=== PATIENT | male | born 1980 | race African-American/Black ===

== ENCOUNTER 2017-12-17 17:58 | Observation (INO) | payer OTHER ==
[~2017-12-17] VITALS: Ht 185.4 cm; Wt 136.5 kg
[~2017-12-17 17:58] MED LIST: AMIT25TA19 PO; ASPI81TA28 PO; CLC100X PO; CPR500 PO; EMOL1CRE TOP; GABA-1218 PO; GABA600T PO; HYDR50CA2 PO; HYG25 PO; INSDGI SQ; INSHI7030 SC; INSHRI SQ; LCTX PO; LOSA1TAB38 PO; LPR50 PO; MGNO400 PO; MRLP17 PO; MTR500 PO; NUTR-298 PO; OXYC-57 PO; POLY335040 PO; PRAV40TA PO; RISP1TAB3 PO; ZNTT/150 PO; [UNRECOGNIZED DRUG - CODE] PO
[2017-12-17] MEDS ORDERED: ASPIRIN 324 MG CHEW PO STA (18:31)
[2017-12-17] MEDS ORDERED: LABETALOL HCL IV 5 MG/ML 20ML IV STA ×2 (18:31→19:42)
[2017-12-17] MEDS ORDERED: LABE1TAB28 PO (18:34)
[2017-12-17] MEDS ORDERED: AMLO-110 PO (18:34)
[2017-12-17] MEDS ORDERED: GABA-113 PO (18:34)
[2017-12-17] MEDS ORDERED: INSU1INJ SC (18:34)
[2017-12-17] MEDS ORDERED: INSDGIPEN SC (18:34)
[2017-12-17] MEDS ORDERED: INSHRIE SQ (18:34)
[2017-12-17] MEDS ORDERED: GLUC-338 PO (18:34)
[2017-12-17] MEDS ORDERED: LTHSR/300 PO (18:34)
[2017-12-17] MEDS ORDERED: PRAV20TA PO (18:34)
[2017-12-17] MEDS ORDERED: DIPH50TA10 PO (18:34)
--- NOTE | 2017-12-17 18:55 | DIAGNOSTIC IMAGING REPORT ---
CHEST ONE VIEW PORTABLE CLINICAL HISTORY: Chest pain. Hypertension. COMPARISON STUDY: Chest radiograph December 10, 2013. FINDINGS: Patient is mildly rotated. Lung volumes are normal. There is no pneumothorax or pleural effusion. There is no evidence for pulmonary edema. There is borderline cardiomegaly. No consolidation is identified to suggest pneumonia. IMPRESSION: 1. No acute cardiopulmonary findings. 2. Borderline cardiomegaly. Electronically signed by: Dillan Christian M.D. 12/17/2017 6:54 PM Dictated Date/Time: 12/17/2017 6:53 PM
[2017-12-17 19:26] LABS: BASO % 0.2 %; BASO ABS # 0.02 K/uL (0-0.2); EOS % 3.1 %; EOS ABS # 0.29 K/uL (0-0.5); HEMATOCRIT 41.7 % (42-52); IG# 0.02 K/uL (0.00-0.02); LYMPH % 23.4 %; LYMPH ABS # 2.22 K/uL (1.2-3.4); MEAN CELL VOLUME 80.2 fL (80-100); MEAN CORPUSCULAR HEMOGLOBIN 26.9 pg (25-34); MEAN CORPUSCULAR HGB CONC 33.6 g/dl (32-36); MEAN PLATELET VOLUME 11.3 fL (7.4-10.4); MONO % 7.8 %; MONO ABS # 0.74 K/uL (0.11-0.59); NEUT % 65.3 %; NEUT ABS # 6.21 K/uL (1.4-6.5); PLATELET COUNT 164 K/uL (130-400); RED CELL DISTRIBUTION WIDTH CV 15.8 % (11.5-14.5); RED CELL DISTRIBUTION WIDTH SD 46.7 fL (36.4-46.3)
[2017-12-17 19:36] LABS: PTT PATIENT 28.9 SECONDS (21.0-31.0)
[2017-12-17 19:47] LABS: CALCIUM 8.4 mg/dl (8.5-10.1); CREATININE 0.82 mg/dl (0.60-1.40); POTASSIUM 3.4 mmol/L (3.5-5.1)
[2017-12-17] MEDS ORDERED: HydrALAZINE HCL 20 MG/ML VIAL ONE (20:05)
[2017-12-17] MEDS ORDERED: HydrALAZINE HCL 20 MG/ML VIAL IV. STA (20:06)
[2017-12-17] MEDS ORDERED: ALUMINUM/MAGNESIUM/SIMETH (MAALOX MAX) 30 ML UDC PO PRN (21:00)
[2017-12-17] MEDS ORDERED: MAGNESIUM HYDROXIDE SUSP 30 ML UDC PO PRN (21:00)
[2017-12-17] MEDS: INSULIN ASPART 100 UNITS/ML 3 ML PEN SC SCH (21:00)
[2017-12-17] MEDS ORDERED: ONDANSETRON INJ 2 MG/ML 2 ML VIAL IV PRN (21:00)
[2017-12-17] MEDS ORDERED: POLYETHYLENE (MIRALAX) 17 GM PACK PO PRN (21:00)
[2017-12-17] MEDS ORDERED: HydrALAZINE HCL 20 MG/ML VIAL IV. PRN (21:15)
--- NOTE | 2017-12-17 21:28 | History and Physical ---
History & Physical Date & Time of Service: Dec 17, 2017 at 21:14 Chief Complaint: Hypertension/ Sci [place] Primary Care Physician: Katja FLEMING History of Present Illness Source: patient 37 y/o M Hx HTN, IDDM, bipolar disease, tobacco use. Presents from a local correctional facility with a chief complaint of CP. The pain is described as sharp, intermittent. L central, nonradiating. He denies SOB, N/V or diaphoresis. On arrival to the ER, his SBP was noted to be over 210 and has been slow to respond to several IV lowering agents. The pt admits that over the past few days he has neglected to take his prescribed antihypertensives. He is CP-free at the time of admission. Initial EKG and trop do not support acute ischemia. Past Medical/Surgical History 1) HTN 2) DM II 3) Obese 4) Bipolar disease 5) Smoker Family History Heart disease Father due to [place] Mother alive - DM Social History Smokes 2 packs daily, distant history of heroin use, does not drink as he is currently incarcerated Smoking Status: Current Every Day Smoker Drug Use: none, other Marital Status: single Immunizations History of Influenza Vaccine: Unknown History of Tetanus Vaccine?: No History of Pneumococcal: No History of Hepatitis B Vaccine: Yes Allergies Coded Allergies: No Known Allergies (Unverified , 12/17/17) Home Medications Scheduled Amlodipine (Norvasc), 5 MG PO DAILY Diphenhydramine Hcl (Sleep) (Diphenhydramine Hcl), 100 MG PO HS Gabapentin (Neurontin), 600 MG PO BID Insulin Glargine (Lantus Solostar), 5 UNITS SC QPM Insulin Human Regular (Humulin R), 1 DOSE SQ SLIDING SCALE Insulin Isophan/Regular (Humulin 70/30), 5 UNIT SC QAM Labetalol (Normodyne), 200 MG PO BID [place] Carbonate ([place] Carbonate), 900 MG PO HS Pravastatin (Pravachol ), 40 MG PO HS Scheduled PRN Glucose-Vitamin C (Glucose), 1 TAB PO TID PRN for PRN Review of Systems Constitutional: No fever, No chills, No sweats Eyes: No worsening of vision ENT: No hearing loss, No nasal symptoms Respiratory: No cough, No sputum, No wheezing Cardiovascular: + chest pain Abdomen: No pain, No nausea, No vomiting Musculoskeletal: No joint pain Genitourinary - Male: No hematuria, No dysuria Neurologic: No memory loss, No paralysis, No weakness Psychiatric: No depression symptoms Endocrine: No fatigue Hematologic / Lymphatic: No abnormal bleeding/bruising Integumentary: No rash Allergic / Immunologic: No environmental allergies Physical Exam Vital Signs Date Time Temp Pulse Resp B/P (MAP) Pulse Ox O2 Delivery O2 Flow Rate FiO2 12/17/17 20:54 68 20 187/101 99 Room Air 12/17/17 20:20 71 20 212/117 99 Room Air 12/17/17 19:57 61 20 215/120 99 Room Air 12/17/17 19:06 62 20 198/118 99 Room Air 12/17/17 18:56 99 Room Air 12/17/17 18:13 99 Room Air 12/17/17 18:09 66 12/17/17 18:02 37.0 65 20 206/115 99 Room Air General Appearance: WD/WN, no apparent distress, + obese Head: normocephalic ENT: normal ENT inspection, pharynx normal Neck: supple, no JVD Respiratory/Chest: chest non-tender, lungs clear, normal breath sounds Cardiovascular: regular rate, rhythm, no edema Abdomen/GI: normal bowel sounds, non tender, soft Back: normal inspection, no CVA tenderness 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, no motor/sensory deficits, alert, oriented x 3 Skin: normal color, warm/dry, no rash Diagnostics Laboratory Results Results Past 24 Hours Test 12/17/17 19:00 12/17/17 19:19 Range/Units White Blood Count 9.50 4.8-10.8 K/uL Red Blood Count 5.20 4.7-6.1 M/uL Hemoglobin 14.0 14.0-18.0 g/dL Hematocrit 41.7 42-52 % Mean Corpuscular Volume 80.2 80-100 fL Mean Corpuscular Hemoglobin 26.9 25-34 pg Mean Corpuscular Hemoglobin Concent 33.6 32-36 g/dl Platelet Count 164 130-400 K/uL Mean Platelet Volume 11.3 7.4-10.4 fL Neutrophils (%) (Auto) 65.3 % Lymphocytes (%) (Auto) 23.4 % Monocytes (%) (Auto) 7.8 % Eosinophils (%) (Auto) 3.1 % Basophils (%) (Auto) 0.2 % Neutrophils # (Auto) 6.21 1.4-6.5 K/uL Lymphocytes # (Auto) 2.22 1.2-3.4 K/uL Monocytes # (Auto) 0.74 0.11-0.59 K/uL Eosinophils # (Auto) 0.29 0-0.5 K/uL Basophils # (Auto) 0.02 0-0.2 K/uL RDW Standard Deviation 46.7 36.4-46.3 fL RDW Coefficient of Variation 15.8 11.5-14.5 % Immature Granulocyte % (Auto) 0.2 % Immature Granulocyte # (Auto) 0.02 0.00-0.02 K/uL Prothrombin Time 10.8 9.0-12.0 SECONDS Prothromb Time International Ratio 1.0 0.9-1.1 Activated Partial Thromboplast Time 28.9 21.0-31.0 SECONDS Partial Thromboplastin Ratio 1.1 Sodium Level 138 136-145 mmol/L Potassium Level 3.4 3.5-5.1 mmol/L Chloride Level 105 98-107 mmol/L Carbon Dioxide Level 29 21-32 mmol/L Anion Gap 4.0 3-11 mmol/L Blood Urea Nitrogen 8 7-18 mg/dl Creatinine 0.82 0.60-1.40 mg/dl Est Creatinine Clear Calc Drug Dose 178.9 ml/min Estimated GFR () 130.0 Estimated GFR (Non- 112.2 BUN/Creatinine Ratio 9.4 10-20 Random Glucose 122 70-99 mg/dl Calcium Level 8.4 8.5-10.1 mg/dl Normal EKG Impression Assessment and Plan 37 y/o M Hx HTN, IDDM, bipolar disease, tobacco use. Presents from a local correctional facility with a chief complaint of CP. The pain is described as sharp, intermittent. L central, nonradiating. He denies SOB, N/V or diaphoresis. On arrival to the ER, his SBP was noted to be over 210 and has been slow to respond to several IV lowering agents. The pt admits that over the past few days he has neglected to take his prescribed antihypertensives. He is CP-free at the time of admission. Initial EKG and trop do not support acute ischemia. 1) HTN urgency - he has been provided with IV Labetalol, IV Hydralazine, NTG ointment and 10mg IV Lasix. We will monitor his progress on telemetry. He may need a low-dose diuretic added to his daily Norvasc and Labetalol upon DC although caution should be used as he does take Bagnell as well. 2) CP - serial enzymes requested - placed on ASA and remains on a Bblocker - we will check an AM lipid profile and place him on a Statin. Despite his age, he has several risk factors including DM, HTN, obesity, heavy smoking and a family history. 3) IDDM - placed on SS + Lantus 4) Bipolar - cont Bagnell Full code - Heparin prophylaxis Total time for this admit including review of labs, meds, imaging - discussion with pt and ER attending - 35 min Level of Care Telemetry Resuscitation Status FULL RESUSCITATION VTE Prophylaxis VTE Risk Assessment Done? Y/N: Yes Risk Level: Low Given or contraindicated: Unfractionated heparin SQ
[2017-12-17] MEDS ORDERED: GLUCOSE 10 TABS/TUBE PO PRN (21:30)
[2017-12-17] MEDS ORDERED: GLUCOSE 40% GEL 15 GM TUBE PO PRN (21:30)
[2017-12-17] MEDS ORDERED: GLUCAGON FOR INJ 1 MG VIAL SQ PRN (21:30)
[2017-12-17] MEDS ORDERED: DEXTROSE 50% 50 ML SYR IV PRN (21:30)
[2017-12-17 22:41] VITALS: BP 178/105; PULSE 64; TEMP 36.8; O2SAT 97; Ht 185.4 cm; Wt 136.5 kg
[2017-12-17] MEDS ORDERED: FUROSEMIDE INJ 10 MG in SYRINGE 0 ML IV ONE (23:00)
[2017-12-17] MEDS ORDERED: NITROGLYCERIN 0.4 MG/HR PATCH TD ONE (23:00)
[2017-12-17] MEDS ORDERED: POTASSIUM CHLORIDE PWD 20 MEQ PACK PO ONE (23:00)
[2017-12-17] MEDS ORDERED: MAGNESIUM OXIDE 400 MG TAB PO ONE (23:00)
[2017-12-17] MEDS: LABETALOL HCL 200 MG TAB PO SCH (23:12)
[2017-12-17] MEDS: PRAVASTATIN SOD 40 MG TAB PO SCH (23:12)
[2017-12-17] MEDS: LITHIUM CARBONATE SR 300 MG TAB (LITHOBID) PO SCH (23:12)
[2017-12-17] MEDS: GABAPENTIN 600 MG TAB PO SCH (23:13)
[2017-12-17] MEDS: INSULIN GLARGINE SOLOSTAR 100 UNITS/ML 3 ML PEN SC SCH (23:15)
[2017-12-17] MEDS: HEPARIN SOD 5000 UNIT/0.5 ML CARP SQ SCH (23:18)
--- NOTE | 2017-12-17 23:34 | EMERGENCY ROOM VISIT NOTE ---
History Report prepared by Elyssa: Renetta Moeller Under the Supervision of: Dr. Tito Henry M.D. First contact with patient: 18:19 Chief Complaint: HYPERTENSION Stated Complaint: HYPERTENSION/ SCI [place] History of Present Illness The patient is a 37 year old male who presents to the Emergency Room with complaints of Hypertension beginning last week. He went to get his blood pressure checked at the [facility] because he had "chest discomfort" described as tightness on his left side beginning at 1115 today and his blood pressure was extremely high. He states the discomfort felt "a little funny" and lasted for an hour and was alleviated by labetalol. He had no associated shortness of breath, nausea or lightheadedness. He had no diaphoresis. The patient reports that he also had a "slight" headache which is now gone. He also notes he has never had a heart attack. The patient reports he has a history of high blood pressure and is on medications, but has been taking them intermittently for the past week. He notes he drinks 7 cups of coffee daily and smokes about 2 packs a day. Source of History: patient Onset: last week Position: chest (left) Symptom Intensity: mild Quality: other (tightness) Timing: resolved Associated Symptoms: + headache, No diaphoresis, No SOB, No nausea Review of Systems See HPI for pertinent positives & negatives. A total of 10 systems reviewed and were otherwise negative. Past Medical & Surgical Medical Problems: (1) Chest pain (2) Foot ulcer (3) Hepatitis (4) Hyperlipidemia (5) Hypertensive urgency Surgical Problems: (1) H/O hernia repair Family History Heart disease Social History Smoking Status: Current Every Day Smoker Drug Use: none, other Marital Status: single Housing Status: other Current/Historical Medications Scheduled Amlodipine (Norvasc), 5 MG PO DAILY Diphenhydramine Hcl (Sleep) (Diphenhydramine Hcl), 100 MG PO HS Gabapentin (Neurontin), 600 MG PO BID Insulin Glargine (Lantus Solostar), 5 UNITS SC QPM Insulin Human Regular (Humulin R), 1 DOSE SQ SLIDING SCALE Insulin Isophan/Regular (Humulin 70/30), 5 UNIT SC QAM Labetalol (Normodyne), 200 MG PO BID [place] Carbonate ([place] Carbonate), 900 MG PO HS Pravastatin (Pravachol ), 40 MG PO HS Scheduled PRN Glucose-Vitamin C (Glucose), 1 TAB PO TID PRN for PRN Allergies Coded Allergies: No Known Allergies (Unverified , 12/17/17) Physical Exam Vital Signs Date Time Temp Pulse Resp B/P (MAP) Pulse Ox O2 Delivery O2 Flow Rate FiO2 12/17/17 20:54 68 20 187/101 99 Room Air 12/17/17 20:20 71 20 212/117 99 Room Air 12/17/17 19:57 61 20 215/120 99 Room Air 12/17/17 19:06 62 20 198/118 99 Room Air 12/17/17 18:56 99 Room Air 12/17/17 18:13 99 Room Air 12/17/17 18:09 66 12/17/17 18:02 37.0 65 20 206/115 99 Room Air Physical Exam Constitutional: Vital signs reviewed. Eyes: Pupils are equal round reactive to light. Conjunctiva are noninjected. ENT: Pharynx is clear without erythema or exudate. Mucous membranes are moist. Neck supple without meningeal signs. Respiratory: Clear to auscultation bilaterally. Breath sounds are equal bilaterally. Cardiovascular: Regular rate and rhythm. No rubs or gallops. GI: Soft, nondistended and nontender. Bowel sounds are present. Musculoskeletal: No peripheral edema. No lower extremity tenderness. Integumentary: No cyanosis. Neurological: The patient is awake and alert. No focal deficits. Psychiatric: Normal affect. Medical Decision & Procedures ER Provider Diagnostic Interpretation: Radiology results as stated below per my review and the radiologist's interpretation: CHEST ONE VIEW PORTABLE CLINICAL HISTORY: Chest pain. Hypertension. COMPARISON STUDY: Chest radiograph December 10, 2013. FINDINGS: Patient is mildly rotated. Lung volumes are normal. There is no pneumothorax or pleural effusion. There is no evidence for pulmonary edema. There is borderline cardiomegaly. No consolidation is identified to suggest pneumonia. IMPRESSION: 1. No acute cardiopulmonary findings. 2. Borderline cardiomegaly. Electronically signed by: Dillan Christian M.D. 12/17/2017 6:54 PM Dictated Date/Time: 12/17/2017 6:53 PM Laboratory Results 12/17/17 19:19 Red Blood Count 5.20, Mean Corpuscular Volume 80.2, Mean Corpuscular Hemoglobin 26.9, Mean Corpuscular Hemoglobin Concent 33.6, Mean Platelet Volume 11.3, Neutrophils (%) (Auto) 65.3, Lymphocytes (%) (Auto) 23.4, Monocytes (%) (Auto) 7.8, Eosinophils (%) (Auto) 3.1, Basophils (%) (Auto) 0.2, Neutrophils # (Auto) 6.21, Lymphocytes # (Auto) 2.22, Monocytes # (Auto) 0.74, Eosinophils # (Auto) 0.29, Basophils # (Auto) 0.02 12/17/17 19:19 Test 12/17/17 19:00 12/17/17 19:19 Urine Opiates Screen NEG (NEG) Urine Methadone, Qualitative NEG (NEG) Urine Barbiturates NEG (NEG) Urine Phencyclidine (PCP) Level NEG (NEG) Ur Amphetamine/Methamphetamine NEG (NEG) MDMA (Ecstasy) Screen NEG (NEG) Urine Benzodiazepines Screen NEG (NEG) Urine Cocaine Metabolite NEG (NEG) Urine Marijuana (THC) NEG (NEG) White Blood Count 9.50 K/uL (4.8-10.8) Red Blood Count 5.20 M/uL (4.7-6.1) Hemoglobin 14.0 g/dL (14.0-18.0) Hematocrit 41.7 % (42-52) Mean Corpuscular Volume 80.2 fL (80-100) Mean Corpuscular Hemoglobin 26.9 pg (25-34) Mean Corpuscular Hemoglobin Concent 33.6 g/dl (32-36) Platelet Count 164 K/uL (130-400) Mean Platelet Volume 11.3 fL (7.4-10.4) Neutrophils (%) (Auto) 65.3 % Lymphocytes (%) (Auto) 23.4 % Monocytes (%) (Auto) 7.8 % Eosinophils (%) (Auto) 3.1 % Basophils (%) (Auto) 0.2 % Neutrophils # (Auto) 6.21 K/uL (1.4-6.5) Lymphocytes # (Auto) 2.22 K/uL (1.2-3.4) Monocytes # (Auto) 0.74 K/uL (0.11-0.59) Eosinophils # (Auto) 0.29 K/uL (0-0.5) Basophils # (Auto) 0.02 K/uL (0-0.2) RDW Standard Deviation 46.7 fL (36.4-46.3) RDW Coefficient of Variation 15.8 % (11.5-14.5) Immature Granulocyte % (Auto) 0.2 % Immature Granulocyte # (Auto) 0.02 K/uL (0.00-0.02) Prothrombin Time 10.8 SECONDS (9.0-12.0) Prothromb Time International Ratio 1.0 (0.9-1.1) Activated Partial Thromboplast Time 28.9 SECONDS (21.0-31.0) Partial Thromboplastin Ratio 1.1 Anion Gap 4.0 mmol/L (3-11) Est Creatinine Clear Calc Drug Dose 178.9 ml/min Estimated GFR () 130.0 Estimated GFR (Non- 112.2 BUN/Creatinine Ratio 9.4 (10-20) Calcium Level 8.4 mg/dl (8.5-10.1) Laboratory results as reviewed by me. Medications Administered Medications (Trade) Dose Ordered Sig/Travis Route Start Time Stop Time Status Last Admin Dose Admin Aspirin (Aspirin Chew) 324 mg NOW STAT PO 12/17/17 18:31 12/17/17 18:32 DC 12/17/17 19:05 324 MG Labetalol HCl (Normodyne IV) 10 mg NOW STAT IV 12/17/17 18:31 12/17/17 18:32 DC 12/17/17 19:03 10 MG Labetalol HCl (Normodyne IV) 10 mg NOW STAT IV 12/17/17 19:42 12/17/17 19:44 DC 12/17/17 19:55 10 MG Hydralazine HCl (HydrALAZINE INJ) 10 mg NOW STAT IV. 12/17/17 20:06 12/17/17 20:07 DC 12/17/17 20:12 10 MG ECG Indication: chest pain Rate (beats per minute): 60 Rhythm: normal sinus Findings: T-wave inversion (Lateral), ST elevation, no ectopy Comparison ECG Date: no prior available Change: Patient's electrocardiogram per my interpretation. ED Course 1824: The patient was evaluated in room B10. A complete history and physical exam was performed. 1830: Ordered Labetalol HCl 10 mg IV Aspirin 324 mg PO 1939: Repeat EKG was performed. The patient's ECG is as follows. Sinus bradycardia, rate is 59, less motion artifact. No acute ischemic changes, no ectopy. No change from prior ECG. Patient's electrocardiogram was interpreted by me. 1939: I checked on the patient at this time. His blood pressure is 207 systolic and he is not complaining of any chest pain. His Troponin is .1941: Ordered Labetalol 10 mg IV 2003: I checked on the patient and his blood pressure is still high. 2005: Hydralazine HCl 10 mg IV 2042: I checked the patient at this time. He has no symptoms but is still severely hypertensive. The patient will be further evaluated. Medical Decision This is a 37-year-old male presents with high blood pressure and chest discomfort. Differential diagnosis includes medication noncompliance, hypertensive urgency, unstable angina, CA, pleurisy, anxiety. I did perform a limited focused review of portions of the patient's old chart on the electronic medical record. The patient has had no recent pertinent visits to this hospital. I did evaluate the patient as noted above. The patient is presenting with poorly controlled high blood pressure. He states he takes his medications intermittently. He was given labetalol and Norvasc today and had no improvement of his significantly elevated blood pressure. He also developed chest discomfort which she described as a tightness to the left side of his chest. He is a heavy smoker and states that his father of a heart attack at age 55. His chest pain is currently resolved. IV access was established. The patient was placed on a continuous monitoring specialist. I did order and personally review the patient's 12-lead EKG and chest x-ray as described above. His initial EKG showed questionable T-wave inversions laterally. There was significant motion artifact and so I did repeat this and no T-wave inversions are noted on the second EKG. I did order and review the patient's blood work as noted in the electronic medical record. Troponin is negative. I did treat patient with IV labetalol 2. He was also given hydralazine 10 mg IV. He had minimal improvement of his blood pressure. Given his symptoms and poorly controlled blood pressure I did recommend hospitalization for further care. I did discuss the case with the case work aide. The hospitalist will see the patient. Medication Reconcilliation Current Medication List: was personally reviewed by me Blood Pressure Screening Patient's blood pressure: Elevated blood pressure Blood pressure disposition: Elevated BP felt to be situational Impression Primary Impression: Left sided chest pain Additional Impression: Hypertensive emergency Scribe Attestation The scribe's documentation has been prepared under my direct and personally reviewed by me in its entirety. I confirm that the note above accurately reflects all work, treatment, procedures, and medical decision making performed by me. Departure Information Dispostion Being Evaluated By Hospitalist Referrals Katja FLEMING (PCP) Forms HOME CARE DOCUMENTATION FORM, IMPORTANT VISIT INFORMATION, WORK / SCHOOL INSTRUCTIONS Patient Instructions My [facility] Health Problem Qualifiers
[2017-12-17 23:51] VITALS: BP 181/108; PULSE 73; TEMP 36.5; O2SAT 99
[2017-12-18] MEDS ORDERED: IV FLUIDS COMPLETED PRN (00:30)
[2017-12-18 03:39] VITALS: BP 136/78; PULSE 65; TEMP 36.6; O2SAT 99
[2017-12-18 07:29] LABS: BLOOD UREA NITROGEN 10 mg/dl (7-18); CALCIUM 8.4 mg/dl (8.5-10.1); CARBON DIOXIDE 28 mmol/L (21-32); CREATININE 0.84 mg/dl (0.60-1.40); GLUCOSE 172 mg/dl (70-99); POTASSIUM 3.4 mmol/L (3.5-5.1); SODIUM 143 mmol/L (136-145)
[2017-12-18] MEDS ORDERED: PNEUMOCOCCAL ADMINISTRATION CHARGE ONE (08:00)
[2017-12-18] MEDS ORDERED: PNEUMOCOCCAL POLYSACCHARIDES 25 MCG/0.5 ML VIAL/SYR IM. ONE (08:00)
[2017-12-18 08:07] VITALS: BP 158/82; PULSE 70; TEMP 36.6; O2SAT 99
[2017-12-18] MEDS: GABAPENTIN 600 MG TAB PO SCH ×2 (08:49→21:29)
[2017-12-18] MEDS: LABETALOL HCL 200 MG TAB PO SCH ×2 (08:49→21:29)
[2017-12-18] MEDS: ASPIRIN 81 MG ECTAB PO SCH (08:49)
[2017-12-18] MEDS: HEPARIN SOD 5000 UNIT/0.5 ML CARP SQ SCH ×3 (08:56→21:37)
[2017-12-18] MEDS: INSULIN ASPART 100 UNITS/ML 3 ML PEN SC SCH ×4 (08:56→21:00)
[2017-12-18] MEDS ORDERED: AMLODIPINE BESYLATE 5 MG TAB PO SCH (09:00)
[2017-12-18 11:50] VITALS: BP 157/89; PULSE 68; TEMP 36.6; O2SAT 99
[2017-12-18 15:43] VITALS: BP 150/73; PULSE 66; TEMP 36.8; O2SAT 98
--- NOTE | 2017-12-18 17:58 | Family Medicine Progress Note ---
Progress Note Date of Service Dec 18, 2017. Subjective Pt evaluation today including: conversation w/ patient, physical exam, chart review, lab review, review of inpatient medication list Pain: Patient reports minimal chest discomfort/tightness PO Intake: Tolerating well, requests regular diet for more food Voiding: no voiding problems Patient reports he is feeling better than he was last evening. He is anxious to leave the hospital. He reports minimal chest discomfort/pain Constitutional: No fever, No chills, No sweats, No weight loss, No weakness , No fatigue, No problem reported Respiratory: No cough, No sputum, No wheezing, No shortness of breath, No dyspnea on exertion, No dyspnea at rest, No hemoptysis, No problem reported Cardiovascular: + chest pain, No orthopnea, No PND, No edema, No claudication, No palpitations, No problem reported Abdomen: No pain, No nausea, No vomiting, No diarrhea, No constipation, No GI bleeding, No problem reported Medications Current Inpatient Medications Medications (Trade) Dose Ordered Sig/Travis Route Start Time Stop Time Status Last Admin Dose Admin Amlodipine Besylate (Norvasc Tab) 5 mg DAILY PO 12/18/17 09:00 01/17/18 08:59 12/18/17 08:48 5 MG Gabapentin (Neurontin Tab) 600 mg BID PO 12/17/17 21:00 01/16/18 20:59 12/18/17 08:49 600 MG Insulin Glargine (Lantus Solostar Pen) 5 units QPM SC 12/17/17 21:00 01/16/18 20:59 12/17/17 23:15 5 UNITS Labetalol HCl (Normodyne Tab) 200 mg BID PO 12/17/17 21:00 01/16/18 20:59 12/18/17 08:49 200 MG Pravastatin Sodium (Pravachol Tab) 40 mg HS PO 12/17/17 21:00 01/16/18 20:59 12/17/17 23:12 40 MG Diphenhydramine HCl (Benadryl Cap) 100 mg HS PO 12/17/17 21:00 01/16/18 20:59 12/17/17 23:13 100 MG Miner Carbonate (Lithobid Tab) 900 mg HS PO 12/17/17 21:00 01/16/18 20:59 12/17/17 23:12 900 MG Insulin Aspart (novoLOG ASPART) SLIDING SCALE G... ACHS SC 12/17/17 21:00 01/16/18 20:59 12/18/17 08:56 1 UNITS Heparin Sodium (Porcine) (Heparin Sq 5000 Unit/0.5ml) 5,000 unit Q8H SQ 12/17/17 23:00 01/16/18 22:59 12/18/17 08:56 5,000 UNIT Acetaminophen (Tylenol Tab) 650 mg Q4H PRN PO 12/17/17 21:00 01/16/18 20:59 Al Hydrox/Mg Hydrox/Simethicone (Maalox Max Susp) 15 ml Q4H PRN PO 12/17/17 21:00 01/16/18 20:59 Magnesium Hydroxide (Milk Of Magnesia Susp) 30 ml Q12H PRN PO 12/17/17 21:00 01/16/18 20:59 Ondansetron HCl (Zofran Inj) 4 mg Q6H PRN IV 12/17/17 21:00 01/16/18 20:59 Aspirin (Ecotrin Tab) 81 mg QAM PO 12/18/17 09:00 01/17/18 08:59 12/18/17 08:49 81 MG Polyethylene (Miralax Powder Packet) 17 gm DAILY PRN PO 12/17/17 21:00 01/16/18 20:59 Hydralazine HCl (HydrALAZINE INJ) 5 mg Q6H PRN IV. 12/17/17 21:15 01/16/18 21:14 Glucose (Glucose 40% Gel) 15-30 GRAMS 15 GRAMS... UD PRN PO 12/17/17 21:30 01/16/18 21:29 Glucose (Glucose Chew Tab) 4-8 Tablets 4 Tabl... UD PRN PO 12/17/17 21:30 01/16/18 21:29 Dextrose (Dextrose 50% 50ML Syringe) 25-50ML OF 50% DW IV FOR... UD PRN IV 12/17/17 21:30 01/16/18 21:29 Glucagon (Glucagon Inj) 1 mg UD PRN SQ 12/17/17 21:30 01/16/18 21:29 Miscellaneous (Iv Fluids Completed) 1 ea PRN PRN N/A 12/18/17 00:30 12/18/18 00:29 Objective Vital Signs Date Time Temp Pulse Resp B/P (MAP) Pulse Ox O2 Delivery O2 Flow Rate FiO2 12/18/17 08:07 36.6 70 16 158/82 (107) 99 12/18/17 08:00 Room Air 12/18/17 04:09 Room Air 12/18/17 03:39 36.6 65 18 136/78 (97) 99 Room Air 12/18/17 00:23 Room Air 12/17/17 23:51 36.5 73 20 181/108 (132) 99 Room Air 12/17/17 22:41 36.8 64 20 178/105 97 Room Air 12/17/17 22:11 178/95 12/17/17 21:43 195/98 12/17/17 21:30 68 18 191/108 98 Room Air 12/17/17 20:54 68 20 187/101 99 Room Air 12/17/17 20:20 71 20 212/117 99 Room Air 12/17/17 19:57 61 20 215/120 99 Room Air 12/17/17 19:06 62 20 198/118 99 Room Air 12/17/17 18:56 99 Room Air 12/17/17 18:13 99 Room Air 12/17/17 18:09 66 12/17/17 18:02 37.0 65 20 206/115 99 Room Air Physical Exam General Appearance: WD/WN, no apparent distress Eyes: normal inspection, PERRL, EOMI, sclerae normal ENT: hearing grossly normal, pharynx normal Neck: supple, no adenopathy, no JVD, no carotid bruits, trachea midline Respiratory/Chest: chest non-tender, lungs clear, normal breath sounds, no respiratory distress, no accessory muscle use Cardiovascular: regular rate, rhythm, no edema, no gallop, no JVD, no murmur Abdomen: normal bowel sounds, non tender, soft, no organomegaly, no pulsatile mass Extremities: normal range of motion, non-tender, normal inspection, no pedal edema Neurologic/Psychiatric: cash specialist II-XII nml as tested, no motor/sensory deficits, alert, normal mood/affect, oriented x 3 Skin: normal color, warm/dry, no rash Laboratory Results Last Resulted 12/17/17 19:19 Red Blood Count 5.20, Mean Corpuscular Volume 80.2, Mean Corpuscular Hemoglobin 26.9, Mean Corpuscular Hemoglobin Concent 33.6, Mean Platelet Volume 11.3, Neutrophils (%) (Auto) 65.3, Lymphocytes (%) (Auto) 23.4, Monocytes (%) (Auto) 7.8, Eosinophils (%) (Auto) 3.1, Basophils (%) (Auto) 0.2, Neutrophils # (Auto) 6.21, Lymphocytes # (Auto) 2.22, Monocytes # (Auto) 0.74, Eosinophils # (Auto) 0.29, Basophils # (Auto) 0.02 Last Resulted 12/18/17 06:13 Past 24 Hours Test 12/17/17 19:19 12/17/17 22:52 12/18/17 06:13 Range/Units Prothromb Time International Ratio 1.0 0.9-1.1 Prothrombin Time 10.8 9.0-12.0 SECONDS Troponin I < 0.015 < 0.015 0-0.045 ng/ml Assessment and Plan 37 y/o M PMH HTN, IDDM, bipolar disease, tobacco use (2ppd). Presents from a [facility] facility with a chief complaint of CP and hypertension. The pain is described as sharp, intermittent, located L central chest, nonradiating. He denies SOB, N/V or diaphoresis. On arrival to the ER, his SBP was noted to be over 210 and had been slow to respond to several IV lowering agents. The pt admits that over the past few days he has neglected to take his prescribed antihypertensives. He is currently c/o minimal chest discomfort. Initial EKG and serial trops do not support acute ischemia. HTN urgency Taking norvasc 5 and labetolol 200 BID as outpatient Unsure why with Hx of DM he is not on WESLEY-i. Consider adding. BPs have been running 150-160 after initial response overnight. Increased norvasc to 10 daily IV Labetalol, IV Hydralazine, NTG ointment and 10mg IV Lasix given last sweatband flanger his progress on telemetry. He may need a low-dose diuretic added to his daily Norvasc and Labetalol upon DC although caution should be used as he does take Miner as well. Consider WESLEY -i as above Consider cardio consult prn Chest pain Serial enzymes negative Placed on ASA and remains on a Bblocker AM lipid profile 40 mg pravastatin Despite his age, he has several risk factors including race, DM, HTN, obesity, heavy smoking and a family history. Stress echo to be performed tomorrow Consider cardio consult prn IDDM placed on SS + Lantus A1C check Patient refuses AHA and Diabetic diet; considering regular diet at snf, and reported good control of DM, regular diet ordered Patient has reportedly done well with diabetes in the last years due to being in snf; has lost 100 pounds, cut A1C from 15 to 6 (per pt) Bipolar cont Miner 900 Code: Full code DVTP: Heparin Dispo: Tele Resident Physician Supervision Note: I interviewed and examined the patient. Discussed with the resident and agree with findings and plan as documented in the note. Any exceptions or clarifications are listed here: IMPRESSION 1) Hypertensive emergency (HTN + chest pain) PLAN 1) Additional 5 Norvasc tonight, then 10 mg in AM 2) Consider WESLEY-I (verify with snf if he has an allergy or has been on WESLEY before) 3) Stress Echo in AM if we can control the BP Documented By: Grey Calvert Resident Tracking Resident Involvement: Resident Care Provided Care Provided: Adult Hospital Medicine
[2017-12-18] MEDS ORDERED: AMLODIPINE BESYLATE 5 MG TAB PO ONE (18:00)
[2017-12-18] MEDS: ACETAMINOPHEN 325 MG TAB PO PRN (18:27)
[2017-12-18 19:37] VITALS: BP 172/88; PULSE 65; TEMP 37; O2SAT 98
[2017-12-18] MEDS: PRAVASTATIN SOD 40 MG TAB PO SCH (21:29)
[2017-12-18] MEDS: LITHIUM CARBONATE SR 300 MG TAB (LITHOBID) PO SCH (21:31)
[2017-12-18] MEDS: INSULIN GLARGINE SOLOSTAR 100 UNITS/ML 3 ML PEN SC SCH (21:36)
[2017-12-19 00:02] VITALS: BP 155/85; PULSE 64; TEMP 37; O2SAT 97
[2017-12-19 05:07] VITALS: BP 155/85; PULSE 60; TEMP 36.5; O2SAT 99
[2017-12-19] MEDS: INSULIN ASPART 100 UNITS/ML 3 ML PEN SC SCH ×3 (07:00→16:15)
[2017-12-19 07:38] VITALS: BP 180/93; PULSE 67; TEMP 37.2; O2SAT 99
[2017-12-19] MEDS ORDERED: AMLODIPINE BESYLATE 5 MG TAB PO SCH (09:00)
[2017-12-19 09:17] LABS: HEMOGLOBIN A1C 6.9 % (4.5-5.6)
[2017-12-19] MEDS: ASPIRIN 81 MG ECTAB PO SCH (11:01)
[2017-12-19] MEDS: LABETALOL HCL 200 MG TAB PO SCH (11:01)
[2017-12-19] MEDS: GABAPENTIN 600 MG TAB PO SCH (11:01)
[2017-12-19 11:35] VITALS: BP 174/95; PULSE 58; TEMP 36.8; O2SAT 100
[2017-12-19 12:00] LABS: CALCIUM 8.6 mg/dl (8.5-10.1); CREATININE 0.89 mg/dl (0.60-1.40); POTASSIUM 3.6 mmol/L (3.5-5.1)
[2017-12-19] MEDS ORDERED: SPIRONOLACTONE 25 MG TAB PO ONE (13:00)
--- NOTE | 2017-12-19 13:16 | ECHOCARDIOGRAM REPORT ---
*NOTICE TO RECEIVING CONSTITUTION PARTY AGENCY This information is strictly Confidential and protected under [place] law. [place] law prohibits you from making any further disclosure of this information unless further disclosure is expressly permitted by the written consent of the person to whom it pertains or is authorized by law. A general authorization for the release of medical or other information is not sufficient for this purpose. Hospital accepts no responsibility if the information is made available to any other person, INCLUDING THE PATIENT. Interpretation Summary * Name: LEV BUCKNER [id number] Study Date: 12/19/2017 09:19 AM BP: 183/106 mmHg * Patient Location: C.2T\S\S230\S\2 HR: 55 * : 1980 (M/d/yyyy) Gender: Male Height: 72 in * Age: 37 yrs Ethnicity: AA Weight: 297 lb * Ordering Physician: Vivian Kaplan * Referring Physician: Katja FLEMING * Performed By: Annmarie Pace RDCS * * Reason For Study: Chest Pain * BSA: 2.5 m2 * -- Conclusions -- * Left ventricular systolic function is normal. * No regional wall motion abnormalities noted. * Ejection Fraction = 55-60%. * There is mild concentric left ventricular hypertrophy. * There is mild mitral regurgitation. Procedure Details * A complete two-dimensional transthoracic echocardiogram was performed (2D, M-mode, Doppler and color flow Doppler). Left Ventricle * The left ventricle is normal in size. * There is mild concentric left ventricular hypertrophy. * Ejection Fraction = 55-60%. * Left ventricular systolic function is normal. * No regional wall motion abnormalities noted. Right Ventricle * The right ventricle is grossly normal size. * The right ventricular systolic function is normal as assessed by tricuspid annular plane systolic excursion (TAPSE) (normal >1.5 cm). Atria * The left atrium is moderately dilated. * Borderline right atrial enlargement. * No ASD detected; PFO is not assessed. Mitral Valve * The mitral valve is grossly normal. * There is no mitral valve stenosis. * There is mild mitral regurgitation. Tricuspid Valve * The tricuspid valve is not well visualized, but is grossly normal. * There is no tricuspid stenosis. * There is trace tricuspid regurgitation. Aortic Valve * The aortic valve is normal in structure and function. * Aortic stenosis is absent. * No aortic regurgitation is present. Pulmonic Valve * The pulmonary valve is not well seen, but the Doppler examination is normal without significant regurgitation or stenosis. Great Vessels * Borderline aortic root dilatation. * The pulmonary artery is not well visualized, but is probably normal size. Pericardium/Pleural * There is no pericardial effusion. Great Vessels * Normal inferior vena cava size and collapsability with sniff indicates a normal right atrial pressure of 3 mmHg Left Ventricular Diastolic Function * Grade I diastolic dysfunction, (abnormal relaxation pattern). MMode 2D Measurements and Calculations IVSd 1.4 cm IVSs 1.6 cm LVIDd 5.7 cm LVIDs 4.0 cm LVPWd 1.4 cm LVPWs 2.2 cm IVS/LVPW 0.99 FS 30.9 % EDV(Teich) 162.1 ml ESV(Teich) 68.5 ml EF(Teich) 57.8 % EDV(cubed) 188.4 ml ESV(cubed) 62.2 ml EF(cubed) 67.0 % % IVS thick 14.0 % % LVPW thick 61.2 % LV mass(C)d 352.4 grams LV mass(C)dI 139.8 grams/m\S\2 LV mass(C)s 336.9 grams LV mass(C)sI 133.7 grams/m\S\2 SV(Teich) 93.7 ml SI(Teich) 37.2 ml/m\S\2 SV(cubed) 126.1 ml SI(cubed) 50.0 ml/m\S\2 Ao root diam 3.3 cm Ao root area 8.8 cm\S\2 ACS 2.1 cm LA dimension 5.0 cm LA/Ao 1.5 LVAd ap4 46.7 cm\S\2 LVLd ap4 10.6 cm EDV(MOD-sp4) 176.4 ml EDV(sp4-el) 175.1 ml LVAs ap4 28.1 cm\S\2 LVLs ap4 8.8 cm ESV(MOD-sp4) 81.4 ml ESV(sp4-el) 75.8 ml EF(MOD-sp4) 53.9 % EF(sp4-el) 56.7 % LVAd ap2 43.8 cm\S\2 LVLd ap2 9.8 cm EDV(MOD-sp2) 176.0 ml EDV(sp2-el) 166.4 ml LVAs ap2 27.5 cm\S\2 LVLs ap2 8.9 cm ESV(MOD-sp2) 80.8 ml ESV(sp2-el) 72.6 ml EF(MOD-sp2) 54.1 % EF(sp2-el) 56.4 % LVLd %diff -7.78 % EDV(MOD-bp) 182.0 ml LVLs %diff 0.61 % ESV(MOD-bp) 79.9 ml EF(MOD-bp) 56.1 % SV(MOD-sp4) 95.0 ml SI(MOD-sp4) 37.7 ml/m\S\2 SV(MOD-sp2) 95.2 ml SI(MOD-sp2) 37.8 ml/m\S\2 SV(MOD-bp) 102.2 ml SI(MOD-bp) 40.5 ml/m\S\2 SV(sp4-el) 99.3 ml SI(sp4-el) 39.4 ml/m\S\2 SV(sp2-el) 93.8 ml SI(sp2-el) 37.2 ml/m\S\2 Doppler Measurements and Calculations MV E max joann 83.4 cm/sec MV A max joann 50.0 cm/sec MV E/A 1.7 MV dec time 0.19 sec Ao V2 max 135.2 cm/sec Ao max PG 7.3 mmHg Ao max PG (full) 3.1 mmHg LV V1 max PG 4.2 mmHg LV V1 max 102.1 cm/sec PA V2 max 100.1 cm/sec PA max PG 4.0 mmHg TR max joann 202.5 cm/sec
[2017-12-19] MEDS ORDERED: SPR25 PO (13:34)
--- NOTE | 2017-12-19 13:48 | Discharge Instructions ---
Discharge Instructions Date of Service Dec 19, 2017. Admission Reason for Admission: Chest Pain, Hypertensive Urgency Discharge Discharge Diagnosis / Problem: Hypertensive urgency Discharge Goals Goal(s): Improve function, Increase independence, Improve disease control Activity Recommendations Activity Limitations: per Instructions/Follow-up section . Instructions / Follow-Up Instructions / Follow-Up Mr. Cote is a 37 yo male that came to [facility] following a sharp increase in blood pressure. At arrival, he was found to have blood pressures >200/100 and complained of chest pain. The high pressures were treated with IV labetalol and hydralazine. The course of his hospitalization was directed at monitoring his blood pressure and determining if he suffered any end organ damage as a result of the high pressures. On exam, the patient did not exhibit any focal neuro defects. EKG and serial cardiac enzymes were unremarkable. Troponin was slightly elevated in the ED, but trend down on subsequent check. In addition, echocardiogram testing was unremarkable, making cardiac complications from this episode of high blood pressure unlikely. After careful history, it was determined that the patient has been noncompliant with blood pressure medications. In addition to restarting his home medications, the patient is being sent home with a script for Spironolactone 25 mg once daily. Please monitor the patient's pressures and adjust medications accordingly. Current Hospital Diet Patient's current hospital diet: Diabetes Type 2 Diet Discharge Diet Recommended Diet: Diabetes Type 2 Diet Pending Studies Studies pending at discharge: no Laboratory Results Hemoglobin A1c Test 12/19/17 05:19 Range/Units Estimated Average Glucose 151 mg/dl Hemoglobin A1c 6.9 H 4.5-5.6 % Lipid Panel Test 12/19/17 05:19 Range/Units Triglycerides Level 82 0-150 mg/dl Cholesterol Level 130 0-200 mg/dl HDL Cholesterol 40 mg/dl Cholesterol/HDL Ratio 3.3 LDL Cholesterol, Calculated 74 mg/dl Medical Emergencies . Who to Call and When: Medical Emergencies: If at any time you feel your situation is an emergency, please call 911 immediately. . Non-Emergent Contact Non-Emergency issues call your: Primary Care Provider . . "Provider Documentation" section prepared by Farhan Melendez. . VTE Core Measure Inpt VTE Proph given/why not?: Unfractionated heparin SQ
[2017-12-19] MEDS: ACETAMINOPHEN 325 MG TAB PO PRN (15:39)
[2017-12-19 15:50] VITALS: BP 175/90; PULSE 65; TEMP 37.1; O2SAT 98
[2017-12-19 16:00] VITALS: O2SAT 98
--- NOTE | 2017-12-19 17:21 | Discharge Summary ---
Discharge Summary Date of Service Dec 19, 2017. Discharge Summary Admission Date: Dec 17, 2017 at 20:57 Discharge Date: Dec 19, 2017 Discharge Disposition: Home Principal Diagnosis: Hypertensive urgency Immunizations: Have You Had Influenza Vaccine: Unknown History of Tetanus Vaccine?: No History of Pneumococcal: No History of Hepatitis B Vaccine: Yes Discharge Exam Review of Systems: Constitutional: No fever, No chills, No sweats Respiratory: No cough, No sputum, No wheezing Cardiovascular: No chest pain, No orthopnea Abdomen: No pain, No nausea, No vomiting, No diarrhea Genitourinary - Female: No dysuria Genitourinary - Male: No hematuria Physical Exam: General Appearance: WD/WN, no apparent distress Respiratory/Chest: chest non-tender, lungs clear, normal breath sounds, no respiratory distress Cardiovascular: regular rate, rhythm, no edema, no gallop, no murmur Neurologic/Psychiatric: alert, normal mood/affect, oriented x 3 Skin: normal color, warm/dry, no rash Hospital Course Mr. Cote is a 37 yo male that came to [facility] following a sharp increase in blood pressure. At arrival, he was found to have blood pressures >200/100 and complained of chest pain. The high pressures were treated with IV labetalol and hydralazine. The course of his hospitalization was directed at monitoring his blood pressure and determining if he suffered any end organ damage as a result of the high pressures. On exam, the patient did not exhibit any focal neuro defects. EKG and serial cardiac enzymes were unremarkable. Troponin was slightly elevated in the ED, but trend down on subsequent check. In addition, echocardiogram testing was unremarkable, making cardiac complications from this episode of high blood pressure unlikely. After careful history, it was determined that the patient has been noncompliant with blood pressure medications. In addition to restarting his home medications, the patient is being sent home with a script for Spironolactone 25 mg once daily. Please monitor the patient's pressures and adjust medications accordingly. Total Time Spent: Less than 30 minutes This includes examination of the patient, discharge planning, medication reconciliation, and communication with other providers. Discharge Instructions Please refer to the electronic Patient Visit Report (Discharge Instructions) for additional information. Additional Copies To [email or web address]
[2017-12-20] MEDS ORDERED: SPIRONOLACTONE 25 MG TAB PO SCH (09:00)
== END 2017-12-19 18:10 ==
LOC: EDBD 17:58 → C.EDB 18:00 → C.2T 20:57 → ENRESERV 21:04 → C.2T 12-18 14:16
PROVIDERS: ADMIT Internal Medicine; ATTEND Internal Medicine
DX: I10 Essential (primary) hypertension (principal); E78.5 Hyperlipidemia, unspecified; E11.9 Type 2 diabetes mellitus without complications; F31.9 Bipolar disorder, unspecified; E66.9 Obesity, unspecified; F17.200 Nicotine dependence, unspecified, uncomplicated; Z98.890 Other specified postprocedural states; Z79.4 Long term (current) use of insulin

== ENCOUNTER 2024-02-14 15:40 | Inpatient (IN) ==
[2024-02-14 17:28] LABS: Basophils # (auto) 0.06 K/uL (0.00-0.20); Basophils % (auto) 0.3 %; Eosinophils # (auto) 0.09 K/uL (0.00-0.50); Eosinophils % (auto) 0.4 %; Hematocrit (blood only) 35.5 % (42.0-52.0); Hemoglobin 11.3 g/dl (14.0-18.0); Immature Granulocytes # (auto) 0.12 K/uL (0.01-0.20); Immature Granulocytes % (auto) 0.6 %; Lymphocytes # (auto) 1.77 K/uL (1.20-3.40); Lymphocytes % (auto) 8.7 %; Mean Corpuscular Hemoglobin 23.1 pg (25.0-34.0); Mean Corpuscular Hgb Conc 31.8 g/dL (32.0-36.0); Mean Corpuscular Volume 72.4 fL (80.0-100.0); Mean Platelet Volume 10.4 fL (9.4-12.4); Monocytes # (auto) 1.47 K/uL (0.11-0.59); Monocytes % (auto) 7.2 %; Neutrophils # (auto) 16.92 K/uL (1.40-6.50); Neutrophils % (auto) 82.8 %; Platelet Count 366 K/uL (130-400); RDW Coefficient of Variation 17.5 % (11.5-14.5); RDW Standard Deviation 45.7 fL (36.4-46.3); White Blood Count 20.43 K/ul (4.8-10.8)
[2024-02-14 17:32] LABS: INR 1.1 (0.9-1.1); Partial Thromboplastin Ratio 1.1; Partial Thromboplastin Time 32 Seconds (21-31); Prothrombin Time 11.5 Seconds (9.0-12.0)
[2024-02-14 17:51] LABS: Alanine Aminotransferase 10 U/L (7-52); Albumin Globulin Ratio 0.8 (0.9-2); Albumin Level 3.5 gm/dl (3.4-5.0); Alkaline Phosphatase 85 U/L (34-104); Anion Gap 9 (3-11); Aspartate Aminotransferase 12 U/L (13-39); BUN Creatinine Ratio 14.6 (10-20); Bilirubin,Total 0.6 mg/dl (0.2-1.0); Blood Urea Nitrogen 20 mg/dl (6-23); Calcium 8.9 mg/dl (8.6-10.3); Carbon Dioxide 29 mmol/L (21-32); Chloride 101 mmol/L (98-107); Est GFR (African American) 72.2 ml/min; Est GFR (Non-African American) 62.3 ml/min; Globulin 4.4 gm/dl (2.5-4.0); Glucose 95 mg/dl (70-99(Fasting)); Potassium 2.9 mmol/L (3.5-5.1); Sodium 139 mmol/L (136-145); Total Protein 7.9 gm/dl (6.0-8.3)
--- NOTE | 2024-02-14 18:18 | Emergency Department Note ---
Impression & Plan Diabetic infection of right foot ED Provider Note Provider: Stephon Webb MD DATE OF SERVICE: 02/14/2024 CHIEF COMPLAINT: Diabetic right foot infection HISTORY OF PRESENT ILLNESS: Patient is a 43-year-old gentleman diabetic for approximately 20 years by his report presenting today from the long-term for evaluation of a right foot infection. Patient states has been present for several weeks. Records indicate the patient was on some Levaquin but worsening infection of his right pinky toenail pain into his right foot. Denies any significant trauma. Denies systemic fevers. States he broke his left foot previously has chronic deformity there but denies any issue in the left leg or foot. Has been putting some bandaging and dressings on the right pinky toe which has had some trace drainage. States he has not been receiving any significant pain medicine at the present. Patient states he did have prior brain surgery for brain mass this past fall. PAST MEDICAL HISTORY: As noted above MEDICATIONS: Reviewed medications from the long-term SOCIAL HISTORY: Inmate at [facility] PHYSICAL EXAM: GENERAL: alert and oriented in no acute distress on stretcher guards at bedside Head: normocephalic and atraumatic EYES: No injection, discharge or icterus. NECK: Trachea midline. ENT: Mucous membranes pink and moist. LUNGS: Airway patent. No retractions or tachypnea HEART: Regular rate and rhythm. SKIN: Acyanotic, warm, dry, without rashes EXTREMITIES: Without swelling, tenderness or deformity with some chronic left foot deformity without tenderness. The right foot mildly edematous with erythema particular laterally and at least 1 cm ulceration of the right dorsal pinky toe with trace discharge. No crepitus. NEUROLOGICAL: No focal deficits. No aphasia. No facial droop or slurred speech. Patient's laboratory studies and imaging reviewed. Differential includes DVT, musculoskeletal, infection, joint effusion, trauma, lymphedema, idiopathic, CHF, as well as other pathologies. IMPRESSION/MEDICAL DECISION MAKING: Diabetic. Appears to have infection of his right pinky toe extending in the right foot. Doubt necrotizing fasciitis. Present for some time. Has been on Levaquin but failing outpatient treatment. No fever or hypotension here without signs of systemic sepsis. Does have leukocytosis however and will obtain blood cultures. Not real good wound for surface culture in my opinion. Doubt this represents given the infectious symptomatology as noted here and appearance of DVT. Will cover broadly with Zosyn and MRSA given his risk factors with his diabetes, foot infection, and incarceration. ESR and CRP ordered. Will obtain x-ray to look for possible osteomyelitis; per report there is questions of the right fifth pinky toe modeling for bone infection. Patient requires hospitalization given the extent of his infection and failure of outpatient treatment. Hospitalist team contacted. Given some slight oral potassium supplementation as well as his evening dose of Keppra. CRP elevated at 13.2. DIAGNOSIS: Right diabetic foot infection DISPOSITION: Hospitalist will evaluate Patient was agreeable with this plan. Past Med/Surg History Social History Smoking Status: Current every day smoker Tobacco Type: Cigarettes Preferred Language: Mongolian Feels Safe at Home: Yes Allergies Allergies Allergy/AdvReac Type Severity Reaction Status Date / Time No Known Allergies Allergy Verified 02/14/24 18:20 Home Meds Home Medications Medication Instructions Recorded Confirmed amlodipine 10 mg tablet 10 mg PO DAILY 07/13/23 02/14/24 chlorthalidone 50 mg tablet 50 mg PO DAILY 07/13/23 02/14/24 gabapentin 400 mg capsule 400 mg PO BID 07/13/23 02/14/24 gabapentin 600 mg tablet 600 mg PO BID 07/13/23 02/14/24 glucose 1 tab PO TID PRN Hypoglycemia 07/13/23 02/14/24 insulin glargine 100 unit/mL 70 unit subcut BID 07/13/23 02/14/24 subcutaneous solution rosuvastatin 40 mg tablet 40 mg PO HS 07/13/23 02/14/24 docusate sodium 100 mg capsule 100 mg PO DAILY 02/14/24 02/14/24 insulin regular human 100 unit/mL 1 sliding scale dose subcut 02/14/24 02/14/24 injection solution (Novolin R USEASDIRECTD Regular U-100 Insulin) levetiracetam 1,000 mg tablet 1,000 mg PO BID 02/14/24 02/14/24 (Keppra) levofloxacin 500 mg tablet 500 mg PO DAILY 02/14/24 02/14/24 loperamide 2 mg capsule (Imodium 2 mg PO QID PRN Diarrhea 02/14/24 02/14/24 A-D) Results & Data (ED) Vital Signs Vital Signs - 24 hr 02/14/24 15:55 02/14/24 18:22 Temperature 37.2 C Temperature Source Skin Pulse Rate 90 Pulse Rate [Finger] 83 Respiratory Rate 18 18 Blood Pressure 142/89 H Blood Pressure [Right Arm] 160/92 H Blood Pressure Mean 106 Blood Pressure Mean [Right Arm] 114 Pulse Oximetry 98 97 Oxygen Delivery Method Room Air Room Air Sepsis Recent Fever Within 48 Hours No Sepsis New/Unexplained Change in Mental Status No Sepsis Action Taken by Nursing No Action Required Laboratory Data 02/14/24 16:55 02/14/24 16:55 Lab Results 02/14/24 Range/Units 16:55 WBC 20.43 H (4.8-10.8) K/ul RBC 4.90 (4.70-6.10) M/uL Hgb 11.3 L (14.0-18.0) g/dl Hct 35.5 L (42.0-52.0) % MCV 72.4 L (80.0-100.0) fL MCH 23.1 L (25.0-34.0) pg MCHC 31.8 L (32.0-36.0) g/dL RDW Std Deviation 45.7 (36.4-46.3) fL RDW Coeff of Ferdinand 17.5 H (11.5-14.5) % Plt Count 366 (130-400) K/uL MPV 10.4 (9.4-12.4) fL Immature Gran % (Auto) 0.6 % Neut % (Auto) 82.8 % Lymph % (Auto) 8.7 % Powell % (Auto) 7.2 % Eos % (Auto) 0.4 % Baso % (Auto) 0.3 % Neut # (Auto) 16.92 H (1.40-6.50) K/uL Lymph # (Auto) 1.77 (1.20-3.40) K/uL Powell # (Auto) 1.47 H (0.11-0.59) K/uL Eos # (Auto) 0.09 (0.00-0.50) K/uL Baso # (Auto) 0.06 (0.00-0.20) K/uL Immature Gran # (Auto) 0.12 (0.01-0.20) K/uL PT 11.5 (9.0-12.0) Seconds INR 1.1 (0.9-1.1) APTT 32 H (21-31) Seconds PTT Ratio 1.1 Sodium 139 (136-145) mmol/L Potassium 2.9 L (3.5-5.1) mmol/L Chloride 101 (98-107) mmol/L Carbon Dioxide 29 (21-32) mmol/L Anion Gap 9 (3-11) BUN 20 (6-23) mg/dl Creatinine 1.37 (0.6-1.4) mg/dl Est Cr Clr Drug Dosing Not Reportable Est GFR ( Amer) 72.2 ml/min Est GFR (Non-Af Amer) 62.3 ml/min BUN/Creatinine Ratio 14.6 (10-20) Glucose 95 (70-99(Fasting)) mg/dl Calcium 8.9 (8.6-10.3) mg/dl Total Bilirubin 0.6 (0.2-1.0) mg/dl AST 12 L (13-39) U/L ALT 10 (7-52) U/L Alkaline Phosphatase 85 (34-104) U/L C-Reactive Protein 13.28 H (0-0.5) mg/dl Total Protein 7.9 (6.0-8.3) gm/dl Albumin 3.5 (3.4-5.0) gm/dl Globulin 4.4 H (2.5-4.0) gm/dl Albumin/Globulin Ratio 0.8 L (0.9-2) Administered Medications Discontinued Medications Piperacillin Sod/Tazobactam Sod (Zosyn) 4.5 gm in 100 mls @ 200 mls/hr IV NOW ONE Stop: 02/14/24 18:36 Last Admin: 02/14/24 18:37 Dose: 200 mls/hr Documented By: CARLI Levetiracetam (Levetiracetam 500 Mg/5 Ml Vial) 1,000 mg IV NOW STA Stop: 02/14/24 18:06 Last Admin: 02/14/24 18:22 Dose: 1,000 mg Documented By: CARLI Morphine Sulfate (Morphine Sulfate 4 Mg/Ml 1 Ml Carp\Vial) 4 mg IV NOW STA Stop: 02/14/24 18:09 Last Admin: 02/14/24 18:22 Dose: 4 mg Documented By: CARLI Potassium Chloride (Potassium Chloride Crtab 20 Meq Tabcr) 40 meq PO NOW STA Stop: 02/14/24 18:24 Last Admin: 02/14/24 18:37 Dose: 40 meq Documented By: CARLI Imaging Data Radiologist's Impression: Foot X-Ray 02/14/24 18:05 XR foot RT min 3V routine HISTORY: 43 years-old Male infection, wound 5th toe soft tissue infection with possible osteomyelitis of the fifth toe COMPARISON: None TECHNIQUE: 3 views of the right foot FINDINGS: Hallux valgus with first metatarsal bunion. Mild joint space narrowing of the interphalangeal joints. Arterial calcifications. Soft tissue swelling. Punctate metallic density foci of the hindfoot. No dislocation is seen. Soft tissue ulcer of the fifth toe laterally. Demineralized appearance of the fifth middle phalanx with cortical irregularity of the proximal cortex. IMPRESSION: 1. Soft tissue swelling with ulcer of the fifth toe. 2. Demineralized appearance of the fifth middle phalanx with proximal cortical irregularity, equivocal for early osteomyelitis. Follow-up recommended. 3. Hallux valgus with first metatarsal bunion. ACT 112: Negative or not required by law. The above report was generated using voice recognition software. It may contain grammatical, syntax or spelling errors. Electronically signed by: Will Muller M.D. 02/14/2024 6:41 PM Discharge Plan Visit Data Chief Complaint: Infection, Wound Stated Complaint: RIGHT TOE INFECTION ED Provider: Stephon Webb Discharge Problem: Diabetic infection of right foot Patient Disposition: Being Evaluated by Hospitalist Forms Stand Alone Forms: My [facility] Prescriptions Prescriptions: No Action rosuvastatin 40 mg Tablet 40 mg PO HS amlodipine 10 mg Tablet 10 mg PO DAILY chlorthalidone 50 mg Tablet 50 mg PO DAILY gabapentin 600 mg Tablet 600 mg PO BID Rx Instructions: take with 400mg for total dose 1000mg gabapentin 400 mg Capsule 400 mg PO BID Rx Instructions: take with 600 mg for total of 1000mg insulin glargine [Semglee U-100 Insulin] 100 unit/mL Solution 70 unit SUBCUT BID glucose Tablet,Chewable 1 tab PO TID PRN (Reason: Hypoglycemia) loperamide [Imodium A-D] 2 mg Capsule 2 mg PO QID PRN (Reason: Diarrhea) Novolin R Regular U100 Insulin 100 unit/mL Solution 1 sliding scale dose SUBCUT USEASDIRECTD Rx Instructions: BSG 201-250=2 UNITS, 251-300=4 UNITS, 301-350=6 UNITS, 351-400=8 UNITS, 401- 450=10 UNITS, 451-500=12 UNITS, >500 CALL MD. docusate sodium 100 mg Capsule 100 mg PO DAILY levofloxacin 500 mg Tablet 500 mg PO DAILY Rx Instructions: STARTED 02/13/24 FOR 10 DAYS, ENDS 02/23/24. levetiracetam [Keppra] 1,000 mg Tablet 1,000 mg PO BID Referrals Referrals: Katja FLEMING [Primary Care Provider] -
[2024-02-14] MEDS: levETIRAcetam 500 MG/5 ML VIAL IV STA (18:22)
[2024-02-14] MEDS: MoRPHine SULFATE 4 MG/ML 1 ML CARP\\VIAL IV STA (18:22)
[2024-02-14] MEDS: POTASSIUM CHLORIDE CRTAB 20 MEQ TABCR PO STA ×2 (18:37→19:32)
[2024-02-14] MEDS: PIPERACILLIN/TAZOBACTAM 4.5 GM/100 ML BAG IV ONE (18:37)
[2024-02-14 18:38] LABS: C Reactive Protein 13.28 mg/dl (0-0.5)
--- NOTE | 2024-02-14 18:42 | XRay Report ---
XR foot RT min 3V routine HISTORY: 43 years-old Male infection, wound 5th toe soft tissue infection with possible osteomyeliti s of the fifth toe COMPARISON: None TECHNIQUE: 3 views of the right foot FINDINGS: Hallux valgus with first metatarsal bunion. Mild joint space narrowing of the interphalangeal joints. Arterial calcifications. Soft tissue swelling. Punctate metallic density foci of the hindfoot. No di slocation is seen. Soft tissue ulcer of the fifth toe laterally. Demineralized appearance of the fift h middle phalanx with cortical irregularity of the proximal cortex. IMPRESSION: 1. Soft tissue swelling with ulcer of the fifth toe. 2. Demineralized appearance of the fifth middle phalanx with proximal cortical irregularity, equivoca l for early osteomyelitis. Follow-up recommended. 3. Hallux valgus with first metatarsal bunion. ACT 112: Negative or not required by law. The above report was generated using voice recognition software. It may contain grammatical, syntax o r spelling errors. Electronically signed by: Will Muller M.D. 02/14/2024 6:41 PM
--- NOTE | 2024-02-14 19:04 | History & Physical Report ---
Date of Service February 14, 2024 Assessment & Plan (1) Diabetic infection of right foot: Plan: -Admit to med/tele -Currently hemodynamically stable and non-toxic appearing -Presented to the ED from [facility] due to concerns of ongoing right foot and right 5th toe infection -Failed outpatient Levaquin therapy -Right foot is erythematous and swollen -Noted to have a leukocytosis of 20 with neutrophil predominance of 16 -Xray of the right foot shows soft tissue swelling and concern for possible OM of the right fifth toe -S/P one dose of Zosyn in the ED -We will switch him to Cefepime and Daptmycin for now -Will obtain MRI of the right foot for further evaluation -Will also obtain arterial doppler of the right LE with his hx of DM -Hold chemical DVT PPX for now as he will likely need to go to the OR with orthopedics tomorrow -Orthopedics consult placed -HH/DMII diet until midnight then NPO -Will start maintenance IV fluids when NPO at midnight -AM CBC, CMP, mag, PT/INR (2) Infected blister of fifth toe of right foot: Plan: -Pain control with tylenol and morphine -Rest of care see diabetic right foot infection (3) Hypokalemia: Plan: -Noted to be 2.9 in the ED -Was given 40 meq PO KCL in the ED -Mag of 1.9 -will give an additional 40 meq PO KCL on admission -Monitor on tele -Monitor AM electrolytes (4) DMII (diabetes mellitus, type 2): Plan: -Monitor BSG ACHS, goal is 110-160 -Normally takes 70 units of lantus BID -Will start him on 50 units lantus BID as he will be NPO at midnight -CF of 50 with CR of 15 -Pharmacy glycemic consult placed (5) History of brain tumor: Plan: -Resected at [facility] [place] in the fall of last year -Continue BID keppra for seizure prophylaxis (6) Hyperlipidemia: Plan: -Holding statin while on Daptomycin (7) HTN (hypertension): Plan: -Stable -Continue amlodipine Plan The patient was discussed with Dr. Kang at the time of the admission History of Present Illness Chief Complaint: Right leg/foot swelling/pain [facility] a 43 year old male inmate of [facility] with a PMH significant for recent Hospitalization at [facility] [place] this past fall for brain tumor resection now on Keppra for seizure prophylaxis, HTN, DMII, and hyperlipidemia who presented to the [facility] ED on 02/14/24 with complaints of ongoing right foot/leg swelling and pain. The patient has reportedly [facility] for [facility] without improvement. On arrival to the ED he was noted to be hypertensive at 160/92 but otherwise stable. Labs were significant for a leukocytosis of 20 with neutrophil predominance of 16, potassium of 2.9, CRP of 13.28. Xray of the right foot were read as "1. Soft tissue swelling with ulcer of the fifth toe. 2. Demineralized appearance of the fifth middle phalanx with proximal cortical irregularity, equivocal for early osteomyelitis. Follow-up recommended. 3. Hallux valgus with first metatarsal bunion.". Prior to admission the patient was given a dose of zosyn and his missed dose of keppra. At the time of the exam the patient was lying in bed in no acute distress. He states that he initially had a callous on the right fifth toe which he picked off approximately 2 weeks ago. Since then he has had progressive erythema, swelling, and pain of the right 5th toe and foot. He has had some drainage from the right fifth toe. His pain is currently a 9/10, he feels as though he has been having fever and chills. Denies numbness/tingling in the RLE. I explained that if the infection has moved into the bone he will have to go to the OR with orthopedics for likely amputation. Please refer to Dr. Kang's attestation for any changes to the treatment plan Allergies Allergy/AdvReac Type Severity Reaction Status Date / Time No Known Allergies Allergy Verified 02/14/24 18:20 Home Medications Medication Instructions Recorded Confirmed Type amlodipine 10 mg tablet 10 mg PO DAILY 07/13/23 02/14/24 History chlorthalidone 50 mg tablet 50 mg PO DAILY 07/13/23 02/14/24 History gabapentin 400 mg capsule 400 mg PO BID 07/13/23 02/14/24 History gabapentin 600 mg tablet 600 mg PO BID 07/13/23 02/14/24 History glucose 1 tab PO TID PRN Hypoglycemia 07/13/23 02/14/24 History insulin glargine 100 unit/mL 70 unit subcut BID 07/13/23 02/14/24 History subcutaneous solution rosuvastatin 40 mg tablet 40 mg PO HS 07/13/23 02/14/24 History docusate sodium 100 mg capsule 100 mg PO DAILY 02/14/24 02/14/24 History insulin regular human 100 unit/mL 1 sliding scale dose subcut 02/14/24 02/14/24 History injection solution (Novolin R USEASDIRECTD Regular U-100 Insulin) levetiracetam 1,000 mg tablet 1,000 mg PO BID 02/14/24 02/14/24 History (Keppra) levofloxacin 500 mg tablet 500 mg PO DAILY 02/14/24 02/14/24 History loperamide 2 mg capsule (Imodium 2 mg PO QID PRN Diarrhea 02/14/24 02/14/24 History A-D) Past Med/Surg History Social History Smoking Status: Current every day smoker Tobacco Type: Cigarettes Preferred Language: Kyrgyz Feels Safe at Home: Yes Physical Exam 2 Physical Exam: Physical Exam: General: In no acute distress, stated age, morbidly obese, well-nourished HEENT: Normocephalic, atraumatic, no scleral icterus, pupils around round, symmetrical, and reactive to light, moist mucus membranes, trachea midline, no thyromegaly Chest/Pulm: No respiratory distress, symmetrical chest expansion, clear breath sounds throughout Cardiac: RRR, no murmurs noted Abdomen: Negative for ascites and bruising, normoactive bowel sounds, soft, non-tender to palpation throughout Musculoskeletal: Patient with ulceration with eschar overlying the dorsal aspect of the right 5th with trace drainage, the right foot is swollen and erythematous but does not move into the right ankle, see attached image for further details Extremities: Radial, dorsalis pedis, and posterior tibial pulses are intact and symmetrical, no edema noted in the BL LE's Skin: See attached image for details Neuro: Alert and oriented to person, place, month, year, and president, no focal defects, no tremors noted Psych: No acute distress, calm and cooperative during the exam Results & Data Results & Data Vital Signs (Past 12 Hours) Vital Signs Temp Pulse Pulse Resp BP BP Pulse Ox 02/14/24 18:22 83 18 160/92 H 97 02/14/24 15:55 37.2 C 90 18 142/89 H 98 O2 Del Method 02/14/24 18:22 Room Air 02/14/24 15:55 Room Air Laboratory Results Abnormal lab results 02/14/24 Range/Units 16:55 WBC 20.43 H (4.8-10.8) K/ul Hgb 11.3 L (14.0-18.0) g/dl Hct 35.5 L (42.0-52.0) % MCV 72.4 L (80.0-100.0) fL MCH 23.1 L (25.0-34.0) pg MCHC 31.8 L (32.0-36.0) g/dL RDW Coeff of Ferdinand 17.5 H (11.5-14.5) % Neut # (Auto) 16.92 H (1.40-6.50) K/uL Clay # (Auto) 1.47 H (0.11-0.59) K/uL APTT 32 H (21-31) Seconds Potassium 2.9 L (3.5-5.1) mmol/L AST 12 L (13-39) U/L C-Reactive Protein 13.28 H (0-0.5) mg/dl Globulin 4.4 H (2.5-4.0) gm/dl Albumin/Globulin Ratio 0.8 L (0.9-2) Diagnostic Findings Foot X-Ray 02/14/24 18:05 XR foot RT min 3V routine HISTORY: 43 years-old Male infection, wound 5th toe soft tissue infection with possible osteomyelitis of the fifth toe COMPARISON: None TECHNIQUE: 3 views of the right foot FINDINGS: Hallux valgus with first metatarsal bunion. Mild joint space narrowing of the interphalangeal joints. Arterial calcifications. Soft tissue swelling. Punctate metallic density foci of the hindfoot. No dislocation is seen. Soft tissue ulcer of the fifth toe laterally. Demineralized appearance of the fifth middle phalanx with cortical irregularity of the proximal cortex. IMPRESSION: 1. Soft tissue swelling with ulcer of the fifth toe. 2. Demineralized appearance of the fifth middle phalanx with proximal cortical irregularity, equivocal for early osteomyelitis. Follow-up recommended. 3. Hallux valgus with first metatarsal bunion. ACT 112: Negative or not required by law. The above report was generated using voice recognition software. It may contain grammatical, syntax or spelling errors. Electronically signed by: Will Muller M.D. 02/14/2024 6:41 PM Code Status & VTE Plan Code Status Full code VTE Prophylaxis Plan VTE Prophylaxis will be ordered: Yes Supervising Physician Co-Signing Physician Notes Patient seen and examined, chart reviewed, case discussed with Bubba Potter PA-C and I agree with the assessment and plan as above except as otherwise noted Labs and images reviewed 43-year-old male with diabetic foot infection and suspected osteomyelitis on foot x-ray. Patient is soft tissue swelling ulcer of the fifth toe and fifth middle phalanx cortical irregularity. Patient has continued to worsen despite being on oral Levaquin. He is not septic on admission, does have a leukocytosis with neutrophilic predominance. CRP is 13.28 and trended. Agree with expanding antibiotics to Zosyn. MRI pending. Orthopedics consulted. N.p.o. at midnight. Hypokalemic on admission, repleted and trended. Agree with assessment and management above. Management of chronic conditions including DM as above. Seen at the bedside, photo of foot as below PG Care Time/CCT Total # of Minutes Spent Total Time Spent with Patient: Total time spent is greater than 50% in coordination of care (as documented) at patient's floor/unit and/or counseling patient: Coding [place] [address] INT INP/OBS CARE 3/75MIN Patient Type Established History Comprehensive Exam Comprehensive Medical Decision Making High Complexity Diagnoses Diabetic infection of right foot E11.628; L08.9 Infected blister of fifth toe of right foot S90.424A; L08.9 Hypokalemia E87.6 DMII (diabetes mellitus, type 2) E11.9 History of brain tumor Z87.898 Hyperlipidemia E78.5 HTN (hypertension) I10
[2024-02-14] MEDS ORDERED: GLUCOSE 40% GEL 15 GM TUBE PO PRN (19:10)
[2024-02-14] MEDS ORDERED: GLUCOSE 10 TAB/TUBE PO PRN (19:10)
[2024-02-14] MEDS ORDERED: PHARMACY GLYCEMIC MGMT CONSULT PRN (19:10)
[2024-02-14] MEDS ORDERED: DEXTROSE 50% 50 ML SYRINGE IV PRN (19:10)
[2024-02-14] MEDS ORDERED: GLUCAGON FOR INJ 1 MG VIAL SQ PRN (19:10)
[2024-02-14 19:25] LABS: Magnesium 1.9 mg/dl (1.7-2.4)
[2024-02-14] MEDS: ACETAMINOPHEN 500 MG TAB PO STA (20:08)
[2024-02-14] MEDS: CEFEPIME 2,000 MG in SYRINGE 0 ML IV SCH (20:25)
[2024-02-14] MEDS: INSULIN ASPART PER UNIT CHARGE SC SCH ×2 (20:42→23:23)
[2024-02-14] MEDS ORDERED: LANTUS PER UNIT CHARGE SQ SCH (21:00)
[2024-02-14] MEDS: DAPTOmycin 450 MG in SYRINGE 0 ML IV SCH (22:02)
--- NOTE | 2024-02-14 22:42 | Ultrasound Report ---
Exam(s): US ARTERIAL RIGHT LOWER EXTREMITY EXAM: US Duplex Right Lower Extremity Arteries CLINICAL HISTORY: Reason for exam: right diabetic foot infection. TECHNIQUE: Real-time duplex ultrasound scan of the right lower extremity arteries integrating B-mode two-dimensional vascular structure, Doppler spectral analysis and color flow Doppler imaging. COMPARISON: No relevant prior studies available. FINDINGS: Right common femoral artery: 89 cm/s. No occlusion or significant stenosis on color flow and spectral Doppler imaging. Normal waveform. Right superficial femoral artery: 150 cm/s. No occlusion or significant stenosis on color flow and spectral Doppler imaging. Normal waveform. Right popliteal artery: 76 cm/s. No occlusion or significant stenosis on color flow and spectral Doppler imaging. Normal waveform. Right calf/foot arteries: No acute findings. No occlusion or significant stenosis on color flow and spectral Doppler imaging. Normal waveform. Soft tissues: Prominent reactive appearing lymph node within the right groin.. IMPRESSION: No arterial occlusion or flow limiting stenosis. Electronically signed by: Ryan Torres MD 02/14/24 22:42 PM
[2024-02-14] MEDS: MoRPHine SULFATE 4 MG/ML 1 ML CARP\\VIAL IV PRN (22:47)
[2024-02-14] MEDS: GABAPENTIN 600 MG TAB PO SCH (23:10)
[2024-02-14] MEDS: GABAPENTIN 400 MG CAP PO SCH (23:10)
[2024-02-15] MEDS: ACETAMINOPHEN 325 MG TAB PO SCH (01:04)
[2024-02-15] MEDS: LACTATED RINGER'S 1,000 ML IV SCH (01:09)
[2024-02-15 06:17] LABS: Basophils # (auto) 0.05 K/uL (0.00-0.20); Basophils % (auto) 0.3 %; Eosinophils # (auto) 0.21 K/uL (0.00-0.50); Eosinophils % (auto) 1.4 %; Hematocrit (blood only) 35.3 % (42.0-52.0); Immature Granulocytes # (auto) 0.09 K/uL (0.01-0.20); Immature Granulocytes % (auto) 0.6 %; Lymphocytes # (auto) 2.43 K/uL (1.20-3.40); Lymphocytes % (auto) 16.7 %; Mean Corpuscular Hemoglobin 22.8 pg (25.0-34.0); Mean Corpuscular Hgb Conc 31.2 g/dL (32.0-36.0); Mean Corpuscular Volume 73.1 fL (80.0-100.0); Mean Platelet Volume 10.3 fL (9.4-12.4); Monocytes # (auto) 1.27 K/uL (0.11-0.59); Monocytes % (auto) 8.8 %; Neutrophils # (auto) 10.46 K/uL (1.40-6.50); Neutrophils % (auto) 72.2 %; Platelet Count 342 K/uL (130-400); RDW Coefficient of Variation 17.5 % (11.5-14.5); RDW Standard Deviation 46.2 fL (36.4-46.3); Red Blood Count 4.83 M/uL (4.70-6.10); White Blood Count 14.51 K/ul (4.8-10.8)
[2024-02-15 06:22] LABS: Prothrombin Time 11.2 Seconds (9.0-12.0)
--- NOTE | 2024-02-15 06:52 | Magnetic Resonance Report ---
MR foot RT w/o con CLINICAL HISTORY: Concern for OM of 5th toe TECHNIQUE: Multiplanar multisequence MR images of the right foot were obtained. Comparison: Comparison is made to foot radiographs 02/14/2024 FINDINGS: Exam is limited by patient motion. Bones: Bony edema is seen in the fifth distal metatarsal as well as the phalanges of the fifth digit. Tendons: Unremarkable Soft tissue: Soft tissue edema is seen throughout the foot, predominantly in the dorsal soft tissues. IMPRESSION: Soft tissue edema compatible with cellulitis. Edema of the fifth digit phalanges and distal metatarsa l compatible with osteomyelitis. ACT 112: Negative or not required by law. Electronically signed by: Steve Wall M.D. 02/15/2024 6:51 AM
[2024-02-15 07:03] LABS: Albumin Globulin Ratio 0.7 (0.9-2); Albumin Level 3.2 gm/dl (3.4-5.0); BUN Creatinine Ratio 17.3 (10-20); Bilirubin,Total 0.5 mg/dl (0.2-1.0); Calcium 8.5 mg/dl (8.6-10.3); Creatinine Clr Calc Pharmacy 117.5 ml/min; Est GFR (African American) 79.1 ml/min; Est GFR (Non-African American) 68.3 ml/min; Globulin 4.3 gm/dl (2.5-4.0); Magnesium 1.9 mg/dl (1.7-2.4); Total Protein 7.5 gm/dl (6.0-8.3)
[2024-02-15 07:46] LABS: Estimated Average Glucose 232 mg/dl; Hemoglobin A1C 9.7 % (4.5-5.6)
--- NOTE | 2024-02-15 08:20 | Hospitalist Progress Note ---
Date of Service February 15, 2024 Assessment & Plan (1) Diabetic infection of right foot: Plan: 43 y/o with diabetes presented to the ED from [facility] due to concerns of ongoing right foot and right 5th toe infection, had been on levofloxacin as outpatient. Admitted with infected diabetic foot ulcer, associated cellulitis of right forefoot, found to have osteomyelitis of R 5th phalanges and distal metatarsal on MRI, cellulitis, no abscess. LE arterial duplex was negative for PAD. -continue pip-tazo and daptomycin -culture drainage -pain control with acetaminophen, increase morphine for severe pain, add po oxycodone -unable to obtain appropriate consultation for foot osteo despite significant amount of time I spent on this today. discussed with two general orthopedists water pollution control inspector who do not do foot and ankle surgery and two community practice podiatrists who are not available. Two other surgeons who did foot/ankle recently left practice here. (2) Hypokalemia: Plan: -Noted to be 2.9 in the ED, mag 1.9 -Was given 40 meq PO KCL x 2 last night -additional 40 meq ordered for K 3.0 this AM -recheck K/Mag in AM (3) DMII (diabetes mellitus, type 2): Plan: -Monitor BSG ACHS, goal is 110-160 -Normally takes 70 units of lantus BID -cont 50 units lantus BID - hypoglycemic at noon (while npo), diet ordered since no immediate surgical plan, 96 after lunch -continue CF of 50 with CR of 15 -Pharmacy glycemic consult placed (4) History of brain tumor: Plan: -Resected at [facility] [place] in the fall of last year -Continue BID keppra for seizure prophylaxis (5) Hyperlipidemia: Plan: -Holding statin while on Daptomycin (6) HTN (hypertension): Plan: -Stable -Continue amlodipine (7) Osteomyelitis of foot, acute: Plan: see above (8) Foot ulcer: Plan: R foot diabetic foot ulcer present on admission - see above Plan DVT ppx: SCD, enoxaparin Dispo: [facility] Admission and Anticipated Discharge Date Admission Date: February 14, 2024 Subjective R foot painful - 5th toe, R lateral foot, ankle. Had been able to walk though painful. Does not feel improvement in pain or redness since yesterday. Does have numbness of feet r/t neuropathy Physical Exam 2 Physical Exam: PHYSICAL EXAMINATION Last 24h vital signs reviewed, see documentation in flowsheet General: comfortable appearing, no distress HEENT: Normocephalic, atraumatic, pupils round and equal, sclerae anicteric, no conjunctival injection, moist mucus membranes Lungs: Normal respiratory effort. Heart: Abdomen: nondistended. Extremities: Warm, dry, well-perfused. L charcot foot deformity. R foot with ulcer overlying lateral 5th digit with some drainage, erythema of lateral distal forefoot some extension toward and crossing lateral ankle. Tolerates ROM ankle without tenderness Neuro: Alert and oriented x 4, face symmetric, moves 4 extremities well Psych: Normal affect and behavior Results & Data Results & Data Vital Signs (Past 12 Hours) Vital Signs Temp Pulse Pulse Resp BP BP Pulse Ox 02/15/24 07:54 36.6 C 63 16 146/89 H 95 02/15/24 05:50 79 02/15/24 03:03 36.6 C 74 18 118/68 99 02/14/24 23:24 36.6 C 77 14 124/76 98 02/14/24 22:02 76 20 136/78 98 O2 Del Method 02/15/24 07:54 Room Air 02/15/24 05:50 02/15/24 03:03 Room Air 02/14/24 23:24 Room Air 02/14/24 22:02 Room Air Laboratory Results 02/15/24 05:52 02/15/24 05:52 PG Care Time/CCT Total # of Minutes Spent Total Time Spent with Patient: I personally spent: 55 minutes today on clinical care activities including: reviewing chart notes and vital signs reviewing labs reviewing studies discussion with consultants as above examining and counseling the patient writing orders documentation Coding Level of Care Code 81775 SUB INP/OBS CARE 3/50MIN Diagnoses Diabetic infection of right foot E11.628; L08.9 Hypokalemia E87.6 DMII (diabetes mellitus, type 2) E11.9 History of brain tumor Z87.898 Hyperlipidemia E78.5 HTN (hypertension) I10 Osteomyelitis of foot, acute M86.179 Foot ulcer L97.509
[2024-02-15] MEDS ORDERED: POTASSIUM CHLORIDE 20 MEQ in SODIUM CHLORIDE 0.45 % 1,000 ML IV SCH (08:30)
[2024-02-15] MEDS ORDERED: CHLORTHALIDONE 25 MG TAB PO SCH (09:00)
--- NOTE | 2024-02-15 09:10 | Pharmacy Report ---
Pharmacy Glycemic Short Note 2 - Date of Service February 15, 2024 - Glycemic Short BSG Results (Last 24 hours): 02/14/24 02/14/24 02/14/24 16:55 20:14 23:19 Glucose 95 POC Glucose 92 143 H 02/15/24 02/15/24 05:52 05:58 Glucose 119 H POC Glucose 117 H OUTPATIENT ANTIDIABETIC REGIMEN: * Semglee 70units SQ BID * Novolin R SSI ACHS HbA1C: 9.7% (02/15/24) ASSESSMENT: * Pt is a 43 year old male admitted with a diabetic foot infection. History of DM2 on insulin outpatient. Pharmacy consulted to assist with inpatient glycemic management. * BSGs 95-92-117mg/dL since admission. Receiving IV antibiotics and NPO this AM. * No insulin administered since admission (held due to BSGs). Will give a small dose of Lantus this AM given NPO status and plan for an HS scale depending on BSG. Novolog mild-moderate stress scale. PLAN FOR INPATIENT GLYCEMIC CONTROL: * Hold outpatient oral diabetes medications * Basal insulin * Lantus 10 units SQ X 1 this AM + HS scale depending on BSG * Bolus insulin * NovoLog per scale ACHS or Q6hrs while NPO * Goal Range: Low 110 mg/dL - High 140 mg/dL * Correction Factor: 30 mg/dL/unit * Nutritional / Prandial insulin per carb ratio of 1 unit per 10 grams CHO consumed
[2024-02-15] MEDS: POTASSIUM CHLORIDE CRTAB 20 MEQ TABCR PO STA (09:37)
[2024-02-15] MEDS: levETIRAcetam 500 MG TAB PO SCH (09:38)
[2024-02-15] MEDS: amLODIPine BESYLATE 5 MG TAB PO SCH (09:38)
[2024-02-15] MEDS: LANTUS PER UNIT CHARGE SC ONE (09:38)
[2024-02-15] MEDS: SODIUM CHLOR 0.45% + 20MEQ KCL 20 MEQ/1,000 ML BAG IV SCH (09:39)
[2024-02-15] MEDS: CARBOHYDRATES FOR HYPOGLYCEMIA PO PRN (12:15)
[2024-02-15] MEDS ORDERED: oxyCODONE HCL IR 5 MG TAB (IMMEDIATE RELEASE) PO PRN (17:01)
[2024-02-15] MEDS: oxyCODONE HCL IR 5 MG TAB (IMMEDIATE RELEASE) PO PRN (17:26)
[2024-02-15] MEDS: INSULIN ASPART PER UNIT CHARGE SC SCH (18:21)
[2024-02-15] MEDS: MoRPHine SULFATE 4 MG/ML 1 ML CARP\\VIAL IV PRN (20:21)
[2024-02-15] MEDS: LANTUS PER UNIT CHARGE SC SCH (20:45)
[2024-02-16 09:45] LABS: Hematocrit (blood only) 32.3 % (42.0-52.0); Hemoglobin 10.3 g/dl (14.0-18.0); Mean Corpuscular Hemoglobin 23.3 pg (25.0-34.0); Mean Corpuscular Hgb Conc 31.9 g/dL (32.0-36.0); Mean Corpuscular Volume 73.1 fL (80.0-100.0); Platelet Count 354 K/uL (130-400); RDW Coefficient of Variation 17.4 % (11.5-14.5); RDW Standard Deviation 46.5 fL (36.4-46.3); Red Blood Count 4.42 M/uL (4.70-6.10); White Blood Count 19.94 K/ul (4.8-10.8)
[2024-02-16 10:02] LABS: BUN Creatinine Ratio 17.7 (10-20); Calcium 8.2 mg/dl (8.6-10.3); Est GFR (African American) 91.1 ml/min; Est GFR (Non-African American) 78.6 ml/min; Magnesium 1.7 mg/dl (1.7-2.4); Potassium 3.2 mmol/L (3.5-5.1)
--- NOTE | 2024-02-16 12:52 | Orthopedic Consultation ---
Date of Consultation February 16, 2024 Assessment & Plan (1) HTN (hypertension): (2) History of brain tumor: (3) DMII (diabetes mellitus, type 2): (4) Diabetic infection of right foot: Patient was evaluated in his room. Though infection of the ankle is possible, he does not have severe pain with motion, and there is no significant pain with palpation over the medial ankle. I think it is likely residual from his previous cellulitis laterally. He has an extremely large extremity when compared to his left leg. He states it has been like this for several days, and the swelling seemed to start when his toe and foot pain increased. MRI of the ankle will be ordered to assess for underlying abscess and extension of osteomyelitis. Likelihood for operative intervention for the foot was also discussed. Anticipate this will be performed tomorrow. The patient is aware. He will need to be n.p.o. after midnight. He will be evaluated by Dr. Edward later this afternoon, after the further imaging is completed. (5) Hepatitis: (6) Hyperlipidemia: (7) Small bowel obstruction: History of Present Illness Reason for Consultation: Right foot and ankle swelling, right little toe ulcer with osteomyelitis Attending Physician: Dari Lincoln MD History of Present Illness This 43-year-old male is seen today in consultation for his right foot and ankle. He states he has had issues with his right little toe for several months. He initially developed a blister in October. He was treated by the infirmary at the [facility], and believes he was placed on antibiotics. He is unsure what he was given. The blister developed into an ulceration, and he subsequently developed a scab over the little toe. Approximately 2 weeks ago he picked the scab off and has had a draining wound since. Over the last few days he developed cellulitis over the lateral border of his foot that began extending to the ankle and lower leg. He was brought to the ED for evaluation and admitted. The patient has received IV antibiotics daily, which has reduced the cellulitis. He states the foot and ankle are still painful, but have improved since his initial admission. He denies any current fevers or chills, but did have chills prior to admission. He is an insulin-dependent diabetic. Radiographic imaging obtained upon admission showed concern for osteomyelitis of the little toe. Subsequent MRI confirms soft tissue edema compatible with cellulitis. Edema of the fifth digit phalanges and distal metatarsal compatible with osteomyelitis. Ultrasound arteriogram was unremarkable for abnormal flow. Allergies Allergy/AdvReac Type Severity Reaction Status Date / Time No Known Allergies Allergy Verified 02/14/24 18:20 Home Medications Medication Instructions Recorded Confirmed Type amlodipine 10 mg tablet 10 mg PO DAILY 07/13/23 02/14/24 History chlorthalidone 50 mg tablet 50 mg PO DAILY 07/13/23 02/14/24 History gabapentin 400 mg capsule 400 mg PO BID 07/13/23 02/14/24 History gabapentin 600 mg tablet 600 mg PO BID 07/13/23 02/14/24 History glucose 1 tab PO TID PRN Hypoglycemia 07/13/23 02/14/24 History insulin glargine 100 unit/mL 70 unit subcut BID 07/13/23 02/14/24 History subcutaneous solution rosuvastatin 40 mg tablet 40 mg PO HS 07/13/23 02/14/24 History docusate sodium 100 mg capsule 100 mg PO DAILY 02/14/24 02/14/24 History insulin regular human 100 unit/mL 1 sliding scale dose subcut 02/14/24 02/14/24 History injection solution (Novolin R USEASDIRECTD Regular U-100 Insulin) levetiracetam 1,000 mg tablet 1,000 mg PO BID 02/14/24 02/14/24 History (Keppra) levofloxacin 500 mg tablet 500 mg PO DAILY 02/14/24 02/14/24 History loperamide 2 mg capsule (Imodium 2 mg PO QID PRN Diarrhea 02/14/24 02/14/24 History A-D) Patient History Surgical History (Updated 02/16/24 @ 13:00 by Christiano Villeda PA-C) H/O hernia repair Family History (Updated 02/16/24 @ 13:00 by Christiano Villeda PA-C) Other No pertinent family history Social History Smoking Status: Former smoker Tobacco Type: Cigarettes Second Hand Exposure: No; Do You Dip or Chew Tobacco: No; Tobacco Cessation Education Requested by Patient: No Hx Alcohol Use: No Hx Substance Use: No Preferred Language: Grenadian Communication Ability: Effective Air Conditioning Insulation Installer Required: No Beliefs That Will Affect Care: None Current Living Situation: Other Current Living Situation Comment: [facility] Other Information That Helps Us Care for You: No Feels Safe at Home: Declines to Answer Safety Concerns: Feels Safe At This Time Assistive Devices: None Review of Systems Review of Systems: All systems reviewed & are unremarkable except as noted in HPI & below Physical Exam Physical Exam: General: Well-developed, well-nourished, middle-aged male, in no acute distress. Laying in bed. Alert and oriented. Conversive. Skin: Warm and dry with good turgor. No rashes. Generalized edema present in the right lower extremity. It is throughout the lower leg, ankle, and foot. There is warmth to palpation over the lateral border of the foot. Mild truong thema. He has a 11-12 mm diameter ulceration on the lateral border of his little toe. Minor serous weeping. He has pain with palpation over the little toe, extending to the lateral border of the foot. Heart: Heart RRR. No MGR. Peripheral pulses are 1+ at the dorsalis pedis and posterior tibial. Lungs: Lungs are clear to auscultation. No crackles rhonchi or wheezing. Good air movement. The patient is able to take a deep breath. Musculoskeletal: Right foot evaluation reveals intact motor function to the toes, ankle, and knee. He has mild discomfort with motion of the ankle, but no severe pain. He has no significant discomfort with palpation over the medial border of the ankle, though he does have pain with palpation laterally. Neurologic: Gross sensation is intact across the foot and ankle by soft touch. Results & Data Vital Signs (Past 12 Hours) Vital Signs Temp Pulse Pulse Resp BP Pulse Ox O2 Del Method 02/16/24 11:41 37.0 C 89 16 136/78 98 Room Air 02/16/24 07:31 37.1 C 102 H 16 155/78 H 98 Room Air 02/16/24 06:00 97 H 02/16/24 02:30 37.1 C 102 H 20 143/75 H 97 Room Air Laboratory Results CBC obtained this morning shows a white count of 19.94. H&H of 10.3 and 32.3. Platelets normal at 354,000. Sodium 132, potassium 3.2, chloride 96. Glucose this morning was 96 Diagnostic Findings Radiographic imaging previously obtained was suggestive of osteomyelitis of the little toe. MRI imaging confirms this with additional findings of soft tissue edema compatible with cellulitis. Edema of the fifth digit phalanges and distal metatarsal compatible with osteomyelitis.
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
--- NOTE | 2024-02-16 14:32 | Pharmacy Report ---
Pharmacy Glycemic Short Note 2 - Date of Service February 16, 2024 - Glycemic Short BSG Results (Last 24 hours): 02/15/24 02/15/24 02/15/24 17:03 20:20 23:10 Glucose POC Glucose 131 H 98 94 02/16/24 02/16/24 02/16/24 01:22 04:30 08:16 Glucose POC Glucose 111 H 116 H 99 02/16/24 02/16/24 02/16/24 09:26 10:51 12:13 Glucose 96 POC Glucose 83 104 H OUTPATIENT ANTIDIABETIC REGIMEN: * Semglee 70units SQ BID * Novolin R SSI ACHS HbA1C: 9.7% (02/15/24) ASSESSMENT: 02/15: * Patient received total 15 units of insulin yesterday; 10 units basal + 5 units bolus. * BSGs yesterday were well controlled 729-96-331-98 mg/dl. Continued with 10 units of basal dose daily in evening. Basal not given today morning. * Novolog parameters continued the same as yesterday. 02/14: * Pt is a 43 year old male admitted with a diabetic foot infection. History of DM2 on insulin outpatient. Pharmacy consulted to assist with inpatient glycemic management. * BSGs 95-92-117mg/dL since admission. Receiving IV antibiotics and NPO this AM. * No insulin administered since admission (held due to BSGs). Will give a small dose of Lantus this AM given NPO status and plan for an HS scale depending on BSG. Novolog mild-moderate stress scale. PLAN FOR INPATIENT GLYCEMIC CONTROL: * Basal insulin * Lantus 10 units SQ HS * Bolus insulin * NovoLog per scale ACHS or Q6hrs while NPO * Goal Range: Low 110 mg/dL - High 140 mg/dL * Correction Factor: 30 mg/dL/unit * Nutritional / Prandial insulin per carb ratio of 1 unit per 10 grams CHO consumed
--- NOTE | 2024-02-16 15:03 | Hospitalist Progress Note ---
Date of Service February 16, 2024 Assessment & Plan (1) Diabetic infection of right foot: Plan: 43 y/o with diabetes presented to the ED from [facility] due to concerns of ongoing right foot and right 5th toe infection, had been on levofloxacin as outpatient. Admitted with infected diabetic foot ulcer, associated cellulitis of right forefoot, found to have osteomyelitis of R 5th phalanges and distal metatarsal on MRI, cellulitis, no abscess. LE arterial duplex was negative for PAD. -continue pip-tazo and daptomycin -culture drainage, reordered -pain control with acetaminophen, IV morphine for severe pain, po oxycodone -consulted orthopedics Dr. Edward, greatly appreciate -MRI ankle without extension of osteo into hindfoot, extensor tenosynovitis and cellulitis present -anticipate surgery tomorrow Given asymmetric leg edema will also check LE venous duplex (2) Hypokalemia: Plan: -Noted to be 2.9 in the ED, mag 1.9 -required serial potassium replacements -will give 40 meq x 2 today for 3.2 and check in AM -will replace low normal mag 1.7 with 1g IV (3) DMII (diabetes mellitus, type 2): Plan: -Monitor BSG ACHS, goal is 110-160 -Normally takes 70 units of lantus BID -mildly hypoglycemic this AM after 10u glargine last night, will reduce to 8u and loosened CF/CR (4) History of brain tumor: Plan: -Resected at [facility] [place] in the fall of last year -Continue BID keppra for seizure prophylaxis (5) Hyperlipidemia: Plan: -Holding statin while on Daptomycin (6) HTN (hypertension): Plan: -Stable -Continue amlodipine (7) Osteomyelitis of foot, acute: Plan: see above (8) Foot ulcer: Plan: R foot diabetic foot ulcer present on admission - see above Plan DVT ppx: SCD, enoxaparin Dispo: [facility] Admission and Anticipated Discharge Date Admission Date: February 14, 2024 Subjective R foot and ankle remains painful, though pain and redness improved compared to [employer] Physical Exam Physical Exam: PHYSICAL EXAMINATION Last 24h vital signs reviewed, see documentation in flowsheet General: comfortable appearing, no distress HEENT: Normocephalic, atraumatic, pupils round and equal, sclerae anicteric, no conjunctival injection, moist mucus membranes Lungs: Normal respiratory effort. CTAB no rrw Heart: Reg no mrg Abdomen: nondistended. +BT Extremities: Warm, dry, well-perfused. L charcot foot deformity. R foot with ulcer overlying lateral 5th digit less drainage, erythema of lateral distal forefoot improved, erythema of more prox forefoot and extension onto lateral ankle has resolved. Still tolerates ROM ankle without tenderness. Both legs edematous but R>L Neuro: Alert and oriented x 4, face symmetric, moves 4 extremities well Psych: Normal affect and behavior Results & Data Results & Data Vital Signs (Past 12 Hours) Vital Signs Temp Pulse Pulse Resp BP Pulse Ox O2 Del Method 02/16/24 11:41 37.0 C 89 16 136/78 98 Room Air 02/16/24 07:31 37.1 C 102 H 16 155/78 H 98 Room Air 02/16/24 06:00 97 H PG Care Time/CCT Total # of Minutes Spent Total Time Spent with Patient: Total time spent is greater than 50% in coordination of care (as documented) at patient's floor/unit and/or counseling patient: Coding Level of Care Code 00503 SUB INP/OBS CARE 2/35MIN Diagnoses Diabetic infection of right foot E11.628; L08.9 Hypokalemia E87.6 DMII (diabetes mellitus, type 2) E11.9 History of brain tumor Z87.898 Hyperlipidemia E78.5 HTN (hypertension) I10 Osteomyelitis of foot, acute M86.179 Foot ulcer L97.509
[2024-02-16] MEDS: LIDOCAINE 1% LOCAL 20 ML VIAL ONE (17:14)
[2024-02-16] MEDS: XYLOCAINE 1%/SOD BICARB 20 ML VIAL INFIL ONE (17:45)
[2024-02-16] MEDS ORDERED: LANTUS PER UNIT CHARGE SC SCH (21:00)
[2024-02-16] MEDS: LANTUS PER UNIT CHARGE SC SCH (21:03)
[2024-02-16] MEDS: METOPROLOL TARTRATE 25 MG TAB PO SCH (21:04)
[2024-02-16] MEDS: LACTATED RINGER'S 1,000 ML IV SCH (21:06)
--- NOTE | 2024-02-17 00:47 | Ultrasound Report ---
Exam(s): US VENOUS BILATERAL LOWER EXTREMITIES EXAM: US Duplex Bilateral Lower Extremities Veins CLINICAL HISTORY: Reason for exam: right greater than left leg swelling. TECHNIQUE: Real-time duplex ultrasound scan of the bilateral lower extremity veins integrating B-mode two-dimensional vascular structure, Doppler spectral analysis, color flow Doppler imaging and compression. COMPARISON: No relevant prior studies available. FINDINGS: Right deep veins: Unremarkable. No DVT in the right common femoral, femoral, proximal deep femoral or popliteal veins. The veins demonstrate normal color flow, are normally compressible, with normal phasic flow and/or augmentation response. Right superficial veins: Unremarkable. No thrombus in the visualized right great saphenous vein. Left deep veins: Unremarkable. No DVT in the left common femoral, femoral, proximal deep femoral or popliteal veins. The veins demonstrate normal color flow, are normally compressible, with normal phasic flow and/or augmentation response. Left superficial veins: Unremarkable. No thrombus in the visualized left great saphenous vein. Soft tissues: No acute findings. No popliteal cyst. Lymph nodes: There is lymphadenopathy in the right groin measuring up to 1.7 cm short axis diameter. IMPRESSION: No evidence of DVT in either lower extremity. Electronically signed by: Stephon De La Cruz MD 02/17/24 00:46 AM
[2024-02-17 10:05] LABS: Basophils # (auto) 0.06 K/uL (0.00-0.20); Basophils % (auto) 0.4 %; Eosinophils # (auto) 0.22 K/uL (0.00-0.50); Eosinophils % (auto) 1.3 %; Immature Granulocytes # (auto) 0.08 K/uL (0.01-0.20); Immature Granulocytes % (auto) 0.5 %; Lymphocytes # (auto) 1.62 K/uL (1.20-3.40); Lymphocytes % (auto) 9.6 %; Mean Corpuscular Hemoglobin 23.1 pg (25.0-34.0); Mean Corpuscular Hgb Conc 32.3 g/dL (32.0-36.0); Mean Corpuscular Volume 71.6 fL (80.0-100.0); Mean Platelet Volume 9.8 fL (9.4-12.4); Monocytes % (auto) 8.3 %; Neutrophils # (auto) 13.43 K/uL (1.40-6.50); Neutrophils % (auto) 79.9 %; Platelet Count 326 K/uL (130-400); RDW Coefficient of Variation 17.4 % (11.5-14.5); RDW Standard Deviation 45.7 fL (36.4-46.3); Red Blood Count 4.33 M/uL (4.70-6.10); White Blood Count 16.81 K/ul (4.8-10.8)
[2024-02-17] MEDS: DAPTOmycin 675 MG in SYRINGE 0 ML IV SCH (10:37)
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
[2024-02-17] MEDS: LACTATED RINGER'S 1,000 ML IV SCH (11:31)
[2024-02-17] MEDS ORDERED: ATROPINE SULFATE 0.1 MG/ML 10ML SYR IV PRN (11:42)
[2024-02-17] MEDS ORDERED: PROMETHAZINE HCL 6.25 MG in SODIUM CHLORIDE 0.9% 50 ML IV PRN (11:42)
[2024-02-17] MEDS ORDERED: ONDANSETRON INJ 2 MG/ML 2 ML VIAL IV PRN (11:42)
[2024-02-17] MEDS ORDERED: HYDROmorphone INJ 1 MG/ML SYRINGE IV PRN (11:42)
[2024-02-17] MEDS ORDERED: ePHEDrine sulfate 50 MG/ML AMP IV PRN (11:42)
--- NOTE | 2024-02-17 11:44 | Anesthesiology Consultation ---
Date of Service February 17, 2024 History Surgery Operation Date: 02/17/24 12:00 Proposed Procedures p Right Foot 5th Ray Resection - Jorge Edward MD Height/Weight Height: 6 ft 1 in Weight: 159.9 kg Allergies Allergy/AdvReac Type Severity Reaction Status Date / Time No Known Allergies Allergy Verified 02/14/24 18:20 Medications Home Medications Medication Instructions Recorded Confirmed Last Taken amlodipine 10 mg tablet 10 mg PO DAILY 07/13/23 02/14/24 07/12/23 18:30 chlorthalidone 50 mg tablet 50 mg PO DAILY 07/13/23 02/14/24 07/13/23 06:30 gabapentin 400 mg capsule 400 mg PO BID 07/13/23 02/14/24 07/13/23 06:30 gabapentin 600 mg tablet 600 mg PO BID 07/13/23 02/14/24 07/13/23 06:30 glucose 1 tab PO TID PRN Hypoglycemia 07/13/23 02/14/24 07/13/23 11:00 insulin glargine 100 unit/mL 70 unit subcut BID 07/13/23 02/14/24 07/13/23 06:30 subcutaneous solution rosuvastatin 40 mg tablet 40 mg PO HS 07/13/23 02/14/24 Unknown docusate sodium 100 mg capsule 100 mg PO DAILY 02/14/24 02/14/24 Unknown insulin regular human 100 unit/mL 1 sliding scale dose subcut 02/14/24 02/14/24 Unknown injection solution (Novolin R USEASDIRECTD Regular U-100 Insulin) levetiracetam 1,000 mg tablet 1,000 mg PO BID 02/14/24 02/14/24 Unknown (Keppra) levofloxacin 500 mg tablet 500 mg PO DAILY 02/14/24 02/14/24 Unknown loperamide 2 mg capsule (Imodium 2 mg PO QID PRN Diarrhea 02/14/24 02/14/24 Unknown A-D) Active Medications Generic Name Dose Route Start Last Admin Trade Name Freq PRN Reason Stop Dose Admin Acetaminophen 650 mg 02/15/24 02:00 02/17/24 08:03 Acetaminophen 325 Mg Tab PO 03/16/24 01:59 650 mg Q6H KARTHIKEYAN Administration Amlodipine Besylate 10 mg 02/15/24 09:00 04/05/24 08:04 Amlodipine Besylate 5 Mg Tab PO 03/16/24 08:59 10 mg DAILY KARTHIKEYAN Administration Gabapentin 600 mg 02/14/24 21:00 02/17/24 08:04 Gabapentin 600 Mg Tab PO 03/15/24 20:59 600 mg BID KARTHIKEYAN Administration Gabapentin 400 mg 02/14/24 21:00 02/17/24 08:04 Gabapentin 400 Mg Cap PO 03/15/24 20:59 400 mg BID KARTHIKEYAN Administration Cefepime HCl 2,000 mg/ Syringe 20 mls @ 5 mls/min 02/14/24 20:00 02/17/24 01:27 IV 03/27/24 19:59 5 mls/min Q8H KARTHIKEYAN Administration Protocol Potassium Chloride/Sodium Chloride 20 meq in 1,000 mls @ 125 mls/hr 02/15/24 09:15 02/17/24 08:05 1/2 Nss + 20meq Kcl 1000ml IV 03/16/24 09:14 125 mls/hr .Q8H KARTHIKEYAN Administration Daptomycin 675 mg/ Syringe 13.5 mls @ 6.75 mls/min 02/17/24 10:00 02/17/24 10:37 IV 03/30/24 09:59 6.75 mls/min Q24H KARTHIKEYAN Administration Protocol Lactated Ringer's 1,000 mls @ 15 mls/hr 02/17/24 11:30 02/17/24 11:31 Lr IV 03/18/24 11:29 15 mls/hr .Q24H KARTHIKEYAN Administration Insulin Aspart 0 units 02/15/24 17:10 02/17/24 08:59 Insulin Aspart Per Unit Charge SC 03/16/24 17:09 2 units ACHS KARTHIKEYAN Administration Insulin Glargine 8 units 02/16/24 21:00 02/16/24 21:03 Lantus Per Unit Charge SC 03/17/24 20:59 8 units HS KARTHIKEYAN Administration Levetiracetam 1,000 mg 02/15/24 09:00 02/17/24 08:04 Levetiracetam 500 Mg Tab PO 03/16/24 08:59 1,000 mg BID KARTHIKEYAN Administration Metoprolol Tartrate 25 mg 02/16/24 21:00 02/17/24 08:05 Metoprolol Tartrate 25 Mg Tab PO 03/17/24 20:59 Not Given BID KARTHIKEYAN Miscellaneous 15 - 30 gm 02/14/24 19:10 02/15/24 12:15 Carbohydrates For Hypoglycemia PO 03/15/24 19:09 30 gm UD PRN Administration Hypoglycemia Protocol Morphine Sulfate 6 mg 02/15/24 17:02 02/17/24 07:42 Morphine Sulfate 4 Mg/Ml 1 Ml Carp\Vial IV 02/28/24 19:26 6 mg Q6H PRN Administration Severe Pain (Scale 7, 8, 9,10) Oxycodone HCl 10 mg 02/15/24 17:01 02/17/24 06:29 Oxycodone Hcl Ir 5 Mg Tab (Immediate Release) PO 02/29/24 17:00 10 mg Q4H PRN Administration Moderate Pain 4-6/10 NPO Date Last Intake of Fluids: 02/16/24 Time Last Intake of Fluids: 23:30 Date Last Intake of Solids: 02/16/24 Time Last Intake of Solids: 23:30 Past Medical History Medical History (Updated 02/17/24 @ 11:44 by Jameson Mosley MD) Obesity Osteomyelitis of foot, acute HTN (hypertension) Diabetes brain tumor s/p resection fall 2022. pt took keppra this AM Exercise / Class Metabolic Activity III < 4 Walking/Shop/Light housework Past Family History Family History Other No pertinent family history Past Surgical History Surgical History H/O hernia repair Social History Smoking Status: Former smoker Do You Dip or Chew Tobacco: No Hx Alcohol Use: No Hx Substance Use: No Physical Exam Vital Signs Last Vital Signs Temp 36.8 C 02/17/24 11:23 Pulse 90 02/17/24 11:23 Resp 18 02/17/24 11:23 BP 162/80 H 02/17/24 11:23 Pulse Ox 98 02/17/24 11:23 O2 Del Method Room Air 02/17/24 11:23 Testing Laboratory Results 02/17/24 09:46 02/16/24 09:26 PT 11.2 Seconds (9.0-12.0) 02/15/24 05:52 INR 1.0 (0.9-1.1) 02/15/24 05:52 APTT 32 Seconds (21-31) H 02/14/24 16:55 Hemoglobin A1c 9.7 % (4.5-5.6) H 02/15/24 05:52 02/16/24 17:30 Gram Stain - Final Foot,Right Aerobic and Anaerobic Culture - Preliminary Group B Beta Strep 02/16/24 09:42 Gram Stain - Final Leg,Left Wound Culture - Preliminary Group B Beta Strep 02/14/24 18:36 Aerobic Blood Culture - Preliminary Blood No growth in Aerobic bottle after 48 hours. Anaerobic Blood Culture - Final 02/14/24 18:35 Aerobic Blood Culture - Preliminary Blood No growth in Aerobic bottle after 48 hours. Anaerobic Blood Culture - Preliminary No growth in Anaerobic bottle after 48 hours. 02/17/24 02/17/24 11:24 08:02 POC Glucose 138 H 188 H
[2024-02-17] MEDS ORDERED: ROPIVACAINE 0.5% 5 MG/ML 30 ML VIAL ONE (11:50)
[2024-02-17] MEDS ORDERED: fentaNYL citrate PF 100 MCG/2 ML VIAL ONE (12:04)
[2024-02-17] MEDS ORDERED: LIDOCAINE 2% 2 ML VIAL/AMP(20MG/ML) INFIL ONE (12:04)
[2024-02-17] MEDS ORDERED: MIDAZOLAM HCL 1 MG/ML 2ML VIAL ONE (12:04)
[2024-02-17] MEDS ORDERED: PROPOFOL IV EMULSION 10 MG/ML 20 ML VIAL IV ONE ×3 (12:04→13:11)
[2024-02-17] MEDS ORDERED: KETAMINE HCL INJ 50 MG/ML 10 ML VIAL ONE (12:08)
--- NOTE | 2024-02-17 12:24 | History & Physical Bridge Note ---
Date of Service February 17, 2024 History & Physical Bridge Note I have examined the patient, reviewed the History & Physical and in the interval since the performance of the History & Physical I have noted the following changes of clinical significance: no changes noted Group B beta strep. No DVT. No compromised arterial inflow on ultrasound. White count down to 16,000. Still with right foot pain.
[2024-02-17] MEDS ORDERED: SODIUM CHLORIDE 0.9% PF INJ 10 ML VIAL ONE (13:02)
[2024-02-17] MEDS ORDERED: ONDANSETRON INJ 2 MG/ML 2 ML VIAL ONE (13:02)
[2024-02-17] MEDS ORDERED: ceFAZolin 330 MG/ML 1 GM VIAL ONE (13:02)
[2024-02-17] MEDS: ceFAZolin 3000MG 3,000 MG/72.5 ML BAG IV SCH (13:05)
[2024-02-17] MEDS ORDERED: PROPOFOL IV EMULSION 10 MG/ML 100 ML VIAL IV ONE (13:11)
[2024-02-17] MEDS ORDERED: PHENYLEPHRINE 100MCG/ML 10ML SYR IV ONE (13:24)
[2024-02-17] MEDS ORDERED: PHENYLEPHRINE HCL 10 MG/ML VIAL ONE (13:52)
[2024-02-17] MEDS: BUPIVACAINE/EPINEPHRINE 0.5% MPF 1:200,000 10 ML VIAL ONE (13:54)
[2024-02-17] MEDS: VANCOMYCIN HCL 1000MG/20ML VIAL ONE (13:55)
[2024-02-17] MEDS: GENTAMICIN SULFATE 40 MG/ML 2 ML VIAL ONE (13:55)
[2024-02-17] MEDS: LIDOCAINE 1% LOCAL 20 ML VIAL ONE (13:55)
--- NOTE | 2024-02-17 14:14 | Fluoroscopy Report ---
FL foot RT 2V CLINICAL HISTORY: RIGHT FOOT RAY RESECTION COMPARISON STUDY: MRI of the right foot February 13, 2024. FLUOROSCOPY TIME: 10 seconds. Ka, r: 0.14 mGy FLUOROSCOPIC IMAGES: 1 FINDINGS: Fluoroscopy was provided during amputation of the right fifth digit at the level of the mid metatarsal. Expected postoperative findings are noted. IMPRESSION: Fluoroscopy provided during amputation of the right fifth digit. ACT 112: Negative or not required by law. Electronically signed by: Dillan Christian M.D. 02/17/2024 2:12 PM
--- NOTE | 2024-02-17 14:26 | Post Operative Brief Note ---
Immediate Post Op Note v1 Date of Surgery February 17, 2024 Pre & Post Diagnosis Operation Date: 02/17/24 12:00 <No data on this case meets the specified criteria> Osteomyelitis of the right foot fifth ray I identified the patient and participated in the time-out.: Yes Procedure Operation Date: 02/17/24 12:00 <No data on this case meets the specified criteria> Partial fifth ray resection right foot Surgeon Jorge Edward MD Extension Service Advisor YI Rios no resident or fellow available Estimated Blood Loss 100 Findings Consistent with Post-Op Diagnosis Specimens Specimen 1 was the right foot fifth digit The second specimen was the right foot fifth metatarsal Anesthesia Type MAC Regional Complications none Disposition Accompanied Patient To Recovery: No Disposition: Recovery Room
--- NOTE | 2024-02-17 14:33 | Operative Report ---
Post Operative Report Pre & Post Diagnosis Operation Date: 02/17/24 12:00 Pre-Op Diagnosis: Osteomylitis of fifth right toe Post-Op Diagnosis: Osteomylitis of fifth right toe I identified the patient and participated in the time-out.: Yes Procedure Operation Date: 02/17/24 12:00 Actual Procedures p Right Foot 5th Ray Resection with Insertion of Stimulan beads(Right) - Jorge Edward MD Surgeon Dr Edward [employer] Enforcement Agent YI Rios no resident or fellow available Estimated Blood Loss 100 Findings Consistent with Post-Op Diagnosis Specimens left foot 5th toe culture Description of Procedure Pt was taken to operating room and properly positioned for procedure. Refer to anesthesia's note for anesthesia used. Pt was given pre-op antibiotics. Prepped and draped in sterile fashion. I was present during the case and assisted with instrumentation, closure and dressings. Please see surgeon's op report for further detail. Pt was awake and transferred to PACU in stable condition I attest to the content of the Intraoperative Record and any orders documented therein. Any exceptions are noted below.
[2024-02-17] MEDS: fentaNYL citrate PF 100 MCG/2 ML VIAL IV PRN (14:39)
--- NOTE | 2024-02-17 14:46 | Anesthesiology Progress Note ---
Date of Service February 17, 2024 Anesthesia Post Procedure Vital Signs Vital Signs: Temp Pulse Pulse Resp BP BP Pulse Ox 02/17/24 11:23 36.8 C 90 18 162/80 H 98 02/17/24 09:15 90 02/17/24 08:24 36.5 C 98 H 18 147/81 H 95 02/17/24 03:02 36.9 C 82 18 123/76 91 02/17/24 00:10 96 H 02/16/24 22:51 36.9 C 92 H 17 132/77 92 02/16/24 19:16 37.4 C 111 H 17 169/78 H 95 02/16/24 16:08 37.3 C 87 16 104/69 97 O2 Del Method 02/17/24 11:23 Room Air 02/17/24 09:15 02/17/24 08:24 Room Air 02/17/24 03:02 Room Air 02/17/24 00:10 02/16/24 22:51 Room Air 02/16/24 19:16 Room Air 02/16/24 16:08 Room Air Pain Intensity Right Toe: Pain Intensity: 10 Transfer of Care Handoff Completed per policy Notes Mental Status: alert / awake / arousable and participated in evaluation Patient Amnestic to Procedure: Yes Nausea / Vomiting: adequately controlled Pain: adequately controlled Airway Patency, RR, SpO2: stable & adequate BP & HR: stable & adequate Hydration State: stable & adequate Anesthetic Complications: no major complications apparent and Pt Satisfied with anesthetic care
--- NOTE | 2024-02-17 15:04 | Operative Report ---
Post Operative Report Pre & Post Diagnosis Operation Date: 02/17/24 12:00 Pre-Op Diagnosis: Osteomylitis of fifth right toe Post-Op Diagnosis: Osteomylitis of fifth right toe I identified the patient and participated in the time-out.: Yes Procedure Operation Date: 02/17/24 12:00 Actual Procedures p Right Foot 5th Ray Resection with Insertion of Stimulan beads(Right) - Jorge Edward MD Surgeon Jorge Edward MD Vocational Rehabilitation Supervisor YI Rios no resident or fellow available Estimated Blood Loss 100 Findings Consistent with Post-Op Diagnosis Specimens Specimen none #1 is the right foot fifth toe and the second specimen is a right foot fifth metatarsal. There is also a culture of the right fifth toe Drains None Anesthesia Type [facility] Complications none Disposition Accompanied Patient To Recovery: No Disposition: Recovery Room Indications Tanner is 43 years old. Diabetic. He had a wound on his right little toe which is progressively gotten worse to the point where a substantial infection has developed. He is incarcerated. He has been admitted to the hospital and there is clinical radiographic and MRI evidence of osteomyelitis of the right fifth toe. He also has an abscess of his foot just proximal to this which was drained last night. He is taken back to the OR today for I&D and partial fifth ray resection. Description of Procedure Informed consent. Patient identified. He identified the operative site as the right foot little toe which I marked with my initials. A preoperative surgical timeout is performed and a preop dose of IV antibiotics was given. He was taken to the operating room positioned supine on the OR table. A tourniquet was applied to the right calf below the peroneal nerve. A bump was placed under the right hip. He is a very large individual. The torso was secured to the table and the left leg was also secured. The packing was removed from the right foot. There was some bloody purulent drainage present. Dressing removed. The leg was scrubbed with Betadine and then prepped with Betadine paint. Prepped and draped in usual sterile fashion. Bony prominences inspected and padded. DVT prophylaxis with mechanical devices. Postop early mobility. The limb was exsanguinated with gravity and then exsanguinated with an Esmarch beginning at the ankle up to the tourniquet. The tourniquet was up for short period of time doing the initial dissection and amputation that was then let down shortly thereafter. I made a tennis racquet incision around the base of the fifth metatarsal phalangeal joint and extended this proximally to the base of the fifth metatarsal. This was in continuity with the prior surgical incision done on the hospital floor last evening. There was some purulent and mucoid material as well as some necrotic tissue noted. I dissected out the digit and transected it through the metatarsophalangeal joint. Prior to star ting I probed with a hemostat through the wound located on the mid lateral fifth digit which communicated directly with the bone. A culture was taken of the deep wound and sent for routine analysis. The fifth metatarsal head was noted to be soft and could be penetrated with a simple pickup. I then went ahead and did an oblique resection through the mid fifth metatarsal and beveled this dorsal to plantar and slightly laterally. This was sent as a second specimen. The toe was sent as the first specimen. I debrided with scissors rongeur and scalpel. The extensor tendon was brought into the wound and amputated as far as proximal as possible. The flexor tendon was amputated and allowed to retract as well. The wound was copiously irrigated with a bulb syringe using 1 and half liters of sterile saline. Meticulous hemostasis was achieved with electrocautery and pressure. Stimulant beads were then inserted into the deep wound bed vancomycin and gentamicin. I then loosely closed the wound with 3-0 nylon sutures using simple interrupted stitches and near far far near stitches with abundant open areas for drainage to occur. The stimulant beads were kept deep. The leg was cleaned with wet and dry sponges and soft roll dressing was applied Xeroform 4 x 4's ABD soft wrap and a postop shoe. Patient was awakened from anesthesia without difficulty and taken to the recovery room in stable condition. Specimens were as mentioned above. Counts were correct and blood loss is estimated to be 100 cc. At the conclusion of the operation there was no one to speak to as he is incarcerated. The plan will be to admit him to the hospital continue intravenous antibiotics do partial weightbearing and elevate the foot.At the conclusion of the procedure the wound bed looked very clean. I explored digitally around the wound area. There was some fat necrosis between the fourth and fifth toes which was debrided. Dorsally this went up over the fifth and fourth metatarsals but did not go any further across the midfoot. Nothing went plantarly. I squeeze the foot to see if I can get any further purulence to come out and I did not. I was satisfied that we had identified the extent of the infection and adequately debrided and irrigated it. I attest to the content of the Intraoperative Record and any orders documented therein. Any exceptions are noted below.
--- NOTE | 2024-02-17 15:47 | Hospitalist Progress Note ---
Date of Service February 17, 2024 Assessment & Plan (1) Diabetic infection of right foot: Plan: 43 y/o with diabetes presented to the ED from [facility] due to concerns of ongoing right foot and right 5th toe infection, had been on levofloxacin as outpatient. Admitted with infected diabetic foot ulcer, associated cellulitis of right forefoot, found to have osteomyelitis of R 5th phalanges and distal metatarsal on MRI, cellulitis, no abscess. LE arterial duplex was negative for PAD. Given asymmetric leg edema checked LE venous duplex - negative -continue cefepime and stop daptomycin -surface wound culture - group B strep -pain control with acetaminophen, IV morphine for severe pain, po oxycodone -consulted orthopedics Dr. Edward, greatly appreciate -MRI ankle without extension of osteo into hindfoot, extensor tenosynovitis and cellulitis present -bedside I&D of R foot abscess by ortho 02/15 -02/16 Right Foot 5th Ray Resection with Insertion of Stimulan beads(Right) - Jorge Edward MD -AM CBC, BMP, await op cultures (2) Hypokalemia: Plan: -Noted to be 2.9 in the ED, mag 1.9 -required serial potassium replacements, IV mag given 02/15 -still 3.2 today, has K in IVF currently, will add an oral dose now and 40 qAM -consider add spironolactone -AM BMP (3) DMII (diabetes mellitus, type 2): Plan: -Monitor BSG ACHS, goal is 110-160 -Normally takes 70 units of lantus BID -cont glargine 8u and loosened CF/CR - adequate control today (4) History of brain tumor: Plan: -Resected at [facility] in the fall of last year -Continue BID keppra for seizure prophylaxis (5) Hyperlipidemia: Plan: can resume statin (6) HTN (hypertension): Plan: -Continue amlodipine -added metoprolol for HTN and tachycardia 02/15. Also gave fluid bolus. Eventually WESLEY would be better second agent (7) Osteomyelitis of foot, acute: Plan: see above (8) Foot ulcer: Plan: R foot diabetic foot ulcer present on admission - see above Plan DVT ppx: SCD, enoxaparin Dispo: [facility] Admission and Anticipated Discharge Date Admission Date: February 14, 2024 Subjective Bedside I&D of small R foot abscess 02/15 by ortho OR today for Right Foot 5th Ray Resection with Insertion of Stimulan beads(Right) Seen postop, awake but having escalation of R foot pain Physical Exam 2 Physical Exam: PHYSICAL EXAMINATION Last 24h vital signs reviewed, see documentation in flowsheet General: looks tense/painful HEENT: Normocephalic, atraumatic, pupils round and equal, sclerae anicteric, no conjunctival injection, moist mucus membranes Lungs: Normal respiratory effort. Heart: def Abdomen: nondistended. Extremities: Warm, dry, well-perfused. L charcot foot deformity. R foot in surgical shoe, dressed. Both legs edematous but R>L Neuro: Alert and oriented x 4, face symmetric, moves 4 extremities well Psych: Normal affect and behavior Results & Data Results & Data Vital Signs (Past 12 Hours) Vital Signs Temp Pulse Pulse Pulse Resp BP BP 02/17/24 15:05 37.4 C 93 H 14 125/94 02/17/24 14:55 37.4 C 94 H 14 143/91 H 02/17/24 14:45 98 H 18 135/78 02/17/24 14:35 98 H 13 137/83 02/17/24 14:28 36.0 C L 99 H 16 136/75 02/17/24 11:23 36.8 C 90 18 162/80 H 02/17/24 09:15 90 02/17/24 08:24 36.5 C 98 H 18 147/81 H Pulse Ox O2 Del Method O2 Flow Rate 02/17/24 15:05 100 Nasal Cannula 3 02/17/24 14:55 95 Nasal Cannula 3 02/17/24 14:45 100 Nasal Cannula 3 02/17/24 14:35 100 Oxymask 3 02/17/24 14:28 98 Oxymask 5 02/17/24 11:23 98 Room Air 02/17/24 09:15 02/17/24 08:24 95 Room Air Laboratory Results 02/17/24 09:46 02/16/24 09:26 PG Care Time/CCT Total # of Minutes Spent Total Time Spent with Patient: Total time spent is greater than 50% in coordination of care (as documented) at patient's floor/unit and/or counseling patient: Coding Level of Care Code 16122 SUB INP/OBS CARE 2/35MIN Diagnoses Diabetic infection of right foot E11.628; L08.9 Hypokalemia E87.6 DMII (diabetes mellitus, type 2) E11.9 History of brain tumor Z87.898 Hyperlipidemia E78.5 HTN (hypertension) I10 Osteomyelitis of foot, acute M86.179 Foot ulcer L97.509
[2024-02-17] MEDS: POTASSIUM CHLORIDE CRTAB 20 MEQ TABCR PO SCH (16:12)
[2024-02-17] MEDS: MoRPHine SULFATE 4 MG/ML 1 ML CARP\\VIAL IV PRN (18:03)
--- NOTE | 2024-02-17 19:24 | Electrocardiogram Report ---
Test Reason : Blood Pressure : / mmHG Vent. Rate : 082 BPM Atrial Rate : 082 BPM P-R Int : 158 ms QRS Dur : 088 ms QT Int : 408 ms P-R-T Axes : 061 010 027 degrees QTc Int : 476 ms Normal sinus rhythm Normal ECG When compared with ECG of 13-JUL-2023 15:29, Prior tracing has arm lead reversal Confirmed by Chace Grijalva ([id number]) on 02/17/2024 7:23:31 PM Referred By: [facility] Confirmed By:Chace Grijalva
[2024-02-18 07:46] LABS: Basophils # (auto) 0.06 K/uL (0.00-0.20); Basophils % (auto) 0.4 %; Eosinophils # (auto) 0.39 K/uL (0.00-0.50); Eosinophils % (auto) 2.6 %; Hematocrit (blood only) 31.7 % (42.0-52.0); Immature Granulocytes # (auto) 0.08 K/uL (0.01-0.20); Immature Granulocytes % (auto) 0.5 %; Lymphocytes # (auto) 1.91 K/uL (1.20-3.40); Mean Corpuscular Hemoglobin 22.8 pg (25.0-34.0); Mean Corpuscular Hgb Conc 31.5 g/dL (32.0-36.0); Mean Corpuscular Volume 72.4 fL (80.0-100.0); Mean Platelet Volume 10.2 fL (9.4-12.4); Monocytes # (auto) 1.22 K/uL (0.11-0.59); Monocytes % (auto) 8.3 %; Neutrophils # (auto) 11.07 K/uL (1.40-6.50); Neutrophils % (auto) 75.2 %; Platelet Count 371 K/uL (130-400); RDW Coefficient of Variation 17.2 % (11.5-14.5); RDW Standard Deviation 45.7 fL (36.4-46.3); Red Blood Count 4.38 M/uL (4.70-6.10); White Blood Count 14.73 K/ul (4.8-10.8)
[2024-02-18 07:54] LABS: Calcium 8.4 mg/dl (8.6-10.3); Magnesium 1.9 mg/dl (1.7-2.4); Potassium 3.6 mmol/L (3.5-5.1)
[2024-02-18 08:00] LABS: BUN Creatinine Ratio 17.9 (10-20); Creatinine Clr Calc Pharmacy 140.8 ml/min; Est GFR (African American) 98.4 ml/min; Est GFR (Non-African American) 84.9 ml/min
--- NOTE | 2024-02-18 10:48 | Orthopedic Progress Note ---
Date of Service February 18, 2024 Assessment & Plan (1) Diabetic infection of right foot: Plan: Elevate. Limit weightbearing on right foot. Obtain x-rays of left foot. Continue IV antibiotics. Growing out group B beta strep. Sensitivities are pending. A partial fifth ray resection has been performed. Antibiotic dissolvable beads have been inserted. He is likely neuropathic and it will be important to keep weight off the foot and elevate. I think aspirins and mechanical devices for DVT prophylaxis. Admission and Anticipated Discharge Date Admission Date: February 14, 2024 Subjective Patient reports continued pain in his right foot. I discussed with him the findings of the surgical procedure. I have recommended to him that he be limited weightbearing. Bear weight on the he will use crutches or walker. Elevate as much as possible and keep pressure off the lateral side of the foot. He reports that he had surgery at [facility] when he had his brain surgery earlier this year. He reports he had pins in his foot. The foot does not hurt but he reports that it is swollen. Physical Exam Physical Exam: The left foot shows enlargement of the midfoot area. There is 1+ ankle edema but really not much in the way of swelling of the foot. The foot is warm with capillary refill less than 2 seconds. I do not palpate any pedal pulses he has 5 out of 5 ankle and toe plantarflexion dorsiflexion inversion and eversion strength. There is good range of motion of the ankle. No tenderness to palpation. The foot is markedly flat. Examination of the right foot reveals that the dressing is clean dry and intact.There is 2+ edema of the right leg. Results & Data Vital Signs (Past 12 Hours) Vital Signs Temp Pulse Pulse Resp BP Pulse Ox O2 Del Method 02/18/24 07:31 36.7 C 84 18 116/68 99 Room Air 02/18/24 07:30 85 02/18/24 02:47 36.6 C 76 16 127/81 98 Room Air Laboratory Results 02/18/24 02/18/24 02/17/24 Range/Units 07:55 07:02 20:10 WBC 14.73 H (4.8-10.8) K/ul RBC 4.38 L (4.70-6.10) M/uL Hgb 10.0 L (14.0-18.0) g/dl Hct 31.7 L (42.0-52.0) % MCV 72.4 L (80.0-100.0) fL MCH 22.8 L (25.0-34.0) pg MCHC 31.5 L (32.0-36.0) g/dL RDW Std Deviation 45.7 (36.4-46.3) fL RDW Coeff of Ferdinand 17.2 H (11.5-14.5) % Plt Count 371 (130-400) K/uL MPV 10.2 (9.4-12.4) fL Immature Gran % (Auto) 0.5 % Neut % (Auto) 75.2 % Lymph % (Auto) 13.0 % [place] % (Auto) 8.3 % Eos % (Auto) 2.6 % Baso % (Auto) 0.4 % Neut # (Auto) 11.07 H (1.40-6.50) K/uL Lymph # (Auto) 1.91 (1.20-3.40) K/uL [place] # (Auto) 1.22 H (0.11-0.59) K/uL Eos # (Auto) 0.39 (0.00-0.50) K/uL Baso # (Auto) 0.06 (0.00-0.20) K/uL Immature Gran # (Auto) 0.08 (0.01-0.20) K/uL Sodium 134 L (136-145) mmol/L Potassium 3.6 (3.5-5.1) mmol/L Chloride 101 (98-107) mmol/L Carbon Dioxide 27 (21-32) mmol/L Anion Gap 6 (3-11) BUN 19 (6-23) mg/dl Creatinine 1.06 (0.6-1.4) mg/dl Est Cr Clr Drug Dosing 140.8 ml/min Est GFR ( Amer) 98.4 ml/min Est GFR (Non-Af Amer) 84.9 ml/min BUN/Creatinine Ratio 17.9 (10-20) Glucose 163 H (70-99(Fasting)) mg/dl POC Glucose 162 H 186 H (70-99) mg/dl Fasting Glucose 163 H (70-99) mg/dl Calcium 8.4 L (8.6-10.3) mg/dl Magnesium 1.9 (1.7-2.4) mg/dl 02/17/24 02/17/24 02/17/24 Range/Units 16:39 14:32 11:24 WBC (4.8-10.8) K/ul RBC (4.70-6.10) M/uL Hgb (14.0-18.0) g/dl Hct (42.0-52.0) % MCV (80.0-100.0) fL MCH (25.0-34.0) pg MCHC (32.0-36.0) g/dL RDW Std Deviation (36.4-46.3) fL RDW Coeff of Ferdinand (11.5-14.5) % Plt Count (130-400) K/uL MPV (9.4-12.4) fL Immature Gran % (Auto) % Neut % (Auto) % Lymph % (Auto) % [place] % (Auto) % Eos % (Auto) % Baso % (Auto) % Neut # (Auto) (1.40-6.50) K/uL Lymph # (Auto) (1.20-3.40) K/uL [place] # (Auto) (0.11-0.59) K/uL Eos # (Auto) (0.00-0.50) K/uL Baso # (Auto) (0.00-0.20) K/uL Immature Gran # (Auto) (0.01-0.20) K/uL Sodium (136-145) mmol/L Potassium (3.5-5.1) mmol/L Chloride (98-107) mmol/L Carbon Dioxide (21-32) mmol/L Anion Gap (3-11) BUN (6-23) mg/dl Creatinine (0.6-1.4) mg/dl Est Cr Clr Drug Dosing ml/min Est GFR ( Amer) ml/min Est GFR (Non-Af Amer) ml/min BUN/Creatinine Ratio (10-20) Glucose (70-99(Fasting)) mg/dl POC Glucose 138 H 141 H 138 H (70-99) mg/dl Fasting Glucose (70-99) mg/dl Calcium (8.6-10.3) mg/dl Magnesium (1.7-2.4) mg/dl Microbiology 02/17/24 Unknown Gram Stain - Final Toe,Right Fifth 02/16/24 17:30 Gram Stain - Final Foot,Right Aerobic and Anaerobic Culture - Preliminary Group B Beta Strep 02/16/24 09:42 Gram Stain - Final Leg,Left Wound Culture - Preliminary Group B Beta Strep
--- NOTE | 2024-02-18 11:16 | Pharmacy Report ---
Pharmacy Glycemic Short Note 2 - Date of Service February 18, 2024 - Glycemic Short BSG Results (Last 24 hours): 02/17/24 02/17/24 02/17/24 11:24 14:32 16:39 Glucose POC Glucose 138 H 141 H 138 H Fasting Glucose 02/17/24 02/18/24 02/18/24 20:10 07:02 07:55 Glucose 163 H POC Glucose 186 H 162 H Fasting Glucose 163 H OUTPATIENT ANTIDIABETIC REGIMEN: * Semglee 70 units SC BID * Novolin R SSI ACHS * HbA1C: 9.7% (02/15/24) ASSESSMENT: 02/17: * Tanner received 17 units of insulin yesterday, 8 basal + 9 bolus. BSGs were: [phone] mg/dL. Underwent partial resection of right 5th toe in OR yesterday. * Fasting BSG is 162 mg/dL this AM. Will increase basal by 20% today. * No change to Novolog for now. Tolerating post op diet. 02/15: * Patient received total 15 units of insulin yesterday; 10 units basal + 5 units bolus. * BSGs yesterday were well controlled [phone] mg/dl. Continued with 10 units of basal dose daily in evening. Basal not given today morning. * Novolog parameters continued the same as yesterday. 02/14: * Pt is a 43 year old male admitted with a diabetic foot infection. History of DM2 on insulin outpatient. Pharmacy consulted to assist with inpatient glycemic management. * BSGs 95-92-117mg/dL since admission. Receiving IV antibiotics and NPO this AM. * No insulin administered since admission (held due to BSGs). Will give a small dose of Lantus this AM given NPO status and plan for an HS scale depending on BSG. Novolog mild-moderate stress scale. PLAN FOR INPATIENT GLYCEMIC CONTROL: * Basal insulin * Lantus 10 units SC HS * Bolus insulin * NovoLog per scale ACHS or Q6hrs while NPO * Goal Range: Low 110 mg/dL - High 140 mg/dL * Correction Factor: 35 mg/dL/unit * Nutritional / Prandial insulin per carb ratio of 1 unit per 14 grams CHO consumed
[2024-02-18] MEDS: ASPIRIN 325 MG ECTAB PO SCH (11:36)
[2024-02-18] MEDS: cefTRIAXone SODIUM 2,000 MG in DEXTROSE 5 % MINI-B 50 ML IV SCH (15:24)
--- NOTE | 2024-02-18 17:19 | Hospitalist Progress Note ---
Date of Service February 18, 2024 Assessment & Plan (1) Diabetic infection of right foot: Plan: 43 y/o with diabetes presented to the ED from [facility] due to concerns of ongoing right foot and right 5th toe infection, had been on levofloxacin as outpatient. Admitted with infected diabetic foot ulcer, associated cellulitis of right forefoot, found to have osteomyelitis of R 5th phalanges and distal metatarsal on MRI, cellulitis, no abscess. LE arterial duplex was negative for PAD. Given asymmetric leg edema checked LE venous duplex - negative Sepsis due to SSTI left foot was present from 02/14-02/16 (leukocytosis, tachycardia) now resolving/resolved -surface wound culture and op culture - group B strep (sensitivities are not routinely performed on this organism) -continue ABX change cefepime to ceftriaxone -pain control with acetaminophen, IV morphine for severe pain, po oxycodone -consulted orthopedics Dr. Edward, greatly appreciate -MRI ankle without extension of osteo into hindfoot, extensor tenosynovitis and cellulitis present -bedside I&D of R foot abscess by ortho 02/15 -02/16 Right Foot 5th Ray Resection with Insertion of Stimulan beads(Right) - Jorge Edward MD - limit weightbearing -xray of L foot - report pending -CBC, BMP reviewed. K improved, WBC improved 19-->14 (2) Hypokalemia: Plan: -Noted to be 2.9 in the ED, mag 1.9 -required serial potassium replacements, IV mag given 02/15 -K normal today -as outpatient is on chlorthalidone. will change to spironolactone (3) DMII (diabetes mellitus, type 2): Plan: -Monitor BSG ACHS, goal is 110-160 -Normally takes 70 units of lantus BID -cont glargine 8u and loosened CF/CR - adequate control today (4) History of brain tumor: Plan: -Resected at [facility] [place] in the fall of last year -Continue BID keppra for seizure prophylaxis (5) Hyperlipidemia: Plan: can resume statin (6) HTN (hypertension): Plan: -Continue amlodipine -replace chlorthalidone with spironolactone -Eventually WESLEY would be better second agent (7) Osteomyelitis of foot, acute: Plan: see above (8) Foot ulcer: Plan: R foot diabetic foot ulcer present on admission - resected, see above Plan DVT ppx: bid aspirin Dispo: [facility] Admission and Anticipated Discharge Date Admission Date: February 14, 2024 Subjective R foot still very painful postop Used 40 mg oxycodone and 24 mg IV morphine last 24 Is awake and alert Physical Exam 2 Physical Exam: PHYSICAL EXAMINATION Last 24h vital signs reviewed, see documentation in flowsheet General: looks comfortable HEENT: Normocephalic, atraumatic, pupils round and equal, sclerae anicteric, no conjunctival injection, moist mucus membranes Lungs: Normal respiratory effort. CTAB Heart: reg no mrg Abdomen: nondistended. Extremities: Warm, dry, well-perfused. L charcot foot deformity. R foot in surgical shoe, dressed. Both legs edematous R>L but improved Neuro: Alert and oriented x 4, face symmetric, moves 4 extremities well Psych: Normal affect and behavior Results & Data Results & Data Vital Signs (Past 12 Hours) Vital Signs Temp Pulse Pulse Resp BP BP Pulse Ox 02/18/24 16:45 36.8 C 92 H 20 163/89 H 97 02/18/24 14:44 36.5 C 89 18 146/85 H 97 02/18/24 10:44 36.4 C L 73 18 142/79 H 98 02/18/24 07:31 36.7 C 84 18 116/68 99 02/18/24 07:30 85 O2 Del Method 02/18/24 16:45 Room Air 02/18/24 14:44 Room Air 02/18/24 10:44 Room Air 02/18/24 07:31 Room Air 02/18/24 07:30 Laboratory Results 02/18/24 07:02 02/18/24 07:02 PG Care Time/CCT Total # of Minutes Spent Total Time Spent with Patient: Total time spent is greater than 50% in coordination of care (as documented) at patient's floor/unit and/or counseling patient: Coding Level of Care Code 90613 SUB INP/OBS CARE 2/35MIN Diagnoses Diabetic infection of right foot E11.628; L08.9 Hypokalemia E87.6 DMII (diabetes mellitus, type 2) E11.9 History of brain tumor Z87.898 Hyperlipidemia E78.5 HTN (hypertension) I10 Osteomyelitis of foot, acute M86.179 Foot ulcer L97.509
--- NOTE | 2024-02-18 20:19 | XRay Report ---
XR foot LT min 3V routine CLINICAL HISTORY: swelling TECHNIQUE: 3 views of the right foot were obtained. Comparison: None available at the time of this dictation. FINDINGS: Postsurgical changes of right fifth digit mid metatarsal resection is seen. The joint spaces are well preserved. Subcutaneous emphysema is likely postsurgical. IMPRESSION: Expected postsurgical changes of fifth digit resection. ACT 112: Negative or not required by law. Electronically signed by: Steve Wall M.D. 02/18/2024 8:17 PM
[2024-02-18] MEDS: LANTUS PER UNIT CHARGE SC SCH (21:13)
[2024-02-19] MEDS: SPIRONOLACTONE 25 MG TAB PO SCH (07:37)
[2024-02-19] MEDS: LANTUS PER UNIT CHARGE SC SCH (09:20)
[2024-02-19] MEDS: MoRPHine SULFATE 4 MG/ML 1 ML CARP\\VIAL IV PRN (11:09)
--- NOTE | 2024-02-19 13:12 | Orthopedic Progress Note ---
Date of Service February 19, 2024 Assessment & Plan (1) Diabetic infection of right foot: Plan: Partial weightbearing on heel. Will put in PT and OT consults. Avoid pressure on the incision. Continue to elevate. Will continue to monitor. Continue IV antibiotics. X-ray done yesterday was of the right foot which shows evidence of the fifth metatarsal transmetatarsal amputation and stimulant beads in place. X-ray of left foot ordered today. Admission and Anticipated Discharge Date Admission Date: February 14, 2024 Subjective No problems reported. Continued right foot pain. Physical Exam Physical Exam: Dressing changed. Wound edges are well-approximated. Distally and dorsally there is loss of the keratin layer. This is also present centrally. This was present at the time of surgery likely secondary to pressure from the underlying abscess. There is no skin necrosis at this time. Actually looks like it is healing well. Skin wrinkles are appearing. There is less redness and less pain to palpation. I noted minimal fluctuance I prepped the wound margin in between the sutures distally and inserted a hemostat opened up and was able to evacuate some cloudy serous fluid and some of the pellets. I took a gauze pad moistened with Betadine and inserted it to allow continued drainage. Patient was laying with right leg externally rotated and pressure on the incision area. Results & Data Vital Signs (Past 12 Hours) Vital Signs Temp Pulse Resp BP Pulse Ox O2 Del Method 02/19/24 07:28 36.4 C L 83 18 146/83 H 97 Room Air Laboratory Results Microbiology 02/16/24 09:42 Gram Stain - Final Leg,Left Wound Culture - Final Group B Beta Strep 02/16/24 17:30 Gram Stain - Final Foot,Right Aerobic and Anaerobic Culture - Preliminary Group B Beta Strep 02/17/24 Unknown Gram Stain - Final Toe,Right Fifth Aerobic and Anaerobic Culture - Preliminary Group B Beta Strep
--- NOTE | 2024-02-19 14:41 | Pharmacy Report ---
Pharmacy Glycemic Short Note 2 - Date of Service February 19, 2024 - Glycemic Short BSG Results (Last 24 hours): 02/18/24 02/18/24 02/19/24 16:41 21:05 07:28 POC Glucose 209 H 237 H 254 H 02/19/24 11:27 POC Glucose 201 H OUTPATIENT ANTIDIABETIC REGIMEN: * Semglee 70 units SC BID * Novolin R SSI ACHS * HbA1C: 9.7% (02/15/24) ASSESSMENT: 02/18: * Received 32 units of insulin yesterday, 10 basal + 22 bolus. BSGs were: [phone] mg/dL. * Fasting BSG elevated at 254 mg/dL this AM. Will double basal dose today as patient has been on much smaller doses than home regimen. * Tightened CF and CR this AM due to elevated postprandials last night. 02/17: * Tanner received 17 units of insulin yesterday, 8 basal + 9 bolus. BSGs were: [phone] mg/dL. Underwent partial resection of right 5th toe in OR yesterday. * Fasting BSG is 162 mg/dL this AM. Will increase basal by 20% today. * No change to Novolog for now. Tolerating post op diet. 02/15: * Patient received total 15 units of insulin yesterday; 10 units basal + 5 units bolus. * BSGs yesterday were well controlled [phone] mg/dl. Continued with 10 units of basal dose daily in evening. Basal not given today morning. * Novolog parameters continued the same as yesterday. 02/14: * Pt is a 43 year old male admitted with a diabetic foot infection. History of DM2 on insulin outpatient. Pharmacy consulted to assist with inpatient glycemic management. * BSGs 95-92-117mg/dL since admission. Receiving IV antibiotics and NPO this AM. * No insulin administered since admission (held due to BSGs). Will give a small dose of Lantus this AM given NPO status and plan for an HS scale depending on BSG. Novolog mild-moderate stress scale. PLAN FOR INPATIENT GLYCEMIC CONTROL: * Basal insulin * Lantus 10 units SC BID * Bolus insulin * NovoLog per scale ACHS or Q6hrs while NPO * Goal Range: Low 110 mg/dL - High 140 mg/dL * Correction Factor: 30 mg/dL/unit * Nutritional / Prandial insulin per carb ratio of 1 unit per 10 grams CHO consumed
--- NOTE | 2024-02-19 17:21 | Hospitalist Progress Note ---
Date of Service February 19, 2024 Assessment & Plan (1) Diabetic infection of right foot: Plan: 43 y/o with diabetes presented to the ED from [facility] due to concerns of ongoing right foot and right 5th toe infection, had been on levofloxacin as outpatient. Admitted with infected diabetic foot ulcer, associated cellulitis of right forefoot, found to have osteomyelitis of R 5th phalanges and distal metatarsal on MRI, cellulitis, no abscess. LE arterial duplex was negative for PAD. Given asymmetric leg edema checked LE venous duplex - negative Sepsis due to SSTI left foot was present from 02/14-02/16 (leukocytosis, tachycardia) now resolving/resolved -surface wound culture and op culture - group B strep (sensitivities are not routinely performed on this organism) -continue ABX change cefepime to ceftriaxone -pain control with acetaminophen, IV morphine for severe pain, po oxycodone - discussed RN and decreased IV morphine to 4 mg -consulted orthopedics Dr. Edward, greatly appreciate -MRI ankle without extension of osteo into hindfoot, extensor tenosynovitis and cellulitis present -bedside I&D of R foot abscess by ortho 02/15 -02/16 Right Foot 5th Ray Resection with Insertion of Stimulan beads(Right) - Jorge Edward MD -ortho changed dressing 02/18 per note incision looks good, ok'd for heel weightbearing in surgical shoe -xray of L foot - pending -WBC improved 19-->14, AM CBC ordered (2) Hypokalemia: Plan: -Noted to be 2.9 in the ED, mag 1.9 -required serial potassium replacements, IV mag given 02/15 -K normal 02/17 -as outpatient is on chlorthalidone. changed to spironolactone -AM BMP (3) DMII (diabetes mellitus, type 2): Plan: -Monitor BSG ACHS, goal is 110-160 -Normally takes 70 units of lantus BID -above goal near 200 today, pharmacist adjusted insulins 02/17 (4) History of brain tumor: Plan: -Resected at [facility] in the fall of last year -Continue BID keppra for seizure prophylaxis (5) Hyperlipidemia: Plan: can resume statin (6) HTN (hypertension): Plan: -Continue amlodipine - denies chronic edema with this -replace chlorthalidone with spironolactone -Eventually WESLEY would be better second agent, but won't start WESLEY + radha at same time, risk of hyperkalemia, defer to outpatient (7) Osteomyelitis of foot, acute: Plan: see above, path pending (8) Foot ulcer: Plan: R foot diabetic foot ulcer present on admission - resected, see above Plan DVT ppx: bid aspirin Dispo: [facility] Admission and Anticipated Discharge Date Admission Date: February 14, 2024 Subjective Doing better - R foot pain improved but still very painful Ortho changed dressing this afternoon BG running 200 Physical Exam 2 Physical Exam: PHYSICAL EXAMINATION Last 24h vital signs reviewed, see documentation in flowsheet General: looks comfortable, lying in bed HEENT: Normocephalic, atraumatic, pupils round and equal, sclerae anicteric, no conjunctival injection, moist mucus membranes Lungs: Normal respiratory effort. CTAB Heart: reg no mrg Abdomen: nondistended. Extremities: Warm, dry, well-perfused. L charcot foot deformity. R foot in surgical shoe, dressed. leg edema improved Neuro: Alert and oriented x 4, face symmetric, moves 4 extremities well Psych: Normal affect and behavior Results & Data Results & Data Vital Signs (Past 12 Hours) Vital Signs Temp Pulse Resp BP Pulse Ox O2 Del Method 02/19/24 15:05 36.5 C 84 18 142/82 H 98 Room Air 02/19/24 07:28 36.4 C L 83 18 146/83 H 97 Room Air Laboratory Results 02/18/24 07:02 02/18/24 07:02 PG Care Time/CCT Total # of Minutes Spent Total Time Spent with Patient: Total time spent is greater than 50% in coordination of care (as documented) at patient's floor/unit and/or counseling patient: Coding Level of Care Code 29419 SUB INP/OBS CARE 2/35MIN Diagnoses Diabetic infection of right foot E11.628; L08.9 Hypokalemia E87.6 DMII (diabetes mellitus, type 2) E11.9 History of brain tumor Z87.898 Hyperlipidemia E78.5 HTN (hypertension) I10 Osteomyelitis of foot, acute M86.179 Foot ulcer L97.509
--- NOTE | 2024-02-19 18:58 | XRay Report ---
XR foot LT min 3V routine CLINICAL HISTORY: swelling TECHNIQUE: 3 views of the right foot were obtained. Comparison: Comparison is made to left foot radiographs 07/13/2023 FINDINGS: No fractures are present. Interval significant worsening of degenerative changes and dislocations at the bases of the metatarsals. Widening of the Lisfranc joint and dislocation of the tarsometatarsal a rticulations noted. Soft tissue swelling is seen about the foot. IMPRESSION: Interval development of severe degenerative changes of the tarsometatarsal joints with worsening disl ocation of the joints as well. Soft tissue swelling is seen. ACT 112: Negative or not required by law. Electronically signed by: Steve Wall M.D. 02/19/2024 6:55 PM
[2024-02-20 06:07] LABS: Basophils # (auto) 0.04 K/uL (0.00-0.20); Basophils % (auto) 0.4 %; Eosinophils # (auto) 0.33 K/uL (0.00-0.50); Hemoglobin 9.7 g/dl (14.0-18.0); Immature Granulocytes # (auto) 0.07 K/uL (0.01-0.20); Immature Granulocytes % (auto) 0.6 %; Lymphocytes # (auto) 2.17 K/uL (1.20-3.40); Lymphocytes % (auto) 19.8 %; Mean Corpuscular Hemoglobin 22.6 pg (25.0-34.0); Mean Corpuscular Hgb Conc 31.3 g/dL (32.0-36.0); Mean Corpuscular Volume 72.3 fL (80.0-100.0); Mean Platelet Volume 9.4 fL (9.4-12.4); Monocytes # (auto) 0.78 K/uL (0.11-0.59); Monocytes % (auto) 7.1 %; Neutrophils # (auto) 7.56 K/uL (1.40-6.50); Neutrophils % (auto) 69.1 %; Platelet Count 406 K/uL (130-400); RDW Coefficient of Variation 17.4 % (11.5-14.5); Red Blood Count 4.29 M/uL (4.70-6.10); White Blood Count 10.95 K/ul (4.8-10.8)
[2024-02-20 06:33] LABS: BUN Creatinine Ratio 14.5 (10-20); Calcium 8.6 mg/dl (8.6-10.3); Creatinine Clr Calc Pharmacy 179.8 ml/min; Potassium 3.5 mmol/L (3.5-5.1)
[2024-02-20] MEDS: LANTUS PER UNIT CHARGE SC SCH ×2 (08:04→21:38)
--- NOTE | 2024-02-20 10:31 | Orthopedic Progress Note ---
Date of Service February 20, 2024 Assessment & Plan (1) Diabetic infection of right foot: Plan: Patient was seen in conjunction with Dr. Edward. Due to the amount of fluid that is still able to be expressed from his incision this will require a second irrigation and debridement with wound VAC placement to allow for adequate healing and control of infection. Plan is to do this tomorrow. OR was notified. N.p.o. and preop antibiotic order was placed. Consent was obtained. Continue with elevation and pain control. Hold any anticoagulants today. Admission and Anticipated Discharge Date Admission Date: February 14, 2024 Subjective Patient reports that he is overall doing okay but he is still having pain in his foot. Physical Exam Physical Exam: Dressing was taken down packing was removed. Swelling is slightly improved. There is a moderate amount of cloudy drainage and antibiotic beads able to be expressed from incision. Sutures are intact. Wound was packed with 4 x 4 with Betadine. Incisions redressed with 4 x 4's, ABD, Kerlix and Sabas wrap Results & Data Vital Signs (Past 12 Hours) Vital Signs Temp Pulse Resp BP Pulse Ox O2 Del Method 02/20/24 07:42 36.5 C 80 18 148/98 H 98 Room Air 02/20/24 07:35 Room Air Laboratory Results 02/20/24 02/20/24 02/19/24 Range/Units 07:44 05:38 20:18 WBC 10.95 H (4.8-10.8) K/ul RBC 4.29 L (4.70-6.10) M/uL Hgb 9.7 L (14.0-18.0) g/dl Hct 31.0 L (42.0-52.0) % MCV 72.3 L (80.0-100.0) fL MCH 22.6 L (25.0-34.0) pg MCHC 31.3 L (32.0-36.0) g/dL RDW Std Deviation 45.0 (36.4-46.3) fL RDW Coeff of Ferdinand 17.4 H (11.5-14.5) % Plt Count 406 H (130-400) K/uL MPV 9.4 (9.4-12.4) fL Immature Gran % (Auto) 0.6 % Neut % (Auto) 69.1 % Lymph % (Auto) 19.8 % [place] % (Auto) 7.1 % Eos % (Auto) 3.0 % Baso % (Auto) 0.4 % Neut # (Auto) 7.56 H (1.40-6.50) K/uL Lymph # (Auto) 2.17 (1.20-3.40) K/uL [place] # (Auto) 0.78 H (0.11-0.59) K/uL Eos # (Auto) 0.33 (0.00-0.50) K/uL Baso # (Auto) 0.04 (0.00-0.20) K/uL Immature Gran # (Auto) 0.07 (0.01-0.20) K/uL Sodium 138 (136-145) mmol/L Potassium 3.5 (3.5-5.1) mmol/L Chloride 102 (98-107) mmol/L Carbon Dioxide 30 (21-32) mmol/L Anion Gap 6 (3-11) BUN 12 (6-23) mg/dl Creatinine 0.83 (0.6-1.4) mg/dl Est Cr Clr Drug Dosing 179.8 ml/min Est GFR ( Amer) 124.0 ml/min Est GFR (Non-Af Amer) 107.0 ml/min BUN/Creatinine Ratio 14.5 (10-20) Glucose 232 H (70-99(Fasting)) mg/dl POC Glucose 221 H 275 H (70-99) mg/dl Calcium 8.6 (8.6-10.3) mg/dl 02/19/24 02/19/24 Range/Units 16:24 11:27 WBC (4.8-10.8) K/ul RBC (4.70-6.10) M/uL Hgb (14.0-18.0) g/dl Hct (42.0-52.0) % MCV (80.0-100.0) fL MCH (25.0-34.0) pg MCHC (32.0-36.0) g/dL RDW Std Deviation (36.4-46.3) fL RDW Coeff of Ferdinand (11.5-14.5) % Plt Count (130-400) K/uL MPV (9.4-12.4) fL Immature Gran % (Auto) % Neut % (Auto) % Lymph % (Auto) % [place] % (Auto) % Eos % (Auto) % Baso % (Auto) % Neut # (Auto) (1.40-6.50) K/uL Lymph # (Auto) (1.20-3.40) K/uL [place] # (Auto) (0.11-0.59) K/uL Eos # (Auto) (0.00-0.50) K/uL Baso # (Auto) (0.00-0.20) K/uL Immature Gran # (Auto) (0.01-0.20) K/uL Sodium (136-145) mmol/L Potassium (3.5-5.1) mmol/L Chloride (98-107) mmol/L Carbon Dioxide (21-32) mmol/L Anion Gap (3-11) BUN (6-23) mg/dl Creatinine (0.6-1.4) mg/dl Est Cr Clr Drug Dosing ml/min Est GFR ( Amer) ml/min Est GFR (Non-Af Amer) ml/min BUN/Creatinine Ratio (10-20) Glucose (70-99(Fasting)) mg/dl POC Glucose 201 H 201 H (70-99) mg/dl Calcium (8.6-10.3) mg/dl Microbiology 02/17/24 Unknown Gram Stain - Final Toe,Right Fifth Aerobic and Anaerobic Culture - Preliminary Group B Beta Strep 02/14/24 18:35 Aerobic Blood Culture - Final Blood No growth in Aerobic bottle after 5 days. Anaerobic Blood Culture - Final No growth in Anaerobic bottle after 5 days. 02/14/24 18:36 Aerobic Blood Culture - Final Blood No growth in Aerobic bottle after 5 days. Anaerobic Blood Culture - Final 02/16/24 09:42 Gram Stain - Final Leg,Left Wound Culture - Final Group B Beta Strep 02/16/24 17:30 Gram Stain - Final Foot,Right Aerobic and Anaerobic Culture - Preliminary Group B Beta Strep
--- NOTE | 2024-02-20 14:45 | Hospitalist Progress Note ---
Date of Service February 20, 2024 Assessment & Plan (1) Diabetic infection of right foot: Plan: 43 y/o with diabetes presented to the ED from [facility] due to concerns of ongoing right foot and right 5th toe infection, had been on levofloxacin as outpatient. Admitted with infected diabetic foot ulcer, associated cellulitis of right forefoot, found to have osteomyelitis of R 5th phalanges and distal metatarsal on MRI, cellulitis, no abscess. LE arterial duplex was negative for PAD. Given asymmetric leg edema checked LE venous duplex - negative Sepsis due to SSTI left foot was present from 02/14-02/16 (leukocytosis, tachycardia) now resolved -surface wound culture and op culture - group B strep -continue ABX changed cefepime to ceftriaxone. -WBC improved 19-->11 -pain control with acetaminophen, IV morphine for severe pain, po oxycodone - discussed RN and decreased IV morphine to 4 mg -consulted orthopedics Dr. Edward, greatly appreciate -MRI ankle without extension of osteo into hindfoot, extensor tenosynovitis and cellulitis present -bedside I&D of R foot abscess by ortho 02/15 -02/16 Right Foot 5th Ray Resection with Insertion of Stimulan beads(Right) - Jorge Edward MD -ortho plans washout + wound vac tomorrow (2) Hypokalemia: Plan: -Noted to be 2.9 in the ED, mag 1.9 -required serial potassium replacements, IV mag given 02/15 -K normal 02/17 -as outpatient is on chlorthalidone. changed to spironolactone -low normal on BMP today -evaluate for increase spironolactone postop to help with edema (3) DMII (diabetes mellitus, type 2): Plan: -Monitor BSG ACHS, goal is 110-160 -Normally takes 70 units of lantus BID -above BG at goal this am, pharmacist adjusted insulins 02/17 (4) History of brain tumor: Plan: -Resected at [facility] in the fall of last year -Continue BID keppra for seizure prophylaxis (5) Hyperlipidemia: Plan: can resume statin (6) HTN (hypertension): Plan: -Continue amlodipine - denies chronic edema with this -replaced chlorthalidone with spironolactone because of severe persistent hypokalemia -Eventually WESLEY would be better second agent, but won't start WESLEY + radha at same time, risk of hyperkalemia, defer to outpatient (7) Osteomyelitis of foot, acute: Plan: see above, path pending (8) Foot ulcer: Plan: R foot diabetic foot ulcer present on admission - resected, see above xray of L foot - charcot foot, dislocation - ortho recommended foot & ankle follow up as outpatient Plan DVT ppx: bid aspirin Dispo: [facility] Admission and Anticipated Discharge Date Admission Date: February 14, 2024 Subjective Doing fine, R foot still painful but improved No dyspnea or CP, RLE still with edema Physical Exam 2 Physical Exam: PHYSICAL EXAMINATION Last 24h vital signs reviewed, see documentation in flowsheet General: looks comfortable, awake in bed exam unchanged 02/19 HEENT: Normocephalic, atraumatic, pupils round and equal, sclerae anicteric, no conjunctival injection, moist mucus membranes Lungs: Normal respiratory effort. CTAB Heart: reg no mrg Abdomen: nondistended. Extremities: Warm, dry, well-perfused. L charcot foot deformity. R foot in surgical shoe, dressed. leg edema improved Neuro: Alert and oriented x 4, face symmetric, moves 4 extremities well Psych: Normal affect and behavior Results & Data Results & Data Vital Signs (Past 12 Hours) Vital Signs Temp Pulse Resp BP Pulse Ox O2 Del Method 02/20/24 14:26 36.8 C 78 18 165/96 H 99 Room Air 02/20/24 07:42 36.5 C 80 18 148/98 H 98 Room Air 02/20/24 07:35 Room Air Laboratory Results 02/20/24 05:38 02/20/24 05:38 PG Care Time/CCT Total # of Minutes Spent Total Time Spent with Patient: Total time spent is greater than 50% in coordination of care (as documented) at patient's floor/unit and/or counseling patient: Coding Level of Care Code 82041 SUB INP/OBS CARE 2/35MIN Diagnoses Diabetic infection of right foot E11.628; L08.9 Hypokalemia E87.6 DMII (diabetes mellitus, type 2) E11.9 History of brain tumor Z87.898 Hyperlipidemia E78.5 HTN (hypertension) I10 Osteomyelitis of foot, acute M86.179 Foot ulcer L97.509
--- NOTE | 2024-02-20 16:24 | Anesthesiology Consultation ---
Date of Service February 20, 2024 Assessment & Plan Chart Review Chart Review: Acceptable Risk for Surgery Consults Requested none History Surgery Operation Date: 02/17/24 12:00 Proposed Procedures p Right Foot 5th Ray Resection - Jorge Edward MD s Right Foot Incision and Drainage - Jorge Edward MD Operation Date: 02/21/24 10:30 Proposed Procedures p Right Foot Irrigation and Debridement, Wound Vac - Jorge Edward MD Height/Weight Height: 6 ft 1 in Weight: 159.9 kg Allergies Allergy/AdvReac Type Severity Reaction Status Date / Time sulfamethoxazole Allergy Intermediate Rash Verified 02/17/24 12:26 [From Bactrim] trimethoprim [From Bactrim] Allergy Intermediate Rash Verified 02/17/24 12:26 Medications Home Medications Medication Instructions Recorded Confirmed Last Taken amlodipine 10 mg tablet 10 mg PO DAILY 07/13/23 02/14/24 07/12/23 18:30 chlorthalidone 50 mg tablet 50 mg PO DAILY 07/13/23 02/14/24 07/13/23 06:30 gabapentin 400 mg capsule 400 mg PO BID 07/13/23 02/14/24 07/13/23 06:30 gabapentin 600 mg tablet 600 mg PO BID 07/13/23 02/14/24 07/13/23 06:30 glucose 1 tab PO TID PRN Hypoglycemia 07/13/23 02/14/24 07/13/23 11:00 insulin glargine 100 unit/mL 70 unit subcut BID 07/13/23 02/14/24 07/13/23 06:30 subcutaneous solution rosuvastatin 40 mg tablet 40 mg PO HS 07/13/23 02/14/24 Unknown docusate sodium 100 mg capsule 100 mg PO DAILY 02/14/24 02/14/24 Unknown insulin regular human 100 unit/mL 1 sliding scale dose subcut 02/14/24 02/14/24 Unknown injection solution (Novolin R USEASDIRECTD Regular U-100 Insulin) levetiracetam 1,000 mg tablet 1,000 mg PO BID 02/14/24 02/14/24 Unknown (Keppra) levofloxacin 500 mg tablet 500 mg PO DAILY 02/14/24 02/14/24 Unknown loperamide 2 mg capsule (Imodium 2 mg PO QID PRN Diarrhea 02/14/24 02/14/24 Unknown A-D) Active Medications Generic Name Dose Route Start Last Admin Trade Name Freq PRN Reason Stop Dose Admin Acetaminophen 650 mg 02/15/24 02:00 02/20/24 13:14 Acetaminophen 325 Mg Tab PO 03/16/24 01:59 650 mg Q6H KARTHIKEYAN Administration Amlodipine Besylate 10 mg 02/15/24 09:00 02/20/24 08:06 Amlodipine Besylate 5 Mg Tab PO 03/16/24 08:59 10 mg DAILY KARTHIKEYAN Administration Aspirin 325 mg 02/18/24 11:00 02/20/24 08:05 Aspirin 325 Mg Ectab PO 03/19/24 10:59 325 mg BID KARTHIKEYAN Administration Gabapentin 600 mg 02/14/24 21:00 02/20/24 08:06 Gabapentin 600 Mg Tab PO 03/15/24 20:59 600 mg BID KARTHIKEYAN Administration Gabapentin 400 mg 02/14/24 21:00 02/20/24 08:06 Gabapentin 400 Mg Cap PO 03/15/24 20:59 400 mg BID KARTHIKEYAN Administration Ceftriaxone Sodium 2,000 mg/ 50 mls @ 100 mls/hr 02/18/24 14:00 02/20/24 13:52 Dextrose IV 02/25/24 13:59 Infused Q24H KARTHIKEYAN Infusion Protocol Insulin Aspart 0 units 02/15/24 17:10 02/20/24 11:51 Insulin Aspart Per Unit Charge SC 03/16/24 17:09 7 units ACHS KARTHIKEYAN Administration Protocol Insulin Glargine 15 units 02/20/24 09:00 02/20/24 08:04 Lantus Per Unit Charge SC 03/21/24 08:59 15 units DAILY KARTHIKEYAN Administration Protocol Levetiracetam 1,000 mg 02/15/24 09:00 02/20/24 08:05 Levetiracetam 500 Mg Tab PO 03/16/24 08:59 1,000 mg BID KARTHIKEYAN Administration Miscellaneous 15 - 30 gm 02/14/24 19:10 02/15/24 12:15 Carbohydrates For Hypoglycemia PO 03/15/24 19:09 30 gm UD PRN Administration Hypoglycemia Protocol Morphine Sulfate 4 mg 02/19/24 11:00 02/20/24 13:15 Morphine Sulfate 4 Mg/Ml 1 Ml Carp\Vial IV 02/29/24 17:01 4 mg Q4H PRN Administration Severe Pain (Scale 7, 8, 9,10) Oxycodone HCl 10 mg 02/15/24 17:01 02/20/24 16:16 Oxycodone Hcl Ir 5 Mg Tab (Immediate Release) PO 02/29/24 17:00 10 mg Q4H PRN Administration Moderate Pain 4-6/10 Spironolactone 25 mg 02/19/24 09:00 02/20/24 08:06 Spironolactone 25 Mg Tab PO 03/20/24 08:59 25 mg QAM KARTHIKEYAN Administration Past Medical History Medical History Obesity Osteomyelitis of foot, acute HTN (hypertension) Diabetes Exercise / Class Metabolic Activity III < 4 Walking/Shop/Light housework Past Family History Family History Other No pertinent family history Past Surgical History Surgical History (Updated 02/20/24 @ 16:22 by Subha Ochoa DO) H/O foot surgery R 5th ray resection 02/2024 Hx of craniotomy brain tumor s/p resection fall 2022 H/O hernia repair Past Anesthesia History No Hx of Anesthesia Complications and No Family Hx of Anesthesia Complications History of PONV No Hx of PONV and No Hx of Motion Sickness Social History Smoking Status: Former smoker Do You Dip or Chew Tobacco: No Hx Alcohol Use: No Hx Substance Use: No Physical Exam Vital Signs Last Vital Signs Temp 36.8 C 02/20/24 14:26 Pulse 78 02/20/24 14:26 Resp 18 02/20/24 14:26 BP 165/96 H 02/20/24 14:26 Pulse Ox 99 02/20/24 14:26 O2 Del Method Room Air 02/20/24 14:26 O2 Flow Rate 3 02/17/24 15:05 Testing Laboratory Results 02/20/24 05:38 02/20/24 05:38 PT 11.2 Seconds (9.0-12.0) 02/15/24 05:52 INR 1.0 (0.9-1.1) 02/15/24 05:52 APTT 32 Seconds (21-31) H 02/14/24 16:55 Hemoglobin A1c 9.7 % (4.5-5.6) H 02/15/24 05:52 02/17/24 Unknown Gram Stain - Final Toe,Right Fifth Aerobic and Anaerobic Culture - Preliminary Group B Beta Strep 02/14/24 18:35 Aerobic Blood Culture - Final Blood No growth in Aerobic bottle after 5 days. Anaerobic Blood Culture - Final No growth in Anaerobic bottle after 5 days. 02/14/24 18:36 Aerobic Blood Culture - Final Blood No growth in Aerobic bottle after 5 days. Anaerobic Blood Culture - Final 02/16/24 09:42 Gram Stain - Final Leg,Left Wound Culture - Final Group B Beta Strep 02/16/24 17:30 Gram Stain - Final Foot,Right Aerobic and Anaerobic Culture - Preliminary Group B Beta Strep 02/20/24 02/20/24 02/20/24 16:16 11:30 07:44 POC Glucose 164 H 171 H 221 H Electrocardiogram Date: 02/14/24 Findings: + NSR @ (82bpm) Chest X-Ray Date: 07/13/23 Findings: + NAD Echocardiogram Date: 12/19/17 EF: 55-60 LV Function: normal RWMA: + none Other Findings: + LVH (mild) Valvular Disease: + MR (mild)
[2024-02-21] MEDS ORDERED: Nursing to Pharmacy Communication SCH (03:15)
[2024-02-21] MEDS: INSULIN ASPART PER UNIT CHARGE SC SCH ×2 (06:07→17:03)
[2024-02-21 08:00] LABS: Hemoglobin 9.9 g/dl (14.0-18.0); Mean Corpuscular Hemoglobin 23.1 pg (25.0-34.0); Mean Corpuscular Hgb Conc 31.9 g/dL (32.0-36.0); Mean Corpuscular Volume 72.4 fL (80.0-100.0); Mean Platelet Volume 9.2 fL (9.4-12.4); Platelet Count 431 K/uL (130-400); RDW Coefficient of Variation 17.6 % (11.5-14.5); Red Blood Count 4.28 M/uL (4.70-6.10); White Blood Count 9.68 K/ul (4.8-10.8)
[2024-02-21 08:15] LABS: BUN Creatinine Ratio 14.8 (10-20); Calcium 8.7 mg/dl (8.6-10.3); Creatinine Clr Calc Pharmacy 169.5 ml/min; Est GFR (African American) 121.1 ml/min; Est GFR (Non-African American) 104.5 ml/min; Potassium 3.5 mmol/L (3.5-5.1)
--- NOTE | 2024-02-21 08:27 | Pharmacy Report ---
Pharmacy Glycemic Short Note 2 - Date of Service February 21, 2024 - Glycemic Short BSG Results (Last 24 hours): 02/20/24 02/20/24 02/20/24 11:30 16:16 20:22 Glucose POC Glucose 171 H 164 H 178 H 02/21/24 02/21/24 06:02 07:49 Glucose 232 H POC Glucose 269 H OUTPATIENT ANTIDIABETIC REGIMEN: * Semglee 70 units SC BID * Novolin R SSI ACHS HbA1C: 9.7% (02/15/24) ASSESSMENT: 02/21/24: * Blood sugars elevated yesterday, ranging 164-221 mg/dL w/ elevated fasting blood sugar of 269 mg/dL this morning * Received 61 units of insulin (25 units of basal and 36 units of prandial/correctional bolus) * POD #0 s/p I&D w/ antibiotic bead placement * Will plan to increase basal insulin today, Novolog tightened yesterday and will continue 02/18: * Received 32 units of insulin yesterday, 10 basal + 22 bolus. BSGs were: [phone] mg/dL. * Fasting BSG elevated at 254 mg/dL this AM. Will double basal dose today as patient has been on much smaller doses than home regimen. * Tightened CF and CR this AM due to elevated postprandials last night. 02/17: * Tanner received 17 units of insulin yesterday, 8 basal + 9 bolus. BSGs were: [phone] mg/dL. Underwent partial resection of right 5th toe in OR yesterday. * Fasting BSG is 162 mg/dL this AM. Will increase basal by 20% today. * No change to Novolog for now. Tolerating post op diet. 02/15: * Patient received total 15 units of insulin yesterday; 10 units basal + 5 units bolus. * BSGs yesterday were well controlled [phone] mg/dl. Continued with 10 units of basal dose daily in evening. Basal not given today morning. * Novolog parameters continued the same as yesterday. 02/14: * Pt is a 43 year old male admitted with a diabetic foot infection. History of DM2 on insulin outpatient. Pharmacy consulted to assist with inpatient glycemic management. * BSGs 95-92-117mg/dL since admission. Receiving IV antibiotics and NPO this AM. * No insulin administered since admission (held due to BSGs). Will give a small dose of Lantus this AM given NPO status and plan for an HS scale depending on BSG. Novolog mild-moderate stress scale. PLAN FOR INPATIENT GLYCEMIC CONTROL: * Basal insulin * Lantus 15 units SC x 1 in AM * Lantus 25 units SC at dinner * Increased dose today to help cover steroids * Bolus insulin * NovoLog per scale ACHS or Q6hrs while NPO * Goal Range: Low 110 mg/dL - High 140 mg/dL * Correction Factor: 15 mg/dL/unit * Nutritional / Prandial insulin per carb ratio of 1 unit per 5 grams CHO consumed
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
[2024-02-21] MEDS ORDERED: HYDROmorphone INJ 2 MG/ML SYR/VIAL IV PRN (10:23)
[2024-02-21] MEDS ORDERED: fentaNYL citrate PF 100 MCG/2 ML VIAL IV PRN (10:23)
[2024-02-21] MEDS ORDERED: ONDANSETRON INJ 2 MG/ML 2 ML VIAL IV PRN ×2 (10:23→13:25)
[2024-02-21] MEDS ORDERED: ATROPINE SULFATE 0.1 MG/ML 10ML SYR IV PRN (10:23)
[2024-02-21] MEDS ORDERED: ePHEDrine sulfate 50 MG/ML AMP IV PRN (10:23)
[2024-02-21] MEDS ORDERED: PROMETHAZINE HCL 6.25 MG in SODIUM CHLORIDE 0.9% 50 ML IV PRN (10:23)
[2024-02-21] MEDS ORDERED: LIDOCAINE 2% 2 ML VIAL/AMP(20MG/ML) INFIL ONE (10:36)
[2024-02-21] MEDS ORDERED: PROPOFOL IV EMULSION 10 MG/ML 20 ML VIAL IV ONE (10:36)
[2024-02-21] MEDS ORDERED: DEXAMETHASONE SOD INJ 4 MG/ML VIAL ONE (10:36)
[2024-02-21] MEDS ORDERED: MIDAZOLAM HCL 1 MG/ML 2ML VIAL ONE (10:36)
[2024-02-21] MEDS ORDERED: fentaNYL citrate PF 100 MCG/2 ML VIAL ONE (10:36)
[2024-02-21] MEDS ORDERED: ONDANSETRON INJ 2 MG/ML 2 ML VIAL ONE (10:36)
[2024-02-21] MEDS ORDERED: DexMEDEtomidine HCL IV 100 MCG/ML VIAL IV ONE (10:48)
[2024-02-21] MEDS: ceFAZolin 3000MG 3,000 MG/72.5 ML BAG IV SCH (11:25)
[2024-02-21] MEDS: GENTAMICIN SULFATE 40 MG/ML 2 ML VIAL ONE (12:04)
[2024-02-21] MEDS: VANCOMYCIN HCL 1000MG/20ML VIAL ONE (12:05)
[2024-02-21] MEDS ORDERED: ePHEDrine sulfate 50 MG/5 ML SYR ONE (12:12)
[2024-02-21] MEDS: BUPIVACAINE 0.5 % 5 MG/1 ML MPF 30ML VIAL ONE (12:20)
[2024-02-21] MEDS: LIDOCAINE 1% LOCAL 20 ML VIAL ONE (12:20)
--- NOTE | 2024-02-21 12:38 | Operative Report ---
Post Operative Report Pre & Post Diagnosis Operation Date: 02/21/24 11:25 Pre-Op Diagnosis: (1) Diabetic infection of right foot Post-Op Diagnosis: (1) Diabetic infection of right foot I identified the patient and participated in the time-out.: Yes Procedure Operation Date: 02/21/24 11:25 Actual Procedures p Right Foot Irrigation and Debridement, Wound Vac Application, Application of Antibiotic Beads(Right) - Jorge Edward MD Surgeon Jorge Edward M.D. Home Manager Subha Foster PA-C; no resident or fellow available Estimated Blood Loss 5 Findings Consistent with Post-Op Diagnosis Specimens None Drains Irrigating Wound vac placed Anesthesia Type General Description of Procedure Patient was taken to the operating room, placed under general anesthesia. Time out was performed. He was given 3 g of IV Ancef for surgical prophylaxis. Was present during the entire case and assisted with positioning, tissue retraction, irrigation and application of wound VAC. Please see Dr. Edward's operative report for further detail regarding today's procedure. Patient was awakened and transferred to the recovery room in stable condition. I attest to the content of the Intraoperative Record and any orders documented therein. Any exceptions are noted below.
--- NOTE | 2024-02-21 12:53 | Operative Report ---
Post Operative Report Pre & Post Diagnosis Operation Date: 02/21/24 11:25 Pre-Op Diagnosis: (1) Diabetic infection of right foot Post-Op Diagnosis: (1) Diabetic infection of right foot I identified the patient and participated in the time-out.: Yes Procedure Operation Date: 02/21/24 11:25 Actual Procedures p Right Foot Irrigation and Debridement, Wound Vac Application, Application of Antibiotic Beads(Right) - Jorge Edward MD Surgeon Jorge Edward MD Divorce Mediator Subha Foster PA-C; no resident or fellow available Estimated Blood Loss 5 Findings Consistent with Post-Op Diagnosis Specimens None Drains Irrigating wound VAC Anesthesia Type General Complications none Disposition Accompanied Patient To Recovery: No Disposition: Recovery Room Indications Mr. Cote is 4 days status post irrigation debridement and partial fifth ray resection for a diabetic foot wound complicated by osteomyelitis. He is growing out group B beta strep. Antibiotic beads were applied. He did have reaccumulation of fluid. This was evacuated x 2 on the floor. I think he would benefit from repeat washout and application of wound VAC. Description of Procedure Informed consent. Patient identified. He identified the operative site as the right foot. I marked with my initials. Preop surgical timeout performed. Preop dose of IV antibiotics given. Taken to the OR positioned supine on the OR table. The left leg was secured to the table. A bump was placed under the right hip. The dressing was removed. There was some seropurulent drainage along with the antibiotic beads expressed from the wound. The sutures were removed along with what ever of visible beads were present. We then went ahead and put an occlusive drape below the knee and then scrubbed and prepped with Betadine. Then opened up the entire wound. There was some fibrinous exudate and wound slough present throughout which was debrided with rongeur and curette. Irrigated with a liter of saline. Redebrided. Antibiotic beads removed. Remnant of the flexor tendon was identified pulled into the wound and amputated as far proximal as possible. Good bleeding throughout. The metatarsal bone was noted at the previous amputation site. Looked benign. Reirrigated with sterile saline. Meticulous hemostasis with electrocautery. A new set of stimulant beads with vancomycin and gentamicin was mixed and 3 or 4 beads were stuck into the end of the intramedullary cavity of the bone. I then took 3-0 nylon and reapproximated the soft tissues over the proximal portion of the wound with 2 loosely applied stitches. This essentially covers up the entire bone area leaving the dorsal cavity over the fourth metatarsal and the distal wound bed from the fifth metatarsal. I then assisted the wound care team applying an irrigating wound VAC which worked properly. Patient waken from anesthesia without difficulty taken to recovery in stable condition. There were no specimens or complications. Counts were correct and blood loss is estimated to be 5 cc. At the conclusion the operation there was no one available to speak to. The wound bed at the conclusion of the operation was healthy bleeding tissue. Functioning wound VAC. The plan is to reassess and rechange the wound VAC on Tuesday. I attest to the content of the Intraoperative Record and any orders documented therein. Any exceptions are noted below.
--- NOTE | 2024-02-21 13:21 | Anesthesiology Progress Note ---
Date of Service February 21, 2024 Anesthesia Post Procedure Vital Signs Vital Signs: Temp Pulse Pulse Resp BP BP Pulse Ox 02/21/24 13:05 36.4 C L 89 14 148/89 H 93 02/21/24 12:55 85 14 148/83 H 95 02/21/24 12:45 89 16 142/81 H 96 02/21/24 12:37 36.2 C L 97 H 15 137/76 99 02/21/24 10:51 36.5 C 77 18 175/96 H 99 02/21/24 07:39 02/21/24 07:09 36.5 C 67 17 136/76 99 02/20/24 20:30 36.7 C 82 19 167/96 H 99 02/20/24 20:15 02/20/24 14:26 36.8 C 78 18 165/96 H 99 O2 Del Method O2 Flow Rate 02/21/24 13:05 Room Air 02/21/24 12:55 Oxymask 4 02/21/24 12:45 Oxymask 4 02/21/24 12:37 Oxymask 6 02/21/24 10:51 Room Air 02/21/24 07:39 Room Air 02/21/24 07:09 Room Air 02/20/24 20:30 Room Air 02/20/24 20:15 Room Air 02/20/24 14:26 Room Air Pain Intensity Right Toe: Pain Intensity: 10 Transfer of Care Handoff Completed per policy Notes Mental Status: alert / awake / arousable and participated in evaluation Patient Amnestic to Procedure: Yes Nausea / Vomiting: adequately controlled Pain: adequately controlled Airway Patency, RR, SpO2: stable & adequate BP & HR: stable & adequate Hydration State: stable & adequate Anesthetic Complications: no major complications apparent and Pt Satisfied with anesthetic care
[2024-02-21] MEDS ORDERED: NALOXONE HCL 0.4 MG/1 ML VIAL/CARP IV PRN (13:25)
[2024-02-21] MEDS: LANTUS PER UNIT CHARGE SC ONE (17:04)
[2024-02-21] MEDS: oxyCODONE HCL IR 5 MG TAB (IMMEDIATE RELEASE) PO PRN (19:04)
--- NOTE | 2024-02-21 20:36 | Hospitalist Progress Note ---
Date of Service February 21, 2024 Assessment & Plan (1) Foot ulcer: Plan: Right foot diabetic foot ulcer present on admission - 5th toe, complicated by osteomyelitis of that toe as well as 5th metatarsal head see #2 below xray of L foot - charcot foot changes seen, dislocation - ortho recommended podiatry follow up as outpatient (2) Diabetic infection of right foot: Plan: cellulitis/ulcer of R 5th toe complicated by osteomyelitis of the same toe as well as the 5th metatarsal head RLE arterial duplex was negative for PAD All cultures from right foot have grown group B strep remains on rocephin 2gm IV daily Dr Edward from [facility] has been managing this surgically s/p bedside I&D of R foot abscess by ortho 02/16/2402/16 - s/p Right Foot 5th Ray Resection with Insertion of Stimulan beads along with partial resection of 5th metatarsal head - by Dr Edward today - 02/20 - s/p right foot Irrigation and Debridement, Wound Vac Application, Application of Antibiotic Beads - also by Dr Edward cont pain control cont wound vac cont IV rocephin will speak to Dr Edward about his impression about source control if source control felt not likely will need IV antibiotics at discharge will involve ID to assist with this (3) Osteomyelitis of foot, acute: Plan: R 5th toe s/p resection (4) Hypokalemia: Plan: replaced resolved (5) DMII (diabetes mellitus, type 2): Plan: Normally takes 70 units of lantus BID back at residential Hba1c 9.7% cont basal-bolus insulins pharmacy glycemic team providing assistance with this (6) History of brain tumor: Plan: [place] [facility] [place] Continue BID keppra for seizure prophylaxis (7) Hyperlipidemia: Plan: cont statin (8) HTN (hypertension): Plan: Continue amlodipine Prior MD replaced chlorthalidone with spironolactone because of severe persistent hypokalemia Really should be on WESLEY or ARB due to DM Plan DVT ppx: bid aspirin Admission and Anticipated Discharge Date Admission Date: February 14, 2024 Subjective saw patient post-op from his right foot wash-out by Dr Edward only complaint is that of right foot pain denies all other complaints eating well Review of Systems Review of Systems: gen - no fevers or chills cv - no chest pain pulm - no dyspnea GI - stool +; no diarrhea Physical Exam Physical Exam: gen - NAD, looks good mouth - MMM neck - no JVD heart - RRR, s1 s2, no murmur lungs - CTA b/l abd - soft NT ND BS+ ext - pulses b/l feet 2+ (DP and pos tibs); mild R foot/ankle edema, none on left musculo - wound vac in place over R 5th metatarsal; Charcot foot/foot deformity of left foot Results & Data Results & Data Vital Signs (Past 12 Hours) Vital Signs Temp Pulse Pulse Resp BP Pulse Ox O2 Del Method 02/21/24 19:05 36.7 C 100 H 18 154/88 H 98 Room Air 02/21/24 16:30 36.7 C 86 16 136/81 100 Room Air 02/21/24 15:29 36.6 C 83 17 126/74 98 Room Air 02/21/24 14:32 36.4 C L 94 H 18 151/87 H 97 Room Air 02/21/24 13:59 36.5 C 92 H 18 146/89 H 99 Room Air 02/21/24 13:29 36.4 C L 83 18 157/95 H 94 Room Air 02/21/24 13:05 36.4 C L 89 14 148/89 H 93 Room Air 02/21/24 12:55 85 14 148/83 H 95 Oxymask 02/21/24 12:45 89 16 142/81 H 96 Oxymask 02/21/24 12:37 36.2 C L 97 H 15 137/76 99 Oxymask 02/21/24 10:51 36.5 C 77 18 175/96 H 99 Room Air O2 Flow Rate 02/21/24 19:05 02/21/24 16:30 02/21/24 15:29 02/21/24 14:32 02/21/24 13:59 02/21/24 13:29 02/21/24 13:05 02/21/24 12:55 4 02/21/24 12:45 4 02/21/24 12:37 6 02/21/24 10:51 Laboratory Results Laboratory Results - last 48 hr 02/20/24 02/20/24 02/20/24 11:30 16:16 20:22 WBC RBC Hgb Hct MCV MCH MCHC RDW Std Deviation RDW Coeff of Ferdinand Plt Count MPV Sodium Potassium Chloride Carbon Dioxide Anion Gap BUN Creatinine Est Cr Clr Drug Dosing Est GFR ( Amer) Est GFR (Non-Af Amer) BUN/Creatinine Ratio Glucose POC Glucose 171 H 164 H 178 H Calcium 02/21/24 02/21/24 02/21/24 06:02 07:49 12:43 WBC 9.68 RBC 4.28 L Hgb 9.9 L Hct 31.0 L MCV 72.4 L MCH 23.1 L MCHC 31.9 L RDW Std Deviation 46.0 RDW Coeff of Ferdinand 17.6 H Plt Count 431 H MPV 9.2 L Sodium 138 Potassium 3.5 Chloride 100 Carbon Dioxide 32 Anion Gap 6 BUN 13 Creatinine 0.88 Est Cr Clr Drug Dosing 169.5 Est GFR ( Amer) 121.1 Est GFR (Non-Af Amer) 104.5 BUN/Creatinine Ratio 14.8 Glucose 232 H POC Glucose 269 H 203 H Calcium 8.7 02/21/24 02/21/24 02/21/24 13:33 16:29 20:04 WBC RBC Hgb Hct MCV MCH MCHC RDW Std Deviation RDW Coeff of Ferdinand Plt Count MPV Sodium Potassium Chloride Carbon Dioxide Anion Gap BUN Creatinine Est Cr Clr Drug Dosing Est GFR ( Amer) Est GFR (Non-Af Amer) BUN/Creatinine Ratio Glucose POC Glucose 210 H 232 H 313 H* Calcium PG Care Time/CCT Total # of Minutes Spent Total Time Spent with Patient: Total time spent is greater than 50% in coordination of care (as documented) at patient's floor/unit and/or counseling patient: Coding Level of Care Code 50716 SUB INP/OBS CARE 2/35MIN Diagnoses Foot ulcer L97.509 Diabetic infection of right foot E11.628; L08.9 Osteomyelitis of foot, acute M86.179 Hypokalemia E87.6 DMII (diabetes mellitus, type 2) E11.9 History of brain tumor Z87.898 Hyperlipidemia E78.5 HTN (hypertension) I10
[2024-02-21] MEDS ORDERED: LANTUS PER UNIT CHARGE SC SCH (21:00)
[2024-02-21] MEDS: MoRPHine SULFATE 4 MG/ML 1 ML CARP\\VIAL IV PRN (21:08)
[2024-02-22] MEDS: INSULIN ASPART PER UNIT CHARGE SC SCH (00:15)
[2024-02-22] MEDS: LANTUS PER UNIT CHARGE SC SCH ×2 (08:07→21:09)
--- NOTE | 2024-02-22 08:31 | Pharmacy Report ---
Pharmacy Glycemic Short Note 2 - Date of Service February 22, 2024 - Glycemic Short BSG Results (Last 24 hours): 02/21/24 02/21/24 02/21/24 12:43 13:33 16:29 POC Glucose 203 H 210 H 232 H 02/21/24 02/21/24 02/22/24 20:04 20:05 00:07 POC Glucose 313 H* 323 H* 283 H 02/22/24 02/22/24 03:46 07:46 POC Glucose 219 H 209 H OUTPATIENT ANTIDIABETIC REGIMEN: * Semglee 70 units SC BID * Novolin R SSI ACHS HbA1C: 9.7% (02/15/24) ASSESSMENT: 02/22/24: * Blood sugars elevated throughout day again yesterday, partially related to IV steroid administration * Received 106 units of insulin (40 units of basal and 66 units of prandial/correctional bolus) * POD #1 s/p I&D - no ongoing steroids * Will increase basal today and maintain tightened Novolog parameters for now. 02/21/24: * Blood sugars elevated yesterday, ranging 164-221 mg/dL w/ elevated fasting blood sugar of 269 mg/dL this morning * Received 61 units of insulin (25 units of basal and 36 units of prandial/correctional bolus) * POD #0 s/p I&D w/ antibiotic bead placement * Will plan to increase basal insulin today, Novolog tightened yesterday and will continue 02/18: * Received 32 units of insulin yesterday, 10 basal + 22 bolus. BSGs were: [phone] mg/dL. * Fasting BSG elevated at 254 mg/dL this AM. Will double basal dose today as patient has been on much smaller doses than home regimen. * Tightened CF and CR this AM due to elevated postprandials last night. 02/17: * Tanner received 17 units of insulin yesterday, 8 basal + 9 bolus. BSGs were: [phone] mg/dL. Underwent partial resection of right 5th toe in OR yesterday. * Fasting BSG is 162 mg/dL this AM. Will increase basal by 20% today. * No change to Novolog for now. Tolerating post op diet. 02/15: * Patient received total 15 units of insulin yesterday; 10 units basal + 5 units bolus. * BSGs yesterday were well controlled [phone] mg/dl. Continued with 10 units of basal dose daily in evening. Basal not given today morning. * Novolog parameters continued the same as yesterday. 02/14: * Pt is a 43 year old male admitted with a diabetic foot infection. History of DM2 on insulin outpatient. Pharmacy consulted to assist with inpatient glycemic management. * BSGs 95-92-117mg/dL since admission. Receiving IV antibiotics and NPO this AM. * No insulin administered since admission (held due to BSGs). Will give a small dose of Lantus this AM given NPO status and plan for an HS scale depending on BSG. Novolog mild-moderate stress scale. PLAN FOR INPATIENT GLYCEMIC CONTROL: * Basal insulin * Lantus 25 units SC qAM * Lantus 15-20-25 units SC HS * Bolus insulin * NovoLog per scale ACHS or Q6hrs while NPO * Goal Range: Low 110 mg/dL - High 140 mg/dL * Correction Factor: 15 mg/dL/unit * Nutritional / Prandial insulin per carb ratio of 1 unit per 5 grams CHO consumed
[2024-02-22 08:50] LABS: BUN Creatinine Ratio 19.6 (10-20); Calcium 8.5 mg/dl (8.6-10.3); Creatinine Clr Calc Pharmacy 153.8 ml/min; Est GFR (African American) 109.6 ml/min; Est GFR (Non-African American) 94.6 ml/min; Potassium 3.8 mmol/L (3.5-5.1)
[2024-02-22 09:10] LABS: Ferritin 338.2 ng/ml (8-388)
--- NOTE | 2024-02-22 10:36 | Orthopedic Progress Note ---
Date of Service February 22, 2024 Assessment & Plan (1) H/O foot surgery: Plan: POD 5 - Status post right foot fifth ray resection POD 1 - Status post irrigation and debridement, wound VAC application right foot May be out of bed, partial weightbearing to weight-bear as tolerated on right heel with postop shoe in place. Use walker or crutches to assist with ambulation. Ice and elevation of right foot as needed for pain and swelling. Continue irrigating wound VAC. Plans for this to be changed on Tuesday with the wound care nurse. Will most likely continue the irrigating wound VAC throughout the weekend and reevaluate his wound on Tuesday, February 27, 2024. If things look good at that time potentially able to be discharged with a regular wound VAC on Tuesday. Continue IV antibiotics as per primary service. Aspirin 325 mg p.o. twice daily for DVT prophylaxis. Findings will be discussed with Dr. Edward. Will re-eval wound on Tuesday with wound care nurse. Admission and Anticipated Discharge Date Admission Date: February 14, 2024 Subjective complaining of right foot pain; improved with pain medication Nursing states that he is taking this on a regular basis Wound vac functioning. Physical Exam Musculoskeletal: Exam of right lower extremity: Minimal edema to the right foot. Moves toes freely. Diminished sensation which is normal for him throughout the right foot and toes. Dorsalis pedis pulses 1+. Toes are warm. Wound VAC is in place and functioning. Nontender with palpation around the wound itself. He is able to lift his leg. Able to perform active ankle range of motion. Strength is 5/5. Results & Data Vital Signs (Past 12 Hours) Vital Signs Temp Pulse Resp BP Pulse Ox O2 Del Method 02/22/24 07:21 Room Air 02/22/24 07:15 36.6 C 90 18 135/83 96 Room Air 02/22/24 03:49 36.7 C 92 H 18 137/71 99 Room Air 02/22/24 00:00 37.0 C 88 18 121/73 96 Room Air Laboratory Results 02/22/24 02/22/24 02/22/24 Range/Units 07:59 07:46 03:46 Sodium 136 (136-145) mmol/L Potassium 3.8 (3.5-5.1) mmol/L Chloride 100 (98-107) mmol/L Carbon Dioxide 29 (21-32) mmol/L Anion Gap 7 (3-11) BUN 19 (6-23) mg/dl Creatinine 0.97 (0.6-1.4) mg/dl Est Cr Clr Drug Dosing 153.8 ml/min Est GFR ( Amer) 109.6 ml/min Est GFR (Non-Af Amer) 94.6 ml/min BUN/Creatinine Ratio 19.6 (10-20) Glucose 218 H (70-99(Fasting)) mg/dl POC Glucose 209 H 219 H (70-99) mg/dl Calcium 8.5 L (8.6-10.3) mg/dl Iron 34 L (35-175) mcg/dl TIBC 171 L (250-450) mcg/dl Unsaturated IBC 137 L (155-355) mcg/dl Transferrin % Sat 20 (20-50) % Ferritin 338.2 (8-388) ng/ml 02/22/24 02/21/24 02/21/24 Range/Units 00:07 20:05 20:04 Sodium (136-145) mmol/L Potassium (3.5-5.1) mmol/L Chloride (98-107) mmol/L Carbon Dioxide (21-32) mmol/L Anion Gap (3-11) BUN (6-23) mg/dl Creatinine (0.6-1.4) mg/dl Est Cr Clr Drug Dosing ml/min Est GFR ( Amer) ml/min Est GFR (Non-Af Amer) ml/min BUN/Creatinine Ratio (10-20) Glucose (70-99(Fasting)) mg/dl POC Glucose 283 H 323 H* 313 H* (70-99) mg/dl Calcium (8.6-10.3) mg/dl Iron (35-175) mcg/dl TIBC (250-450) mcg/dl Unsaturated IBC (155-355) mcg/dl Transferrin % Sat (20-50) % Ferritin (8-388) ng/ml 02/21/24 02/21/24 02/21/24 Range/Units 16:29 13:33 12:43 Sodium (136-145) mmol/L Potassium (3.5-5.1) mmol/L Chloride (98-107) mmol/L Carbon Dioxide (21-32) mmol/L Anion Gap (3-11) BUN (6-23) mg/dl Creatinine (0.6-1.4) mg/dl Est Cr Clr Drug Dosing ml/min Est GFR ( Amer) ml/min Est GFR (Non-Af Amer) ml/min BUN/Creatinine Ratio (10-20) Glucose (70-99(Fasting)) mg/dl POC Glucose 232 H 210 H 203 H (70-99) mg/dl Calcium (8.6-10.3) mg/dl Iron (35-175) mcg/dl TIBC (250-450) mcg/dl Unsaturated IBC (155-355) mcg/dl Transferrin % Sat (20-50) % Ferritin (8-388) ng/ml
[2024-02-22] MEDS: ROSUVASTATIN CALCIUM 20 MG TAB PO SCH (20:16)
--- NOTE | 2024-02-22 20:34 | Hospitalist Progress Note ---
Date of Service February 22, 2024 Assessment & Plan (1) Foot ulcer: Plan: Right foot diabetic foot ulcer present on admission - 5th toe, complicated by osteomyelitis of that toe as well as 5th metatarsal head see #2 below xray of L foot - charcot foot changes seen, dislocation - ortho recommended podiatry follow up as outpatient (2) Diabetic infection of right foot: Plan: cellulitis/ulcer of R 5th toe complicated by osteomyelitis of the same toe as well as the 5th metatarsal head RLE arterial duplex was negative for PAD All cultures from right foot have grown group B strep only; no other pathogens isolated remains on rocephin 2gm IV daily Dr Edward from [facility] has been managing this surgically s/p bedside I&D of R foot abscess by ortho 02/16/2402/16 - s/p Right Foot 5th Ray Resection with Insertion of Stimulan beads along with partial resection of 5th metatarsal head - by Dr Edward 02/20 - s/p right foot Irrigation and Debridement, Wound Vac Application, Application of Antibiotic Beads - also by Dr Edward cont pain control cont wound vac cont IV rocephin I spoke with Dr Edward about his impression about source control - he confirmed that all areas of osteomyelitis have been surgically resected only remaining infection is the soft tissue near the 5th metatarsal cont IV rocephin will involve ID to assist with abx recs (3) Osteomyelitis of foot, acute: Plan: R 5th toe s/p resection (4) Hypokalemia: Plan: replaced resolved (5) DMII (diabetes mellitus, type 2): Plan: Normally takes 70 units of lantus BID back at senior living Hba1c 9.7% cont basal-bolus insulins pharmacy glycemic team providing assistance with this (6) History of brain tumor: Plan: Resected at [facility] [place] in the fall of last year Continue BID keppra for seizure prophylaxis (7) Hyperlipidemia: Plan: cont statin (8) HTN (hypertension): Plan: Continue amlodipine Prior MD replaced chlorthalidone with spironolactone because of severe persistent hypokalemia Really should be on WESLEY or ARB due to DM Plan DVT ppx: bid aspirin Admission and Anticipated Discharge Date Admission Date: February 14, 2024 Subjective only complaint is that of R foot pain had BM today no diarrhea eating well no other complaints Review of Systems Review of Systems: cv - no chest pain pulm - no dyspnea Physical Exam Physical Exam: gen - NAD, looks good, resting in bed mouth - MMM neck - no JVD heart - RRR, s1 s2, no murmur lungs - CTA b/l abd - soft NT ND BS+ ext - pulses b/l feet 2+ (DP and pos tibs); mild R foot/ankle edema, none on left musculo - wound vac in place over R 5th metatarsal; surrounding skin on foot w/o cellulitis Results & Data Results & Data Vital Signs (Past 12 Hours) Vital Signs Temp Pulse Resp BP Pulse Ox O2 Del Method 02/22/24 14:12 36.3 C L 78 16 152/90 H 98 Room Air 02/22/24 11:40 36.5 C 71 16 120/71 96 Room Air Laboratory Results Laboratory Results - last 48 hr 02/21/24 02/21/24 02/21/24 07:49 12:43 13:33 WBC 9.68 RBC 4.28 L Hgb 9.9 L Hct 31.0 L MCV 72.4 L MCH 23.1 L MCHC 31.9 L RDW Std Deviation 46.0 RDW Coeff of Ferdinand 17.6 H Plt Count 431 H MPV 9.2 L Sodium 138 Potassium 3.5 Chloride 100 Carbon Dioxide 32 Anion Gap 6 BUN 13 Creatinine 0.88 Est Cr Clr Drug Dosing 169.5 Est GFR ( Amer) 121.1 Est GFR (Non-Af Amer) 104.5 BUN/Creatinine Ratio 14.8 Glucose 232 H POC Glucose 203 H 210 H Calcium 8.7 Iron TIBC Unsaturated IBC Transferrin % Sat Ferritin 02/21/24 02/21/24 02/21/24 16:29 20:04 20:05 WBC RBC Hgb Hct MCV MCH MCHC RDW Std Deviation RDW Coeff of Ferdinand Plt Count MPV Sodium Potassium Chloride Carbon Dioxide Anion Gap BUN Creatinine Est Cr Clr Drug Dosing Est GFR ( Amer) Est GFR (Non-Af Amer) BUN/Creatinine Ratio Glucose POC Glucose 232 H 313 H* 323 H* Calcium Iron TIBC Unsaturated IBC Transferrin % Sat Ferritin 02/22/24 02/22/24 02/22/24 00:07 03:46 07:46 WBC RBC Hgb Hct MCV MCH MCHC RDW Std Deviation RDW Coeff of Ferdinand Plt Count MPV Sodium Potassium Chloride Carbon Dioxide Anion Gap BUN Creatinine Est Cr Clr Drug Dosing Est GFR ( Amer) Est GFR (Non-Af Amer) BUN/Creatinine Ratio Glucose POC Glucose 283 H 219 H 209 H Calcium Iron TIBC Unsaturated IBC Transferrin % Sat Ferritin 02/22/24 02/22/24 02/22/24 07:59 11:39 16:26 WBC RBC Hgb Hct MCV MCH MCHC RDW Std Deviation RDW Coeff of Ferdinand Plt Count MPV Sodium 136 Potassium 3.8 Chloride 100 Carbon Dioxide 29 Anion Gap 7 BUN 19 Creatinine 0.97 Est Cr Clr Drug Dosing 153.8 Est GFR ( Amer) 109.6 Est GFR (Non-Af Amer) 94.6 BUN/Creatinine Ratio 19.6 Glucose 218 H POC Glucose 212 H 170 H Calcium 8.5 L Iron 34 L TIBC 171 L Unsaturated IBC 137 L Transferrin % Sat 20 Ferritin 338.2 PG Care Time/CCT Total # of Minutes Spent Total Time Spent with Patient: Total time spent is greater than 50% in coordination of care (as documented) at patient's floor/unit and/or counseling patient: Coding Level of Care Code 80894 SUB INP/OBS CARE 25MIN Diagnoses Foot ulcer L97.509 Diabetic infection of right foot E11.628; L08.9 Osteomyelitis of foot, acute M86.179 Hypokalemia E87.6 DMII (diabetes mellitus, type 2) E11.9 History of brain tumor Z87.898 Hyperlipidemia E78.5 HTN (hypertension) I10
--- NOTE | 2024-02-23 07:55 | Hospitalist Progress Note ---
Date of Service February 23, 2024 Assessment & Plan (1) Foot ulcer: Plan: Right foot diabetic foot ulcer present on admission - 5th toe, complicated by osteomyelitis of that toe as well as 5th metatarsal head see #2 below xray of L foot - charcot foot changes seen, dislocation - ortho recommended podiatry follow up as outpatient (2) Sepsis: Plan: 2nd to #3 below present on admission sepsis resolved blood cx's negative (3) Diabetic infection of right foot: Plan: cellulitis/ulcer of R 5th toe complicated by osteomyelitis of the same toe as well as the 5th metatarsal head RLE arterial duplex was negative for PAD All cultures from right foot have grown group B strep only; no other pathogens isolated remains on rocephin 2gm IV daily Dr Edward from [facility] has been managing this surgically s/p bedside I&D of R foot abscess by ortho 02/16/2402/16 - s/p Right Foot 5th Ray Resection with Insertion of Stimulan beads along with partial resection of 5th metatarsal head - by Dr Edward 02/20 - s/p right foot Irrigation and Debridement, Wound Vac Application, Application of Antibiotic Beads - also by Dr Edward cont pain control cont wound vac cont IV rocephin I spoke with Dr Edward about his impression about source control - he confirmed that all areas of osteomyelitis have been surgically resected only remaining infection is the soft tissue near the 5th metatarsal cont IV rocephin will involve ID to assist with abx recs - likely get consult tomorrow on 02/24/24 Dr Edward to remove woundvac tomorrow and perform inspection of operative site (4) Osteomyelitis of foot, acute: Plan: R 5th toe s/p resection (5) Hypokalemia: Plan: replaced resolved (6) DMII (diabetes mellitus, type 2): Plan: Normally takes 70 units of lantus BID back at senior care Hba1c 9.7% cont basal-bolus insulins pharmacy glycemic team providing assistance with this (7) History of brain tumor: Plan: [place] [facility] Continue BID keppra for seizure prophylaxis (8) Hyperlipidemia: Plan: cont statin (9) HTN (hypertension): Plan: Continue amlodipine Prior MD replaced chlorthalidone with spironolactone because of severe persistent hypokalemia Really should be on WESLEY or ARB due to DM will likely add low-dose ARB tomorrow if BPs still high Plan DVT ppx: bid aspirin Admission and Anticipated Discharge Date Admission Date: February 14, 2024 Subjective only complaint is R foot pain otherwise no new complaints eating well ambulating with surgical shoe in place Review of Systems Review of Systems: gen - no fevers or chills cv - no cp pulm - no dyspnea GI - no diarrhea Physical Exam Physical Exam: gen - NAD, resting in bed - looks good mouth - MMM neck - no JVD heart - RRR, s1 s2, no murmur lungs - CTA b/l abd - soft NT ND BS+ ext - pulses b/l feet 2+ (DP and pos tibs); mild R foot/ankle edema, none on left -- no changes musculo - wound vac in place over R 5th metatarsal; surrounding skin on foot w/o cellulitis Results & Data Results & Data Vital Signs (Past 12 Hours) Vital Signs Temp Pulse Resp BP Pulse Ox O2 Del Method 02/23/24 07:43 36.4 C L 72 16 116/71 100 Room Air 02/22/24 21:17 36.9 C 82 16 152/84 H 97 Room Air Laboratory Results Laboratory Results - last 48 hr 02/22/24 02/22/24 02/22/24 07:46 07:59 11:39 Sodium 136 Potassium 3.8 Chloride 100 Carbon Dioxide 29 Anion Gap 7 BUN 19 Creatinine 0.97 Est Cr Clr Drug Dosing 153.8 Est GFR ( Amer) 109.6 Est GFR (Non-Af Amer) 94.6 BUN/Creatinine Ratio 19.6 Glucose 218 H POC Glucose 209 H 212 H Calcium 8.5 L Iron 34 L TIBC 171 L Unsaturated IBC 137 L Transferrin % Sat 20 Ferritin 338.2 02/22/24 02/22/24 02/23/24 16:26 20:59 08:01 Sodium Potassium Chloride Carbon Dioxide Anion Gap BUN Creatinine Est Cr Clr Drug Dosing Est GFR ( Amer) Est GFR (Non-Af Amer) BUN/Creatinine Ratio Glucose POC Glucose 170 H 211 H 166 H Calcium Iron TIBC Unsaturated IBC Transferrin % Sat Ferritin 02/23/24 02/23/24 11:53 16:29 Sodium Potassium Chloride Carbon Dioxide Anion Gap BUN Creatinine Est Cr Clr Drug Dosing Est GFR ( Amer) Est GFR (Non-Af Amer) BUN/Creatinine Ratio Glucose POC Glucose 146 H 118 H Calcium Iron TIBC Unsaturated IBC Transferrin % Sat Ferritin PG Care Time/CCT Total # of Minutes Spent Total Time Spent with Patient: Total time spent is greater than 50% in coordination of care (as documented) at patient's floor/unit and/or counseling patient: Coding Level of Care Code 81060 SUB INP/OBS CARE 1/25MIN Diagnoses Foot ulcer L97.509 Sepsis A41.9 Diabetic infection of right foot E11.628; L08.9 Osteomyelitis of foot, acute M86.179 Hypokalemia E87.6 DMII (diabetes mellitus, type 2) E11.9 History of brain tumor Z87.898 Hyperlipidemia E78.5 HTN (hypertension) I10
--- NOTE | 2024-02-23 08:27 | Orthopedic Progress Note ---
Date of Service February 23, 2024 Assessment & Plan (1) H/O foot surgery: Plan: POD 6 - Status post right foot fifth ray resection POD 2 - Status post irrigation and debridement, wound VAC application right foot May be out of bed, partial weightbearing to weight-bear as tolerated on right heel with postop shoe in place. Use walker or crutches to assist with ambulation. Ice and elevation of right foot as needed for pain and swelling. Continue irrigating wound VAC. Plans for this to be changed on Tuesday with the wound care nurse. Will discuss with nurse about pre-treating with pain medication prior to tomorrow's bedside change. Will most likely continue the irrigating wound VAC throughout the weekend and reevaluate his wound on Tuesday, February 27, 2024. If things look good at that time potentially able to be discharged with a regular wound VAC on Tuesday. Continue IV antibiotics as per primary service. Aspirin 325 mg p.o. twice daily for DVT prophylaxis. Findings will be discussed with Dr. Edward. Will re-eval wound on Tuesday with wound care nurse. Admission and Anticipated Discharge Date Admission Date: February 14, 2024 Subjective Complains of "still some foot pain". Controlled with pain medication. No other complaints or issues. Physical Exam Musculoskeletal: Exam of right foot: Wound vac in place, functioning. No edema, erythema or ecchymosis right foot. Able to actively wiggle toes. Distal pulses 1+, diminished sensation which is normal for him. Full ankle ROM. Results & Data Vital Signs (Past 12 Hours) Vital Signs Temp Pulse Resp BP Pulse Ox O2 Del Method 02/23/24 07:43 36.4 C L 72 16 116/71 100 Room Air 02/22/24 21:17 36.9 C 82 16 152/84 H 97 Room Air Laboratory Results 02/23/24 02/22/24 02/22/24 Range/Units 08:01 20:59 16:26 Sodium (136-145) mmol/L Potassium (3.5-5.1) mmol/L Chloride (98-107) mmol/L Carbon Dioxide (21-32) mmol/L Anion Gap (3-11) BUN (6-23) mg/dl Creatinine (0.6-1.4) mg/dl Est Cr Clr Drug Dosing ml/min Est GFR ( Amer) ml/min Est GFR (Non-Af Amer) ml/min BUN/Creatinine Ratio (10-20) Glucose (70-99(Fasting)) mg/dl POC Glucose 166 H 211 H 170 H (70-99) mg/dl Calcium (8.6-10.3) mg/dl Iron (35-175) mcg/dl TIBC (250-450) mcg/dl Unsaturated IBC (155-355) mcg/dl Transferrin % Sat (20-50) % Ferritin (8-388) ng/ml 02/22/24 02/22/24 Range/Units 11:39 07:59 Sodium 136 (136-145) mmol/L Potassium 3.8 (3.5-5.1) mmol/L Chloride 100 (98-107) mmol/L Carbon Dioxide 29 (21-32) mmol/L Anion Gap 7 (3-11) BUN 19 (6-23) mg/dl Creatinine 0.97 (0.6-1.4) mg/dl Est Cr Clr Drug Dosing 153.8 ml/min Est GFR ( Amer) 109.6 ml/min Est GFR (Non-Af Amer) 94.6 ml/min BUN/Creatinine Ratio 19.6 (10-20) Glucose 218 H (70-99(Fasting)) mg/dl POC Glucose 212 H (70-99) mg/dl Calcium 8.5 L (8.6-10.3) mg/dl Iron 34 L (35-175) mcg/dl TIBC 171 L (250-450) mcg/dl Unsaturated IBC 137 L (155-355) mcg/dl Transferrin % Sat 20 (20-50) % Ferritin 338.2 (8-388) ng/ml Microbiology 02/17/24 Unknown Gram Stain - Final Toe,Right Fifth Aerobic and Anaerobic Culture - Final Group B Beta Strep
--- NOTE | 2024-02-24 10:01 | Pharmacy Report ---
Pharmacy Glycemic Short Note 2 - Date of Service February 24, 2024 - Glycemic Short BSG Results (Last 24 hours): 02/23/24 02/23/24 02/23/24 11:53 16:29 20:26 POC Glucose 146 H 118 H 111 H 02/24/24 07:13 POC Glucose 117 H OUTPATIENT ANTIDIABETIC REGIMEN: * Semglee 70 units SC BID * Novolin R SSI ACHS HbA1C: 9.7% (02/15/24) ASSESSMENT: 02/24/24: * Blood sugars well-controlled over past 24 hours, ranging 111-166 mg/dL * Fasting blood sugar improved this morning at 117 mg/dL * Do not anticipate any changes to glycemic regimen today 02/22/24: * Blood sugars elevated throughout day again yesterday, partially related to IV steroid administration * Received 106 units of insulin (40 units of basal and 66 units of prandial/correctional bolus) * POD #1 s/p I&D - no ongoing steroids * Will increase basal today and maintain tightened Novolog parameters for now. 02/21/24: * Blood sugars elevated yesterday, ranging 164-221 mg/dL w/ elevated fasting blood sugar of 269 mg/dL this morning * Received 61 units of insulin (25 units of basal and 36 units of prandial/correctional bolus) * POD #0 s/p I&D w/ antibiotic bead placement * Will plan to increase basal insulin today, Novolog tightened yesterday and will continue 02/18: * Received 32 units of insulin yesterday, 10 basal + 22 bolus. BSGs were: [phone] mg/dL. * Fasting BSG elevated at 254 mg/dL this AM. Will double basal dose today as patient has been on much smaller doses than home regimen. * Tightened CF and CR this AM due to elevated postprandials last night. 02/14: * Pt is a 43 year old male admitted with a diabetic foot infection. History of DM2 on insulin outpatient. Pharmacy consulted to assist with inpatient glycemic management. * BSGs 95-92-117mg/dL since admission. Receiving IV antibiotics and NPO this AM. * No insulin administered since admission (held due to BSGs). Will give a small dose of Lantus this AM given NPO status and plan for an HS scale depending on BSG. Novolog mild-moderate stress scale. PLAN FOR INPATIENT GLYCEMIC CONTROL: * Basal insulin * Lantus 25 units SC qAM * Lantus 20-25 units SC HS (see EHR for details) * Bolus insulin * NovoLog per scale ACHS or Q6hrs while NPO * Goal Range: Low 110 mg/dL - High 140 mg/dL * Correction Factor: 15 mg/dL/unit * Nutritional / Prandial insulin per carb ratio of 1 unit per 5 grams CHO consumed
[2024-02-24] MEDS: LOSARTAN POTASSIUM 25 MG TAB PO SCH (10:23)
--- NOTE | 2024-02-24 11:03 | Infectious Disease Consult ---
Date of Consultation February 24, 2024 Assessment & Plan (1) Osteomyelitis of right foot: (2) Diabetic infection of right foot: (3) DMII (diabetes mellitus, type 2): Plan 43yo M, inmate at [facility], with h/o brain tumor s/p resection at [facility] this past fall, on Keppra for seizure ppx, T2DM, HTN, HLD who presented on 02/13 with complaints of ongoing right foot pain and swelling. Had a callous on right fifth toe that he picked off about 2 wks prior. Was on Levaquin at the long-term. Here, he has been afebrile, no hypotension. Initial labs with WBC 20.43 (now down to 9.6). Cr 1.37, LFT wnl. ESR > 130, CRP 13.28. PCT 0.26. R foot XR with soft tissue swelling with ulcer of fifth toe; demineralized appearance of the fifth middle phalanx with proximal cortical irregularity, equivocal for early osteomyelitis. R foot MRI with fluid collection in dorsal aspect of fifth distal metatarsal c/w abscess; soft tissue edema compatible with cellulitis; edema of the fifth digit phalanges and distal metatarsal compatible with osteomyelitis. RLE arterial duplex negative for PAD. R ankle MRI with signs of cellulitis in right lower leg, no abscess, no OM. BL venous doppler neg for DVT. S/p OR on 02/16 and underwent R foot fifth ray resection. R foot XR on 02/17 with postop changes. OR cx with GBS. Path with acute OM in the amputated toe and articular surface of MT. XR on 02/18 with interval development of severe degenerative changes of the tarsometatarsal joints with worsening dislocation of the joints as well; soft tissue swelling is seen. S/p OR on 02/20 and underwent I+D and wound vac placement for adequate healing and control of infection. Per primary teams discussion with ortho, confirmed that all areas of osteomyelitis have been surgically resected only remaining infection is the soft tissue near the 5th metatarsal. ID consulted on 02/23 for assistance. He has been getting broad abx, now narrowed to CTX. Since all infected bone has been removed, will plan for treatment of his SSTI with PO antibiotics. He has a wound vac and attempting to soft tissue infection. He can be treated for 10-14 days of antibiotics total starting from amputation, will favor the longer course with 14 days given ongoing management of his SSTI. This can be done with augmentin, which will cover GBS and provide adequate amount of coverage from the date of his I+D. Abx: Cefepime 02/13-02/17->CTX 02/17-present Dapto 02/13-02/16 Zosyn 02/13 Vanc 02/16, 02/20 Micro/Path: 02/13 BCX: ngtd 02/15 MRSA screen neg 02/15 R foot and left leg WCX: GBS (R-azithro, clinda) 02/16 R fifth toe: GBS (R-clinda/macrolide) 02/16 path: R fifth toe: acute OM R fifth metatarsal: focal acute OM seen beneath articular surface of bone; gross description notes size of bone includes mid and distal MT, discoloration of the head # Right fifth toe and distal MT osteomyelitis, abscess at distal MT s/p right fifth ray amputation on 02/16 and I+D with wound vac on 02/20 # Right foot diabetic SSTI # h/o T2DM # Allergy to bactrim - can continue on CTX 2g IV daily while inpatient - on discharge, would change abx to augmentin 875mg PO twice daily to complete total of 14 days starting from 02/16, end through 03/01 ID will discontinue active follow up at this time. Please do not hesitate to reconsult the Infectious Diseases service as needed. Alice Cruz MD [facility], Division of Infectious Diseases IDConnect: [phone] Consultation Information Consultation was provided via telemedicine using two-way real-time interactive telecommunication between the patient and the telemedicine provider. For the duration of the visit, the provider was performing the assessment from a different facility than the patient. This includesuse of bluetooth stethoscope forauscultationperformed by the telepresenter that the telemedicine provider can hear if described in the physical exam. Inspector contact information: Please call ID Connect Call Center . (Phone Number For Physician Use Only) After establishing a telemedicine visit, patient was: Patient was verified with two unique identifiers, Patient/authorized rep acknowledged consent and understanding and Gave permission to continue telehealth session Time Spent with Patient: Initial => 75 min History of Present Illness Reason for Consultation: right foot infection, osteo s/p amputation Attending Physician: Christo Wilson MD History of Present Illness 43yo M, inmate at [facility], with h/o brain tumor s/p resection at [facility] this past fall, on Keppra for seizure ppx, T2DM, HTN, HLD who presented on 02/13 with complaints of ongoing right foot pain and swelling. Per chart, he had been receiving Levaquin at the long-term for infection without improvement. He reported that he initially had a callous on the right fifth toe which he picked off about 2 weeks prior. Since then he has had progressive erythema, swelling, and pain of the right 5th toe and foot. He has had some drainage from the right fifth toe. Also reported as though he had been having fever and chills. Here, he has been afebrile, no hypotension. Initial labs with WBC 20.43 (now down to 9.6). Cr 1.37, LFT wnl. ESR > 130, CRP 13.28. PCT 0.26. R foot XR with soft tissue swelling with ulcer of fifth toe; demineralized appearance of the fifth middle phalanx with proximal cortical irregularity, equivocal for early osteomyelitis. R foot MRI with fluid collection in dorsal aspect of fifth distal metatarsal c/w abscess; soft tissue edema compatible with cellulitis; edema of the fifth digit phalanges and distal metatarsal compatible with osteomyelitis. RLE arterial duplex negative for PAD. R ankle MRI with signs of cellulitis in right lower leg, no abscess, no OM. BL venous doppler neg for DVT. S/p OR on 02/16 and underwent R foot fifth ray resection. R foot XR on 02/17 with postop changes. XR on 02/18 with interval development of severe degenerative changes of the tarsometatarsal joints with worsening dislocation of the joints as well; soft tissue swelling is seen. S/p OR on 02/20 and underwent I+D and wound vac placement for adequate healing and control of infection. Per primary teams discussion with ortho, confirmed that all areas of osteomyelitis have been surgically resected only remaining infection is the soft tissue near the 5th metatarsal. ID consulted on 02/23 for assistance. On evaluation, he reports having had the issue with his foot for a few weeks. Says he has some pain in his ankle and swelling. No redness that he recalls. No other issues including abdominal pain, v/d, sob, chest pain. Allergies Allergy/AdvReac Type Severity Reaction Status Date / Time sulfamethoxazole Allergy Intermediate Rash Verified 02/17/24 12:26 [From Bactrim] trimethoprim [From Bactrim] Allergy Intermediate Rash Verified 02/17/24 12:26 Home Medications Medication Instructions Recorded Confirmed Type amlodipine 10 mg tablet 10 mg PO DAILY 07/13/23 02/14/24 History chlorthalidone 50 mg tablet 50 mg PO DAILY 07/13/23 02/14/24 History gabapentin 400 mg capsule 400 mg PO BID 07/13/23 02/14/24 History gabapentin 600 mg tablet 600 mg PO BID 07/13/23 02/14/24 History glucose 1 tab PO TID PRN Hypoglycemia 07/13/23 02/14/24 History insulin glargine 100 unit/mL 70 unit subcut BID 07/13/23 02/14/24 History subcutaneous solution rosuvastatin 40 mg tablet 40 mg PO HS 07/13/23 02/14/24 History docusate sodium 100 mg capsule 100 mg PO DAILY 02/14/24 02/14/24 History insulin regular human 100 unit/mL 1 sliding scale dose subcut 02/14/24 02/14/24 History injection solution (Novolin R USEASDIRECTD Regular U-100 Insulin) levetiracetam 1,000 mg tablet 1,000 mg PO BID 02/14/24 02/14/24 History (Keppra) levofloxacin 500 mg tablet 500 mg PO DAILY 02/14/24 02/14/24 History loperamide 2 mg capsule (Imodium 2 mg PO QID PRN Diarrhea 02/14/24 02/14/24 History A-D) Patient History Medical History (Updated 02/24/24 @ 11:01 by Alice Cruz MD) Obesity Osteomyelitis of foot, acute HTN (hypertension) Diabetes Surgical History (Updated 02/20/24 @ 16:22 by Subha Ochoa DO) H/O foot surgery R 5th ray resection 02/2024 Hx of craniotomy brain tumor s/p resection fall 2022 H/O hernia repair Family History Other No pertinent family history Social History Smoking Status: Former smoker Tobacco Type: Cigarettes Second Hand Exposure: No; Do You Dip or Chew Tobacco: No; Hx Alcohol Use: No Hx Substance Use: No Preferred Language: Cypriot Communication Ability: Effective General Doc Required: No Beliefs That Will Affect Care: None Current Living Situation: Other Current Living Situation Comment: [facility] Feels Safe at Home: Declines to Answer Assistive Devices: None Review of System 10-point review of systems reviewed and are negative except for as above. Physical Exam Physical Exam: General: Awake, alert, no acute distress HEENT: NC/AT, EOMI, mmm Neck: supple Lungs: respirations non-labored Heart: nl peripheral perfusion Abdomen: soft, NT/ND Ext: + RLE edema, wound vac in place draining red fluid Skin: no rash Neuro: O x 3 Results & Data Vital Signs (Past 12 Hours) Vital Signs Temp Pulse Resp BP Pulse Ox O2 Del Method 02/24/24 07:13 36.7 C 72 17 144/85 H 98 Room Air Laboratory Results Labs reviewed Diagnostic Findings Imaging reviewed
--- NOTE | 2024-02-24 12:22 | Orthopedic Progress Note ---
Date of Service February 24, 2024 Assessment & Plan (1) H/O foot surgery: Plan: POD 7 - Status post right foot fifth ray resection POD 3 - Status post irrigation and debridement, wound VAC application right foot May be out of bed, partial weightbearing to weight-bear as tolerated on right heel with postop shoe in place. Use walker or crutches to assist with ambulation. Ice and elevation of right foot as needed for pain and swelling. Wound vac nurse present for today's evaluation of the wound. Please see her note for further details regarding the wound. Due to the significant moisture it was decided that we would not be able to reapply the irrigating wound vac. We could re-eval later today after a temporary dressing was applied, but with the amount of moisture and concern for skin integrity we decided to use Aquacel AG over the the weekend and re-eval on Tuesday for possible application of non- irrigating vac placement. Continue IV antibiotics as per primary service. Aspirin 325 mg p.o. twice daily for DVT prophylaxis. Findings will be discussed with Dr. Edward. Will re-eval wound on Tuesday with wound care nurse. Admission and Anticipated Discharge Date Admission Date: February 14, 2024 Subjective Patient resting in bed, no complaints of pain in right foot. Here today with wound care nurse to change the wound vac. Physical Exam Musculoskeletal: Exam of right foot: Wound vac removed, wound bed with healthy granulation tissue. Full ankle ROM, mild lower extremity edema. Diminished sensation right foot which is normal for him. Distal pulses 1+, cap refill brisk. 2.3 x 1 cm x 2.2 undermining. No active bleeding. Skin edges with significant maceration of skin edges. White in discoloration with skinsloughing. Mid incision upper border with skin sloughing and tissue damage, duskiness. Sutures intact on pro ximaly incision. Results & Data Vital Signs (Past 12 Hours) Vital Signs Temp Pulse Resp BP Pulse Ox O2 Del Method 02/24/24 11:24 36.6 C 68 18 159/103 H 98 Room Air 02/24/24 07:13 36.7 C 72 17 144/85 H 98 Room Air
--- NOTE | 2024-02-24 19:13 | Hospitalist Progress Note ---
Date of Service February 24, 2024 Assessment & Plan (1) Foot ulcer: Plan: Right foot diabetic foot ulcer present on admission - 5th toe, complicated by osteomyelitis of that toe as well as 5th metatarsal head see #2 below xray of L foot - charcot foot changes seen, dislocation - ortho recommended podiatry follow up as outpatient (2) Sepsis: Plan: 2nd to #3 below present on admission sepsis resolved blood cx's negative (3) Diabetic infection of right foot: Plan: cellulitis/ulcer of R 5th toe complicated by osteomyelitis of the same toe as well as the 5th metatarsal head RLE arterial duplex was negative for PAD All cultures from right foot have grown group B strep only; no other pathogens isolated remains on rocephin 2gm IV daily Dr Edward from [facility] has been managing this surgically s/p bedside I&D of R foot abscess by ortho 02/16/2402/16 - s/p Right Foot 5th Ray Resection with Insertion of Stimulan beads along with partial resection of 5th metatarsal head - by Dr Edward 02/20 - s/p right foot Irrigation and Debridement, Wound Vac Application, Application of Antibiotic Beads - also by Dr Edward cont pain control cont IV rocephin while hospitalized, then change to augmentin at discharge -- per [facility] ID recommendations I spoke with Dr Edward about his impression about source control - he confirmed that all areas of osteomyelitis have been surgically resected only remaining infection is the soft tissue near the 5th metatarsal wound vac off for the weekend; ortho & wound care nurse to re-eval the wound on Monday 02/26 (4) Osteomyelitis of foot, acute: Plan: R 5th toe s/p resection R 5th metatarsal head resection (5) Hypokalemia: Plan: replaced resolved (6) DMII (diabetes mellitus, type 2): Plan: Normally takes 70 units of lantus BID back at assisted Hba1c 9.7% cont basal-bolus insulins pharmacy glycemic team providing assistance with this (7) History of brain tumor: Plan: Resected at [facility] [place] [place] in the fall of last year Continue BID keppra for seizure prophylaxis (8) Hyperlipidemia: Plan: cont statin (9) HTN (hypertension): Plan: Continue amlodipine Prior MD replaced chlorthalidone with spironolactone because of severe persistent hypokalemia Really should be on WESLEY or ARB due to DM add low-dose ARB losartan 25mg daily starting today Plan DVT ppx: bid aspirin progressing Admission and Anticipated Discharge Date Admission Date: February 14, 2024 Subjective wound vac removed today over weekend wound care nurse advised aquacel ag instead as the wound is too wet at this time only complaint is R foot pain otherwise feels well ID consult completed Review of Systems Review of Systems: gen - eating well; no fevers cv - no cp pulm - no dyspnea GI - stool is soft, but not liquid Physical Exam Physical Exam: gen - NAD, resting in bed - looks good mouth - MMM neck - no JVD heart - RRR, s1 s2, no murmur lungs - CTA b/l abd - soft NT ND BS+ ext - pulses b/l feet 2+ (DP and pos tibs); mild R foot/ankle edema, none on left -- no changes musculo - wound vac has been removed from R foot; I did not remove the dry dressings Results & Data Results & Data Vital Signs (Past 12 Hours) Vital Signs Temp Pulse Resp BP Pulse Ox O2 Del Method 02/24/24 14:14 36.7 C 71 17 147/87 H 96 Room Air 02/24/24 11:24 36.6 C 68 18 159/103 H 98 Room Air 02/24/24 07:13 36.7 C 72 17 144/85 H 98 Room Air Laboratory Results Laboratory Results - last 24 hr 02/23/24 02/24/24 02/24/24 20:26 07:13 11:37 POC Glucose 111 H 117 H 138 H 02/24/24 16:23 POC Glucose 91 PG Care Time/CCT Total # of Minutes Spent Total Time Spent with Patient: Total time spent is greater than 50% in coordination of care (as documented) at patient's floor/unit and/or counseling patient: Coding Level of Care Code 76830 SUB INP/OBS CARE 2/35MIN Diagnoses Foot ulcer L97.509 Sepsis A41.9 Diabetic infection of right foot E11.628; L08.9 Osteomyelitis of foot, acute M86.179 Hypokalemia E87.6 DMII (diabetes mellitus, type 2) E11.9 History of brain tumor Z87.898 Hyperlipidemia E78.5 HTN (hypertension) I10
[2024-02-25] MEDS: GABAPENTIN 400 MG CAP PO ONE (17:10)
[2024-02-25] MEDS: DOCUSATE SODIUM/SENNA 50/8.6MG TAB PO SCH (17:14)
--- NOTE | 2024-02-25 18:34 | Hospitalist Progress Note ---
Date of Service February 25, 2024 Assessment & Plan (1) Diabetic infection of right foot: Plan: cellulitis/ulcer of R 5th toe complicated by osteomyelitis of the same toe as well as the 5th metatarsal head RLE arterial duplex was negative for PAD All cultures from right foot have grown group B strep only; no other pathogens isolated remains on rocephin 2gm IV daily Dr Edward from [facility] has been managing this surgically s/p bedside I&D of R foot abscess by ortho 02/16/2402/16 - s/p Right Foot 5th Ray Resection with Insertion of Stimulan beads along with partial resection of 5th metatarsal head - by Dr Edward 02/20 - s/p right foot Irrigation and Debridement, Wound Vac Application, Application of Antibiotic Beads - also by Dr Edward cont pain control cont IV rocephin while hospitalized, then change to augmentin at discharge -- per [facility] ID recommendations I spoke with Dr Edward about his impression about source control - he confirmed that all areas of osteomyelitis have been surgically resected only remaining infection is the soft tissue near the 5th metatarsal wound vac off for the weekend; ortho & wound care nurse to re-eval the wound on Monday 02/26 to determine if most debridement is needed or wash-out, whether woundvac should be used moving forward, etc for phantom limb type pain he is already on 1000mg of gabapentin BID will add a 400mg dose mid-afternoon cont pain meds prn (2) Foot ulcer: Plan: Right foot diabetic foot ulcer present on admission - 5th toe, complicated by osteomyelitis of that toe as well as 5th metatarsal head see #2 below xray of L foot - charcot foot changes seen, dislocation - ortho recommended podiatry follow up as outpatient (3) Sepsis: Plan: 2nd to #3 below present on admission sepsis resolved blood cx's negative (4) Osteomyelitis of foot, acute: Plan: R 5th toe s/p resection R 5th metatarsal head resection see above recheck a crp in am (5) Hypokalemia: Plan: replaced resolved (6) DMII (diabetes mellitus, type 2): Plan: Normally takes 70 units of lantus BID back at [facility] Hba1c 9.7% cont basal-bolus insulins pharmacy glycemic team providing assistance with this excellent control at this time (7) History of brain tumor: Plan: Resected at [facility] in the fall of last year Continue BID keppra for seizure prophylaxis (8) Hyperlipidemia: Plan: cont statin (9) HTN (hypertension): Plan: Continue amlodipine Continue spironolactone Continue losartan Plan DVT ppx: bid aspirin progressing nicely Admission and Anticipated Discharge Date Admission Date: February 14, 2024 Subjective no events overnight asks for colace reports ongoing pain in R foot including throbbing pain "where the toe used to be" eating 100% of meals and multiple snacks each day Review of Systems Review of Systems: CV - no chest pain pulm - no dyspnea GI - no vomiting or pain Physical Exam Physical Exam: gen - NAD, resting in bed, notoxic mouth - MMM neck - no JVD heart - RRR, s1 s2, no murmur lungs - CTA b/l abd - soft NT ND BS+ ext - pulses b/l feet 2+; mild R foot/ankle/distal horton edema, none on left -- no changes musculo - wound vac has been removed from R foot; I did not remove the dry dressings but they are intact and not blood-soaked; no odor; left foot deformity Results & Data Results & Data Vital Signs (Past 12 Hours) Vital Signs Temp Pulse Resp BP Pulse Ox O2 Del Method 02/25/24 15:00 36.8 C 72 17 126/71 98 Room Air 02/25/24 07:31 36.8 C 69 17 133/81 98 Room Air Laboratory Results Laboratory Results - last 24 hr 02/24/24 02/25/24 02/25/24 20:47 07:30 11:34 POC Glucose 109 H 103 H 122 H 02/25/24 16:30 POC Glucose 76 PG Care Time/CCT Total # of Minutes Spent Total Time Spent with Patient: Total time spent is greater than 50% in coordination of care (as documented) at patient's floor/unit and/or counseling patient: Coding Level of Care Code 18136 SUB INP/OBS CARE 12/08MIN Diagnoses Diabetic infection of right foot E11.628; L08.9 Foot ulcer L97.509 Sepsis A41.9 Osteomyelitis of foot, acute M86.179 Hypokalemia E87.6 DMII (diabetes mellitus, type 2) E11.9 History of brain tumor Z87.898 Hyperlipidemia E78.5 HTN (hypertension) I10
[2024-02-25] MEDS ORDERED: LANTUS PER UNIT CHARGE SC SCH (21:00)
[2024-02-26 06:46] LABS: Hematocrit (blood only) 31.1 % (42.0-52.0); Mean Corpuscular Hemoglobin 23.4 pg (25.0-34.0); Mean Corpuscular Hgb Conc 32.2 g/dL (32.0-36.0); Mean Corpuscular Volume 72.8 fL (80.0-100.0); Mean Platelet Volume 9.3 fL (9.4-12.4); Platelet Count 428 K/uL (130-400); RDW Coefficient of Variation 18.6 % (11.5-14.5); RDW Standard Deviation 47.5 fL (36.4-46.3); Red Blood Count 4.27 M/uL (4.70-6.10); White Blood Count 18.52 K/ul (4.8-10.8)
[2024-02-26 07:03] LABS: BUN Creatinine Ratio 28.6 (10-20); C Reactive Protein 2.59 mg/dl (0-0.5); Calcium 8.8 mg/dl (8.6-10.3); Creatinine Clr Calc Pharmacy 142.1 ml/min; Est GFR (African American) 99.6 ml/min; Est GFR (Non-African American) 85.9 ml/min
[2024-02-26] MEDS: LANTUS PER UNIT CHARGE SC SCH (08:40)
[2024-02-26] MEDS: LOSARTAN POTASSIUM 50 MG TAB PO SCH (10:03)
--- NOTE | 2024-02-26 10:16 | Orthopedic Progress Note ---
Date of Service February 26, 2024 Assessment & Plan (1) Osteomyelitis of right foot: Plan: Will assess foot tomorrow with wound care team and hopefully be able to redeployed a vacuum device. Continue IV antibiotics. Keep pressure off of the wound. Elevate the leg. (2) Diabetic infection of right foot: Admission and Anticipated Discharge Date Admission Date: February 14, 2024 Subjective Complains of pain right foot. Physical Exam Physical Exam: Dressing disheveled. Laying with foot externally rotated and pressure on the incision. Counseled regarding avoiding pressure on the incision. Nurse to change dressing. Results & Data Vital Signs (Past 12 Hours) Vital Signs Temp Pulse Resp BP Pulse Ox O2 Del Method 02/26/24 07:20 36.7 C 91 H 17 154/91 H 98 Room Air
--- NOTE | 2024-02-26 14:55 | Hospitalist Progress Note ---
Date of Service February 26, 2024 Assessment & Plan (1) Diabetic infection of right foot: Plan: cellulitis/ulcer of R 5th toe complicated by osteomyelitis of the same toe as well as the 5th metatarsal head RLE arterial duplex was negative for PAD All cultures from right foot have grown group B strep only; no other pathogens isolated remains on rocephin 2gm IV daily Dr Edward from [facility] has been managing this surgically s/p bedside I&D of R foot abscess by ortho 02/16/2402/16 - s/p Right Foot 5th Ray Resection with Insertion of Stimulan beads along with partial resection of 5th metatarsal head - by Dr Edward 02/20 - s/p right foot Irrigation and Debridement, Wound Vac Application, Application of Antibiotic Beads - also by Dr Edward I spoke with Dr Edward about his impression about source control - he confirmed that all areas of osteomyelitis have been surgically resected only remaining infection is the soft tissue near the 5th metatarsal wound vac off for the weekend; ortho & wound care nurse to re-eval the wound on Monday 02/26 to determine if more debridement is needed or repeat wash-out is needed, whether woundvac should be used moving forward, etc for phantom limb type pain (prior 5th toe area on right) he is already on 1000mg of gabapentin BID; added 400mg dose mid-afternoon cont pain meds prn uncertain significance of WBC elevation today his CRP has trended down from 13 to 2.5 sed rate was >130; now low 100s I did obtain repeat blood cultures as I am not sure if the episodes of shaking are rigors or atypical seizures or some other movement disorder cont IV rocephin while hospitalized, then change to augmentin at discharge -- per [facility] ID recommendations -- unless clinical status changes (2) Foot ulcer: Plan: Right foot diabetic foot ulcer present on admission - 5th toe, complicated by osteomyelitis of that toe as well as 5th metatarsal head see #2 below xray of L foot - charcot foot changes seen, dislocation - ortho recommended po diatry follow up as outpatient (3) Sepsis: Plan: 2nd to right foot infection present on admission sepsis resolved blood cx's negative at admission did take more blood cx's today as noted above (4) Osteomyelitis of foot, acute: Plan: R 5th toe s/p resection R 5th metatarsal head resection see above wbc count worse today, but CRP has trended down nicely, and ESR also trending down (5) Hypokalemia: Plan: replaced resolved (6) DMII (diabetes mellitus, type 2): Plan: Normally takes 70 units of lantus BID back at nursing home Hba1c 9.7% cont basal-bolus insulins pharmacy glycemic team providing assistance with this excellent control at this time (7) History of brain tumor: Plan: right-sided frontal-parietal mass Resected at [facility] [place] - 07/2023 pathology report not in the d/c summary will have to get such Continue BID keppra for seizure prophylaxis ?are the movements I am seeing atypical seizures? prolactin obtained after I saw these movements today - normal CT head stable will obtain EEG in am check ammonia level am check CO2 on VBG in am (8) Hyperlipidemia: Plan: cont statin (9) HTN (hypertension): Plan: Continue amlodipine Continue spironolactone Continue losartan Plan DVT ppx: bid aspirin Admission and Anticipated Discharge Date Admission Date: February 14, 2024 Subjective only complaint is that of ongoing R foot pain, worse with trying to ambulate (even with surgical shoe in place) during the visit he had several episodes of brief, about 5 seconds, of what looked like rigors however, at least 2x, he seemed to be altered during these episodes his eyes would turn outward and he would briefly stare and not talk - again <5 sec each time I asked him if he was cold and he said no He seemed much less alert today the guards at bedside stated they have seen the rigor-like episodes since the time he was admitted obtained records from [facility] -- large right frontal-parietal mass was removed early 07/2023 the d/c summary does not have the path on the mass he was discharged on keppra 1000mg BID but the summary does not mention any actual seizures during his stay there Review of Systems Review of Systems: gen - no fevers ; denies feeling cold cv - no cp GI - no abd pain; had a stool since yesterday musculo - ongoing R foot pain Physical Exam Physical Exam: gen - NAD, resting in bed, brief periods of being altered and brief periods of what looks like rigors but ? is this atypical seizures? mouth - MMM eyes - PERRL neck - no JVD heart - RRR, s1 s2, no murmur lungs - CTA b/l abd - soft NT ND BS+ ext - pulses b/l feet 2+; mild R foot/ankle/distal horton edema, none on left -- no changes musculo - wound vac has been removed from R foot; I did not remove the dry dressings but they are intact and not blood-soaked; no odor; I was able to inspect much of the right foot w/o removing dressings and I still don't see any cellulitis; baseline left foot deformity Results & Data Results & Data Vital Signs (Past 12 Hours) Vital Signs Temp Pulse Resp BP Pulse Ox O2 Del Method 02/26/24 14:14 36.9 C 92 H 17 142/73 H 99 Room Air 02/26/24 07:20 36.7 C 91 H 17 154/91 H 98 Room Air Laboratory Results Laboratory Results - last 24 hr 02/26/24 02/26/24 02/26/24 06:17 07:18 11:34 WBC 18.52 H RBC 4.27 L Hgb 10.0 L Hct 31.1 L MCV 72.8 L MCH 23.4 L MCHC 32.2 RDW Std Deviation 47.5 H RDW Coeff of Ferdinand 18.6 H Plt Count 428 H MPV 9.3 L ESR Sodium 135 L Potassium 4.0 Chloride 104 Carbon Dioxide 25 Anion Gap 6 BUN 30 H Creatinine 1.05 Est Cr Clr Drug Dosing 142.1 Est GFR ( Amer) 99.6 Est GFR (Non-Af Amer) 85.9 BUN/Creatinine Ratio 28.6 H Glucose 147 H POC Glucose 138 H 188 H Lactate Calcium 8.8 C-Reactive Protein 2.59 H Prolactin 02/26/24 02/26/24 15:21 16:34 WBC RBC Hgb Hct MCV MCH MCHC RDW Std Deviation RDW Coeff of Ferdinand Plt Count MPV ESR 109 H Sodium Potassium Chloride Carbon Dioxide Anion Gap BUN Creatinine Est Cr Clr Drug Dosing Est GFR ( Amer) Est GFR (Non-Af Amer) BUN/Creatinine Ratio Glucose POC Glucose 130 H Lactate 1.2 Calcium C-Reactive Protein Prolactin 10.[address] 02/26/24 17:26 CT head/brain wo con CLINICAL HISTORY: 43 years-old Male with ?seizures; h/o R frontoparietal mass s/p resection. Acute seizure-like activity with prior brain surgery TECHNIQUE: Multiple axial CT images of the head were obtained without contrast. A dose lowering technique was utilized adhering to the principles of ALARA. CT DOSE: 625.8 mGy.cm COMPARISON: 07/13/2023 FINDINGS: The patient has history of prior right frontal mass resection. There is right frontal calvarial craniotomy change with encephalomalacia of the right frontal lobe on today's study. No acute intracranial hemorrhage, midline shift, hydrocephalus or acute territorial infarct identified on today's study. No new intracranial mass lesions are identified. Evaluation for residual or recurrent disease is limited without the use of IV contrast. The calvarium is intact. The paranasal sinuses, mastoid air cells, and middle ear cavities are clear. IMPRESSION: 1. Right frontal calvarial craniotomy with right frontal lobe encephalomalacia compatible with the patient's history of mass resection. 2. There is no acute intracranial hemorrhage, midline shift or hydrocephalus. ACT 112: Negative or not required by law. The above report was generated using voice recognition software. It may contain grammatical, syntax or spelling errors. Electronically signed by: Will Muller M.D. 02/26/2024 6:52 PM PG Care Time/CCT Total # of Minutes Spent Total Time Spent with Patient: Total time spent is greater than 50% in coordination of care (as documented) at patient's floor/unit and/or counseling patient: Coding Level of Care Code 24520 SUB INP/OBS CARE 3/50MIN Diagnoses Diabetic infection of right foot E11.628; L08.9 Foot ulcer L97.509 Sepsis A41.9 Osteomyelitis of foot, acute M86.179 Hypokalemia E87.6 DMII (diabetes mellitus, type 2) E11.9 History of brain tumor Z87.898 Hyperlipidemia E78.5 HTN (hypertension) I10
[2024-02-26] MEDS: LACTATED RINGER'S 1,000 ML IV SCH (15:53)
[2024-02-26] MEDS: GABAPENTIN 400 MG CAP PO SCH (15:53)
--- NOTE | 2024-02-26 18:53 | CT Scan Report ---
CT head/brain wo con CLINICAL HISTORY: 43 years-old Male with ?seizures; h/o R frontoparietal mass s/p resection. Acute s eizure-like activity with prior brain surgery TECHNIQUE: Multiple axial CT images of the head were obtained without contrast. A dose lowering tech nique was utilized adhering to the principles of ALARA. CT DOSE: 625.8 mGy.cm COMPARISON: 07/13/2023 FINDINGS: The patient has history of prior right frontal mass resection. There is right frontal calvarial crani otomy change with encephalomalacia of the right frontal lobe on today's study. No acute intracranial hemorrhage, midline shift, hydrocephalus or acute territorial infarct identified on today's study. No new intracranial mass lesions are identified. Evaluation for residual or recurrent disease is limite d without the use of IV contrast. The calvarium is intact. The paranasal sinuses, mastoid air cells, and middle ear cavities are clear . IMPRESSION: 1. Right frontal calvarial craniotomy with right frontal lobe encephalomalacia compatible with the pa noreen's history of mass resection. 2. There is no acute intracranial hemorrhage, midline shift or hydrocephalus. ACT 112: Negative or not required by law. The above report was generated using voice recognition software. It may contain grammatical, syntax o r spelling errors. Electronically signed by: Will Muller M.D. 02/26/2024 6:52 PM
[2024-02-27] MEDS: LOPERAMIDE HCL 2 MG CAP PO PRN (06:28)
[2024-02-27 06:43] LABS: Base Excess VBG -0.4 mEq/L; HCO3 VBG 25 mmol/L; Oxygen Saturation VBG 70.3 %; PCO2 VBG 45 mmHg (38-50); PO2 VBG 43 mmHg; pH VBG 7.36 (7.36-7.41)
[2024-02-27 06:56] LABS: Basophils # (auto) 0.04 K/uL (0.00-0.20); Basophils % (auto) 0.2 %; Eosinophils # (auto) 0.29 K/uL (0.00-0.50); Eosinophils % (auto) 1.7 %; Hematocrit (blood only) 29.7 % (42.0-52.0); Hemoglobin 9.4 g/dl (14.0-18.0); Immature Granulocytes # (auto) 0.09 K/uL (0.01-0.20); Immature Granulocytes % (auto) 0.5 %; Lymphocytes # (auto) 2.02 K/uL (1.20-3.40); Lymphocytes % (auto) 11.8 %; Mean Corpuscular Hemoglobin 23.2 pg (25.0-34.0); Mean Corpuscular Hgb Conc 31.6 g/dL (32.0-36.0); Mean Corpuscular Volume 73.3 fL (80.0-100.0); Mean Platelet Volume 9.9 fL (9.4-12.4); Monocytes # (auto) 1.47 K/uL (0.11-0.59); Monocytes % (auto) 8.6 %; Neutrophils # (auto) 13.21 K/uL (1.40-6.50); Neutrophils % (auto) 77.2 %; Platelet Count 396 K/uL (130-400); RDW Coefficient of Variation 18.6 % (11.5-14.5); RDW Standard Deviation 48.5 fL (36.4-46.3); Red Blood Count 4.05 M/uL (4.70-6.10); White Blood Count 17.12 K/ul (4.8-10.8)
[2024-02-27 07:21] LABS: BUN Creatinine Ratio 22.9 (10-20); Calcium 8.5 mg/dl (8.6-10.3); Creatinine Clr Calc Pharmacy 126.4 ml/min; Est GFR (African American) 86.5 ml/min; Est GFR (Non-African American) 74.6 ml/min; Potassium 3.5 mmol/L (3.5-5.1)
--- NOTE | 2024-02-27 09:28 | Orthopedic Progress Note ---
Date of Service February 27, 2024 Assessment & Plan (1) Osteomyelitis of right foot: Plan: Continue IV antibiotics. Keep pressure off of the wound. Elevate the leg. (2) Diabetic infection of right foot: Admission and Anticipated Discharge Date Admission Date: February 14, 2024 Subjective No problems reported. Patient seen in conjunction with wound care nurse. Physical Exam Physical Exam: Maceration improved. There is some superficial epidermal necrosis over the anterior skin flap proximally. With his permission I have prepped this with Betadine and debrided the epidermis sharply with pickups and scissors. This is about 1 cm wide and 2 cm long. Sutures remain in place. A small area of necrotic epidermis tissue superficially remains under the most distal stitch. The Aquacel Ag packing is removed. The wound bed is irrigated with sterile saline. There is no undermining or tunneling. There is no exposed bone. I debrided some necrotic skin margin dorsal flap a couple millimeters wide by 2 cm long. I also debrided some hypertrophic keratin along the margin of the wound. I then used a curette to debride the wound base of fibrinous exudate. There was good granulation tissue with bleeding. A bleeder plantarly was controlled with silver nitrate and pressure. A silver sponge wound VAC was then applied by the wound care nurse. There is 1+ leg edema. Erythema on the foot is resolved with positive skin wrinkles and no fluctuance. Swelling on the foot is minimal. The distal wound cavity is about 1-1/2 cm deep 2 cm wide and 4 cm long. Definitely has turned the corner in terms of healing.Due to his neuropathy he tolerated all this very well without any significant pain. Results & Data Vital Signs (Past 12 Hours) Vital Signs Temp Pulse Resp BP Pulse Ox O2 Del Method 02/27/24 08:00 Room Air 02/27/24 07:13 36.7 C 79 17 147/84 H 97 Room Air Laboratory Results His white blood cell count is elevated to approximately 17,000.Antibiotics timed out over the weekend. They are restarted today. ID recommendations are noted. Continue IV ceftriaxone 2 g IV every 24 while inpatient. He can then be transitioned to Augmentin. Continue offloading and elevation. Continue IV antibiotics. Will continue to monitor. If the clinical situation is favorable Tuesday meaning that his white count has normalized and everything is going well with wound healing, he might be ready for discharge then. Will reassess Tuesday. Aspirin for DVT prophylaxis.
--- NOTE | 2024-02-27 09:45 | Pharmacy Report ---
Pharmacy Glycemic Short Note 2 - Date of Service February 27, 2024 - Glycemic Short BSG Results (Last 24 hours): 02/26/24 02/26/24 02/26/24 11:34 16:34 20:21 Glucose POC Glucose 188 H 130 H 112 H 02/27/24 02/27/24 06:23 07:37 Glucose 105 H POC Glucose 118 H OUTPATIENT ANTIDIABETIC REGIMEN: * Semglee 70 units SC BID * Novolin R SSI ACHS HbA1C: 9.7% (02/15/24) ASSESSMENT: 02/27/24: * Patient received total of 85 units of insulin yesterday, of which 44 units with basal insulin * Fasting BSG 105 mg/dL - no change * Continue same CF/CR 02/24/24: * Blood sugars well-controlled over past 24 hours, ranging 111-166 mg/dL * Fasting blood sugar improved this morning at 117 mg/dL * Do not anticipate any changes to glycemic regimen today 02/22/24: * Blood sugars elevated throughout day again yesterday, partially related to IV steroid administration * Received 106 units of insulin (40 units of basal and 66 units of prandial/correctional bolus) * POD #1 s/p I&D - no ongoing steroids * Will increase basal today and maintain tightened Novolog parameters for now. 02/21/24: * Blood sugars elevated yesterday, ranging 164-221 mg/dL w/ elevated fasting blood sugar of 269 mg/dL this morning * Received 61 units of insulin (25 units of basal and 36 units of prandial/correctional bolus) * POD #0 s/p I&D w/ antibiotic bead placement * Will plan to increase basal insulin today, Novolog tightened yesterday and will continue 02/18: * Received 32 units of insulin yesterday, 10 basal + 22 bolus. BSGs were: [phone] mg/dL. * Fasting BSG elevated at 254 mg/dL this AM. Will double basal dose today as patient has been on much smaller doses than home regimen. * Tightened CF and CR this AM due to elevated postprandials last night. 02/14: * Pt is a 43 year old male admitted with a diabetic foot infection. History of DM2 on insulin outpatient. Pharmacy consulted to assist with inpatient glycemic management. * BSGs 95-92-117mg/dL since admission. Receiving IV antibiotics and NPO this AM. * No insulin administered since admission (held due to BSGs). Will give a small dose of Lantus this AM given NPO status and plan for an HS scale depending on BSG. Novolog mild-moderate stress scale. PLAN FOR INPATIENT GLYCEMIC CONTROL: * Basal insulin * Lantus 22 units bid * Bolus insulin * NovoLog per scale ACHS or Q6hrs while NPO * Goal Range: Low 110 mg/dL - High 140 mg/dL * Correction Factor: 15 mg/dL/unit * Nutritional / Prandial insulin per carb ratio of 1 unit per 6 grams CHO consumed
[2024-02-27] MEDS: cefTRIAXone SODIUM 2,000 MG in DEXTROSE 5 % MINI-B 50 ML IV SCH (10:39)
--- NOTE | 2024-02-27 10:47 | Electroencephalogram ---
EEG Procedure Note Date of Service February 27, 2024 Start / End Times Start Time: 953 End Time: [address] 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 Home Medication List Medication Instructions Recorded Confirmed Type amlodipine 10 mg tablet 10 mg PO DAILY 07/13/23 02/14/24 History chlorthalidone 50 mg tablet 50 mg PO DAILY 07/13/23 02/14/24 History gabapentin 400 mg capsule 400 mg PO BID 07/13/23 02/14/24 History gabapentin 600 mg tablet 600 mg PO BID 07/13/23 02/14/24 History glucose 1 tab PO TID PRN Hypoglycemia 07/13/23 02/14/24 History insulin glargine 100 unit/mL 70 unit subcut BID 07/13/23 02/14/24 History subcutaneous solution rosuvastatin 40 mg tablet 40 mg PO HS 07/13/23 02/14/24 History docusate sodium 100 mg capsule 100 mg PO DAILY 02/14/24 02/14/24 History insulin regular human 100 unit/mL 1 sliding scale dose subcut 02/14/24 02/14/24 History injection solution (Novolin R USEASDIRECTD Regular U-100 Insulin) levetiracetam 1,000 mg tablet 1,000 mg PO BID 02/14/24 02/14/24 History (Keppra) levofloxacin 500 mg tablet 500 mg PO DAILY 02/14/24 02/14/24 History loperamide 2 mg capsule (Imodium 2 mg PO QID PRN Diarrhea 02/14/24 02/14/24 History A-D) Inpatient Medication List Acetaminophen (Acetaminophen 325 Mg Tab) 650 mg PO Q6H [facility] Stop: 03/16/24 01:59 Last Admin: 02/27/24 07:29 Dose: 650 mg Documented By: Admin: 02/27/24 02:22 Dose: 650 mg Documented By: Admin: 02/26/24 20:21 Dose: 650 mg Documented By: Admin: 02/26/24 15:52 Dose: 650 mg Documented By: Admin: 02/26/24 07:29 Dose: 650 mg Documented By: Admin: 02/26/24 01:50 Dose: 650 mg Documented By: Admin: 02/25/24 19:30 Dose: 650 mg Documented By: Admin: 02/25/24 15:55 Dose: 650 mg Documented By: Admin: 02/25/24 10:41 Dose: 650 mg Documented By: Admin: 02/25/24 01:55 Dose: 650 mg Documented By: Admin: 02/24/24 21:22 Dose: 650 mg Documented By: Admin: 02/24/24 14:20 Dose: 650 mg Documented By: Admin: 02/24/24 10:23 Dose: 650 mg Documented By: Admin: 02/24/24 01:50 Dose: 650 mg Documented By: Admin: 02/23/24 20:06 Dose: 650 mg Documented By: Admin: 02/23/24 13:15 Dose: 650 mg Documented By: Admin: 02/23/24 08:51 Dose: 650 mg Documented By: Admin: 02/23/24 02:18 Dose: 650 mg Documented By: Admin: 02/22/24 20:17 Dose: 650 mg Documented By: Admin: 02/22/24 13:43 Dose: 650 mg Documented By: Admin: 02/22/24 08:09 Dose: 650 mg Documented By: Admin: 02/22/24 02:04 Dose: 650 mg Documented By: Admin: 02/21/24 20:21 Dose: 650 mg Documented By: Admin: 02/21/24 13:54 Dose: 650 mg Documented By: Admin: 02/21/24 08:19 Dose: 650 mg Documented By: Admin: 02/21/24 02:03 Dose: 650 mg Documented By: Admin: 02/20/24 20:21 Dose: 650 mg Documented By: Admin: 02/20/24 13:14 Dose: 650 mg Documented By: Admin: 02/20/24 08:08 Dose: 650 mg Documented By: Admin: 02/20/24 01:00 Dose: 650 mg Documented By: Admin: 02/19/24 20:09 Dose: 650 mg Documented By: Admin: 02/19/24 14:00 Dose: 650 mg Documented By: Admin: 02/19/24 07:40 Dose: 650 mg Documented By: Admin: 02/19/24 01:01 Dose: Not Given Documented By: Admin: 02/18/24 20:38 Dose: 650 mg Documented By: Admin: 02/18/24 14:53 Dose: 650 mg Documented By: Admin: 02/18/24 07:51 Dose: 650 mg Documented By: Admin: 02/18/24 01:17 Dose: 650 mg Documented By: Admin: 02/17/24 19:25 Dose: 650 mg Documented By: Admin: 02/17/24 15:18 Dose: Not Given Documented By: Admin: 02/17/24 08:03 Dose: 650 mg Documented By: Admin: 02/17/24 01:02 Dose: 650 mg Documented By: Admin: 02/16/24 21:05 Dose: 650 mg Documented By: Admin: 02/16/24 14:20 Dose: 650 mg Documented By: Admin: 02/16/24 08:14 Dose: 650 mg Documented By: Admin: 02/16/24 01:34 Dose: 650 mg Documented By: Admin: 02/15/24 20:26 Dose: 650 mg Documented By: Admin: 02/15/24 14:33 Dose: 650 mg Documented By: Admin: 02/15/24 09:42 Dose: 650 mg Documented By: Admin: 02/15/24 01:04 Dose: 650 mg Documented By: NRR Amlodipine Besylate (Amlodipine Besylate 5 Mg Tab) 10 mg PO DAILY [facility] Stop: 03/16/24 08:59 Last Admin: 02/27/24 07:25 Dose: 10 mg Documented By: Admin: 02/26/24 08:33 Dose: 10 mg Documented By: Admin: 02/25/24 09:25 Dose: 10 mg Documented By: Admin: 02/24/24 08:33 Dose: 10 mg Documented By: Admin: 02/23/24 08:45 Dose: 10 mg Documented By: Admin: 02/22/24 08:08 Dose: 10 mg Documented By: Admin: 02/21/24 08:15 Dose: 10 mg Documented By: Admin: 02/20/24 08:06 Dose: 10 mg Documented By: Admin: 02/19/24 07:37 Dose: 10 mg Documented By: Admin: 02/18/24 07:51 Dose: 10 mg Documented By: Admin: 02/17/24 08:04 Dose: 10 mg Documented By: Admin: 02/16/24 08:12 Dose: 10 mg Documented By: Admin: 02/15/24 09:38 Dose: 10 mg Documented By: TAMAR Aspirin (Aspirin 325 Mg Ectab) 325 mg PO BID [facility] Stop: 03/19/24 10:59 Last Admin: 02/27/24 07:25 Dose: 325 mg Documented By: Admin: 02/26/24 20:18 Dose: 325 mg Documented By: Admin: 02/26/24 08:34 Dose: 325 mg Documented By: Admin: 02/25/24 20:59 Dose: 325 mg Documented By: Admin: 02/25/24 09:24 Dose: 325 mg Documented By: Admin: 02/24/24 21:14 Dose: 325 mg Documented By: Admin: 02/24/24 08:33 Dose: 325 mg Documented By: Admin: 02/23/24 20:07 Dose: 325 mg Documented By: Admin: 02/23/24 08:44 Dose: 325 mg Documented By: Admin: 02/22/24 20:17 Dose: 325 mg Documented By: Admin: 02/22/24 08:08 Dose: 325 mg Documented By: Admin: 02/21/24 20:21 Dose: 325 mg Documented By: Admin: 02/21/24 06:57 Dose: Not Given Documented By: Admin: 02/20/24 20:22 Dose: 325 mg Documented By: Admin: 02/20/24 08:05 Dose: 325 mg Documented By: Admin: 02/19/24 20:07 Dose: 325 mg Documented By: Admin: 02/19/24 07:36 Dose: 325 mg Documented By: Admin: 02/18/24 20:35 Dose: 325 mg Documented By: Admin: 02/18/24 11:36 Dose: 325 mg Documented By: RENA Gabapentin (Gabapentin 600 Mg Tab) 600 mg PO BID [facility] Stop: 03/15/24 20:59 Last Admin: 02/27/24 07:25 Dose: 600 mg Documented By: Admin: 02/26/24 20:17 Dose: 600 mg Documented By: Admin: 02/26/24 08:33 Dose: 600 mg Documented By: Admin: 02/25/24 20:58 Dose: 600 mg Documented By: Admin: 02/25/24 09:24 Dose: 600 mg Documented By: Admin: 02/24/24 21:15 Dose: 600 mg Documented By: GNPaulina Admin: 02/24/24 08:33 Dose: 600 mg Documented By: Admin: 02/23/24 20:07 Dose: 600 mg Documented By: Admin: 02/23/24 08:44 Dose: 600 mg Documented By: Admin: 02/22/24 20:17 Dose: 600 mg Documented By: Admin: 02/22/24 08:08 Dose: 600 mg Documented By: Admin: 02/21/24 20:21 Dose: 600 mg Documented By: Admin: 02/21/24 08:16 Dose: 600 mg Documented By: Admin: 02/20/24 20:22 Dose: 600 mg Documented By: Admin: 02/20/24 08:06 Dose: 600 mg Documented By: Admin: 02/19/24 20:06 Dose: 600 mg Documented By: Admin: 02/19/24 07:36 Dose: 600 mg Documented By: Admin: 02/18/24 20:35 Dose: 600 mg Documented By: Admin: 02/18/24 07:51 Dose: 600 mg Documented By: Admin: 02/17/24 20:43 Dose: 600 mg Documented By: Admin: 02/17/24 08:04 Dose: 600 mg Documented By: Admin: 02/16/24 21:05 Dose: 600 mg Documented By: Admin: 02/16/24 08:12 Dose: 600 mg Documented By: Admin: 02/15/24 20:22 Dose: 600 mg Documented By: Admin: 02/15/24 09:38 Dose: 600 mg Documented By: Admin: 02/14/24 23:10 Dose: 600 mg Documented By: NRR Gabapentin (Gabapentin 400 Mg Cap) 400 mg PO BID [facility] Stop: 03/15/24 20:59 Last Admin: 02/27/24 07:25 Dose: 400 mg Documented By: Admin: 02/26/24 20:17 Dose: 400 mg Documented By: Admin: 02/26/24 08:35 Dose: 400 mg Documented By: Admin: 02/25/24 21:00 Dose: 400 mg Documented By: Admin: 02/25/24 09:24 Dose: 400 mg Documented By: Admin: 02/24/24 21:15 Dose: 400 mg Documented By: Admin: 02/24/24 08:33 Dose: 400 mg Documented By: Admin: 02/23/24 20:07 Dose: 400 mg Documented By: Admin: 02/23/24 08:45 Dose: 400 mg Documented By: Admin: 02/22/24 20:17 Dose: 400 mg Documented By: Admin: 02/22/24 08:07 Dose: 400 mg Documented By: Admin: 02/21/24 20:21 Dose: 400 mg Documented By: Admin: 02/21/24 08:15 Dose: 400 mg Documented By: Admin: 02/20/24 20:22 Dose: 400 mg Documented By: Admin: 02/20/24 08:06 Dose: 400 mg Documented By: Admin: 02/19/24 20:06 Dose: 400 mg Documented By: Admin: 02/19/24 07:37 Dose: 400 mg Documented By: Admin: 02/18/24 20:36 Dose: 400 mg Documented By: Admin: 02/18/24 07:51 Dose: 400 mg Documented By: Admin: 02/17/24 20:43 Dose: 400 mg Documented By: Admin: 02/17/24 08:04 Dose: 400 mg Documented By: Admin: 02/16/24 21:05 Dose: 400 mg Documented By: Admin: 02/16/24 08:12 Dose: 400 mg Documented By: Admin: 02/15/24 20:22 Dose: 400 mg Documented By: Admin: 02/15/24 09:38 Dose: 400 mg Documented By: Admin: 02/14/24 23:10 Dose: 400 mg Documented By: CAL Gabapentin (Gabapentin 400 Mg Cap) 400 mg PO DAILY@15 [facility] Stop: 03/27/24 14:59 Last Admin: 02/26/24 15:53 Dose: 400 mg Documented By: SOMMER Lactated Ringer's (Lr) 1,000 mls @ 100 mls/hr IV .Q10H [facility] Stop: 02/27/24 10:59 Last Admin: 02/27/24 02:20 Dose: 100 mls/hr Documented By: Infusion: 02/27/24 02:18 Dose: Infused Documented By: Admin: 02/26/24 15:53 Dose: 100 mls/hr Documented By: SOMMER Ceftriaxone Sodium 2,000 mg/ (Dextrose) 50 mls @ 100 mls/hr IV Q24H [facility]; Protocol Stop: 04/09/24 09:59 Last Admin: 02/27/24 10:39 Dose: 100 mls/hr Documented By: ORALIA Insulin Aspart (Insulin Aspart Per Unit Charge) 0 units SC ACHS [facility]; Protocol Stop: 03/22/24 05:59 Last Admin: 02/27/24 08:40 Dose: 12 units Documented By: ORALIA Co-signed By: TERRY Admin: 02/26/24 21:44 Dose: 4 units Documented By: NEETU Co-signed By: CIPRIANO Admin: 02/26/24 18:04 Dose: 12 units Documented By: SOMMER Co-signed By: ORALIA Admin: 02/26/24 12:55 Dose: 14 units Documented By: SOMMER Co-signed By: JANIS Admin: 02/26/24 08:40 Dose: 11 units Documented By: SOMMER Co-signed By: JANIS Admin: 02/25/24 21:00 Dose: Not Given Documented By: ROBI Co-signed By: BUDDY Admin: 02/25/24 17:14 Dose: 11 units Documented By: SOMMER Co-signed By: STEPHANIE Admin: 02/25/24 13:00 Dose: 20 units Documented By: SOMMER Co-signed By: LUIS Admin: 02/25/24 09:23 Dose: 18 units Documented By: SOMMER Co-signed By: DEEPA Admin: 02/24/24 22:17 Dose: 8 units Documented By: ROBI Co-signed By: BUDDY Admin: 02/24/24 17:36 Dose: 13 units Documented By: MARIE Co-signed By: CMV(2) Admin: 02/24/24 13:16 Dose: 18 units Documented By: MARIE Co-signed By: [facility] Admin: 02/24/24 08:16 Dose: 10 units Documented By: MARIE Co-signed By: [facility] Admin: 02/23/24 20:42 Dose: 3 units Documented By: MICHELINE Co-signed By: MARY Admin: 02/23/24 17:22 Dose: 13 units Documented By: MARIE Co-signed By: [facility] Admin: 02/23/24 12:21 Dose: 22 units Documented By: MARIE Co-signed By: SANDY Admin: 02/23/24 08:52 Dose: 12 units Documented By: MARIE Co-signed By: FEMI Admin: 02/22/24 21:09 Dose: 18 units Documented By: MICHELINE Co-signed By: KELSIE Admin: 02/22/24 17:09 Dose: 16 units Documented By: AMANDA Co-signed By: [facility] Admin: 02/22/24 11:54 Dose: 22 units Documented By: AMANDA Co-signed By: [facility] Admin: 02/22/24 08:06 Dose: 14 units Documented By: AMANDA Co-signed By: [facility] Admin: 02/21/24 20:20 Dose: 13 units Documented By: MICHELINE Co-signed By: SRIDHAR Admin: 02/21/24 17:03 Dose: 19 units Documented By: AMANDA Co-signed By: DAVION Insulin Glargine (Lantus Per Unit Charge) 22 units SC BID [facility] Stop: 03/27/24 08:59 Last Admin: 02/27/24 08:40 Dose: 22 units Documented By: ORALIA Co-signed By: DAVION Admin: 02/26/24 21:43 Dose: 22 units Documented By: NEETU Co-signed By: CIPRIANO Admin: 02/26/24 08:40 Dose: 22 units Documented By: SOMMER Co-signed By: JANIS Levetiracetam (Levetiracetam 500 Mg Tab) 1,000 mg PO BID [facility] Stop: 03/16/24 08:59 Last Admin: 02/27/24 07:26 Dose: 1,000 mg Documented By: Admin: 02/26/24 20:18 Dose: 1,000 mg Documented By: Admin: 02/26/24 08:34 Dose: 1,000 mg Documented By: Admin: 02/25/24 20:59 Dose: 1,000 mg Documented By: Admin: 02/25/24 09:24 Dose: 1,000 mg Documented By: Admin: 02/24/24 21:16 Dose: 1,000 mg Documented By: Admin: 02/24/24 08:33 Dose: 1,000 mg Documented By: Admin: 02/23/24 20:07 Dose: 1,000 mg Documented By: Admin: 02/23/24 08:44 Dose: 1,000 mg Documented By: Admin: 02/22/24 20:17 Dose: 1,000 mg Documented By: Admin: 02/22/24 08:07 Dose: 1,000 mg Documented By: Admin: 02/21/24 20:21 Dose: 1,000 mg Documented By: Admin: 02/21/24 08:16 Dose: 1,000 mg Documented By: Admin: 02/20/24 20:22 Dose: 1,000 mg Documented By: Admin: 02/20/24 08:05 Dose: 1,000 mg Documented By: Admin: 02/19/24 20:07 Dose: 1,000 mg Documented By: Admin: 02/19/24 07:36 Dose: 1,000 mg Documented By: Admin: 02/18/24 20:35 Dose: 1,000 mg Documented By: Admin: 02/18/24 07:51 Dose: 1,000 mg Documented By: Admin: 02/17/24 20:49 Dose: 1,000 mg Documented By: Admin: 02/17/24 08:04 Dose: 1,000 mg Documented By: Admin: 02/16/24 21:06 Dose: 1,000 mg Documented By: Admin: 02/16/24 08:12 Dose: 1,000 mg Documented By: Admin: 02/15/24 20:23 Dose: 1,000 mg Documented By: Admin: 02/15/24 09:38 Dose: 1,000 mg Documented By: TAMAR Loperamide HCl (Loperamide Hcl 2 Mg Cap) 2 mg PO Q4H PRN PRN Reason: Diarrhea Stop: 03/28/24 04:59 Last Admin: 02/27/24 10:23 Dose: 2 mg Documented By: Admin: 02/27/24 06:28 Dose: 2 mg Documented By: NEETU Losartan Potassium (Losartan Potassium 50 Mg Tab) 50 mg PO QAM [facility] Stop: 03/27/24 08:59 Last Admin: 02/27/24 07:26 Dose: 50 mg Documented By: Admin: 02/26/24 10:03 Dose: 50 mg Documented By: SOMMER Miscellaneous (Carbohydrates For Hypoglycemia ) 15 - 30 gm PO UD PRN PRN Reason: Hypoglycemia Protocol Stop: 03/15/24 19:09 Last Admin: 02/25/24 19:38 Dose: 15 gm Documented By: Admin: 02/15/24 12:15 Dose: 30 gm Documented By: TAMAR Morphine Sulfate (Morphine Sulfate 4 Mg/Ml 1 Ml Carp\\Vial) 4 mg IV Q4H PRN PRN Reason: pain unrelieved by oxycodone Stop: 02/29/24 17:01 Last Admin: 02/27/24 06:30 Dose: 4 mg Documented By: Admin: 02/26/24 21:27 Dose: 4 mg Documented By: Admin: 02/26/24 16:31 Dose: 4 mg Documented By: Admin: 02/26/24 11:36 Dose: 4 mg Documented By: Admin: 02/26/24 07:26 Dose: 4 mg Documented By: Admin: 02/26/24 00:31 Dose: 4 mg Documented By: Admin: 02/25/24 17:14 Dose: 4 mg Documented By: Admin: 02/25/24 13:10 Dose: 4 mg Documented By: Admin: 02/24/24 11:36 Dose: 4 mg Documented By: Admin: 02/23/24 03:13 Dose: 4 mg Documented By: Admin: 02/22/24 21:09 Dose: 4 mg Documented By: Admin: 02/22/24 14:24 Dose: 4 mg Documented By: Admin: 02/22/24 09:00 Dose: 4 mg Documented By: Admin: 02/22/24 03:54 Dose: 4 mg Documented By: Admin: 02/21/24 21:08 Dose: 4 mg Documented By: MICHELINE Oxycodone HCl (Oxycodone Hcl Ir 5 Mg Tab (Immediate Release)) 10 mg PO Q4H PRN PRN Reason: Pain Stop: 02/29/24 17:00 Last Admin: 02/27/24 08:35 Dose: 10 mg Documented By: Admin: 02/27/24 04:35 Dose: 10 mg Documented By: Admin: 02/27/24 00:13 Dose: 10 mg Documented By: Admin: 02/26/24 20:16 Dose: 10 mg Documented By: Admin: 02/26/24 15:52 Dose: 10 mg Documented By: Admin: 02/26/24 10:03 Dose: 10 mg Documented By: Admin: 02/26/24 05:54 Dose: 10 mg Documented By: Admin: 02/25/24 23:36 Dose: 10 mg Documented By: Admin: 02/25/24 19:31 Dose: 10 mg Documented By: Admin: 02/25/24 09:24 Dose: 10 mg Documented By: Admin: 02/25/24 05:26 Dose: 10 mg Documented By: Admin: 02/24/24 22:31 Dose: 10 mg Documented By: Admin: 02/24/24 18:32 Dose: 10 mg Documented By: Admin: 02/24/24 14:27 Dose: 10 mg Documented By: Admin: 02/24/24 10:26 Dose: 10 mg Documented By: Admin: 02/24/24 06:09 Dose: 10 mg Documented By: Admin: 02/24/24 01:50 Dose: 10 mg Documented By: Admin: 02/23/24 21:25 Dose: 10 mg Documented By: Admin: 02/23/24 17:21 Dose: 10 mg Documented By: Admin: 02/23/24 13:15 Dose: 10 mg Documented By: Admin: 02/23/24 08:51 Dose: 10 mg Documented By: Admin: 02/23/24 00:09 Dose: 10 mg Documented By: Admin: 02/22/24 17:28 Dose: 10 mg Documented By: Admin: 02/22/24 12:50 Dose: 10 mg Documented By: Admin: 02/22/24 07:14 Dose: 10 mg Documented By: Admin: 02/22/24 02:08 Dose: 10 mg Documented By: Admin: 02/21/24 19:04 Dose: 10 mg Documented By: AMANDA Rosuvastatin Calcium (Rosuvastatin Calcium 20 Mg Tab) 40 mg PO [facility] Stop: 03/23/24 20:59 Last Admin: 02/26/24 20:17 Dose: 40 mg Documented By: Admin: 02/25/24 20:59 Dose: 40 mg Documented By: Admin: 02/24/24 21:15 Dose: 40 mg Documented By: Admin: 02/23/24 20:07 Dose: 40 mg Documented By: Admin: 02/22/24 20:16 Dose: 40 mg Documented By: MICHELINE Senna/Docusate Sodium (Docusate Sodium/Senna 50/8.6mg Tab) 1 tab PO QA [facility] Stop: 03/26/24 16:44 Last Admin: 02/27/24 07:25 Dose: 1 tab Documented By: Admin: 02/26/24 08:34 Dose: Not Given Documented By: Admin: 02/25/24 17:14 Dose: 1 tab Documented By: SOMMER Spironolactone (Spironolactone 25 Mg Tab) 25 mg PO QA [facility] Stop: 03/20/24 08:59 Last Admin: 02/27/24 07:25 Dose: 25 mg Documented By: Admin: 02/26/24 08:34 Dose: 25 mg Documented By: Admin: 02/25/24 09:24 Dose: 25 mg Documented By: Admin: 02/24/24 08:33 Dose: 25 mg Documented By: Admin: 02/23/24 08:45 Dose: 25 mg Documented By: Admin: 02/22/24 08:08 Dose: 25 mg Documented By: Admin: 02/21/24 08:16 Dose: 25 mg Documented By: Admin: 02/20/24 08:06 Dose: 25 mg Documented By: Admin: 02/19/24 07:37 Dose: 25 mg Documented By: CMV Discontinued Medications Acetaminophen (Acetaminophen 500 Mg Tab) 1,000 mg PO NOW STA Stop: 02/14/24 19:28 Last Admin: 02/14/24 20:08 Dose: 1,000 mg Documented By: JORDANA Bupivacaine HCl (Bupivacaine 0.5 % 5 Mg/1 Ml Mpf 30ml Vial) Confirm Administered Dose 30 ml .ROUTE .STK-MED ONE Stop: 02/21/24 10:42 Last Admin: 02/21/24 12:20 Dose: Not Given Documented By: RAVEN Bupivacaine HCl/Epinephrine Bitart (Bupivacaine/Epinephrine 0.5% Mpf 1:200,000 10 Ml Vial) Confirm Administered Dose 10 ml .ROUTE .STK-MED ONE Stop: 02/17/24 12:20 Last Admin: 02/17/24 13:54 Dose: Not Given Documented By: ISABEL Fentanyl Citrate (Fentanyl Citrate Pf 100 Mcg/2 Ml Vial) 25 mcg IV Q5M PRN PRN Reason: PACU Use Only-Pain Stop: 02/17/24 19:42 Last Admin: 02/17/24 14:54 Dose: 25 mcg Documented By: Admin: 02/17/24 14:49 Dose: 25 mcg Documented By: Admin: 02/17/24 14:44 Dose: 25 mcg Documented By: Admin: 02/17/24 14:39 Dose: 25 mcg Documented By: LML Gabapentin (Gabapentin 400 Mg Cap) 400 mg PO ONE ONE Stop: 02/25/24 17:01 Last Admin: 02/25/24 17:10 Dose: 400 mg Documented By: SOMMER Gentamicin Sulfate (Gentamicin Sulfate 40 Mg/Ml 2 Ml Vial) Confirm Administered Dose 240 mg .ROUTE .STK-MED ONE Stop: 02/17/24 12:24 Last Admin: 02/17/24 13:55 Dose: 240 mg Documented By: PSS Gentamicin Sulfate (Gentamicin Sulfate 40 Mg/Ml 2 Ml Vial) Confirm Administered Dose 80 mg .ROUTE .STK-MED ONE Stop: 02/21/24 11:50 Last Admin: 02/21/24 12:04 Dose: 80 mg Documented By: PSS Piperacillin Sod/Tazobactam Sod (Zosyn) 4.5 gm in 100 mls @ 200 mls/hr IV NOW ONE Stop: 02/14/24 18:36 Last Infusion: 02/14/24 19:32 Dose: Infused Documented By: Admin: 02/14/24 18:37 Dose: 200 mls/hr Documented By: CARLI Cefepime HCl 2,000 mg/ Syringe 20 mls @ 5 mls/min IV Q8H [facility]; Protocol Stop: 03/27/24 19:59 Last Admin: 02/18/24 12:45 Dose: 5 mls/min Documented By: Admin: 02/18/24 03:06 Dose: 5 mls/min Documented By: Admin: 02/17/24 19:25 Dose: 5 mls/min Documented By: Admin: 02/17/24 12:22 Dose: 5 mls/min Documented By: Admin: 02/17/24 01:27 Dose: 5 mls/min Documented By: Admin: 02/16/24 21:05 Dose: 5 mls/min Documented By: Admin: 02/16/24 12:29 Dose: 5 mls/min Documented By: Admin: 02/16/24 04:31 Dose: 5 mls/min Documented By: Admin: 02/15/24 20:21 Dose: 5 mls/min Documented By: Admin: 02/15/24 11:51 Dose: 5 mls/min Documented By: Admin: 02/15/24 05:03 Dose: 5 mls/min Documented By: Admin: 02/14/24 20:25 Dose: 5 mls/min Documented By: JORDANA Daptomycin 450 mg/ Syringe 9 mls @ 4.5 mls/min IV Q24H [facility]; Protocol Stop: 03/27/24 19:59 Last Admin: 02/16/24 21:04 Dose: 4.5 mls/min Documented By: Admin: 02/15/24 20:21 Dose: 4.5 mls/min Documented By: Admin: 02/14/24 22:02 Dose: 4.5 mls/min Documented By: JORDANA Lactated Ringer's (Lr) 1,000 mls @ 100 mls/hr IV .Q10H [facility] Stop: 02/15/24 19:59 Last Infusion: 02/15/24 09:26 Dose: Infused Documented By: Admin: 02/15/24 01:09 Dose: 100 mls/hr Documented By: NRR Potassium Chloride/Sodium Chloride (1/2 Nss + 20meq Kcl 1000ml) 20 meq in 1,000 mls @ 125 mls/hr IV .Q8H [facility] Stop: 03/16/24 09:14 Last Infusion: 02/18/24 14:26 Dose: Infused Documented By: Admin: 02/18/24 07:55 Dose: 125 mls/hr Documented By: Infusion: 02/18/24 07:55 Dose: Infused Documented By: Admin: 02/18/24 00:18 Dose: 125 mls/hr Documented By: Infusion: 02/18/24 00:18 Dose: Infused Documented By: HNIsai Admin: 02/17/24 16:13 Dose: 125 mls/hr Documented By: Infusion: 02/17/24 16:07 Dose: Infused Documented By: Admin: 02/17/24 08:05 Dose: 125 mls/hr Documented By: Infusion: 02/17/24 08:05 Dose: Infused Documented By: Admin: 02/17/24 02:23 Dose: 125 mls/hr Documented By: Infusion: 02/17/24 01:51 Dose: Infused Documented By: Admin: 02/16/24 17:51 Dose: 125 mls/hr Documented By: Infusion: 02/16/24 16:55 Dose: Infused Documented By: Admin: 02/16/24 08:55 Dose: 125 mls/hr Documented By: Infusion: 02/16/24 08:34 Dose: Infused Documented By: Admin: 02/16/24 00:34 Dose: 125 mls/hr Documented By: Infusion: 02/16/24 00:34 Dose: Infused Documented By: Admin: 02/15/24 17:27 Dose: 125 mls/hr Documented By: Infusion: 02/15/24 17:27 Dose: Infused Documented By: Admin: 02/15/24 09:39 Dose: 125 mls/hr Documented By: TAMAR Lactated Ringer's (Lr) 1,000 mls @ 200 mls/hr IV .Q5H [facility] Stop: 02/17/24 00:29 Last Infusion: 02/17/24 02:24 Dose: Infused Documented By: Admin: 02/16/24 21:06 Dose: 200 mls/hr Documented By: CANDACE Daptomycin 675 mg/ Syringe 13.5 mls @ 6.75 mls/min IV Q24H [facility]; Protocol Stop: 03/30/24 09:59 Last Admin: 02/17/24 10:37 Dose: 6.75 mls/min Documented By: RENA Lactated Ringer's (Lr) 1,000 mls @ 15 mls/hr IV .Q24H [facility] Stop: 03/18/24 11:29 Last Infusion: 02/18/24 14:26 Dose: Infused Documented By: Admin: 02/18/24 11:36 Dose: 15 mls/hr Documented By: Infusion: 02/17/24 12:37 Dose: Infused Documented By: Admin: 02/17/24 11:31 Dose: 15 mls/hr Documented By: TOMAS Cefazolin Sodium (Ancef 3000mg) 3,000 mg in 72.5 mls @ 130 mls/hr IV PREOP [facility]; Protocol Stop: 02/18/24 05:59 Last Infusion: 02/17/24 15:20 Dose: Infused Documented By: Admin: 02/17/24 15:18 Dose: Not Given Documented By: Admin: 02/17/24 13:05 Dose: 130 mls/hr Documented By: KYLEE Ceftriaxone Sodium 2,000 mg/ (Dextrose) 50 mls @ 100 mls/hr IV Q24H [facility]; Protocol Stop: 02/25/24 13:59 Last Infusion: 02/24/24 16:41 Dose: Infused Documented By: Admin: 02/24/24 14:20 Dose: 100 mls/hr Documented By: Infusion: 02/23/24 14:00 Dose: Infused Documented By: Admin: 02/23/24 13:17 Dose: 100 mls/hr Documented By: Infusion: 02/22/24 13:42 Dose: Infused Documented By: Admin: 02/22/24 13:09 Dose: 100 mls/hr Documented By: Infusion: 02/21/24 14:30 Dose: Infused Documented By: Admin: 02/21/24 13:55 Dose: 100 mls/hr Documented By: Infusion: 02/20/24 13:52 Dose: Infused Documented By: Admin: 02/20/24 13:15 Dose: 100 mls/hr Documented By: Infusion: 02/19/24 16:05 Dose: Infused Documented By: Infusion: 02/19/24 15:00 Dose: 100 mls/hr Documented By: Infusion: 02/19/24 14:03 Dose: 0 mls/hr Documented By: Admin: 02/19/24 13:58 Dose: 100 mls/hr Documented By: Infusion: 02/18/24 15:58 Dose: Infused Documented By: Admin: 02/18/24 15:24 Dose: 100 mls/hr Documented By: RENA Cefazolin Sodium (Ancef 3000mg) 3,000 mg in 72.5 mls @ 130 mls/hr IV PREOP [facility]; Protocol Stop: 02/22/24 09:59 Last Infusion: 02/21/24 13:27 Dose: Infused Documented By: Admin: 02/21/24 11:25 Dose: 130 mls/hr Documented By: [id number] Insulin Aspart (Insulin Aspart Per Unit Charge) 0 units SC Q6 [facility] Stop: 03/16/24 00:00 Last Admin: 02/15/24 12:23 Dose: Not Given Documented By: Admin: 02/15/24 05:59 Dose: Not Given Documented By: Admin: 02/14/24 23:23 Dose: Not Given Documented By: [email or web address] Insulin Aspart (Insulin Aspart Per Unit Charge) 0 units SC ACHS [facility] Stop: 02/14/24 23:59 Last Admin: 02/14/24 20:42 Dose: Not Given Documented By: JORDANA Insulin Aspart (Insulin Aspart Per Unit Charge) 0 units SC ACHS [facility]; Protocol Stop: 03/16/24 17:09 Last Admin: 02/20/24 21:39 Dose: 2 units Documented By: DMR Co-signed By: KSC Admin: 02/20/24 16:45 Dose: 12 units Documented By: AMANDA Co-signed By: CEF Admin: 02/20/24 11:51 Dose: 7 units Documented By: AMANDA Co-signed By: VGSamantha Admin: 02/20/24 08:04 Dose: 15 units Documented By: AMANDA Co-signed By: VGH Admin: 02/19/24 20:30 Dose: 5 units Documented By: TKB Co-signed By: RES Admin: 02/19/24 16:54 Dose: 11 units Documented By: CMV Co-signed By: [facility] Admin: 02/19/24 12:11 Dose: 10 units Documented By: CMV Co-signed By: RDL Admin: 02/19/24 08:16 Dose: 11 units Documented By: CMV Co-signed By: [facility] Admin: 02/18/24 21:13 Dose: 3 units Documented By: TKB Co-signed By: RES Admin: 02/18/24 17:18 Dose: 7 units Documented By: TRB Co-signed By: RDL Admin: 02/18/24 12:44 Dose: 8 units Documented By: RENA Co-signed By: LATANYA Admin: 02/18/24 08:53 Dose: 4 units Documented By: RENA Co-signed By: LATANYA Admin: 02/17/24 20:44 Dose: 3 units Documented By: HNIsai Co-signed By: GEORGINA Admin: 02/17/24 18:02 Dose: 4 units Documented By: RENA Co-signed By: LATANYA Admin: 02/17/24 15:37 Dose: 2 units Documented By: RENA Co-signed By: LATANYA Admin: 02/17/24 08:59 Dose: 2 units Documented By: RENA Co-signed By: LATANYA Admin: 02/16/24 21:04 Dose: Not Given Documented By: CANDACE Co-signed By: TRICIA Admin: 02/16/24 17:55 Dose: 5 units Documented By: THOR Co-signed By: GEORGINA(2) Admin: 02/16/24 14:34 Dose: Not Given Documented By: Admin: 02/16/24 09:02 Dose: 4 units Documented By: THOR Co-signed By: GEORGINA(2) Admin: 02/15/24 20:45 Dose: Not Given Documented By: Admin: 02/15/24 18:21 Dose: 5 units Documented By: TAMAR Co-signed By: VÍCTOR Insulin Aspart (Insulin Aspart Per Unit Charge) 0 units SC Q6 KARTHIKEYAN; Protocol Stop: 03/22/24 05:59 Last Admin: 02/21/24 13:53 Dose: 8 units Documented By: AMANDA Co-signed By: JULISSA Admin: 02/21/24 06:07 Dose: 7 units Documented By: PAYTON Co-signed By: CARLI(2) Insulin Aspart (Insulin Aspart Per Unit Charge) 0 units SC 0000,0400 KARTHIKEYAN; Padmini col Stop: 02/22/24 04:01 Last Admin: 02/22/24 03:53 Dose: 6 units Documented By: MICHELINE Co-signed By: KELSIE Admin: 02/22/24 00:15 Dose: 13 units Documented By: MICHELINE Co-signed By: MARYANA Insulin Glargine (Lantus Per Unit Charge) 10 units SC NOW ONE Stop: 02/15/24 09:16 Last Admin: 02/15/24 09:38 Dose: 10 units Documented By: TAMAR Co-signed By: JAMES Insulin Glargine (Lantus Per Unit Charge) 0 units SC HS KARTHIKEYAN; Protocol Stop: 03/16/24 20:59 Last Admin: 02/15/24 20:45 Dose: Not Given Documented By: CANDACE Insulin Glargine (Lantus Per Unit Charge) 8 units SC HS KARTHIKEYAN Stop: 03/17/24 20:59 Last Admin: 02/17/24 20:47 Dose: 8 units Documented By: TROY Co-signed By: GEORGINA Admin: 02/16/24 21:03 Dose: 8 units Documented By: CANDACE Co-signed By: TRICIA Insulin Glargine (Lantus Per Unit Charge) 10 units SC HS KARTHIKEYAN; Protocol Stop: 03/17/24 20:59 Last Admin: 02/18/24 21:13 Dose: 10 units Documented By: MARY Co-signed By: CARLOS Insulin Glargine (Lantus Per Unit Charge) 10 units SC BID KARTHIKEYAN; Protocol Stop: 03/19/24 20:59 Last Admin: 02/19/24 20:30 Dose: 10 units Documented By: MRAY Co-signed By: CARLOS Admin: 02/19/24 09:20 Dose: 10 units Documented By: MICHEL Co-signed By: [facility] Insulin Glargine (Lantus Per Unit Charge) 15 units SC DAILY KARTHIKEYAN; Protocol Stop: 03/21/24 08:59 Last Admin: 02/21/24 08:15 Dose: 15 units Documented By: AMANDA Co-signed By: TERRY Admin: 02/20/24 08:04 Dose: 15 units Documented By: AMANDA Co-signed By: TERRY Insulin Glargine (Lantus Per Unit Charge) 0 units SC HS [facility]; Protocol Stop: 03/21/24 20:59 Last Admin: 02/20/24 21:38 Dose: 10 units Documented By: PAYTON Co-signed By: KARO Insulin Glargine (Lantus Per Unit Charge) 25 units SC ONE ONE Stop: 02/21/24 16:31 Last Admin: 02/21/24 17:04 Dose: 25 units Documented By: AMANDA Co-signed By: TERRY Insulin Glargine (Lantus Per Unit Charge) 25 units SC DAILY KARTHIKEYAN Stop: 03/23/24 08:59 Last Admin: 02/25/24 09:24 Dose: 25 units Documented By: SOMMER Co-signed By: DEEPA Admin: 02/24/24 08:17 Dose: 25 units Documented By: MARIE Co-signed By: JOSSE Admin: 02/23/24 08:52 Dose: 25 units Documented By: MARIE Co-signed By: FEMI Admin: 02/22/24 08:07 Dose: 25 units Documented By: AMANDA Co-signed By: TERRY Insulin Glargine (Lantus Per Unit Charge) 0 units SC HS [facility]; Protocol Stop: 02/25/24 23:59 Last Admin: 02/25/24 20:58 Dose: 20 units Documented By: ROBI Co-signed By: BUDDY Admin: 02/24/24 22:18 Dose: 20 units Documented By: ROBI Co-signed By: BUDDY Admin: 02/23/24 20:42 Dose: 20 units Documented By: MICHELINE Co-signed By: MARY Admin: 02/22/24 21:09 Dose: 25 units Documented By: MICHELINE Co-signed By: KELSIE Levetiracetam (Levetiracetam 500 Mg/5 Ml Vial) 1,000 mg IV NOW STA Stop: 02/14/24 18:06 Last Admin: 02/14/24 18:22 Dose: 1,000 mg Documented By: CARLI Lidocaine HCl (Xylocaine 1%/Sod Bicarb 20 Ml Vial) 20 ml INFIL NOW ONE Stop: 02/16/24 16:24 Last Admin: 02/16/24 17:45 Dose: 20 ml Documented By: THOR Lidocaine HCl (Lidocaine 1% Local 20 Ml Vial) Confirm Administered Dose 1 ml .ROUTE .STK-MED ONE Stop: 02/16/24 17:11 Last Admin: 02/16/24 17:14 Dose: Not Given Documented By: THOR Lidocaine HCl (Lidocaine 1% Local 20 Ml Vial) Confirm Administered Dose 1 ml .ROUTE .STK-MED ONE Stop: 02/17/24 12:20 Last Admin: 02/17/24 13:55 Dose: Not Given Documented By: ISABEL Lidocaine HCl (Lidocaine 1% Local 20 Ml Vial) Confirm Administered Dose 1 ml .ROUTE .STK-MED ONE Stop: 02/21/24 10:43 Last Admin: 02/21/24 12:20 Dose: Not Given Documented By: RAVEN Losartan Potassium (Losartan Potassium 25 Mg Tab) 25 mg PO QAM [facility] Stop: 03/25/24 08:59 Last Admin: 02/25/24 09:25 Dose: 25 mg Documented By: Admin: 02/24/24 10:23 Dose: 25 mg Documented By: MARIE Metoprolol Tartrate (Metoprolol Tartrate 25 Mg Tab) 25 mg PO BID [facility] Stop: 03/17/24 20:59 Last Admin: 02/18/24 07:51 Dose: 25 mg Documented By: Admin: 02/17/24 20:49 Dose: 25 mg Documented By: Admin: 02/17/24 08:05 Dose: Not Given Documented By: Admin: 02/16/24 21:04 Dose: 25 mg Documented By: CANDACE Morphine Sulfate (Morphine Sulfate 4 Mg/Ml 1 Ml Carp\\Vial) 4 mg IV NOW STA Stop: 02/14/24 18:09 Last Admin: 02/14/24 18:22 Dose: 4 mg Documented By: CARLI Morphine Sulfate (Morphine Sulfate 4 Mg/Ml 1 Ml Carp\\Vial) 3 mg IV Q4H PRN PRN Reason: Pain(5+) Stop: 02/28/24 19:26 Last Admin: 02/15/24 15:49 Dose: 3 mg Documented By: Admin: 02/15/24 11:40 Dose: 3 mg Documented By: Admin: 02/15/24 07:25 Dose: 3 mg Documented By: Admin: 02/15/24 02:42 Dose: 3 mg Documented By: Admin: 02/14/24 22:47 Dose: 3 mg Documented By: JORDANA Morphine Sulfate (Morphine Sulfate 4 Mg/Ml 1 Ml Carp\\Vial) 6 mg IV Q6H PRN PRN Reason: Severe Pain (Scale 7, 8, 9,10) Stop: 02/28/24 19:26 Last Admin: 02/17/24 07:42 Dose: 6 mg Documented By: Admin: 02/17/24 01:27 Dose: 6 mg Documented By: Admin: 02/16/24 19:19 Dose: 6 mg Documented By: Admin: 02/16/24 14:54 Dose: 6 mg Documented By: Admin: 02/16/24 08:54 Dose: 6 mg Documented By: Admin: 02/16/24 02:34 Dose: 6 mg Documented By: Admin: 02/15/24 20:21 Dose: 6 mg Documented By: CANDACE Morphine Sulfate (Morphine Sulfate 4 Mg/Ml 1 Ml Carp\\Vial) 6 mg IV Q4H PRN PRN Reason: Severe Pain (Scale 7, 8, 9,10) Stop: 02/29/24 17:01 Last Admin: 02/19/24 04:24 Dose: 6 mg Documented By: Admin: 02/18/24 20:50 Dose: 6 mg Documented By: TKArthur Admin: 02/18/24 16:46 Dose: 6 mg Documented By: TRArthur Admin: 02/18/24 12:45 Dose: 6 mg Documented By: Admin: 02/18/24 07:54 Dose: 6 mg Documented By: Admin: 02/18/24 03:04 Dose: 6 mg Documented By: Admin: 02/17/24 22:35 Dose: 6 mg Documented By: Admin: 02/17/24 18:03 Dose: 6 mg Documented By: RENA Morphine Sulfate (Morphine Sulfate 4 Mg/Ml 1 Ml Carp\\Vial) 4 mg IV Q4H PRN PRN Reason: Severe Pain (Scale 7, 8, 9,10) Stop: 02/29/24 17:01 Last Admin: 02/21/24 13:49 Dose: 4 mg Documented By: Admin: 02/21/24 06:02 Dose: 4 mg Documented By: Admin: 02/21/24 02:03 Dose: 4 mg Documented By: Admin: 02/20/24 21:41 Dose: 4 mg Documented By: Admin: 02/20/24 17:33 Dose: 4 mg Documented By: Admin: 02/20/24 13:15 Dose: 4 mg Documented By: Admin: 02/20/24 08:42 Dose: 4 mg Documented By: Admin: 02/20/24 02:27 Dose: 4 mg Documented By: Admin: 02/19/24 20:46 Dose: 4 mg Documented By: Admin: 02/19/24 11:09 Dose: 4 mg Documented By: MICHEL Oxycodone HCl (Oxycodone Hcl Ir 5 Mg Tab (Immediate Release)) 10 mg PO Q4H PRN PRN Reason: Moderate Pain 4-6/10 Stop: 02/29/24 17:00 Last Admin: 02/21/24 14:57 Dose: 10 mg Documented By: Admin: 02/21/24 04:51 Dose: 10 mg Documented By: Admin: 02/21/24 00:33 Dose: 10 mg Documented By: Admin: 02/20/24 20:16 Dose: 10 mg Documented By: Admin: 02/20/24 16:16 Dose: 10 mg Documented By: Admin: 02/20/24 12:14 Dose: 10 mg Documented By: Admin: 02/20/24 08:05 Dose: 10 mg Documented By: Admin: 02/19/24 16:54 Dose: 10 mg Documented By: Admin: 02/19/24 13:01 Dose: 10 mg Documented By: Admin: 02/19/24 07:40 Dose: 10 mg Documented By: Admin: 02/18/24 11:27 Dose: 10 mg Documented By: Admin: 02/18/24 05:36 Dose: 10 mg Documented By: Admin: 02/18/24 01:18 Dose: 10 mg Documented By: Admin: 02/17/24 20:43 Dose: 10 mg Documented By: Admin: 02/17/24 16:12 Dose: 10 mg Documented By: Admin: 02/17/24 06:29 Dose: 10 mg Documented By: Admin: 02/17/24 01:02 Dose: 10 mg Documented By: Admin: 02/16/24 20:58 Dose: 10 mg Documented By: Admin: 02/16/24 12:29 Dose: 10 mg Documented By: Admin: 02/16/24 08:13 Dose: 10 mg Documented By: Admin: 02/16/24 01:33 Dose: 10 mg Documented By: Admin: 02/15/24 21:32 Dose: 10 mg Documented By: Admin: 02/15/24 17:26 Dose: 10 mg Documented By: TAMAR Potassium Chloride (Potassium Chloride Crtab 20 Meq Tabcr) 40 meq PO NOW STA Stop: 02/14/24 18:24 Last Admin: 02/14/24 18:37 Dose: 40 meq Documented By: SW Potassium Chloride (Potassium Chloride Crtab 20 Meq Tabcr) 40 meq PO NOW STA Stop: 02/14/24 19:04 Last Admin: 02/14/24 19:32 Dose: 40 meq Documented By: AAW Potassium Chloride (Potassium Chloride Crtab 20 Meq Tabcr) 40 meq PO NOW STA Stop: 02/15/24 08:13 Last Admin: 02/15/24 09:37 Dose: 40 meq Documented By: TAMAR Potassium Chloride (Potassium Chloride Crtab 20 Meq Tabcr) 40 meq PO QAM [facility] Stop: 03/18/24 15:59 Last Admin: 02/18/24 07:51 Dose: 40 meq Documented By: Admin: 02/17/24 16:12 Dose: 40 meq Documented By: RENA Vancomycin HCl (Vancomycin Hcl 1000mg/20ml Vial) Confirm Administered Dose 50 mg .ROUTE .STK-MED ONE Stop: 02/17/24 12:24 Last Admin: 02/17/24 13:55 Dose: 50 mg Documented By: PSS Vancomycin HCl (Vancomycin Hcl 1000mg/20ml Vial) Confirm Administered Dose 50 mg .ROUTE .STK-MED ONE Stop: 02/21/24 11:51 Last Admin: 02/21/24 12:05 Dose: 50 mg Documented By: PSS Description This is a 21 electrode EEG with a single channel dedicated to limited EKG. The electrodes were placed in accordance with the International 10-20 system. Interpretation The predominant background activity consists of an irregular 8 hz activity, of up to 40 mV in amplitude,seen symmetrically distributed over the posterior head regions bilaterally. This activity attenuates nicely with eye-opening and other alerting procedures. Photic stimulation was performed and elicited no change in the background activity and no abnormal responses were seen. Hyperventilation was not performed. A mild amount of muscle and movement artifact activity contaminated the recording, yet did not hinder interpretation to any significant degree. Throughout the waking portion of the recording, no focal abnormalities, abnormal slow activity, or potentially epileptogenic discharges are seen. However, there was a right frontocentral "breach" rhythm with higher amplitude in those electrodes than others. However, it was not slow. The patient entered the drowsy state and brief periods of stage II sleep with no further activation. In summary, this EEG was normal during wakefulness and light sleep. No focal abnormalities, potentially epileptogenic discharges, or abnormal slow activity was seen. Clinical Correlation The abscence of potentially epileptogenic activity does not exclude a seizure disorder, since interictally, EEGs can be normal. Clinical correlation is required. [facility] EEG Procedure Codes Indication for Procedure (1) Hx of craniotomy: (2) History of brain tumor: (3) Seizure-like activity: Neurology Neurology: 37926 EEG include record awake & sleepy
--- NOTE | 2024-02-28 06:42 | Hospitalist Progress Note ---
Date of Service February 27, 2024 Assessment & Plan (1) Diabetic infection of right foot: Plan: cellulitis/ulcer of R 5th toe complicated by osteomyelitis of the same toe as well as the 5th metatarsal head RLE arterial duplex was negative for PAD All cultures from right foot have grown group B strep only; no other pathogens isolated remains on rocephin 2gm IV daily Dr Edward from [facility] has been managing this surgically s/p bedside I&D of R foot abscess by ortho 02/16/2402/16 - s/p Right Foot 5th Ray Resection with Insertion of Stimulan beads along with partial resection of 5th metatarsal head - by Dr Edward 02/20 - s/p right foot Irrigation and Debridement, Wound Vac Application, Application of Antibiotic Beads - also by Dr Edward I spoke with Dr Edward about his impression about source control - he confirmed that all areas of osteomyelitis have been surgically resected only remaining infection is the soft tissue near the 5th metatarsal wound vac off for the weekend; ortho & wound care nurse re-evaluated the wound today -- some minor bedside debridement performed by Dr Edward (see his note) woundvac placed back on with TUESDAY/TUESDAY/TUESDAY woundvac exchange planned for phantom limb type pain (prior 5th toe area on right) he is already on 1000mg of gabapentin BID; added 400mg dose mid-afternoon cont pain meds prn uncertain significance of WBC elevation (due to missing 1 dose of IV rocephin yesterday?) his CRP has trended down from 13 to 2.5 sed rate was >130; now low 100s I did obtain repeat blood cultures as I was not sure if the episodes of shaking were rigors from infection or atypical seizures or some other movement disorder cont IV rocephin while hospitalized, then change to augmentin at discharge -- per [facility] ID recommendations -- unless clinical status changes (2) Foot ulcer: Plan: Right foot diabetic foot ulcer present on admission - 5th toe, complicated by osteomyelitis of that toe as well as 5th metatarsal head osteomyelitis xray of L foot - charcot foot changes seen, dislocation - ortho recommended podiatry follow up as outpatient (3) Sepsis: Plan: 2nd to right foot infection present on admission sepsis resolved blood cx's negative at admission repeat blood cx's from 02/25 negative thus far cont IV rocephin for group B strep from the wound (4) Osteomyelitis of foot, acute: Plan: R 5th toe s/p resection R 5th metatarsal head resection see above wbc count had trended up over the weekend, but CRP has trended down nicely, and ESR also trending down no fevers blood cx's from yesterday negative (5) Hypokalemia: Plan: replaced resolved (6) DMII (diabetes mellitus, type 2): Plan: Normally takes 70 units of lantus BID [facility] Hba1c 9.7% cont basal-bolus insulins pharmacy glycemic team providing assistance with this excellent control at this time (7) History of brain tumor: Plan: right-sided frontal-parietal mass Resected [place] [facility] [place] pathology report obtained from [facility] -- MENINGIOMA, microcystic type, WHO grade 1 Continue BID keppra for seizure prophylaxis are the abnormal movements atypical seizures? EEG negative for seizure focus prolactin obtained after I saw these movements - normal CT head stable VBG with normal CO2 ammonia wnl (8) Hyperlipidemia: Plan: cont statin (9) HTN (hypertension): Plan: Continue amlodipine Continue spironolactone Continue losartan (10) Diarrhea: Plan: stop colace/senna if it persists check stool for cdiff (11) Morbid obesity with BMI of 45.0-49.9, adult: Plan: BMI 46.5 Plan DVT ppx: aspirin 325mg BID back to jail next 48 hours?? recheck cbc in am to ensure wbc count is trending down follow blood cx's from 02/26/24 Admission and Anticipated Discharge Date Admission Date: February 14, 2024 Subjective patient reports diarrhea today over the weekend he thought he was constipated and was asking for stool softeners - will stop such denies any abd pain c/o ongoing R foot pain discussed negative EEG and negative CT head for acute findings Review of Systems Review of Systems: gen - no fevers; excellent appetite, constantly asking for snacks per staff cv - no chest pain, no orthopnea pulm - no dyspnea GI - no nausea/emesis Physical Exam Physical Exam: gen - NAD, resting in bed, no tremors/rigors/seizure-like activity seen today mouth - MMM neck - no JVD heart - RRR, s1 s2, no murmur lungs - CTA b/l abd - soft NT ND BS+ ext - pulses b/l feet 2+; minimal R foot/ankle/distal horton edema, none on left -- no changes musculo - wound vac in place R foot Results & Data Results & Data Vital Signs (Past 12 Hours) Vital Signs Temp Pulse Resp BP Pulse Ox O2 Del Method 02/27/24 14:52 36.6 C 79 17 137/84 99 Room Air 02/27/24 08:00 Room Air 02/27/24 07:13 36.7 C 79 17 147/84 H 97 Room Air Laboratory Results Laboratory Results - last 24 hr 02/27/24 02/27/24 02/27/24 06:23 07:37 11:31 WBC 17.12 H RBC 4.05 L Hgb 9.4 L Hct 29.7 L MCV 73.3 L MCH 23.2 L MCHC 31.6 L RDW Std Deviation 48.5 H RDW Coeff of Ferdinand 18.6 H Plt Count 396 MPV 9.9 Immature Gran % (Auto) 0.5 Neut % (Auto) 77.2 Lymph % (Auto) 11.8 [place] % (Auto) 8.6 Eos % (Auto) 1.7 Baso % (Auto) 0.2 Neut # (Auto) 13.21 H Lymph # (Auto) 2.02 [place] # (Auto) 1.47 H Eos # (Auto) 0.29 Baso # (Auto) 0.04 Immature Gran # (Auto) 0.09 VBG pH 7.36 VBG pCO2 45 VBG pO2 43 VBG HCO3 25 VBG O2 Saturation 70.3 VBG Base Excess -0.4 Sodium 135 L Potassium 3.5 Chloride 105 Carbon Dioxide 24 Anion Gap 6 BUN 27 H Creatinine 1.18 Est Cr Clr Drug Dosing 126.4 Est GFR ( Amer) 86.5 Est GFR (Non-Af Amer) 74.6 BUN/Creatinine Ratio 22.9 H Glucose 105 H POC Glucose 118 H 111 H Calcium 8.5 L Ammonia 19.[address] 02/26/24 17:26 CT head/brain wo con CLINICAL HISTORY: 43 years-old Male with ?seizures; h/o R frontoparietal mass s/p resection. Acute seizure-like activity with prior brain surgery TECHNIQUE: Multiple axial CT images of the head were obtained without contrast. A dose lowering technique was utilized adhering to the principles of ALARA. CT DOSE: 625.8 mGy.cm COMPARISON: 07/13/2023 FINDINGS: The patient has history of prior right frontal mass resection. There is right frontal calvarial craniotomy change with encephalomalacia of the right frontal lobe on today's study. No acute intracranial hemorrhage, midline shift, hydrocephalus or acute territorial infarct identified on today's study. No new intracranial mass lesions are identified. Evaluation for residual or recurrent disease is limited without the use of IV contrast. The calvarium is intact. The paranasal sinuses, mastoid air cells, and middle ear cavities are clear. IMPRESSION: 1. Right frontal calvarial craniotomy with right frontal lobe encephalomalacia compatible with the patient's history of mass resection. 2. There is no acute intracranial hemorrhage, midline shift or hydrocephalus. ACT 112: Negative or not required by law. The above report was generated using voice recognition software. It may contain grammatical, syntax or spelling errors. Electronically signed by: Will Muller M.D. 02/26/2024 6:52 PM EEG - no seizure focus/epileptiform discharges or other abnormalities. PG Care Time/CCT Total # of Minutes Spent Total Time Spent with Patient: Total time spent is greater than 50% in coordination of care (as documented) at patient's floor/unit and/or counseling patient: Coding Level of Care Code 13073 SUB INP/OBS CARE 2/35MIN Diagnoses Diabetic infection of right foot E11.628; L08.9 Foot ulcer L97.509 Sepsis A41.9 Osteomyelitis of foot, acute M86.179 Hypokalemia E87.6 DMII (diabetes mellitus, type 2) E11.9 History of brain tumor Z87.898 Hyperlipidemia E78.5 HTN (hypertension) I10 Diarrhea R19.7 Morbid obesity with BMI of 45.0-49.9, adult E66.01; Z68.42
[2024-02-28 07:49] LABS: Basophils # (auto) 0.04 K/uL (0.00-0.20); Basophils % (auto) 0.3 %; Eosinophils # (auto) 0.46 K/uL (0.00-0.50); Hematocrit (blood only) 28.8 % (42.0-52.0); Hemoglobin 8.9 g/dl (14.0-18.0); Immature Granulocytes # (auto) 0.07 K/uL (0.01-0.20); Immature Granulocytes % (auto) 0.5 %; Lymphocytes # (auto) 2.05 K/uL (1.20-3.40); Lymphocytes % (auto) 13.6 %; Mean Corpuscular Hemoglobin 22.9 pg (25.0-34.0); Mean Corpuscular Hgb Conc 30.9 g/dL (32.0-36.0); Mean Corpuscular Volume 74.2 fL (80.0-100.0); Mean Platelet Volume 9.4 fL (9.4-12.4); Monocytes # (auto) 1.35 K/uL (0.11-0.59); Monocytes % (auto) 8.9 %; Neutrophils # (auto) 11.15 K/uL (1.40-6.50); Neutrophils % (auto) 73.7 %; Platelet Count 338 K/uL (130-400); RDW Coefficient of Variation 18.6 % (11.5-14.5); RDW Standard Deviation 49.1 fL (36.4-46.3); Red Blood Count 3.88 M/uL (4.70-6.10); White Blood Count 15.12 K/ul (4.8-10.8)
[2024-02-28 08:06] LABS: BUN Creatinine Ratio 19.8 (10-20); Calcium 8.4 mg/dl (8.6-10.3); Creatinine Clr Calc Pharmacy 134.4 ml/min; Est GFR (African American) 93.1 ml/min; Est GFR (Non-African American) 80.3 ml/min; Potassium 3.5 mmol/L (3.5-5.1)
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
--- NOTE | 2024-02-28 10:27 | Hospitalist Progress Note ---
Date of Service February 28, 2024 Assessment & Plan (1) Diabetic infection of right foot: Plan: cellulitis/ulcer of R 5th toe complicated by osteomyelitis of the same toe as well as the 5th metatarsal head RLE arterial duplex was negative for PAD All cultures from right foot have grown group B strep only; no other pathogens isolated remains on rocephin 2gm IV daily, then change to augmentin at discharge -- per [facility] ID recommendations area of soft tissue infection R 5th metatars[address] Dr Edward from [facility] has been managing this surgically s/p bedside I&D of R foot abscess by ortho 02/16/2402/16 - s/p Right Foot 5th Ray Resection with Insertion of Stimulan beads along with partial resection of 5th metatarsal head - by Dr Edward - confirmed that all areas of osteomyelitis have been surgically resected 02/20 - s/p right foot Irrigation and Debridement, Wound Vac Application, Application of Antibiotic Beads - also by Dr Edward 02/26 - limited bedside debridement, wound vac reapplied for phantom limb type pain (prior 5th toe area on right) he is already on 1000mg of gabapentin BID; added 400mg dose mid-afternoon cont pain meds prn - change oxycodone to MSIR has had persistent leukocytosis, downtrending to 15. his CRP has trended down from 13 to 2.5 sed rate was >130; now low 100s -repeat blood cultures - P (2) Foot ulcer: Plan: Right foot diabetic foot ulcer present on admission - 5th toe, complicated by osteomyelitis of that toe as well as 5th metatarsal head see #2 below xray of L foot - charcot foot changes seen, dislocation - ortho recommended podiatry follow up as outpatient (3) Sepsis: Plan: 2nd to right foot infection present on admission sepsis resolved blood cx's negative at admission, repeat Cx - P (4) Osteomyelitis of foot, acute: Plan: R 5th toe s/p resection R 5th metatarsal head resection see above (5) Hypokalemia: Plan: replaced, resolved. improved on spironolactone (vs chlorthalidone) (6) DMII (diabetes mellitus, type 2): Plan: Normally takes 70 units of lantus BID back at group home Hba1c 9.7% cont basal-bolus insulins pharmacy glycemic team providing assistance with this good control 02/27 (7) History of brain tumor: Plan: right-sided frontal-parietal mass Resected at [facility] - 07/2023 pathology report not in the d/c summary will have to get such Continue BID keppra for seizure prophylaxis prolactin - normal CT head stable EEG 02/27 without seizure focus CO2 on VBG and ammonia wnl gabapentin frequently causes asterixis (8) Hyperlipidemia: Plan: cont statin (9) HTN (hypertension): Plan: Continue amlodipine Continue spironolactone Continue losartan Plan DVT ppx: bid aspirin clarify anticipated vac duration with ortho and whether this can be provided at group home Admission and Anticipated Discharge Date Admission Date: February 14, 2024 Subjective doing ok, some increased R foot pain after limited debridement and vac application yesterday states pain medicine wears off after 1 hour having loose stools, no abdominal pain or nausea Physical Exam Physical Exam: PHYSICAL EXAMINATION Last 24h vital signs reviewed, see documentation in flowsheet General: awake lying in bed HEENT: Normocephalic, atraumatic, pupils round and equal, sclerae anicteric, no conjunctival injection, moist mucus membranes Lungs: ctab no rrw Heart: reg no mrg Abdomen: nondistended. +BT Extremities: Warm, dry, well-perfused. L charcot foot deformity. R foot in surgical shoe, wound vac in place, RLE edema now only trace Neuro: Alert and oriented x 4, face symmetric, moves 4 extremities well Psych: Normal affect and behavior Results & Data Results & Data Vital Signs (Past 12 Hours) Vital Signs Temp Pulse Resp BP Pulse Ox O2 Del Method 02/28/24 07:57 Room Air 02/28/24 07:24 36.6 C 80 18 143/84 H 99 Room Air PG Care Time/CCT Total # of Minutes Spent Total Time Spent with Patient: Total time spent is greater than 50% in coordination of care (as documented) at patient's floor/unit and/or counseling patient: Coding Level of Care Code 98976 SUB INP/OBS CARE 2/35MIN Diagnoses Diabetic infection of right foot E11.628; L08.9 Foot ulcer L97.509 Sepsis A41.9 Osteomyelitis of foot, acute M86.179 Hypokalemia E87.6 DMII (diabetes mellitus, type 2) E11.9 History of brain tumor Z87.898 Hyperlipidemia E78.5 HTN (hypertension) I10
[2024-02-28] MEDS: HYDROmorphone HCL 4 MG TAB PO PRN (12:15)
[2024-02-28] MEDS: MoRPHine SULFATE 4 MG/ML 1 ML CARP\\VIAL IV PRN (17:10)
[2024-02-29 04:26] LABS: Cdiff Antigen Positive; Cdiff Toxin B Gene (2yr or >) Positive Cdiff Gene (Neg)
[2024-02-29 04:29] LABS: Cdiff Toxin A+B Positive Cdiff Toxin (Negative)
--- NOTE | 2024-02-29 08:11 | Hospitalist Progress Note ---
Date of Service February 29, 2024 Assessment & Plan (1) Diabetic infection of right foot: Plan: cellulitis/ulcer of R 5th toe complicated by osteomyelitis of the same toe as well as the 5th metatarsal head RLE arterial duplex was negative for PAD All cultures from right foot have grown group B strep only; no other pathogens isolated remains on rocephin 2gm IV daily Dr Edward from [facility] has been managing this surgically s/p bedside I&D of R foot abscess by ortho 02/16/2402/16 - s/p Right Foot 5th Ray Resection with Insertion of Stimulan beads along with partial resection of 5th metatarsal head - by Dr Edward 02/20 - s/p right foot Irrigation and Debridement, Wound Vac Application, Application of Antibiotic Beads - also by Dr Edward I spoke with Dr Edward about his impression about source control - he confirmed that all areas of osteomyelitis have been surgically resected only remaining infection is the soft tissue near the 5th metatarsal wound vac off for the weekend; ortho & wound care nurse re-evaluated the wound today -- some minor bedside debridement performed by Dr Edward (see his note) woundvac placed back on with TUESDAY/TUESDAY/TUESDAY woundvac exchange planned for phantom limb type pain (prior 5th toe area on right) he is already on 1000mg of gabapentin BID; added 400mg dose mid-afternoon cont pain meds prn uncertain significance of WBC elevation (due to missing 1 dose of IV rocephin yesterday?) his CRP has trended down from 13 to 2.5 sed rate was >130; now low 100s cont IV rocephin while hospitalized, then change to augmentin at discharge -- per [facility] ID recommendations 14d for soft tissue infection -- planned end date of antibiotics is tomorrow. (2) C. difficile diarrhea: Plan: diarrhea worsened despite stopping laxatives, C. diff positive. May explain persistent leukocytosis. -dificid ordered overnight but highly unlikely this is available at the [facility], changed to oral vancomycin 125 mg q6h x 10d (should be continued at least 7d after DC of other antibiotics, currently still on CTX) -probiotic -CBC and BMP in am (3) Foot ulcer: Plan: Right foot diabetic foot ulcer present on admission - 5th toe, complicated by osteomyelitis of that toe as well as 5th metatarsal head osteomyelitis xray of L foot - charcot foot changes seen, dislocation - ortho recommended podiatry follow up as outpatient (4) Sepsis: Plan: 2nd to right foot infection present on admission sepsis resolved blood cx's negative at admission repeat blood cx's from 02/25 negative to date cont IV rocephin for group B strep from the wound (5) Osteomyelitis of foot, acute: Plan: R 5th toe s/p resection R 5th metatarsal head resection see above wbc count had trended up over the weekend now seems likely related to C. diff, CRP has trended down nicely, and ESR also trending down no fevers blood cx's 02/25 NGTD at >48h (6) Hypokalemia: Plan: replaced resolved (7) DMII (diabetes mellitus, type 2): Plan: Normally takes 70 units of lantus BID back at [facility] Hba1c 9.7% cont basal-bolus insulins pharmacy glycemic team providing assistance with this excellent control at this time (8) History of brain tumor: Plan: right-sided frontal-parietal mass Resected at [facility] - 07/2023 pathology report obtained from [facility] -- [place], microcystic type, WHO grade 1 Continue BID keppra for seizure prophylaxis are the abnormal movements atypical seizures? EEG negative for seizure focus prolactin obtained after I saw these movements - normal CT head stable VBG with normal CO2 ammonia wnl (9) Hyperlipidemia: Plan: cont statin (10) HTN (hypertension): Plan: Continue amlodipine Continue spironolactone Continue losartan (11) Morbid obesity with BMI of 45.0-49.9, adult: Plan: BMI 46.5 Plan DVT ppx: aspirin 325mg BID back to [facility] once diarrhea improved - likely 1-3 days Admission and Anticipated Discharge Date Admission Date: February 14, 2024 Subjective still with lots diarrhea, no abdominal pain R foot pain unchanged Physical Exam 2 Physical Exam: PHYSICAL EXAMINATION Last 24h vital signs reviewed, see documentation in flowsheet General: comfortable appearing, no distress, sitting EOB HEENT: Normocephalic, atraumatic, pupils round and equal, sclerae anicteric, no conjunctival injection, moist mucus membranes Lungs: Normal respiratory effort. Clear to auscultation bilaterally. No RRW Heart: Regular rate and rhythm, no murmurs. No JVD Abdomen: Soft, nontender, nondistended. Bowel sounds present. Extremities: Warm, dry, well-perfused. No extremity edema. R foot with vac and in surgical shoe, dressed Neuro: Alert and oriented x 4, face symmetric, moves 4 extremities well Psych: Normal affect and behavior Results & Data Results & Data Vital Signs (Past 12 Hours) Vital Signs Temp Pulse Resp BP Pulse Ox O2 Del Method 02/29/24 07:33 36.7 C 82 18 135/74 97 Room Air 02/28/24 20:20 36.6 C 88 18 164/96 H 99 Room Air Laboratory Results 02/28/24 07:23 02/28/24 07:23 PG Care Time/CCT Total # of Minutes Spent Total Time Spent with Patient: Total time spent is greater than 50% in coordination of care (as documented) at patient's floor/unit and/or counseling patient: Coding Level of Care Code 77372 SUB INP/OBS CARE 2/35MIN Diagnoses Diabetic infection of right foot E11.628; L08.9 C. difficile diarrhea A04.72 Foot ulcer L97.509 Sepsis A41.9 Osteomyelitis of foot, acute M86.179 Hypokalemia E87.6 DMII (diabetes mellitus, type 2) E11.9 History of brain tumor Z87.898 Hyperlipidemia E78.5 HTN (hypertension) I10 Morbid obesity with BMI of 45.0-49.9, adult E66.01; Z68.42
[2024-02-29] MEDS ORDERED: FIDAXOMICIN 200 MG TAB PO SCH (09:00)
--- NOTE | 2024-02-29 11:13 | Orthopedic Progress Note ---
Date of Service February 29, 2024 Assessment & Plan (1) Osteomyelitis of right foot: Plan: The wound care nurse will be in to evaluate and apply VAC if appropriate. Continue IV antibiotics while he is an inpatient and then switch to oral Augmentin as recommended by ID. At this time he could be released back to his institution from my perspective. He would need to continue the wound VAC changes there per protocol Tuesday and follow-up with me next week. He would need to use a walker as well as his postop shoe and it should be partial weightbearing on his heel. Elevate the leg. he was laying with the leg externally rotated and pressure on the incision again. His C. difficile may keep him here longer. (2) Diabetic infection of right foot: Admission and Anticipated Discharge Date Admission Date: February 14, 2024 Subjective No problems reported. Feels better with the addition of gabapentin. He has C. difficile. This likely accounts for his elevated white blood cell count. The foot feels better. Physical Exam Physical Exam: Wound VAC removed. Slight maceration proximally. The distal half of the incision is granulating very well with minimal fibrinous exudate. There is no fluctuance erythema or undermining. There is no exposed bone. No erythema or significant tenderness. Results & Data Vital Signs (Past 12 Hours) Vital Signs Temp Pulse Resp BP Pulse Ox O2 Del Method 02/29/24 07:33 36.7 C 82 18 135/74 97 Room Air
[2024-02-29] MEDS: VANCOMYCIN HCL 125 MG/2.5ML SOLN PO SCH (11:37)
[2024-02-29] MEDS: CHERRY SYRUP 5 ML UDP PO SCH (11:37)
[2024-02-29] MEDS: ADVANCED PROBIOTIC 625 MG CAPSULE PO SCH (15:59)
[2024-03-01 06:48] LABS: Hematocrit (blood only) 32.8 % (42.0-52.0); Hemoglobin 10.1 g/dl (14.0-18.0); Mean Corpuscular Hemoglobin 22.8 pg (25.0-34.0); Mean Corpuscular Hgb Conc 30.8 g/dL (32.0-36.0); Mean Platelet Volume 9.8 fL (9.4-12.4); Platelet Count 362 K/uL (130-400); RDW Coefficient of Variation 18.2 % (11.5-14.5); RDW Standard Deviation 48.7 fL (36.4-46.3); Red Blood Count 4.43 M/uL (4.70-6.10); White Blood Count 11.66 K/ul (4.8-10.8)
[2024-03-01 06:57] LABS: BUN Creatinine Ratio 17.5 (10-20); Calcium 8.6 mg/dl (8.6-10.3); Creatinine Clr Calc Pharmacy 153.8 ml/min; Est GFR (African American) 109.6 ml/min; Est GFR (Non-African American) 94.6 ml/min; Potassium 3.6 mmol/L (3.5-5.1)
--- NOTE | 2024-03-01 17:43 | Hospitalist Progress Note ---
Date of Service March 01, 2024 Assessment & Plan (1) Diabetic infection of right foot: Plan: cellulitis/ulcer of R 5th toe complicated by osteomyelitis of the same toe as well as the 5th metatarsal head RLE arterial duplex was negative for PAD All cultures from right foot have grown group B strep only; no other pathogens isolated remains on rocephin 2gm IV daily Dr Edward from [facility] has been managing this surgically s/p bedside I&D of R foot abscess by ortho 02/16/2402/16 - s/p Right Foot 5th Ray Resection with Insertion of Stimulan beads along with partial resection of 5th metatarsal head - by Dr Edward 02/20 - s/p right foot Irrigation and Debridement, Wound Vac Application, Application of Antibiotic Beads - also by Dr Cheyanne Edward confirmed that all areas of osteomyelitis have been surgically resected only remaining infection was the soft tissue near the 5th metatarsal for phantom limb type pain (prior 5th toe area on right) he is already on 1000mg of gabapentin BID; added 400mg dose mid-afternoon his CRP has trended down from 13 to 2.5 sed rate was >130; now low 100s continue wound vac, follow up with Dr. Edward completed 14 days IV antibiotics for soft tissue infection as per [facility] ID recs (mainly ceftriaxone) on 03/01. Osteomyelitis was completely resected. Will stop ABX today especially because of C. diff. (2) C. difficile diarrhea: Plan: diarrhea worsened despite stopping laxatives, C. diff positive. May explain persistent leukocytosis. -dificid ordered and is first line per [facility] but highly unlikely this is available at the snf, changed to oral vancomycin 125 mg q6h x 10d -probiotic -CBC and BMP reviewed WBC 11 and K 3.6 - low normal will give 20 meq po since ongoing diarrhea (3) Foot ulcer: Plan: Right foot diabetic foot ulcer present on admission - 5th toe, complicated by osteomyelitis of that toe as well as 5th metatarsal head osteomyelitis xray of L foot - charcot foot changes seen, dislocation - ortho recommended podiatry follow up as outpatient (4) Sepsis: Plan: 2nd to right foot infection present on admission sepsis resolved blood cx's negative at admission repeat blood cx's from 02/25 negative to date (5) Osteomyelitis of foot, acute: Plan: R 5th toe s/p resection R 5th metatarsal head resection see above (6) Hypokalemia: Plan: replaced resolved (7) DMII (diabetes mellitus, type 2): Plan: Normally takes 70 units of lantus BID back at snf Hba1c 9.7% cont basal-bolus insulins pharmacy glycemic team providing assistance with this excellent control at this time reviewed 03/01 (8) History of brain tumor: Plan: right-sided frontal-parietal mass Resected at [facility] [place] - 07/2023 pathology report obtained from [facility] -- MENINGIOMA, microcystic type, WHO grade 1 Continue BID keppra for seizure prophylaxis are the abnormal movements atypical seizures? EEG negative for seizure focus prolactin obtained after I saw these movements - normal CT head stable VBG with normal CO2 ammonia wnl (9) Hyperlipidemia: Plan: cont statin (10) HTN (hypertension): Plan: Continue amlodipine Continue spironolactone Continue losartan (11) Morbid obesity with BMI of 45.0-49.9, adult: Plan: BMI 46.5 Plan DVT ppx: aspirin 325mg BID back to snf once diarrhea improved - likely 1-2 days Admission and Anticipated Discharge Date Admission Date: February 14, 2024 Subjective R foot postop pain same, on all oral pain meds at this time No abdominal pain or fever, significant diarrhea continues Physical Exam 2 Physical Exam: PHYSICAL EXAMINATION Last 24h vital signs reviewed, see documentation in flowsheet General: comfortable appearing, no distress, lying in bed exam unchanged 03/01 HEENT: Normocephalic, atraumatic, pupils round and equal, sclerae anicteric, no conjunctival injection, moist mucus membranes Lungs: Normal respiratory effort. Clear to auscultation bilaterally. No RRW Heart: Regular rate and rhythm, no murmurs. No JVD Abdomen: Soft, nontender, nondistended. Bowel sounds present. Extremities: Warm, dry, well-perfused. No extremity edema. R foot with vac and in surgical shoe, dressed Neuro: Alert and oriented x 4, face symmetric, moves 4 extremities well Psych: Normal affect and behavior Results & Data Results & Data Vital Signs (Past 12 Hours) Vital Signs Temp Pulse Resp BP Pulse Ox O2 Del Method 03/01/24 14:03 36.9 C 86 18 119/73 99 Room Air 03/01/24 07:28 36.8 C 79 20 142/71 H 98 Room Air Laboratory Results 03/01/24 06:11 03/01/24 06:11 PG Care Time/CCT Total # of Minutes Spent Total Time Spent with Patient: Total time spent is greater than 50% in coordination of care (as documented) at patient's floor/unit and/or counseling patient: Coding Level of Care Code 02114 SUB INP/OBS CARE 2/35MIN Diagnoses Diabetic infection of right foot E11.628; L08.9 C. difficile diarrhea A04.72 Foot ulcer L97.509 Sepsis A41.9 Osteomyelitis of foot, acute M86.179 Hypokalemia E87.6 DMII (diabetes mellitus, type 2) E11.9 History of brain tumor Z87.898 Hyperlipidemia E78.5 HTN (hypertension) I10 Morbid obesity with BMI of 45.0-49.9, adult E66.01; Z68.42
[2024-03-01] MEDS: POTASSIUM CHLORIDE CRTAB 20 MEQ TABCR PO STA (18:02)
[2024-03-02] MEDS ORDERED: HYDROmorphone HCL 4 MG TAB PO PRN (07:31)
[2024-03-02 07:47] LABS: BUN Creatinine Ratio 16.8 (10-20); Calcium 8.5 mg/dl (8.6-10.3); Creatinine Clr Calc Pharmacy 157.1 ml/min; Est GFR (African American) 112.4 ml/min; Potassium 3.5 mmol/L (3.5-5.1)
[2024-03-02] MEDS: HYDROmorphone HCL 2 MG TAB PO SCH (12:47)
--- NOTE | 2024-03-02 13:20 | Pharmacy Report ---
Pharmacy Glycemic Sign Off Nt - Date of Service March 02, 2024 - Assessment & Plan ASSESSMENT: * Pharmacy was consulted by Bubba Potter PA-C on 02/14/24 for glycemic control and to write orders per [facility] inpatient glycemic control protocol. * Patient has been receiving/requiring around 70-80 units of total insulin per day for adequate glycemic control * BSGs ranging between 96-154 mg/dl * Regimen has not required any adjustments over the past 48hrs to achieve this level of control * Do not anticipate further changes in patient status that would quickly deteriorate glycemic control (i.e. patient to be NPO for upcoming procedure, steroids tapering, starting tube feedings, etc). * Please see recommendations for outpatient antidiabetic regimen below. PLAN FOR INPATIENT GLYCEMIC CONTROL: No changes needed to current regimen. * Continue basal insulin with Lantus 22 units SQ BID * Continue NovoLog per scale ACHS/Q6hrs while NPO * Goal range = 110-140 mg/dl * CF = 15 mg/dl/unit * CR = 1 unit for every 7 g CHO consumed * Pharmacy is signing off of glycemic consult and will no longer be making adjustments to inpatient regimen. Please feel free to re-consult if needed. Thank you.
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
== END 2024-03-02 15:36 | DRG 854 ==
LOC: ED 15:40 → SUATTDRO 19:10 → EDINP 19:10 → 2N 22:54 → 3E 02-18 16:20

== ENCOUNTER 2025-05-01 14:34 | Inpatient (IN) ==
[2025-05-01] MEDS ORDERED: MoRPHine SULFATE 4 MG/ML 1 ML CARP\\VIAL IV PRN (15:14)
[2025-05-01] MEDS: SODIUM CHLORIDE 0.9% 1,000 ML IV ONE (15:28)
[2025-05-01] MEDS: MoRPHine SULFATE 10 MG/ML CARP/VIAL IV STA (15:29)
[2025-05-01] MEDS: ONDANSETRON INJ 2 MG/ML 2 ML VIAL IV STA (15:29)
--- NOTE | 2025-05-01 15:31 | Emergency Department Note ---
Impression & Plan Osteomyelitis, Hyperglycemia, Failure of outpatient treatment, Anemia ED Provider Note NAME: LEV [id number] SITA AGE: 44 SEX: M : 1980 ARRIVES VIA: Walk-In INFORMANT: [Patient] ED PROVIDER(S): [Jeb Colón MD] CHIEF COMPLAINT: Infection HISTORY OF PRESENT ILLNESS: The patient is a 44-year-old male with a known right foot infection. He has had issues for a year. He was in the hospital last month and had some surgical intervention. He has been on IV daptomycin daily and has had a wound VAC in place. He states that today, they removed the wound VAC and the wound appeared worse and was malodorous. He was sent for evaluation. There has been no fever, he does complain of pain in the foot. Of note, the [facility] PMHx/PSHx/Social Hx: See Below PHYSICAL EXAM: GENERAL: Patient is in no acute distress. HEENT: No acute trauma, normocephalic atraumatic, mucous membranes moist, no nasal congestion. NECK: No stridor, no adenopathy, no meningismus, trachea is midline. LUNGS: Clear to auscultation bilaterally, no wheeze, no rhonchi, breath sounds equal. HEART: Without murmurs gallops or rubs, regular rate and rhythm. ABDOMEN: Soft, nontender, no peritonitis. Obese. EXTREMITIES: No cyanosis. The patient has a foul-smelling wound to the right foot. It is along the mid plantar aspect of the foot and the open area is around 4 to 5 cm in size. There is surrounding erythema extending up the leg. A culture was obtained. NEUROLOGIC: Oriented x 3, no acute motor or sensory deficits, no focal weakness. SKIN: No jaundice, no diaphoresis. DIFFERENTIAL DIAGNOSIS: Osteomyelitis, failed outpatient management, bacteremia, among others. EMERGENCY DEPARTMENT PROCEDURES: MEDICAL DECISION MAKING: There is no leukocytosis. The patient is anemic. Looking at previous testing, his hemoglobin does appear stable. He is not in need of an emergent blood transfusion. Platelet count is normal. Sed rate is quite high at 118 consistent with ongoing infection/inflammation. There was no coagulopathy. No renal failure. Glucose was high at 310. Lactic acid level was not elevated making severe sepsis less likely. No worrisome liver enzyme elevations. Right foot CT shows worsening osteomyelitis. A culture of his right foot wound was obtained. The patient presents with a foul odor to his right foot wound. He has been on IV daptomycin outpatient and is not improving in fact, he seems to be worsening based on CT imaging. Patient was given IV saline, IV Zofran, IV morphine. He was given IV cefepime and IV daptomycin. I do believe the patient would be best served with a repeat hospitalization and potential surgical intervention for this infection. I spoke to the patient, the guards. I spoke to case management. The on-call hospitalist was consulted. Prior/Outside records/notes reviewed: Discharge summary note from 03/29/2025 describing his presentation, hospital course and plan at discharge. Imaging/x-ray results per my interpretation: Chronic Medical/Social conditions affecting care: Currently incarcerated. Care/Management discussed with: Case management, the on-call hospitalist. Level of care consideration(s): After review of the information above and other included data: --I believe the patient requires escalation of care to admission DISPOSITION: Admission Past Med/Surg History Problem List Anemia (Acute) Failure of outpatient treatment (Acute) Hyperglycemia (Acute) Osteomyelitis (Acute) Abnormal ankle brachial index (RIZWANA) (Acute) C. 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 No problems noted. Mother No problems noted. 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: No Beliefs That Will Affect Care: None Current Living Situation: Other Current Living Situation Comment: [facility] Feels Safe at Home: Yes Diet: regular Assistive Devices: None Allergies Allergies Allergy/AdvReac Type Severity Reaction Status Date / Time sulfamethoxazole Allergy Intermediate Rash Verified 02/11/25 10:27 [From Bactrim] trimethoprim [From Bactrim] Allergy Intermediate Rash Verified 02/11/25 10:27 Home Meds Home Medications Medication Instructions Recorded Confirmed insulin regular human 100 unit/mL 1 sliding scale dose subcut 02/14/24 03/24/25 injection solution (Novolin R USEASDIRECTD Regular U-100 Insulin) levetiracetam 1,000 mg tablet 1,000 mg PO BID 02/14/24 03/24/25 (Keppra) benztropine 1 mg tablet 1 mg PO BID 11/30/24 03/24/25 hydralazine 25 mg tablet 25 mg PO TID 11/30/24 03/24/25 hydroxyzine HCl 25 mg tablet 25 mg PO BID PRN as directed 11/30/24 03/24/25 mirtazapine 45 mg tablet 45 mg PO DAILY 11/30/24 03/24/25 perphenazine 8 mg tablet 8 mg PO BID 11/30/24 03/24/25 Previous Rx's Medication Instructions Recorded acetaminophen 325 mg tablet 650 mg (2 x 325 mg) PO Q6H #0 tabs 03/02/24 daptomycin 500 mg intravenous 850 mg IV DAILY 36 doses 03/29/25 solution insulin glargine 100 unit/mL 35 unit (0.35 mL) SC DAILY #10 mL 03/29/25 subcutaneous solution (Lantus U-100 Insulin) metronidazole 500 mg tablet 500 mg PO BID Acute R cuboidal 03/29/25 osteomyelitis #20 tabs oxycodone 20 mg tablet,crush 20 mg PO Q12H #10 tabs 03/29/25 resistant,extended release 12 hr (OxyContin) oxycodone 5 mg tablet 10 mg (2 x 5 mg) PO Q6H PRN pain 4 03/29/25 to 10 #20 tabs Results & Data (ED) Vital Signs Vital Signs - 24 hr 05/01/25 14:37 05/01/25 15:47 Temperature 36.1 C L Temperature Source Temporal Artery Scan Pulse Rate 84 82 Pulse Rhythm Regular Respiratory Rate 20 Respiratory Effort / Characteristics Non-Labored Respiratory Depth Normal Respiratory Pattern Regular Blood Pressure 178/100 H Blood Pressure Mean 126 Sepsis Recent Fever Within 48 Hours No Sepsis New/Unexplained Change in Mental Status No Sepsis Action Taken by Nursing No Action Required Home Medications Current Medication List: was personally reviewed by me Laboratory Data Attestation: I reviewed the patient's lab results. 05/01/25 15:23 05/01/25 15:23 Lab Results 05/01/25 Range/Units 15:23 WBC 10.33 (4.8-10.8) K/ul RBC 3.66 L (4.70-6.10) M/uL Hgb 8.7 L (14.0-18.0) g/dl Hct 28.1 L (42.0-52.0) % MCV 76.8 L (80.0-100.0) fL MCH 23.8 L (25.0-34.0) pg MCHC 31.0 L (32.0-36.0) g/dL RDW Std Deviation 49.6 H (36.4-46.3) fL RDW Coeff of Ferdinand 18.0 H (11.5-14.5) % Plt Count 245 (130-400) K/uL MPV 11.1 (9.4-12.4) fL Immature Gran % (Auto) 0.7 % Neut % (Auto) 67.6 % Lymph % (Auto) 19.4 % Becker % (Auto) 8.1 % Eos % (Auto) 3.9 % Baso % (Auto) 0.3 % Neut # (Auto) 6.99 H (1.40-6.50) K/uL Lymph # (Auto) 2.00 (1.20-3.40) K/uL Becker # (Auto) 0.84 H (0.11-0.59) K/uL Eos # (Auto) 0.40 (0.00-0.50) K/uL Baso # (Auto) 0.03 (0.00-0.20) K/uL Immature Gran # (Auto) 0.07 (0.01-0.20) K/uL ESR 118 H (0-15) mm/hr PT 10.3 (9.0-12.0) Seconds INR 0.9 (0.9-1.1) APTT 28 (21-31) Seconds PTT Ratio 1.0 Sodium 134 L (136-145) mmol/L Potassium 4.2 (3.5-5.1) mmol/L Chloride 103 (98-107) mmol/L Carbon Dioxide 25 (21-32) mmol/L Anion Gap 6 (3-11) BUN 18 (6-23) mg/dl Creatinine 1.16 (0.6-1.4) mg/dl Est Cr Clr Drug Dosing 137.5 ml/min eGFR 79.16 BUN/Creatinine Ratio 15.5 (10-20) Glucose 310 H* (70-99(Fasting)) mg/dl Lactate 1.6 (0.4-2.0) mmol/L Calcium 8.4 L (8.6-10.3) mg/dl Magnesium 1.9 (1.7-2.4) mg/dl Total Bilirubin 0.3 (0.2-1.0) mg/dl AST 13 (13-39) U/L ALT 24 (7-52) U/L Alkaline Phosphatase 125 H (34-104) U/L C-Reactive Protein 1.75 H (0-0.5) mg/dl Total Protein 7.5 (6.0-8.3) gm/dl Albumin 3.2 L (3.4-5.0) gm/dl Globulin 4.3 H (2.5-4.0) gm/dl Albumin/Globulin Ratio 0.7 L (0.9-2) Administered Medications Discontinued Medications Sodium Chloride (Nss) 1,000 mls @ 999 mls/hr IV .Q1H1M ONE Stop: 05/01/25 16:01 Last Admin: 05/01/25 15:28 Dose: 999 mls/hr Documented By: ML Cefepime HCl (Maxipime 2000mg) 2,000 mg in 20 mls @ 5 mls/min IV NOW STA; Protocol Stop: 05/01/25 15:17 Last Admin: 05/01/25 15:32 Dose: 5 mls/min Documented By: ML Morphine Sulfate (Morphine Sulfate 10 Mg/Ml Carp/Vial) 6 mg IV NOW STA Stop: 05/01/25 15:15 Last Admin: 05/01/25 15:29 Dose: 6 mg Documented By: ML Ondansetron HCl (Ondansetron Inj 2 Mg/Ml 2 Ml Vial) 4 mg IV NOW STA Stop: 05/01/25 15:15 Last Admin: 05/01/25 15:29 Dose: 4 mg Documented By: ML Imaging Data Radiologist's Impression: Foot CT 05/01/25 15:[address] WITHOUT CONTRAST CLINICAL HISTORY: Possible worsening osteomyelitis. COMPARISON STUDY: Right foot MRI January 15, 2025. Right foot CT March 24, 2025. Right foot radiograph March 26, 2025. TECHNIQUE: Axial images of the right foot were obtained without IV contrast. Sagittal and coronal reformats were viewed. A dose lowering technique was utilized adhering to the principles of ALARA. FINDINGS: Extensive soft tissue edema of the right ankle and foot is again noted. This is similar CT of March 24, 2025. No well-defined fluid collection is identified on unenhanced exam. A wound of the plantar midfoot has progressed since prior exam. This extends toward the cuboid. Bony erosion of the plantar aspect of the cuboid has mildly increased since CT of March 24, 2025. This is consistent with osteomyelitis. No additional lesions are identified. Bony fragmentation, disorientation/dislocation and sclerosis within the mid foot consistent with Charcot arthropathy is similar to CT of March 24, 2025. Old nonunited fracture within the base of the right fourth metatarsal is unchanged in appearance. No acute fractures within the right foot are present. There are stable findings following transmetatarsal amputation of the fifth digit. Extensive vascular calcification is incidentally noted. Metallic densities within and adjacent to the calcaneus remain unchanged. IMPRESSION: 1. Significant progression of a deep wound of the plantar midfoot since CT of March 24, 2025 with mild increase in associated erosion of the cuboid suggestive of osteomyelitis. 2. Otherwise, no significant change in appearance of the right foot. Findings consistent with Charcot arthropathy, as detailed above. 3. Old nonunited fourth metatarsal fracture. No acute fractures within the right foot. 4. Extensive soft tissue edema of the right ankle and foot suggestive of cellulitis. 5. Stable findings following right fifth digit amputation. ACT 112: Negative or not required by law. Electronically signed by: Dillan Christian M.D. 05/01/2025 4:10 PM Discharge Plan Visit Data Chief Complaint: Infection, Wound Stated Complaint: INFECTION IN A WOUND ED Provider: Jeb Colón Discharge Problem: Osteomyelitis, Hyperglycemia, Failure of outpatient treatment, Anemia Patient Disposition: Admitted As Inpatient Condition: Fair Forms Stand Alone Forms: My [facility] Prescriptions Prescriptions: No Action mirtazapine 45 mg tablet 45 mg PO DAILY hydroxyzine HCl 25 mg tablet 25 mg PO BID PRN (Reason: as directed) benztropine 1 mg tablet 1 mg PO BID perphenazine 8 mg tablet 8 mg PO BID hydralazine 25 mg tablet 25 mg PO TID Novolin R Regular U100 Insulin 100 unit/mL Solution 1 sliding scale dose SUBCUT USEASDIRECTD Rx Instructions: BSG 201-250=2 UNITS, 251-300=4 UNITS, 301-350=6 UNITS, 351-400=8 UNITS, 401- 450=10 UNITS, 451-500=12 UNITS, >500 CALL MD. levetiracetam [Keppra] 1,000 mg Tablet 1,000 mg PO BID acetaminophen 325 mg Tablet 650 mg PO Q6H Qty: 0 0RF insulin glargine [Lantus U-100 Insulin] 100 unit/mL Solution 35 unit SC DAILY Qty: 10 0RF oxycodone 5 mg Tablet 10 mg PO Q6H PRN (Reason: pain 4 to 10) Qty: 20 0RF oxycodone [OxyContin] 20 mg Tablet,Oral Only,Ext.Rel.12 Hr 20 mg PO Q12H Qty: 10 0RF daptomycin 500 mg recon soln 850 mg IV DAILY Rx Instructions: Administer over 30 mins on a daily basis, from 04/01/2025, 3:00pm through 05/07/2025, 3:00pm. metronidazole 500 mg tablet 500 mg PO BID Qty: 20 0RF Rx Instructions: Administer twice a day, starting on 04/01/2025, 10:00am and 10:00pm, through 04/09/2025, 10:00am and 10:00pm. Referrals Referrals: Katja FLEMING [Primary Care Provider] - Discharge Problem: Osteomyelitis Qualifiers: Osteomyelitis type: unspecified type Osteomyelitis location: foot Laterality: r ight Qualified Code(s): M86.9 - Osteomyelitis, unspecified Anemia Qualifiers: Anemia type: unspecified type Qualified Code(s): D64.9 - Anemia, unspecified
[2025-05-01] MEDS: CEFEPIME 2000MG 2,000 MG/20 ML SYR IV STA (15:32)
[2025-05-01 15:42] LABS: Basophils # (auto) 0.03 K/uL (0.00-0.20); Basophils % (auto) 0.3 %; Eosinophils % (auto) 3.9 %; Hematocrit (blood only) 28.1 % (42.0-52.0); Hemoglobin 8.7 g/dl (14.0-18.0); Immature Granulocytes # (auto) 0.07 K/uL (0.01-0.20); Immature Granulocytes % (auto) 0.7 %; Lymphocytes % (auto) 19.4 %; Mean Corpuscular Hemoglobin 23.8 pg (25.0-34.0); Mean Corpuscular Volume 76.8 fL (80.0-100.0); Mean Platelet Volume 11.1 fL (9.4-12.4); Monocytes # (auto) 0.84 K/uL (0.11-0.59); Monocytes % (auto) 8.1 %; Neutrophils # (auto) 6.99 K/uL (1.40-6.50); Neutrophils % (auto) 67.6 %; Platelet Count 245 K/uL (130-400); RDW Standard Deviation 49.6 fL (36.4-46.3); Red Blood Count 3.66 M/uL (4.70-6.10); White Blood Count 10.33 K/ul (4.8-10.8)
[2025-05-01 16:06] LABS: Albumin Globulin Ratio 0.7 (0.9-2); Albumin Level 3.2 gm/dl (3.4-5.0); BUN Creatinine Ratio 15.5 (10-20); Bilirubin,Total 0.3 mg/dl (0.2-1.0); C Reactive Protein 1.75 mg/dl (0-0.5); Calcium 8.4 mg/dl (8.6-10.3); Creatinine Clr Calc Pharmacy 137.5 ml/min; Globulin 4.3 gm/dl (2.5-4.0); Magnesium 1.9 mg/dl (1.7-2.4); Potassium 4.2 mmol/L (3.5-5.1); Total Protein 7.5 gm/dl (6.0-8.3)
--- NOTE | 2025-05-01 16:13 | CT Scan Report ---
RIGHT FOOT CT WITHOUT CONTRAST CLINICAL HISTORY: Possible worsening osteomyelitis. COMPARISON STUDY: Right foot MRI January 15, 2025. Right foot CT March 24, 2025. Right foot radiograph Ma y 2024. TECHNIQUE: Axial images of the right foot were obtained without IV contrast. Sagittal and coronal ref ormats were viewed. A dose lowering technique was utilized adhering to the principles of ALARA. FINDINGS: Extensive soft tissue edema of the right ankle and foot is again noted. This is similar CT of March 24, 2025. No well-defined fluid collection is identified on unenhanced exam. A wound of the pl lilli midfoot has progressed since prior exam. This extends toward the cuboid. Bony erosion of the pl lilli aspect of the cuboid has mildly increased since CT of March 24, 2025. This is consistent with ost eomyelitis. No additional lesions are identified. Bony fragmentation, disorientation/dislocation and sclerosis within the mid foot consistent with Charcot arthropathy is similar to CT of March 24, 2025. O ld nonunited fracture within the base of the right fourth metatarsal is unchanged in appearance. No a cute fractures within the right foot are present. There are stable findings following transmetatarsal amputation of the fifth digit. Extensive vascular calcification is incidentally noted. Metallic dens ities within and adjacent to the calcaneus remain unchanged. IMPRESSION: 1. Significant progression of a deep wound of the plantar midfoot since CT of March 24, 2025 with mild increase in associated erosion of the cuboid suggestive of osteomyelitis. 2. Otherwise, no significant change in appearance of the right foot. Findings consistent with Charcot arthropathy, as detailed above. 3. Old nonunited fourth metatarsal fracture. No acute fractures within the right foot. 4. Extensive soft tissue edema of the right ankle and foot suggestive of cellulitis. 5. Stable findings following right fifth digit amputation. ACT 112: Negative or not required by law. Electronically signed by: Dillan Christian M.D. 05/01/2025 4:10 PM
[2025-05-01 16:18] LABS: INR 0.9 (0.9-1.1); Partial Thromboplastin Time 28 Seconds (21-31); Prothrombin Time 10.3 Seconds (9.0-12.0)
[2025-05-01] MEDS ORDERED: DAPTOMYCIN IV ONE (16:21)
--- NOTE | 2025-05-01 16:28 | History & Physical Report ---
"Date of Service May 01, 2025 Assessment & Plan (1) Osteomyelitis: (2) Charcot arthropathy: (3) DMII (diabetes mellitus, type 2): (4) Anemia: (5) History of MRSA infection: Plan This patient is a 44-year-old male who presented on 05/01 from [facility] for recurrent right foot infection. #Right foot infection | cellulitis | Charcot arthropathy | ? osteomyelitis of right cuboid Foot CT on arrival revealed significant progression of a deep wound of the plantar midfoot since March; mild increase in associated erosion of the cuboid suggestive of osteomyelitis Most recent wound culture on 03/24/2025 grew Staph aureus MRSA Patient discharged on IV daptomycin and PICC line I&D + Wound debridement + Bone biopsy with Dr. Neal on 03/26 Pathology report on 03/27 revealed the bone biopsy did not meet criteria for osteomyelitis Per EMS report, patient may have been non-compliant with R non-weight bearing This may suggest that his right foot infection is primarily cellulitis + Charcot arthropathy Aorta with runoff CTA on 02/14/2025 revealed major branches of the internal and external iliac arteries are without significant narrowing; contrast did not opacify distal arteries of the foot; however, patient could still have developed focal blockage in the distal arteries Arterial Doppler RLE ordered, pending No leukocytosis; afebrile Elevated CRP/ESR; trend Blood cultures drawn in the ED Repeat wound culture drawn in the ED Daily wound care Wound care nurse consult appreciated ID consult appreciated Orthopedics consult appreciated Daptomycin 700 mg IV daily Zosyn 4.5 mg IV q8h Acetaminophen and Dilaudid PRN for pain control #Diabetes Last A1c at 9.0% on 03/24/2025 Glucose 310 on admission Lantus 35u BID SSI with target BSG range 110-140mg/dL, CF 20, carb ratio 8 T2DM diet BSG ACHS Adjust regimen as needed #Anemia Chronic; Hgb 8.7 on arrival MCV <80 No active bleeding Iron level low in February 2024 Continue iron supplements A.m. FE panel/ferritin Trend CBC #History of seizure disorder Continue Keppra #Disorganized schizophrenia Continue perphenazine # Recent h/o C. difficile diarrhea | MRSA infection Contact isolation precautions Disposition: Admit to [facility] telemetry VTE PPx: Lovenox 40 mg SQ q12h History of Present Illness Chief Complaint: Right foot infection, wound Primary Care Provider: LONNIE Hightower Mr. Cote is a 44-year-old male with PMH of brain tumor s/p resection at [facility] [place], seizure disorder (on keppra), disorganized schizophrenia, depression, T2DM with neuropathy, right Charcot foot, C. difficile infection, and right fifth toe and distal MT osteomyelitis with abscess. He presented on 05/01 for ongoing right foot infection. Recent [place] admission for right foot osteomyelitis with discharged on 03/29 on IV daptomycin; PICC line in right arm. Patient had his wound VAC removed at the halfway today, and the wound looked more infected and was malodorous. Patient feels that the wound VAC actually made his infection worse. He has had good compliance with taking his Dapto IV daily through the PICC line. Patient reports he is having 9/10 constant/throbbing pain in his right foot, mainly on the plantar surface. No puslike drainage from the foot, but he does report serosanguineous drainage. Worse with movements. The pain remains in the foot; no radiation up the leg. His pain has been controlled at the present with oxycodone, which he did take earlier today. Patient took his regular morning medicines today, including insulin; he reports he takes 70 units of Lantus daily. No recent change in medications. Patient is a former smoker, but quit in 2018 after smoking was discontinued in the halfway. Patient is hypertensive at 178/100 at time admission; vitals otherwise stable. ED course: Morphine 6 mg IV NSS 1000 mL IV Cefepime 2000 mg IV Daptomycin 1100 mg IV Zofran 4 mg IV ROS: Patient endorses right foot pain, and intermittent numbness/tingling in the right foot. Patient denies fever, chills, night-sweats, dizziness, lightheadedness, chest pain, SOB, cough, abdominal pain, N/V/D, blood in the urine/stool, or burning with urination. Allergies Allergy/AdvReac Type Severity Reaction Status Date / Time sulfamethoxazole Allergy Intermediate Rash Verified 02/11/25 10:27 [From Bactrim] trimethoprim [From Bactrim] Allergy Intermediate Rash Verified 02/11/25 10:27 Home Medications Medication Instructions Recorded Confirmed Type levetiracetam 1,000 mg tablet 1,000 mg PO BID 02/14/24 05/01/25 History (Keppra) benztropine 1 mg tablet 1 mg PO BID 11/30/24 05/01/25 History hydralazine 25 mg tablet 25 mg PO DAILY 11/30/24 05/01/25 History daptomycin 500 mg intravenous 850 mg IV DAILY 36 doses 03/29/25 05/01/25 Rx solution acidophilus 100 million 1 cap PO BID 05/01/25 05/01/25 History cell-pectin, citrus 10 mg capsule ascorbic acid (vitamin C) 500 mg 500 mg PO DAILY 05/01/25 05/01/25 History chewable tablet (Vitamin C) aspirin 325 mg tablet,delayed 325 mg PO DAILY 05/01/25 05/01/25 History release cholecalciferol (vitamin D3) 25 25 mcg PO DAILY 05/01/25 05/01/25 History mcg (1,000 unit) capsule (Vitamin D3) docusate sodium 250 mg capsule 250 mg PO BID 05/01/25 05/01/25 History doxepin 100 mg capsule 100 mg PO HS 05/01/25 05/01/25 History ferrous sulfate 325 mg (65 mg 325 mg PO DAILY 05/01/25 05/01/25 History iron) tablet gabapentin 400 mg capsule 400 mg PO BID 05/01/25 05/01/25 History gabapentin 600 mg tablet 600 mg PO BID 05/01/25 05/01/25 History insulin glargine-yfgn 100 unit/mL 70 unit subcut BID 05/01/25 05/01/25 History subcutaneous solution oxycodone-acetaminophen 10 mg-325 1 tab PO TID 05/01/25 05/01/25 History mg tablet (Percocet) perphenazine 4 mg tablet 4 mg PO HS 05/01/25 05/01/25 History rosuvastatin 40 mg tablet 40 mg PO .ON HOLD 05/01/25 05/01/25 History sennosides 8.6 mg-docusate sodium 2 tab-cap PO HS 05/01/25 05/01/25 History 50 mg tablet (Senokot-S) spironolactone 25 mg tablet 25 mg PO BID 05/01/25 05/01/25 History tamsulosin 0.4 mg capsule 0.4 mg PO DAILY 05/01/25 05/01/25 History zinc gluconate 50 mg tablet 50 mg PO DAILY 05/01/25 05/01/25 History Past Med/Surg History Problem List (Updated 05/02/25 @ 09:14 by Alice Cruz MD) Cellulitis of right foot DMII (diabetes mellitus, type 2) Charcot arthropathy History of MRSA infection Anemia (Acute) Failure of outpatient treatment (Acute) Hyperglycemia (Acute) Osteomyelitis (Acute) Abnormal ankle brachial index (RIZWANA) (Acute) C. difficile diarrhea Morbid obesity with BMI of 45.0-49.9, adult Seizure-like activity H/O foot surgery R 5th ray resection 02/2024 Hx of craniotomy brain tumor s/p resection fall 2022 Obesity Hypokalemia History of brain tumor Nausea & vomiting (Acute) Hypertensive urgency Hyperglycemia (Acute) Chest pain Hyperlipidemia (Chronic) Abdominal pain (Acute 11/30/13) Medical History Incomplete bladder emptying Diabetic ulcer of right foot with bone involvement without evidence of necrosis Transaminitis Acute kidney injury Hypochloremia Hyponatremia Anemia Leukocytosis MIS (acute kidney injury) Cellulitis Osteomyelitis Charcot joint of right foot Diabetic ulcer of right foot HTN (hypertension) DMII (diabetes mellitus, type 2) Osteomyelitis of right foot Diabetic infection of right foot Diabetes Surgical History History of partial ray amputation of fifth toe of right foot Family History (Updated 03/24/25 @ 14:20 by Dusty Ramirez MD, PhD) Father , at 57 years of age from acute PR in the setting of DM and tobacco abuse. No problems noted. Mother No problems noted. Other No pertinent family history Social History Smoking Status: Former smoker Tobacco Type: Cigarettes Second Hand Exposure: No; Do You Dip or Chew Tobacco: No; Hx Alcohol Use: No Hx Substance Use: No Preferred Language: Hong Konger Communication Ability: Effective Ball Racker Required: No Beliefs That Will Affect Care: None Current Living Situation: Other Current Living Situation Comment: [facility] Other Information That Helps Us Care for You: No Feels Safe at Home: Yes Diet: regular Assistive Devices: None Review of Systems 2 Review of Systems: See HPI above Physical Exam 2 Physical Exam: General: Moderate distress secondary to right foot pain; non-toxic appearing; well-nourished; cooperative HEENT: normocephalic, atraumatic; no scleral icterus; PERRLA; vision and hearing grossly intact Neck: supple; no lymphadenopathy; trachea midline Skin: warm, dry without signs of tenting; no cyanosis; no rashes, bruising, lesions, or erythema noted CV: chest wall NTP; RRR; S1/S2 normal; no murmurs/rubs/gallops; pulses intact and symmetric at radial, DP, and PT Lungs: no acute respiratory distress; symmetrical chest wall expansion; clear breath sounds across all lung reyes w/o adventitious sounds; no wheezing ABD: Soft, NTP; BS present; no rebound/guarding; distention secondary to body habitus MSK: no tics or fasciculations Right foot: Malodorous; stage IV diabetic foot ulcer (see photo below); no purulent drainage appreciated on exam; dorsal aspect and plantar aspect of the right foot are TTP Neuro: A&Ox3; normal mood and affect; fluent speech; no focal deficits; sensation intact and symmetric in the lower EXTR bilaterally Results & Data Results & Data Vital Signs (Past 12 Hours) Vital Signs Temp Pulse Resp BP 05/01/25 15:47 82 05/01/25 14:37 36.1 C L 84 20 178/100 H Laboratory Results Abnormal lab results 05/01/25 Range/Units 15:23 RBC 3.66 L (4.70-6.10) M/uL Hgb 8.7 L (14.0-18.0) g/dl Hct 28.1 L (42.0-52.0) % MCV 76.8 L (80.0-100.0) fL MCH 23.8 L (25.0-34.0) pg MCHC 31.0 L (32.0-36.0) g/dL RDW Std Deviation 49.6 H (36.4-46.3) fL RDW Coeff of Ferdinand 18.0 H (11.5-14.5) % Neut # (Auto) 6.99 H (1.40-6.50) K/uL Bent # (Auto) 0.84 H (0.11-0.59) K/uL Sodium 134 L (136-145) mmol/L Glucose 310 H* (70-99(Fasting)) mg/dl Calcium 8.4 L (8.6-10.3) mg/dl Alkaline Phosphatase 125 H (34-104) U/L C-Reactive Protein 1.75 H (0-0.5) mg/dl Albumin 3.2 L (3.4-5.0) gm/dl Globulin 4.3 H (2.5-4.0) gm/dl Albumin/Globulin Ratio 0.7 L (0.9-2) Diagnostic Findings Foot CT 05/01/25 15:[address] WITHOUT CONTRAST CLINICAL HISTORY: Possible worsening osteomyelitis. COMPARISON STUDY: Right foot MRI January 15, 2025. Right foot CT March 24, 2025. Right foot radiograph March 26, 2025. TECHNIQUE: Axial images of the right foot were obtained without IV contrast. Sagittal and coronal reformats were viewed. A dose lowering technique was utilized adhering to the principles of ALARA. FINDINGS: Extensive soft tissue edema of the right ankle and foot is again noted. This is similar CT of March 24, 2025. No well-defined fluid collection is identified on unenhanced exam. A wound of the plantar midfoot has progressed since prior exam. This extends toward the cuboid. Bony erosion of the plantar aspect of the cuboid has mildly increased since CT of March 24, 2025. This is consistent with osteomyelitis. No additional lesions are identified. Bony fragmentation, disorientation/dislocation and sclerosis within the mid foot consistent with Charcot arthropathy is similar to CT of March 24, 2025. Old nonunited fracture within the base of the right fourth metatarsal is unchanged in appearance. No acute fractures within the right foot are present. There are stable findings following transmetatarsal amputation of the fifth digit. Extensive vascular calcification is incidentally noted. Metallic densities within and adjacent to the calcaneus remain unchanged. IMPRESSION: 1. Significant progression of a deep wound of the plantar midfoot since CT of March 24, 2025 with mild increase in associated erosion of the cuboid suggestive of osteomyelitis. 2. Otherwise, no significant change in appearance of the right foot. Findings consistent with Charcot arthropathy, as detailed above. 3. Old nonunited fourth metatarsal fracture. No acute fractures within the right foot. 4. Extensive soft tissue edema of the right ankle and foot suggestive of cellulitis. 5. Stable findings following right fifth digit amputation. ACT 112: Negative or not required by law. Electronically signed by: Dillan Christian M.D. 05/01/2025 4:10 PM Code Status & VTE Plan Code Status Full code VTE Prophylaxis Plan VTE Prophylaxis will be ordered: Yes Supervising Physician Co-Signing Physician Notes Attending Attestation & Admit Note: Pt seen/examined, chart reviewed, admit care plan d/w PA Javi Ramírez. I agree w/ the bullock components of his admission documentation with the following addition - ##morbid obesity - BMI >50## 44yo AA male - prisoner at [facility] - with recent admission from 03/24 to 03/29 at [facility] for right foot osteomyelitis. On 03/26/25 he underwent right Foot Wound Debridement, Bone Biopsy, Antibiotic Bead Placement, and Wound Vac Placement by Dr Neal from podiatry. d/c with PICC line with plan for 6 weeks of IV daptomycin as wound cx grew MRSA. Also d/c on 2 weeks of PO flagyl. Wound vac to right foot was in place at hospital discharge. In addition to the above he has h/o brain tumor s/p resection at [facility] [place], seizure disorder on keppra, schizophrenia, depression, T2DM with neuropathy, right Charcot foot, C. difficile infection. It is unclear how compliant he was with weight-bearing status. Also unclear how often the wound vac was being exchanged. By report he did not have f/u with Dr Neal. PMH/PSH/allergies/meds/sochx/famhx - reviewed Bone culture from 03/26 was negative, and bone biopsy pathology report interestingly did not show osteomyelitis (bone bx was from the cuboid bone) labs from today reviewed a1c 9% in early March 2025 vitals: BPs elevated, otherwise stable gen - morbidly obese, laying in bed watching TV, NAD neck - no JVD heart - RRR, s1 s2, no murmur lungs - CTA b/l abd - soft NT ND BS+ ext - lymphedema of b/l legs with gross Charcot foot deformity of right foot; pulses right foot 1+, left foot 1-2+ skin - large ulcer on plantar aspect of right foot; see photo in this document; outer periphery with thin rim of granulation tissue; beefy red tissue in large portion of this ulcer; 1.5cm deep ulceration with overlying purulence and exudate; ?bone visible A/P: 1. non-healing right plantar foot ulceration 2. right Charcot foot 3. cuboid bone osteomyelitis right foot vs bone changes due to Charcot foot (of note --> bone bx and culture from the cuboid bone last admission were negative for bacterial growth & signs of osteomyelitis) 4. February 15 2025 aorta with run-off CTA with PAD of right leg 5. uncontrolled T2DM 6. morbid obesity with BMI >50 -while awaiting orthopedic/podiatric evaluation of ongoing right foot ulcer/wound, and while awaiting repeat wound culture, would broaden the abx to include zosyn in the event there are new pathogens present; cont IV daptomycin -NWB status to RLE -wound care consult for wound care recs -arterial duplex of RLE - perhaps there is a distal arterial vessel that would be amenable to vascular intervention? -ortho consult with Dr Sorensen - appreciate his assistance -possible consult with Dr Neal, podiatry; await Dr Sorensen's consultation first other plans per Mr Darrell Wilson MD PG Care Time/CCT Total # of Minutes Spent Total Time Spent with Patient: Total time spent is greater than 50% in coordination of care (as documented) at patient's floor/unit and/or counseling patient: [place] [id number] INT INP/OBS CARE MIN Patient Type Established Medical Decision Making High Complexity Diagnoses Osteomyelitis M86.9 Laterality: right Osteomyelitis location: foot Osteomyelitis type: unspecified type Charcot arthropathy M14.60 Type 2 diabetes mellitus with foot ulcer, unspecified whether long term care administrator insulin use E11.621; L97.509 Diabetes mellitus complication detail: with foot ulcer Diabetes mellitus complication status: with skin complications Diabetes mellitus shelter insulin use: unspecified long term care administrator insulin 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 (1) Osteomyelitis Laterality: right Osteomyelitis location: foot Osteomyelitis type: u nspecified type Qualified Code(s): M86.9 - Osteomyelitis, unspecified (3) DMII (diabetes mellitus, type 2) Diabetes mellitus complication detail: with foot ulcer Diabetes mellitus complication status: with skin complications Diabetes mellitus shelter insulin use: unspecified long term care administrator insulin use status Qualified Code(s): E 11.621 - Type 2 diabetes mellitus with foot ulcer; L97.509 - Non-pressure chronic ulcer of other part of unspecified foot with unspecified severity (4) Anemia Anemia type: unspecified type Qualified Code(s): D64.9 - Anemia, unspecified"
[2025-05-01] MEDS: DAPTOmycin 700 MG in SYRINGE 0 ML IV ONE (17:02)
[2025-05-01] MEDS: HYDROmorphone INJ 1 MG/ML SYRINGE IV STA (17:14)
[2025-05-01] MEDS ORDERED: ONDANSETRON INJ 2 MG/ML 2 ML VIAL IV PRN (18:08)
[2025-05-01] MEDS ORDERED: DEXTROSE 50% 50 ML SYRINGE IV PRN (18:08)
[2025-05-01] MEDS ORDERED: CARBOHYDRATES FOR HYPOGLYCEMIA PO PRN (18:08)
[2025-05-01] MEDS ORDERED: GLUCOSE 10 TAB/TUBE PO PRN (18:08)
[2025-05-01] MEDS ORDERED: GLUCOSE 40% GEL 15 GM TUBE PO PRN (18:08)
[2025-05-01] MEDS ORDERED: HYDROmorphone INJ 0.5 MG/0.5 ML SYR IV PRN (18:08)
[2025-05-01] MEDS ORDERED: GLUCAGON FOR INJ 1 MG VIAL SQ PRN (18:08)
[2025-05-01] MEDS: HYDROmorphone INJ 1 MG/ML SYRINGE IV PRN (19:52)
[2025-05-01] MEDS: PIPERACILLIN/TAZOBACTAM 4.5 GM/100 ML BAG IV ONE (19:59)
[2025-05-01] MEDS: SPIRONOLACTONE 25 MG TAB PO SCH (19:59)
[2025-05-01] MEDS ORDERED: NON-FORMULARY MEDICATION (Acidophilus-Pectin, Citrus 100 million cell-10 mg Capsule) PO SCH (21:00)
[2025-05-01] MEDS: DOXEPIN HCL 50 MG CAPSULE PO SCH (22:13)
[2025-05-01] MEDS: GABAPENTIN 600 MG TAB PO SCH (22:13)
[2025-05-01] MEDS: BENZTROPINE MESYLATE 1 MG TAB PO SCH (22:13)
[2025-05-01] MEDS: levETIRAcetam 500 MG TAB PO SCH (22:14)
[2025-05-01] MEDS: ENOXAPARIN INJ 40 MG/0.4 ML SYR SQ SCH (22:15)
[2025-05-01] MEDS: GABAPENTIN 400 MG CAP PO SCH (22:15)
[2025-05-01] MEDS: PERPHENAZINE 4 MG TAB PO SCH (22:16)
[2025-05-01] MEDS: INSULIN ASPART PER UNIT CHARGE SC SCH (22:17)
[2025-05-01] MEDS: LANTUS PER UNIT CHARGE SQ SCH (22:17)
[2025-05-01] MEDS: DOCUSATE SODIUM/SENNA 50/8.6MG TAB PO SCH (22:35)
[2025-05-01] MEDS: DOCUSATE SODIUM 100 MG CAP PO SCH (22:35)
[2025-05-01] MEDS: PIPERACILLIN/TAZOBACTAM 4.5 GM/100 ML BAG IV SCH (23:20)
[2025-05-01] MEDS ORDERED: PIPERACILLIN/TAZOBACTAM 4.5 GM/100 ML BAG IV SCH (23:30)
--- NOTE | 2025-05-02 00:26 | Ultrasound Report ---
Exam(s): US ARTERIAL RIGHT LOWER EXTREMITY EXAM: US Duplex Right Lower Extremity Arteries CLINICAL HISTORY: Worsening R foot infection; focal blockage r/o. TECHNIQUE: Real-time duplex ultrasound scan of the right lower extremity arteries integrating B-mode two-dimensional vascular structure, Doppler spectral analysis and color flow Doppler imaging. COMPARISON: No relevant prior studies available. FINDINGS: Right common femoral artery: Peak systolic velocity in the right common femoral artery is 121 cm/s. Biphasic waveform. Right deep femoral artery: Peak systolic velocity in the right deep femoral artery is 117 cm/s. Biphasic waveform. Right superficial femoral artery: Peak systolic velocity in the right superficial femoral artery is 150 cm/s consistent with a 30-49% stenosis. Biphasic to monophasic waveform. Right popliteal artery: Peak systolic velocity in the right popliteal artery is 118 cm/s. Monophasic waveform. Right calf/foot arteries: Peak systolic velocity in the right posterior tibial artery is 243 cm/s. Monophasic waveform. Peak systolic velocity in the right peroneal artery is 129 cm/s. Monophasic waveform. Peak systolic velocity in the right dorsalis pedis artery is 80 cm/s. Monophasic waveform. Soft tissues: Subcutaneous edema noted throughout the calf. Lymph nodes: Incidental right inguinal lymph node measuring up to 1.4 cm in short axis diameter. IMPRESSION: 1. No evidence for arterial occlusion involving the right lower extremity. 2. Trifurcation disease noted throughout with monophasic waveforms. 50- 74% stenosis in the right posterior tibial artery due to atherosclerotic plaque. 3. Subcutaneous edema of the right calf. No loculated fluid collection. Presumed reactive right inguinal lymph node. Electronically signed by: Stuart Carmona MD 05/02/25 00:25 AM
[2025-05-02 08:17] LABS: C Reactive Protein 1.66 mg/dl (0-0.5)
[2025-05-02] MEDS: TAMSULOSIN HCL 0.4 MG CAP PO SCH (08:17)
--- NOTE | 2025-05-02 08:27 | Orthopedic Consultation ---
Date of Consultation May 02, 2025 Assessment & Plan (1) Diabetic infection of right foot: (2) DMII (diabetes mellitus, type 2): (3) Charcot arthropathy: (4) Abnormal ankle brachial index (RIZWANA): (5) Morbid obesity with BMI of 45.0-49.9, adult: (6) C. difficile diarrhea: (7) Hx of craniotomy: (8) Obesity: Plan 44-year-old gentleman presents to the hospital from retirement for malodorous drainage from a right foot wound. The patient is status post irrigation and debridement of this right foot wound with bone cultures taken at that time by Dr. Neal. The surgery was about a month ago. At that time, bone cultures did not reveal any osteomyelitis. The patient was discharged to the hospital with plans for wound VAC changes, but reportedly patient never had his wound VAC changed in retirement. He also has not followed up with Dr. Neal since the original surgery. On evaluation the patient's leg this morning, he has a large diabetic foot wound on the plantar aspect of his foot under the area of the cuboid. There is a fibrinous exudate noted at the wound with significant odor. No gross purulence or drainage noted at this point. No significant surrounding erythema. Patient has diminished sensation in his foot in a stocking-like distribution which is at baseline. Patient's foot is warm, but no pulses are palpated. Patient has had ABIs and TBI's done in the past which demonstrated noncompressible arteries in the ankle, but normal TBI's. This was suggestive of the potential to heal his foot wound. I had a long discussion the patient regarding his current presentation previous this in great detail the pathoanatomy, pathophysiology, treatment options for his diabetic foot wound. Expressing that this wound is caused due to his midfoot malalignment which is secondary to his Charcot arthropathy. The patient is reportedly on insulin for his diabetes, however his last A1c was 9 in March of this year. I explained to the patient that his abnormal midfoot morphology does cause increased pressure under his midfoot which is the reason for his recurrent wounds in this area. Given the fact that I cannot palpate pulses in the patient's leg, I am quite concerned about his potential for healing a foot wound. I think his potential for requiring amputation is quite high at this point. When I explained this to the patient he was quite upset to hear this and noted that he will not agree to an amputation at this point. Considering the patient did not have evidence of osteomyelitis on his last trip to the operating room and that his local wound care orders were not exactly followed at the present, I do think it is possible that local wound care may be helpful at healing this wound. If the wound is able to heal, I do think the patient may require at least some bony debridement to offload this area in addition to shoewear modifications to offload this area. We could discuss this in the future. The other surgical option at this point would be for a below-knee amputation. I do not think that any lower amputation would adequately treat th is wound or have a potential to heal. After explaining this to the patient, he was quite upset and notes that he does not give consent for a below-knee amputation at this point. The patient does have some factors in his favor with regards to healing potential of the plantar foot wound including his normal albumin, normal TBI's. Given this, I do think that a wound care consultation is reasonable. Considering the fact that the patient is not floridly sick at this point, I do not think that an amputation is required emergently at this point, however explained to him that this is certainly a possibility if he does develop a deep infection. He did express understanding to this. I will continue to follow along and I have informed Dr. Neal of the situation as well. History of Present Illness Reason for Consultation: right foot wound Attending Physician: Eugene Angulo MD History of Present Illness Mr. Cote is a 44-year-old male with PMH of brain [place] [facility] [place] seizure disorder (on keppra), disorganized schizophrenia, depression, T2DM with neuropathy, right Charcot foot, C. difficile infection, and right fifth toe and distal MT osteomyelitis with abscess. He presented on 05/01 for ongoing right foot infection. Recent [place] admission for right foot osteomyelitis with discharged on 03/29 on IV daptomycin; PICC line in right arm. Patient had his wound VAC removed at the retirement today, and the wound looked more infected and was malodorous. Patient feels that the wound VAC actually made his infection worse. He has had good compliance with taking his Dapto IV daily through the PICC line. Patient reports he is having constant/throbbing pain in his right foot, mainly on the plantar surface. No purulent drainage from the foot, but he does report serosanguineous drainage. Worse with movements. The pain remains in the foot; no radiation up the leg. His pain has been controlled at the present with oxycodone, which he did take earlier today. Patient took his regular morning medicines today, including insulin; he reports he takes 70 units of Lantus daily. No recent change in medications. Patient is a former smoker, but quit in 2019 after smoking was discontinued in the retirement. The patient did proceed to the operating room with Dr. Neal during his last admission where bone cultures were taken and these did not return concerning findings for osteomyelitis. At admission, the patient's white blood cell count was noted to be less than 12. He had an elevated ESR at 118, and elevated CRP at 1.66, but a normal procalcitonin at 0.1. Patient denies any fevers or chills. Denies feeling overtly sick at this point. Does state that "I do not want any amputations" Allergies Allergy/AdvReac Type Severity Reaction Status Date / Time sulfamethoxazole Allergy Intermediate Rash Verified 02/11/25 10:27 [From Bactrim] trimethoprim [From Bactrim] Allergy Intermediate Rash Verified 02/11/25 10:27 Home Medications Medication Instructions Recorded Confirmed Type levetiracetam 1,000 mg tablet 1,000 mg PO BID 02/14/24 05/01/25 History (Keppra) benztropine 1 mg tablet 1 mg PO BID 11/30/24 05/01/25 History hydralazine 25 mg tablet 25 mg PO DAILY 11/30/24 05/01/25 History daptomycin 500 mg intravenous 850 mg IV DAILY 36 doses 03/29/25 05/01/25 Rx solution acidophilus 100 million 1 cap PO BID 05/01/25 05/01/25 History cell-pectin, citrus 10 mg capsule ascorbic acid (vitamin C) 500 mg 500 mg PO DAILY 05/01/25 05/01/25 History chewable tablet (Vitamin C) aspirin 325 mg tablet,delayed 325 mg PO DAILY 05/01/25 05/01/25 History release cholecalciferol (vitamin D3) 25 25 mcg PO DAILY 05/01/25 05/01/25 History mcg (1,000 unit) capsule (Vitamin D3) docusate sodium 250 mg capsule 250 mg PO BID 05/01/25 05/01/25 History doxepin 100 mg capsule 100 mg PO HS 05/01/25 05/01/25 History ferrous sulfate 325 mg (65 mg 325 mg PO DAILY 05/01/25 05/01/25 History iron) tablet gabapentin 400 mg capsule 400 mg PO BID 05/01/25 05/01/25 History gabapentin 600 mg tablet 600 mg PO BID 05/01/25 05/01/25 History insulin glargine-yfgn 100 unit/mL 70 unit subcut BID 05/01/25 05/01/25 History subcutaneous solution oxycodone-acetaminophen 10 mg-325 1 tab PO TID 05/01/25 05/01/25 History mg tablet (Percocet) perphenazine 4 mg tablet 4 mg PO HS 05/01/25 05/01/25 History rosuvastatin 40 mg tablet 40 mg PO .ON HOLD 05/01/25 05/01/25 History sennosides 8.6 mg-docusate sodium 2 tab-cap PO HS 05/01/25 05/01/25 History 50 mg tablet (Senokot-S) spironolactone 25 mg tablet 25 mg PO BID 05/01/25 05/01/25 History tamsulosin 0.4 mg capsule 0.4 mg PO DAILY 05/01/25 05/01/25 History zinc gluconate 50 mg tablet 50 mg PO DAILY 05/01/25 05/01/25 History Patient History Medical History Incomplete bladder emptying Diabetic ulcer of right foot with bone involvement without evidence of necrosis Transaminitis Acute kidney injury Hypochloremia Hyponatremia Anemia Leukocytosis MIS (acute kidney injury) Cellulitis Osteomyelitis Charcot joint of right foot Diabetic ulcer of right foot HTN (hypertension) DMII (diabetes mellitus, type 2) Osteomyelitis of right foot Diabetic infection of right foot Diabetes Surgical History History of partial ray amputation of fifth toe of right foot Family History (Updated 03/24/25 @ 14:20 by Dusty Ramirez MD, PhD) Father , at 57 years of age from acute DE in the setting of DM and tobacco abuse. No problems noted. Mother No problems noted. Other No pertinent family history Social History Smoking Status: Former smoker Tobacco Type: Cigarettes Second Hand Exposure: No; Do You Dip or Chew Tobacco: No; Hx Alcohol Use: No Hx Substance Use: No Preferred Language: [place] Communication Ability: Effective Housing Quality Standard Inspector Required: No Beliefs That Will Affect Care: None Current Living Situation: Other Current Living Situation Comment: [facility] Other Information That Helps Us Care for You: No Feels Safe at Home: Yes Diet: regular Assistive Devices: None Review of Systems Review of Systems: All systems reviewed & are unremarkable except as noted in HPI & below Physical Exam Physical Exam: on physical examination, the patient's right foot dressing was removed. He has a large open sore located on the plantar aspect of his foot and an area of the cuboid bone. This wound measures approximately 4 cm x 3 cm. This does probe somewhat deep. There is malodor to this wound, however no significant erythema or drainage. He has a warm foot, however pulses are not palpable on physical exam today. He has diminished in station diffusely in his foot in a stocking- like distribution at baseline for the patient. Results & Data Vital Signs (Past 12 Hours) Vital Signs Temp Pulse Pulse Resp BP Pulse Ox O2 Del Method 05/02/25 08:14 36.4 C L 79 19 161/94 H 98 Room Air 05/02/25 03:35 36.4 C L 72 18 145/84 H 99 Room Air 05/01/25 22:56 36.4 C L 81 18 161/95 H 97 Room Air 05/01/25 21:48 84 Diagnostic Findings X-rays right foot, CT of the right foot were personally interpreted and reviewed. These demonstrate severe Charcot foot with fragmentation changes noted throughout the midfoot. (2) DMII (diabetes mellitus, type 2) Diabetes mellitus mcc insulin use: unspecified mcc insulin use status Diabetes mellitus complication status: with skin complications Diabetes mellitus complication detail: with foot ulcer Qualified Code(s): E11.621 - Type 2 diabetes mellitus with foot ulcer; L97.509 - Non-pressure chronic ulcer of other part of unspecified foot with unspecified severity
[2025-05-02 08:39] LABS: Ferritin 156.9 ng/ml (8-388)
[2025-05-02] MEDS: FERROUS SULFATE 325 MG TAB PO SCH (08:59)
--- NOTE | 2025-05-02 09:13 | Infectious Disease Consult ---
Date of Consultation May 02, 2025 Assessment & Plan (1) Cellulitis of right foot: (2) Osteomyelitis: (3) Charcot arthropathy: (4) DMII (diabetes mellitus, type 2): Plan 44yo M, inmate at [facility], with [place]/o [place] [facility] [place] seizure d/o on keppra, disorganized schizophrenia, depression, T2DM c/b neuropathy, right Charcot foot, admission 02/2024 with right fifth toe and distal MT OM with abscess s/p right fifth ray amp (cx w GBS, s/p augmentin x 14d), C diff infection 02/2024 s/p vanc PO, recent dx of early OM in right 4th MT (cx +MRSA, s/p vancomycin 01/22-02/28/25 followed by doxy/augmentin until 03/08/25 PICC was pulled out accidentally), admission 03/24-03/29 with right foot pain x 3- 4 days f/w c/f OM of right cuboid s/p I+D where exposed bone noted (cx MRSA, Strep dysgalactiae, Prevotella, s/p debridement 03/26, OR path/cx neg though was on abx prior) and dcd on dapto x 6wks (end 05/07) and flagyl x 2 wks (end 04/09) who presented on 05/01 with recurrent right foot infection. He had his wound vac removed earlier on 05/01 and the wound looked more infected and was malodorous. Reported compliance with antibiotics. Here, he was afebrile. Initial labs with WBC wnl, Cr 1.16, AST/ALT wnl. Lactate neg. ESR 118 (prev > 130), CRP 1.75 (prev 28). PCT < 0.10. MRSA screen neg. CT right foot with significant progression of a deep wound of the plantar midfoot since CT of March 24, 2025 with mild increase in associated erosion of the cuboid suggestive of osteomyelitis; findings c/w charcot arthropathy; extensive soft tissue edema suggestive of cellulitis. Arterial duplex with 50-74% stenosis of right posterior tibial. He has been started on daptomycin and zosyn. ID consulted 05/02. During his last admission, I did have him go home on 6 wks of abx for treatment of OM since he had exposed bone in the wound bed, despite negative bone cultures (which could have been due to being on abx) and path (?sampling error). He is now back with worsening foot with malodor. He has also been ambulating on the foot. I will continue treatment with broad coverage for skin/soft tissue infection while waiting for cultures, but I do not think an extension of the OM course or restarting of the 6 wks is conducive at this time. His ESR/CRP are lower from admission, though I do not have any of the follow up outpatient labs. Imaging will also continue to have bone changes, he does have Charcot foot, and he doesnt have any new areas of bone involvement on imaging. # Right foot ulcer with SSTI # Recent tx for c/f OM of right cuboid s/p I+D on 03/26/25 WCX MRSA, Strep dysgalactiae, Prevotella (on dapto until 05/07) # T2DM - f/u cultures - wound care - appreciate ortho input - continue daptomycin 850mg IV daily - continue zosyn 4.5g IV q8h Will continue to follow. If questions or concerns, contact via [employer] or Infectious Disease Call Center . Alice Cruz MD [facility], Division of Infectious Diseases Consultation Information Consultation was provided via telemedicine using two-way real-time interactive telecommunication between the patient and the telemedicine provider. For the duration of the visit, the provider was performing the assessment from a different facility than the patient. This includesuse of bluetooth stethoscope forauscultationperformed by the telepresenter that the telemedicine provider can hear if described in the physical exam. Merchandise Worker contact information: Please call [facility] [phone]. (Phone Number For Physician Use Only) After establishing a telemedicine visit, patient was: Patient was verified with two unique identifiers, Patient/authorized rep acknowledged consent and understanding and Gave permission to continue telehealth session Time Spent with Patient: Initial => 75 min History of Present Illness Reason for Consultation: recurrent right foot infection Attending Physician: Eugene Angulo MD History of Present Illness 44yo M, inmate at [facility], with h/o brain [place] [facility] [place] seizure d/o on keppra, disorganized schizophrenia, depression, T2DM c/b neuropathy, right Charcot foot, admission 02/2024 with right fifth toe and distal MT OM with abscess s/p right fifth ray amp (cx w GBS, s/p augmentin x 14d), C diff infection 02/2024 s/p vanc PO, recent dx of early OM in right 4th MT (cx +MRSA, s/p vancomycin 01/22-02/28/25 followed by doxy/augmentin until 03/08/25 PICC was pulled out accidentally), admission 03/24-03/29 with right foot pain x 3- 4 days f/w c/f OM of right cuboid s/p I+D where exposed bone noted (cx MRSA, Strep dysgalactiae, Prevotella, s/p debridement 03/26, OR path/cx neg though was on abx prior) and dcd on dapto x 6wks (end 05/07) and flagyl x 2 wks (end 04/09) who presented on 05/01 with recurrent right foot infection. He had his wound vac removed earlier on 05/01 and the wound looked more infected and was malodorous. He said he was having 9/10 pain in the right foot. Reported serosanguinous drainage. Reported compliance with antibiotics. Here, he was afebrile. Initial labs with WBC wnl, Cr 1.16, AST/ALT wnl. Lactate neg. ESR 118 (prev > 130), CRP 1.75 (prev 28). PCT < 0.10. MRSA screen neg. CT right foot with significant progression of a deep wound of the plantar midfoot since CT of March 24, 2025 with mild increase in associated erosion of the cuboid suggestive of osteomyelitis; findings c/w charcot arthropathy; extensive soft tissue edema suggestive of cellulitis. Arterial duplex with 50-74% stenosis of right posterior tibial. He h as been started on daptomycin and zosyn. ID consulted 05/02. On evaluation, patient reports that he started having pain in his foot 3 weeks ago and has been getting pain medications. His wound vac gets changed every other day and he noticed that there has been a lot of drainage in the vac since hes been there. Recently it started becoming malodorous. He does admit to walking when he needs to go to the bathroom but otherwise says he stays in the wheelchair. No other complaints. No abdominal pain, vomiting, diarrhea. Allergies Allergy/AdvReac Type Severity Reaction Status Date / Time sulfamethoxazole Allergy Intermediate Rash Verified 02/11/25 10:27 [From Bactrim] trimethoprim [From Bactrim] Allergy Intermediate Rash Verified 02/11/25 10:27 Home Medications Medication Instructions Recorded Confirmed Type levetiracetam 1,000 mg tablet 1,000 mg PO BID 02/14/24 05/01/25 History (Keppra) benztropine 1 mg tablet 1 mg PO BID 11/30/24 05/01/25 History hydralazine 25 mg tablet 25 mg PO DAILY 11/30/24 05/01/25 History daptomycin 500 mg intravenous 850 mg IV DAILY 36 doses 03/29/25 05/01/25 Rx solution acidophilus 100 million 1 cap PO BID 05/01/25 05/01/25 History cell-pectin, citrus 10 mg capsule ascorbic acid (vitamin C) 500 mg 500 mg PO DAILY 05/01/25 05/01/25 History chewable tablet (Vitamin C) aspirin 325 mg tablet,delayed 325 mg PO DAILY 05/01/25 05/01/25 History release cholecalciferol (vitamin D3) 25 25 mcg PO DAILY 05/01/25 05/01/25 History mcg (1,000 unit) capsule (Vitamin D3) docusate sodium 250 mg capsule 250 mg PO BID 05/01/25 05/01/25 History doxepin 100 mg capsule 100 mg PO HS 05/01/25 05/01/25 History ferrous sulfate 325 mg (65 mg 325 mg PO DAILY 05/01/25 05/01/25 History iron) tablet gabapentin 400 mg capsule 400 mg PO BID 05/01/25 05/01/25 History gabapentin 600 mg tablet 600 mg PO BID 05/01/25 05/01/25 History insulin glargine-yfgn 100 unit/mL 70 unit subcut BID 05/01/25 05/01/25 History subcutaneous solution oxycodone-acetaminophen 10 mg-325 1 tab PO TID 05/01/25 05/01/25 History mg tablet (Percocet) perphenazine 4 mg tablet 4 mg PO HS 05/01/25 05/01/25 History rosuvastatin 40 mg tablet 40 mg PO .ON HOLD 05/01/25 05/01/25 History sennosides 8.6 mg-docusate sodium 2 tab-cap PO HS 05/01/25 05/01/25 History 50 mg tablet (Senokot-S) spironolactone 25 mg tablet 25 mg PO BID 05/01/25 05/01/25 History tamsulosin 0.4 mg capsule 0.4 mg PO DAILY 05/01/25 05/01/25 History zinc gluconate 50 mg tablet 50 mg PO DAILY 05/01/25 05/01/25 History Patient History Medical History Incomplete bladder emptying Diabetic ulcer of right foot with bone involvement without evidence of necrosis Transaminitis Acute kidney injury Hypochloremia Hyponatremia Anemia Leukocytosis MIS (acute kidney injury) Cellulitis Osteomyelitis Charcot joint of right foot Diabetic ulcer of right foot HTN (hypertension) DMII (diabetes mellitus, type 2) Osteomyelitis of right foot Diabetic infection of right foot Diabetes Surgical History History of partial ray amputation of fifth toe of right foot Family History (Updated 03/24/25 @ 14:20 by Dusty Ramirez MD, PhD) Father , at 57 years of age from acute DE in the setting of DM and tobacco abuse. No problems noted. Mother No problems noted. Other No pertinent family history Social History Smoking Status: Former smoker Tobacco Type: Cigarettes Second Hand Exposure: No; Do You Dip or Chew Tobacco: No; Hx Alcohol Use: No Hx Substance Use: No Preferred Language: Welsh Communication Ability: Effective Dinkey Press Operator Required: No Beliefs That Will Affect Care: None Current Living Situation: Other Current Living Situation Comment: [facility] Other Information That Helps Us Care for You: No Feels Safe at Home: Yes Diet: regular Assistive Devices: None Review of System 10-point review of systems reviewed and are negative except for as above. Physical Exam Physical Exam: General: Awake, alert, no acute distress HEENT: NC/AT, EOMI, mmm Neck: supple Lungs: respirations non-labored Heart: nl peripheral perfusion Abdomen: soft, NT/ND Ext: large open wound on bottom of right foot with an area of discoloration, no active drainage noted, +edema Skin: as above with some chronic skin changes of lower right leg Neuro: moving all extremities Results & Data Vital Signs (Past 12 Hours) Vital Signs Temp Pulse Pulse Resp BP Pulse Ox O2 Del Method 05/02/25 08:14 36.4 C L 79 19 161/94 H 98 Room Air 05/02/25 03:35 36.4 C L 72 18 145/84 H 99 Room Air 05/01/25 22:56 36.4 C L 81 18 161/95 H 97 Room Air 05/01/25 21:48 84 Laboratory Results Labs reviewed. Diagnostic Findings Imaging reviewed. (2) Osteomyelitis Laterality: right Osteomyelitis location: foot Osteomyelitis type: unspecified type Qualified Code(s): M86.9 - Osteomyelitis, unspecified (4) DMII (diabetes mellitus, type 2) Diabetes mellitus fpc insulin use: unspecified termite technician insulin use status Diabetes mellitus complication status: with skin complications Diabetes mellitus complication detail: with foot ulcer Qualified Code(s): E11.621 - Type 2 diabetes mellitus with foot ulcer; L97.509 - Non-pressure chronic ulcer of other part of unspecified foot with unspecified severity
--- NOTE | 2025-05-02 11:35 | Hospitalist Progress Note ---
"Date of Service May 02, 2025 Assessment & Plan (1) Charcot arthropathy: (2) Osteomyelitis: (3) DMII (diabetes mellitus, type 2): (4) Anemia: (5) History of MRSA infection: Plan This patient is a 44-year-old male who presented on 05/01 from [facility] for recurrent right foot infection. Foot CT on arrival revealed significant progression of a deep wound of the plantar midfoot since March; mild increase in associated erosion of the cuboid suggestive of osteomyelitis. He had an I&D with wound debridement and bone biopsy with Dr. Neal on 03/26 and had a 6-week course of IV daptomycin via PICC line that is to continue until 05/07/25. Pathology report on 03/27 revealed the bone biopsy did not meet criteria for osteomyelitis. #Right foot infection | cellulitis | Charcot arthropathy | ? osteomyelitis of right cuboid - Per EMS report, patient may have been non-compliant with R non-weight bearing. This may suggest that his right foot infection is primarily cellulitis + Charcot arthropathy - Aorta with runoff CTA on 02/14/2025 revealed major branches of the internal and external iliac arteries are without significant narrowing; contrast did not opacify distal arteries of the foot; however, patient could still have developed focal blockage in the distal arteries - Arterial Doppler RLE revealed no evidence for arterial occlusion involving the RLE - CRP elevated at 1.66, however significantly lower than CRP in March - No leukocytosis; afebrile. Blood cultures negative x 24 hours - Wound culture preliminarily growing Morganella morganii and E. coli - Ortho consulted - patient does NOT consent to amputation at this time - ID consulted - continue daptomycin and Zosyn for now - Wound care nurse consult appreciated - Acetaminophen and Dilaudid PRN for pain control #Diabetes - Last A1c at 9.0% on 03/24/2025 - Glucose 310 on admission - Lantus 35u BID - SSI with target BSG range 110-140mg/dL, CF 20, carb ratio 8 #Anemia - Chronic; Hgb 8.7 on arrival - MCV <80 - No active bleeding - Iron panel consistent with anemia of chronic disease - Continue iron supplement #History of seizure disorder - Continue Keppra #Disorganized schizophrenia - Continue perphenazine # Recent h/o C. difficile diarrhea | MRSA infection - Contact isolation precautions Disposition: Continued inpatient stay VTE PPx: Lovenox 40 mg SQ q12h Admission and Anticipated Discharge Date Admission Date: May 01, 2025 Supervising Physician Co-Signing Physician Notes The patient was not seen by me. The chart was reviewed. Case discussed with YI Young. Agree with assessment and plan Subjective Patient seen and evaluated at bedside with 2 assisted guards present. He reports constant stabbing/throbbing pain in his right foot. He denies any radiating symptoms up his RLE. He states the IV Dilaudid is helping his pain. We discussed his evaluation from Dr. Sorensen and again confirms that he does not want an amputation at this time; he is hopeful that medical management alone will result in resolution of this infection. I reiterated Dr. Sorensen's opinion that he would likely need further debridement if amputation is not performed; he was understanding. We discussed the plan for his antibiotic regimen, monitoring cultures, and awaiting wound care recommendations. Otherwise, he reports he would like more food with his meals than currently being provided. Informed him that this is no problem and we can cover him with additional insulin as needed. No additional complaints or concerns at this time. Physical Exam Physical Exam: General: No acute distress, nondiaphoretic, well-developed, well-nourished. Cardiac: Regular rate and rhythm without murmurs gallops or rubs. Pulm: Clear to auscultation bilaterally without wheezes, rales or rhonchi. Normal respiratory effort. 99% on room air. Neuro: A&O x3. No focal neurological deficits. Right foot: covered in dressing - clean, dry, intact. Further exam deferred as just dressed by ortho. Plantar aspect tender to palpation. Results & Data Results & Data Vital Signs (Past 12 Hours) Vital Signs Temp Pulse Pulse Resp BP Pulse Ox O2 Del Method 05/02/25 08:14 97.5 F L 79 19 161/94 H 98 Room Air 05/02/25 05:45 73 05/02/25 03:35 97.5 F L 72 18 145/84 H 99 Room Air Laboratory Results Reviewed iron panel, chemistries Reviewed wound and blood cultures PG Care Time/CCT Total # of Minutes Spent Total Time Spent with Patient: Total time spent is greater than 50% in coordination of care (as documented) at patient's floor/unit and/or counseling patient: Coding Level of Care Code 85306 SUB INP/OBS CARE MIN Diagnoses Charcot arthropathy M14.60 Osteomyelitis M86.9 Laterality: right Osteomyelitis location: foot Osteomyelitis type: unspecified type Type 2 diabetes mellitus with foot ulcer, unspecified whether terminal gauger supervisor insulin use E11.621; L97.509 Diabetes mellitus complication detail: with foot ulcer Diabetes mellitus complication status: with skin complications Diabetes mellitus fpc insulin use: unspecified terminal gauger supervisor insulin 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 (2) Osteomyelitis Laterality: right Osteomyelitis location: foot Osteomyelitis type: unspecified type Qualified Code(s): M86.9 - Osteomyelitis, unspecified (3) DMII (diabetes mellitus, type 2) Diabetes mellitus complication detail: with foot ulcer Diabetes mellitus complication status: with skin complications Diabetes mellitus terminal gauger supervisor insulin use: unspecified terminal gauger supervisor insulin use status Qualified Code(s): E11.621 - Type 2 diabetes mellitus with foot ulcer; L97.509 - Non-pressure chronic ulcer of other part of unspecified foot with unspecified severity (4) Anemia Anemia type: unspecified type Qualified Code(s): D64.9 - Anemia, unspecified"
[2025-05-02] MEDS: DAPTOmycin 850 MG in SYRINGE 0 ML IV SCH (16:27)
[2025-05-03 06:46] LABS: Hematocrit (blood only) 28.2 % (42.0-52.0); Hemoglobin 8.7 g/dl (14.0-18.0); Mean Corpuscular Hgb Conc 30.9 g/dL (32.0-36.0); Mean Corpuscular Volume 77.9 fL (80.0-100.0); Platelet Count 265 K/uL (130-400); RDW Standard Deviation 50.7 fL (36.4-46.3); Red Blood Count 3.62 M/uL (4.70-6.10); White Blood Count 10.13 K/ul (4.8-10.8)
[2025-05-03 07:02] LABS: BUN Creatinine Ratio 14.1 (10-20); C Reactive Protein 3.46 mg/dl (0-0.5); Calcium 8.6 mg/dl (8.6-10.3); Creatinine Clr Calc Pharmacy 124.6 ml/min; Potassium 4.1 mmol/L (3.5-5.1)
--- NOTE | 2025-05-03 11:27 | Hospitalist Progress Note ---
"Date of Service May 03, 2025 Assessment & Plan (1) Charcot arthropathy: (2) Osteomyelitis: (3) DMII (diabetes mellitus, type 2): (4) Anemia: (5) History of MRSA infection: Plan This patient is a 44-year-old male who presented on 05/[address] [facility] for recurrent right foot infection. Foot CT on arrival revealed significant progression of a deep wound of the plantar midfoot since March; mild increase in associated erosion of the cuboid suggestive of osteomyelitis. He had an I&D with wound debridement and bone biopsy with Dr. Neal on 03/26 and had a 6-week course of IV daptomycin via PICC line that is to continue until 05/07/25. Pathology report on 03/27 revealed the bone biopsy did not meet criteria for osteomyelitis. #Right foot infection | Cellulitis | Charcot arthropathy | ? osteomyelitis of right cuboid - Per EMS report, patient may have been non-compliant with R non-weight bearing. This may suggest that his right foot infection is primarily cellulitis + Charcot arthropathy - Arterial Doppler RLE revealed no evidence for arterial occlusion involving the RLE - CRP elevated at 3.46, however significantly lower than CRP in March - No leukocytosis; afebrile. Blood cultures negative x 24 hours - Wound culture preliminarily growing Morganella morganii, ESBL E. coli, Prevotella bivia, and Clostridium ramosum - Ortho consulted - patient does NOT consent to amputation at this time - ID consulted - continue daptomycin through 05/07. Zosyn discontinued and started on Ertapenem 1g IV daily x 7-10 days for SSTI - Wound care nurse consult appreciated. Redressed wound at bedside with RN 05/03 - Acetaminophen and Dilaudid PRN for pain control #Diabetes - Last A1c at 9.0% on 03/24/2025 - Glucose 310 on admission - Lantus 35u BID - SSI with target BSG range 110-140mg/dL, CF 20, carb ratio 8 #Anemia - Chronic; Hgb 8.7 on arrival - MCV <80 - No active bleeding - Iron panel consistent with anemia of chronic disease - Continue iron supplement #History of seizure disorder - Continue Keppra #Disorganized schizophrenia - Continue perphenazine # Recent h/o C. difficile diarrhea | MRSA infection - Contact isolation precautions Disposition: Continued inpatient stay VTE PPx: Lovenox 40 mg SQ q12h Admission and Anticipated Discharge Date Admission Date: May 01, 2025 Supervising Physician Co-Signing Physician Notes The patient was not seen by me. The chart was reviewed. Case discussed with YI Young. Agree with assessment and plan Subjective Patient seen and evaluated at bedside with 2 care home guards present. He reports ongoing stabbing pain in his right foot. He does say that the IV Dilaudid continues to help. He denies weight bearing on his RLE. He has not been seen by ortho or ID yet today. He had significant pus in the wound upon undressing his bandage. There was a very foul odor when exchanging the dressing. RN assisted in undressing/redressing the wound. He denies additional complaints or concerns at this time. Physical Exam 2 Physical Exam: General: No acute distress, nondiaphoretic, well-developed, well-nourished. Cardiac: Well-perfused. Rate in 70s. Pulm: Normal respiratory effort. 99% on room air. Neuro: A&O x3. No focal neurological deficits. Extremities: Chronic venous stasis changes in LE bilaterally. RLE with extensive soft tissue edema. Right foot: Significant wound to plantar surface with green purulent discharge and malodor. Plantar aspect tender to palpation. Results & Data Results & Data Vital Signs (Past 12 Hours) Vital Signs Temp Pulse Pulse Resp BP Pulse Ox O2 Del Method 05/03/25 10:20 76 05/03/25 07:56 97.7 F 79 16 176/98 H 99 Room Air 05/03/25 07:56 Room Air 05/03/25 04:52 98.2 F 82 17 113/75 98 Room Air Laboratory Results Reviewed CBC Reviewed BMP Reviewed cultures PG Care Time/CCT Total # of Minutes Spent Total Time Spent with Patient: Total time spent is greater than 50% in coordination of care (as documented) at patient's floor/unit and/or counseling patient: Coding Level of Care Code 67647 SUB INP/OBS CARE 3/50MIN Diagnoses Charcot arthropathy M14.60 Osteomyelitis M86.9 Laterality: right Osteomyelitis location: foot Osteomyelitis type: unspecified type Type 2 diabetes mellitus with foot ulcer, unspecified whether terminal press operator insulin use E11.621; L97.509 Diabetes mellitus complication detail: with foot ulcer Diabetes mellitus complication status: with skin complications Diabetes mellitus terminal press operator insulin use: unspecified terminal press operator insulin 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 (2) Osteomyelitis Laterality: right Osteomyelitis location: foot Osteomyelitis type: u nspecified type Qualified Code(s): M86.9 - Osteomyelitis, unspecified (3) DMII (diabetes mellitus, type 2) Diabetes mellitus complication detail: with foot ulcer Diabetes mellitus complication status: with skin complications Diabetes mellitus terminal press operator insulin use: unspecified residential insulin use status Qualified Code(s): E 11.621 - Type 2 diabetes mellitus with foot ulcer; L97.509 - Non-pressure chronic ulcer of other part of unspecified foot with unspecified severity (4) Anemia Anemia type: unspecified type Qualified Code(s): D64.9 - Anemia, unspecified"
--- NOTE | 2025-05-03 11:51 | Infectious Disease Progress Nt ---
Date of Service May 03, 2025 Assessment & Plan (1) Cellulitis of right foot: (2) Osteomyelitis: (3) Charcot arthropathy: (4) DMII (diabetes mellitus, type 2): Plan 44yo M, inmate at [facility], with h/o brain tumor s/p resection at [facility] [place], seizure d/o on keppra, disorganized schizophrenia, depression, T2DM c/b neuropathy, right Charcot foot, admission 02/2024 with right fifth toe and distal MT OM with abscess s/p right fifth ray amp (cx w GBS, s/p augmentin x 14d), C diff infection 02/2024 s/p vanc PO, recent dx of early OM in right 4th MT (cx +MRSA, s/p vancomycin 01/22-02/28/25 followed by doxy/augmentin until 03/08/25 PICC was pulled out accidentally), admission 03/24-03/29 with right foot pain x 3- 4 days f/w c/f OM of right cuboid s/p I+D where exposed bone noted (cx MRSA, Strep dysgalactiae, Prevotella, s/p debridement 03/26, OR path/cx neg though was on abx prior) and dcd on dapto x 6wks (end 05/07) and flagyl x 2 wks (end 04/09) who presented on 05/01 with recurrent right foot infection. Here, he was afebrile. Initial labs with WBC wnl, Cr 1.16, AST/ALT wnl. Lactate neg. ESR 118 (prev > 130), CRP 1.75 (prev 28). PCT < 0.10. MRSA screen neg. CT right foot with significant progression of a deep wound of the plantar midfoot since CT of March 24, 2025 with mild increase in associated erosion of the cuboid suggestive of osteomyelitis; findings c/w charcot arthropathy; extensive soft tissue edema suggestive of cellulitis. Arterial duplex with 50-74% stenosis of right posterior tibial. He has been started on daptomycin and zosyn. ID consulted 05/02. WCX with ESBL E coli and Morganella morganii. ESBL E coli in wound cx though these are superficial and often not very helpful. However, I did change zosyn to ertapenem. Continue daptomycin for prior infection. Will treat for a SSTI. # Right foot ulcer with SSTI # Recent tx for c/f OM of right cuboid s/p I+D on 03/26/25 WCX MRSA, Strep dysgalactiae, Prevotella; OR cx no growth, path neg (on dapto until 05/07) # T2DM - Vika stopped zoysn and started ertapenem 1g IV daily based on cx - continue daptomycin 850mg IV daily - surgical plans per ortho/podiatry - for SSTI, would continue antibiotics for 7-10 days --- would keep on ertapenem since fluoroquinolones are resistant (start 05/03) --- daptomycin can be stopped on 05/07 (as previously planned) Will continue to follow if there are any surgical plans. Please note that there will be no ID notes over the weekend. If questions or concerns arise, please contact the Infectious Disease Call Center and ask to speak with the covering ID physician. Alice Cruz MD [facility], Division of Infectious Diseases Admission and Anticipated Discharge Date Admission Date: May 01, 2025 Subjective This patient recommendation is based on a telemedicine consult request which was completed asynchronously through chart review and information provided by the primary physician. The patient was not seen or examined today. The evaluation is consultative in nature and all patient care and treatment decisions can either be accepted or rejected by the patient's primary hospital-based treating physician using their own independent medical judgment for their patient. Time Spent Reviewing Chart: 31+ minutes Results & Data Vital Signs (Past 12 Hours) Vital Signs Temp Pulse Pulse Resp BP Pulse Ox O2 Del Method 05/03/25 11:30 36.4 C L 82 18 173/95 H 98 Room Air 05/03/25 10:20 76 05/03/25 07:56 36.5 C 79 16 176/98 H 99 Room Air 05/03/25 07:56 Room Air 05/03/25 04:52 36.8 C 82 17 113/75 98 Room Air (2) Osteomyelitis Laterality: right Osteomyelitis location: foot Osteomyelitis type: unspecified type Qualified Code(s): M86.9 - Osteomyelitis, unspecified (4) DMII (diabetes mellitus, type 2) Diabetes mellitus long term care pharmacist insulin use: unspecified prison insulin use status Diabetes mellitus complication status: with skin complications Diabetes mellitus complication detail: with foot ulcer Qualified Code(s): E11.621 - Type 2 diabetes mellitus with foot ulcer; L97.509 - Non-pressure chronic ulcer of other part of unspecified foot with unspecified severity
[2025-05-03] MEDS: ERTAPENEM 1000MG 1,000 MG/10 ML SYR IV SCH (12:28)
--- NOTE | 2025-05-04 08:04 | Orthopedic Progress Note ---
Date of Service May 04, 2025 Assessment & Plan (1) Diabetic infection of right foot: (2) DMII (diabetes mellitus, type 2): (3) Charcot arthropathy: (4) Abnormal ankle brachial index (RIZWANA): (5) Morbid obesity with BMI of 45.0-49.9, adult: (6) C. difficile diarrhea: (7) Hx of craniotomy: (8) Obesity: Plan 44-year-old gentleman presents to the hospital from skilled nursing for malodorous drainage from a right foot wound. The patient is status post irrigation and debridement of this right foot wound with bone cultures taken at that time by Dr. Neal. The surgery was about a month ago. At that time, bone cultures did not reveal any osteomyelitis. The patient was discharged to the hospital with plans for wound VAC changes, but reportedly patient never had his wound VAC changed in skilled nursing. He also has not followed up with Dr. Neal since the original surgery. On evaluation the patient's leg this morning, he has a large diabetic foot wound on the plantar aspect of his foot under the area of the cuboid. There is a fibrinous exudate noted at the wound with significant odor. No gross purulence or drainage noted at this point. No significant surrounding erythema. Patient has diminished sensation in his foot in a stocking-like distribution which is at baseline. Patient's foot is warm, but no pulses are palpated. Patient has had ABIs and TBI's done in the past which demonstrated noncompressible arteries in the ankle, but normal TBI's. This was suggestive of the potential to heal his foot wound. I had a long discussion the patient regarding his current presentation previous this in great detail the pathoanatomy, pathophysiology, treatment options for his diabetic foot wound. Expressing that this wound is caused due to his midfoot malalignment which is secondary to his Charcot arthropathy. The patient is reportedly on insulin for his diabetes, however his last A1c was 9 in March of this year. I explained to the patient that his abnormal midfoot morphology does cause increased pressure under his midfoot which is the reason for his recurrent wounds in this area. Given the fact that I cannot palpate pulses in the patient's leg, I am quite concerned about his potential for healing this wound. I think his potential for requiring amputation is quite high at this point. When I explained this to the patient he was quite upset to hear this and noted that he will not agree to an amputation at this point. If the wound is able to heal, I do think the patient may require at least some bony debridement to offload this area in addition to shoewear modifications to offload this area. We could discuss these in the future. The other surgical option, and in my opinion the only surgical option, would be for a below-knee amputation. I do not think that any amputation more distal would adequately treat this wound or have the potential to heal. The patient remains unwilling to proceed with amputation. The patient does have some factors in his favor with regards to healing potential of the plantar foot wound including his normal albumin, normal toe pressures. Given this, I do think continued local wound care is reasonable. Considering the fact that the patient is not floridly sick at this point, I do not think that an amputation is required emergently. However, I explained to him that this is certainly a possibility if he does develop a deep infection. He did express understanding to this. I will continue to follow along and I have informed Dr. Neal of the situation as well. Upon dishcarge, he is welcome to follow up with myself or Dr Neal. Should Dr Neal agree that BKA is our only real next step forward, I would be happy to do this for the patient. Admission and Anticipated Discharge Date Admission Date: May 01, 2025 Subjective patient evaluated at bedside. has been undergoing bedside dressing changes with the wound care team. ID on board. daptomycin to finish in 3 days and ertapenem started. patient remains afebrile and non septic. reports no changes Review of Systems Review of Systems: All systems reviewed & are unremarkable except as noted in HPI & below Physical Exam Physical Exam: Patient has a large open sore located on the plantar aspect of his foot in the area of the cuboid. This wound measures approximately 4 cm x 3 cm. This does probe somewhat deep. There is malodor to this wound, however no significant erythema or drainage. He has a warm foot, however pulses are not palpable. He has diminished in sensation diffusely in his foot in a stocking-like distribution which is at baseline per the patient. Results & Data Vital Signs (Past 12 Hours) Vital Signs Temp Pulse Pulse Resp BP Pulse Ox O2 Del Method 05/04/25 07:55 Room Air 05/04/25 03:10 37.0 C 89 17 149/89 H 98 Room Air 05/03/25 23:14 37.1 C 83 16 124/79 98 Room Air 05/03/25 21:57 88 05/03/25 21:02 Room Air (2) DMII (diabetes mellitus, type 2) Diabetes mellitus superintendent marine oil terminal insulin use: unspecified usp insulin use status Diabetes mellitus complication status: with skin complications Diabetes mellitus complication detail: with foot ulcer Qualified Code(s): E11.621 - Type 2 diabetes mellitus with foot ulcer; L97.509 - Non-pressure chronic ulcer of other part of unspecified foot with unspecified severity
--- NOTE | 2025-05-04 08:35 | Hospitalist Progress Note ---
Date of Service May 04, 2025 Assessment & Plan (1) Charcot arthropathy: (2) Osteomyelitis: (3) DMII (diabetes mellitus, type 2): (4) Anemia: (5) History of MRSA infection: Plan This patient is a 44-year-old male who presented on 05/01 from [facility] for recurrent right foot infection. Foot CT on arrival revealed significant progression of a deep wound of the plantar midfoot since March; mild increase in associated erosion of the cuboid suggestive of osteomyelitis. He had an I&D with wound debridement and bone biopsy with Dr. Neal on 03/26 and had a 6-week course of IV daptomycin via PICC line that is to continue until 05/07/25. Pathology report on 03/27 revealed the bone biopsy did not meet criteria for osteomyelitis. #Right foot infection | Cellulitis | Charcot arthropathy | ? osteomyelitis of right cuboid Per EMS report, patient may have been non-compliant with R non-weight bearing. This may suggest that his right foot infection is primarily cellulitis + Charcot arthropathy Arterial Doppler RLE revealed no evidence for arterial occlusion involving the RLE CRP uptrending to 3.72, however significantly lower than CRP in March No leukocytosis; afebrile. Blood cultures negative x 24 hours Final wound culture resulted on 05/04 growing: Morganella morganii, ESBL E. coli, Prevotella bivia, and Clostridium ramosum Sensitive to ertapenem Ortho consulted - patient does NOT consent to amputation at this time ID consulted Continue daptomycin through 05/07. Suspect patient will need to remain in hospital until completion of IV course. Zosyn discontinued, and patient was started on Ertapenem 1g IV daily x 7-10 days for SSTI (Ertapenem started on 05/03 at 1230) Plan to keep on ertapenem since FQs resistant Wound care nurse consult appreciated Acetaminophen and Dilaudid PRN for pain control Patient is somewhat resistant about transitioning from IV to p.o. pain medicine as he is still experiencing significant pain hourly on 05/04 Per review of med administration, he received 1 mg of IV dilaudid q2h for the past 24h Changes to pain regimen on 05/04: - Scheduled acetaminophen 1000 mg p.o. q8h - Oxycodone 10 mg p.o. q6h as needed for pain - Reduce Dilaudid from 1 mg -> 0.5mg q2h as needed for breakthrough pain oxycodone Continuous pulse oximetry #Diabetes Last A1c at 9.0% on 03/24/2025 Lantus 35u BID SSI with target BSG range 110-140mg/dL, CF 20, carb ratio 8 Per review of BSG trend, good glycemic control so far in the hospital 05/02 - 05/04 (low of 81, high of 184) #Anemia of chronic disease Chronic/stable; Hgb 8.7 -> 8.7 No active bleeding MCV <80 Iron panel consistent with anemia of chronic disease Continue iron supplement daily #History of seizure disorder - Continue Keppra #Disorganized schizophrenia - Continue perphenazine # Recent h/o C. difficile diarrhea | MRSA infection - Contact isolation precautions Disposition: Continued inpatient stay on MedSurg VTE PPx: Lovenox 40 mg SQ q12h Admission and Anticipated Discharge Date Admission Date: May 01, 2025 Supervising Physician Co-Signing Physician Notes The patient was not seen by me. The chart was reviewed. Case discussed with YI Joy. Agree with assessment and plan Subjective Mr. Cote reports that he is still having significant pain in the plantar surface of his right foot. The pain is a constant/burning pain, and he will have occasional stabbing pain radiating up to the mid calf. Additionally, he reports his foot is hot to touch. While he has not gotten out of bed since yesterday, he reports that whenever he tries to bear weight on it, it feels like he is stepping on a "hot coal". He has been able to ambulate to the bathroom with assistance. He reports he is eating and drinking well. However, the pain has been waking him from sleep every hour or so. He reports that the Dilaudid is working, albeit for half an hour at a time. He has been requiring every 2 hours, which means that he has half an hour of relief, followed by 1.5 hours of "agony". That said, he is hesitant to try other pain remedy options, and would prefer to avoid changing his pain regimen at this time if possible. NKDA.. No prior history of kidney issues, or reasons why he could not take NSAIDs. ROS: Patient endorses severe right foot pain with radiation up to the mid calf, and occasional numbness/tingling in the right foot. Patient denies fever, chills, night sweats, dizziness/lightheadedness with standing, headache, chest pain, chest palpitations, pleuritic CP, SOB, cough, abdominal pain, N/V/D, or changes in urinary bowel habits. Review of Systems Review of Systems: See HPI above Physical Exam Physical Exam: General: Mild distress secondary to right foot pain; non-toxic appearing; correctional officers at bedside; well-nourished; cooperative; SpO2 96% on RA HEENT: normocephalic, atraumatic; no scleral icterus; PERRLA; vision and hearing grossly intact Neck: supple; no lymphadenopathy; trachea midline Skin: warm, dry without signs of tenting; no cyanosis; no rashes, bruising, lesions, or erythema noted CV: chest wall NTP; RRR; S1/S2 normal; no murmurs/rubs/gallops; pulses intact and symmetric at radial, DP, and PT Lungs: no acute respiratory distress; symmetrical chest wall expansion; clear breath sounds across all lung reyes w/o adventitious sounds; no wheezing ABD: Soft, NTP; BS present; no rebound/guarding; suboptimal exam secondary to body habitus MSK: no tics or fasciculations; patient demonstrates ability to wiggle toes bilaterally Right lower extremity: Stage IV diabetic foot ulcer newly dressed; dorsal aspect of patient's foot is TTP, however DP pulses intact; the right lower extremity is warm to touch and tender to palpation (extending to the mid calf); patient demonstrates ability to flex his right knee to 45 degree angle, and reports that this does not elicit knee pain, but he does feel pain in his calf/foot Neuro: A&Ox3; normal mood and affect; fluent speech; no focal deficits; sensation intact and symmetric in and lower extremities bilaterally assessed via light touch Results & Data Results & Data Vital Signs (Past 12 Hours) Vital Signs Temp Pulse Pulse Resp BP Pulse Ox O2 Del Method 05/04/25 08:03 36.6 C 84 18 148/86 H 96 Room Air 05/04/25 07:55 Room Air 05/04/25 03:10 37.0 C 89 17 149/89 H 98 Room Air 05/03/25 23:14 37.1 C 83 16 124/79 98 Room Air 05/03/25 21:57 88 06/20/25 21:02 Room Air PG Care Time/CCT Total # of Minutes Spent Total Time Spent with Patient: Total time spent is greater than 50% in coordination of care (as documented) at patient's floor/unit and/or counseling patient: Coding [place] [address] SUB INP/OBS CARE 2/35MIN Patient Type Established Medical Decision Making Moderate Complexity Diagnoses Charcot arthropathy M14.60 Osteomyelitis M86.9 Laterality: right Osteomyelitis location: foot Osteomyelitis type: unspecified type Type 2 diabetes mellitus with foot ulcer, unspecified whether terminal make up operator insulin use E11.621; L97.509 Diabetes mellitus complication detail: with foot ulcer Diabetes mellitus complication status: with skin complications Diabetes mellitus terminal make up operator insulin use: unspecified terminal make up operator insulin 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 (2) Osteomyelitis Laterality: right Osteomyelitis location: foot Osteomyelitis type: unspecified type Qualified Code(s): M86.9 - Osteomyelitis, unspecified (3) DMII (diabetes mellitus, type 2) Diabetes mellitus complication detail: with foot ulcer Diabetes mellitus complication status: with skin complications Diabetes mellitus terminal make up operator insulin use: unspecified terminal make up operator insulin use status Qualified Code(s): E11.621 - Type 2 diabetes mellitus with foot ulcer; L97.509 - Non-pressure chronic ulcer of other part of unspecified foot with unspecified severity (4) Anemia Anemia type: unspecified type Qualified Code(s): D64.9 - Anemia, unspecified
[2025-05-04] MEDS ORDERED: oxyCODONE HCL IR 5 MG TAB (IMMEDIATE RELEASE) PO PRN (09:21)
[2025-05-04] MEDS ORDERED: HYDROmorphone INJ 0.5 MG/0.5 ML SYR IV PRN (09:21)
[2025-05-04] MEDS: oxyCODONE HCL IR 5 MG TAB (IMMEDIATE RELEASE) PO PRN (10:50)
[2025-05-04] MEDS: ACETAMINOPHEN 325 MG TAB PO PRN (13:16)
[2025-05-04] MEDS: ACETAMINOPHEN 500 MG TAB PO SCH (13:20)
[2025-05-04] MEDS: HYDROmorphone INJ 0.5 MG/0.5 ML SYR IV PRN (15:26)
[2025-05-05 07:29] LABS: Basophils # (auto) 0.04 K/uL (0.00-0.20); Basophils % (auto) 0.6 %; Eosinophils # (auto) 0.49 K/uL (0.00-0.50); Hematocrit (blood only) 29.3 % (42.0-52.0); Immature Granulocytes # (auto) 0.05 K/uL (0.01-0.20); Immature Granulocytes % (auto) 0.7 %; Lymphocytes # (auto) 2.19 K/uL (1.20-3.40); Lymphocytes % (auto) 31.2 %; Mean Corpuscular Hemoglobin 23.8 pg (25.0-34.0); Mean Corpuscular Hgb Conc 30.7 g/dL (32.0-36.0); Mean Corpuscular Volume 77.5 fL (80.0-100.0); Mean Platelet Volume 11.3 fL (9.4-12.4); Monocytes # (auto) 0.62 K/uL (0.11-0.59); Monocytes % (auto) 8.8 %; Neutrophils # (auto) 3.64 K/uL (1.40-6.50); Neutrophils % (auto) 51.7 %; Platelet Count 267 K/uL (130-400); RDW Standard Deviation 50.1 fL (36.4-46.3); Red Blood Count 3.78 M/uL (4.70-6.10); White Blood Count 7.03 K/ul (4.8-10.8)
[2025-05-05 07:50] LABS: Albumin Globulin Ratio 0.8 (0.9-2); Albumin Level 3.3 gm/dl (3.4-5.0); BUN Creatinine Ratio 15.9 (10-20); Bilirubin,Total 0.4 mg/dl (0.2-1.0); Calcium 9.1 mg/dl (8.6-10.3); Creatinine Clr Calc Pharmacy 126.6 ml/min; Globulin 4.1 gm/dl (2.5-4.0); Potassium 4.1 mmol/L (3.5-5.1); Total Protein 7.4 gm/dl (6.0-8.3)
--- NOTE | 2025-05-05 08:37 | Hospitalist Progress Note ---
Date of Service May 05, 2025 Assessment & Plan (1) Charcot arthropathy: (2) Osteomyelitis: (3) DMII (diabetes mellitus, type 2): (4) Anemia: (5) History of MRSA infection: Plan This patient is a 44-year-old male who presented on 05/01 from [facility] for recurrent right foot infection. Foot CT on arrival revealed significant progression of a deep wound of the plantar midfoot since March; mild increase in associated erosion of the cuboid suggestive of osteomyelitis. He had an I&D with wound debridement and bone biopsy with Dr. Neal on 03/26 and had a 6-week course of IV daptomycin via PICC line that is to continue until 05/07/25. Pathology report on 03/27 revealed the bone biopsy did not meet criteria for osteomyelitis. #Right foot infection | Cellulitis | Charcot arthropathy | ? osteomyelitis of right cuboid Per EMS report, patient may have been non-compliant with R non-weight bearing. This may suggest that his right foot infection is primarily cellulitis + Charcot arthropathy Arterial Doppler RLE revealed no evidence for arterial occlusion involving the RLE CRP downtrending 3.72 -> 3.16; significantly lower than CRP in March No leukocytosis; afebrile. Blood cultures without growth to date Final wound culture resulted on 05/04 growing: Morganella morganii, ESBL E. coli, Prevotella bivia, and Clostridium ramosum Sensitive to ertapenem Ortho consulted - patient does NOT consent to amputation at this time ID consulted Continue daptomycin through 05/07. Suspect patient will need to remain in hospital until completion of IV course. Zosyn discontinued, and patient was started on Ertapenem 1g IV daily x 7-10 days for SSTI (Ertapenem started on 05/03 at 1230) Plan to keep on ertapenem since FQs resistant Wound care nurse consult appreciated Pain regimen: Acetaminophen 650 mg p.o. PRN q4h for pain/fever Oxycodone 10 mg p.o. PRN q6h as needed for breakthrough pain Reduce Dilaudid from 1 mg -> 0.5mg q2h as needed for breakthrough pain oxycodone Note: Patient requiring Dilaudid less frequently on 05/05; hopeful to transition off Dilaudid entirely in the next 1 to 2 days Continuous pulse oximetry #Diabetes Last A1c at 9.0% on 03/24/2025 Lantus 35u BID SSI with target BSG range 110-140mg/dL, CF 20, carb ratio 8 Per review of BSG trend, good glycemic control so far in the hospital 05/02 - 05/05 (low of 81, high of 184) #Anemia of chronic disease Chronic/stable; Hgb 8.7 -> 9.0 No active bleeding MCV <80 Iron panel consistent with anemia of chronic disease Continue iron supplement daily #History of seizure disorder - Continue Keppra #Disorganized schizophrenia - Continue perphenazine # Recent h/o C. difficile diarrhea | MRSA infection - Contact isolation precautions Disposition: Continued inpatient stay on MedSurg VTE PPx: Lovenox 40 mg SQ q12h Admission and Anticipated Discharge Date Admission Date: May 01, 2025 Supervising Physician Co-Signing Physician Notes The patient was not seen by me. The chart was reviewed. Case discussed with YI Joy. Agree with assessment and plan Subjective Mr. Cote is happy to report that the oxycodone tablets have been working. He slept well last night, and was not waking up every 2 hours to request pain medicine. He reports he is required fewer doses of Dilaudid intermittently, and that the oxycodone "takes the edge off" in between doses. He does not feel like the Tylenol is helping at all, and requests to have this taken off. The pain in his right foot is still getting up to an 9 out of 10 at its worst, with radiation to the mid calf. Overall though, he does report better pain control. Patient endorses intermittent numbness and tingling in the right foot (gabapentin helps this), and severe pain in the plantar surface of the right foot with occasional radiation up to the mid calf. Patient denies fever, chills, night sweats, dizziness/lightheadedness when getting up to go to the bathroom, chest pain, chest palpitations, SOB, pleuritic CP, cough, abdominal pain, N/V/D, or changes in urinary bowel habits. Review of Systems Review of Systems: See HPI above Physical Exam Physical Exam: General: Mild distress secondary to right foot pain; non-toxic appearing; correctional officers at bedside; well-nourished; cooperative; SpO2 95% on RA HEENT: normocephalic, atraumatic; no scleral icterus; PERRLA; vision and hearing intact Neck: supple; no lymphadenopathy; trachea midline Skin: warm, dry without signs of tenting; no cyanosis; no rashes, bruising, lesions, or erythema noted CV: chest wall NTP; RRR; S1/S2 normal; no murmurs/rubs/gallops; pulses intact and symmetric at radial, DP, and PT Lungs: no acute respiratory distress; symmetrical chest wall expansion; clear breath sounds across all lung reyes w/o adventitious sounds; no wheezing ABD: Soft, NTP; BS present; no rebound/guarding; suboptimal exam secondary to body habitus MSK: no tics or fasciculations; patient demonstrates ability to wiggle toes bilaterally Right lower extremity: Stage IV diabetic foot ulcer newly dressed; dorsal aspect of patient's foot is TTP, however DP pulses intact; the right lower extremity is warm to touch and tender to palpation (extending to the mid calf); patient demonstrates ability to flex his right knee to 45 degree angle, and reports that this does not elicit knee pain, but he does feel pain in his calf/foot Neuro: A&Ox3; normal mood and affect; fluent speech; no focal deficits; sensation intact and symmetric in and lower extremities bilaterally assessed via light touch Results & Data Results & Data Vital Signs (Past 12 Hours) Vital Signs Temp Pulse Pulse Resp BP Pulse Ox Pulse Ox 05/05/25 08:10 36.5 C 73 12 113/77 98 05/05/25 08:02 05/05/25 06:00 96 05/05/25 02:45 36.6 C 84 16 108/71 97 05/04/25 23:28 36.9 C 79 18 131/80 93 05/04/25 21:50 82 O2 Del Method O2 Del Method 05/05/25 08:10 Room Air 05/05/25 08:02 Room Air 05/05/25 06:00 Room Air 05/05/25 02:45 Room Air 05/04/25 23:28 Room Air 05/04/25 21:50 PG Care Time/CCT Total # of Minutes Spent Total Time Spent with Patient: Total time spent is greater than 50% in coordination of care (as documented) at patient's floor/unit and/or counseling patient: Coding [place] [address] SUB INP/OBS CARE MIN Patient Type Established Medical Decision Making Moderate Complexity Diagnoses Charcot arthropathy M14.60 Osteomyelitis M86.9 Laterality: right Osteomyelitis location: foot Osteomyelitis type: unspecified type Type 2 diabetes mellitus with foot ulcer, unspecified whether intermodal owner operator truck driver insulin use E11.621; L97.509 Diabetes mellitus complication detail: with foot ulcer Diabetes mellitus complication status: with skin complications Diabetes mellitus intermodal owner operator truck driver insulin use: unspecified [facility] insulin 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 (2) Osteomyelitis Laterality: right Osteomyelitis location: foot Osteomyelitis type: unspecified type Qualified Code(s): M86.9 - Osteomyelitis, unspecified (3) DMII (diabetes mellitus, type 2) Diabetes mellitus complication detail: with foot ulcer Diabetes mellitus complication status: with skin complications Diabetes mellitus intermodal owner operator truck driver insulin use: unspecified intermodal owner operator truck driver insulin use status Qualified Code(s): E11.621 - Type 2 diabetes mellitus with foot ulcer; L97.509 - Non-pressure chronic ulcer of other part of unspecified foot with unspecified severity (4) Anemia Anemia type: unspecified type Qualified Code(s): D64.9 - Anemia, unspecified
[2025-05-05] MEDS ORDERED: ACETAMINOPHEN 325 MG TAB PO PRN (12:11)
--- NOTE | 2025-05-06 07:16 | Hospitalist Progress Note ---
Date of Service May 06, 2025 Assessment & Plan (1) Charcot arthropathy: (2) Osteomyelitis: (3) DMII (diabetes mellitus, type 2): (4) Anemia: (5) History of MRSA infection: Plan This patient is a 44-year-old male who presented on 05/01 from [facility] for recurrent right foot infection. Foot CT on arrival revealed significant progression of a deep wound of the plantar midfoot since March; mild increase in associated erosion of the cuboid suggestive of osteomyelitis. He had an I&D with wound debridement and bone biopsy with Dr. Neal on 03/26 and had a 6-week course of IV daptomycin via PICC line that is to continue until 05/07/25. Pathology report on 03/27 revealed the bone biopsy did not meet criteria for osteomyelitis. #Right foot infection | Cellulitis | Charcot arthropathy | ? osteomyelitis of right cuboid Per EMS report, patient may have been non-compliant with R non-weight bearing. This may suggest that his right foot infection is primarily cellulitis + Charcot arthropathy Arterial Doppler RLE revealed no evidence for arterial occlusion involving the RLE CRP downtrending 3.72 -> 3.16; significantly lower than CRP in March No leukocytosis; afebrile. Blood cultures without growth to date Final wound culture resulted on 05/04 growing: Morganella morganii, ESBL E. coli, Prevotella bivia, and Clostridium ramosum Sensitive to ertapenem Ortho consulted - patient does NOT consent to amputation at this time ID consulted Continue daptomycin through 05/07. Suspect patient will need to remain in hospital until completion of IV course. Zosyn discontinued, and patient was started on Ertapenem 1g IV daily x 7-10 days for SSTI (Ertapenem started on 05/03 at 1230) Plan to keep on ertapenem since FQs resistant Wound care nurse consult appreciated Pain regimen: Acetaminophen 650 mg p.o. PRN q4h for pain/fever Oxycodone 10 mg p.o. PRN q6h as needed for breakthrough pain Note: Patient requiring Dilaudid less frequently on 05/05 and 05/06; d/c on 05/06 to see how he does on just oral pain medications Added on MiraLAX PRN for bowel regimen Continuous pulse oximetry #Diabetes Last A1c at 9.0% on 03/24/2025 Lantus 35u BID SSI with target BSG range 110-140mg/dL, CF 20, carb ratio 8 Per review of BSG trend, good glycemic control so far in the hospital 05/02 - 05/06 (low of 81, high of 184) #Anemia of chronic disease Chronic/stable; Hgb 8.7 -> 9.0 No active bleeding MCV <80 Iron panel consistent with anemia of chronic disease Continue iron supplement daily #History of seizure disorder - Continue Keppra #Disorganized schizophrenia - Continue perphenazine # Recent h/o C. difficile diarrhea | MRSA infection - Contact isolation precautions Disposition: Continued inpatient stay on MedSurg VTE PPx: Lovenox 40 mg SQ q12h Admission and Anticipated Discharge Date Admission Date: May 01, 2025 Supervising Physician Co-Signing Physician Notes The patient was not seen by me. The chart was reviewed. Case discussed with YI Joy. Agree with assessment and plan Subjective Mr. Cote is happy to report that the oxycodone has been helping with pain. He slept well last night, and only woke up once or twice overnight for additional pain medicine. Ate breakfast this morning. He has been ambulating to the bathroom with some help, and still reports that bearing weight on his right foot feels like stepping on a "hot michelle". Last BM yesterday. His pain is the same as yesterday: Constant/burning pain in the plantar surface of his right foot, with occasional stabbing pain up to the mid calf. ROS: Patient endorses right foot pain extending to the mid calf; worse with weightbearing. Patient denies fever, chills, night sweats, dizziness/lightheadedness, headache, chest pain, chest palpitations, SOB, cough, abdominal pain, N/V/D, or changes in urinary bowel habits. Review of Systems Review of Systems: See HPI above Physical Exam Physical Exam: General: No acute distress; non-toxic appearing; correctional officers at bedside; well-nourished; cooperative; SpO2 97% on RA HEENT: normocephalic, atraumatic; no scleral icterus; PERRLA; vision and hearing intact Neck: supple; no lymphadenopathy; trachea midline Skin: warm, dry without signs of tenting; no cyanosis; no rashes, bruising, lesions, or erythema noted CV: chest wall NTP; RRR; S1/S2 normal; no murmurs/rubs/gallops; pulses intact a nd symmetric at radial, DP, and PT Lungs: no acute respiratory distress; symmetrical chest wall expansion; clear breath sounds across all lung reyes w/o adventitious sounds; no wheezing ABD: Soft, NTP; BS present; no rebound/guarding; suboptimal exam secondary to body habitus MSK: no tics or fasciculations; patient demonstrates ability to wiggle toes bilaterally Right lower extremity: dorsal aspect of patient's foot is TTP; DP pulses intact; the right lower extremity is warm to touch and tender to palpation (extending to the mid calf) Neuro: A&Ox3; normal mood and affect; fluent speech; no focal deficits; sensation intact and symmetric in and lower extremities bilaterally assessed via light touch Results & Data Results & Data Vital Signs (Past 12 Hours) Vital Signs Temp Pulse Pulse Resp BP Pulse Ox O2 Del Method 05/06/25 03:59 36.8 C 72 16 118/79 96 Room Air 05/05/25 22:47 36.7 C 73 18 145/89 H 95 Room Air 05/05/25 21:55 81 05/05/25 19:50 36.8 C 78 16 133/84 96 Room Air PG Care Time/CCT Total # of Minutes Spent Total Time Spent with Patient: Total time spent is greater than 50% in coordination of care (as documented) at patient's floor/unit and/or counseling patient: Coding [place] [address] SUB INP/OBS CARE 12/08MIN Patient Type Established Medical Decision Making Low Complexity Diagnoses Charcot arthropathy M14.60 Osteomyelitis M86.9 Laterality: right Osteomyelitis location: foot Osteomyelitis type: unspecified type Type 2 diabetes mellitus with foot ulcer, unspecified whether long-term insulin use E11.621; L97.509 Diabetes mellitus complication detail: with foot ulcer Diabetes mellitus complication status: with skin complications Diabetes mellitus long-term insulin use: unspecified long-term insulin 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 (2) Osteomyelitis Laterality: right Osteomyelitis location: foot Osteomyelitis type: unspecified type Qualified Code(s): M86.9 - Osteomyelitis, unspecified (3) DMII (diabetes mellitus, type 2) Diabetes mellitus complication detail: with foot ulcer Diabetes mellitus complication status: with skin complications Diabetes mellitus terminal block assembler insulin use: unspecified terminal block assembler insulin use status Qualified Code(s): E11.621 - Type 2 diabetes mellitus with foot ulcer; L97.509 - Non-pressure chronic ulcer of other part of unspecified foot with unspecified severity (4) Anemia Anemia type: unspecified type Qualified Code(s): D64.9 - Anemia, unspecified
[2025-05-06] MEDS ORDERED: POLYETHYLENE (MIRALAX) 17 GM PACK PO PRN (11:40)
--- NOTE | 2025-05-06 14:03 | Infectious Disease Progress Nt ---
Date of Service May 06, 2025 Assessment & Plan (1) Cellulitis of right foot: (2) Osteomyelitis: (3) Charcot arthropathy: (4) DMII (diabetes mellitus, type 2): Plan 44yo M, inmate at [facility], with h/o brain tumor s/p resection at [facility], seizure d/o on keppra, disorganized schizophrenia, depression, T2DM c/b neuropathy, right Charcot foot, admission 02/2024 with right fifth toe and distal MT OM with abscess s/p right fifth ray amp (cx w GBS, s/p augmentin x 14d), C diff infection 02/2024 s/p vanc PO, recent dx of early OM in right 4th MT (cx +MRSA, s/p vancomycin 01/22-02/28/25 followed by doxy/augmentin until 03/08/25 PICC was pulled out accidentally), admission 03/24-03/29 with right foot pain x 3- 4 days f/w c/f OM of right cuboid s/p I+D where exposed bone noted (cx MRSA, Strep dysgalactiae, Prevotella, s/p debridement 03/26, OR path/cx neg though was on abx prior) and dcd on dapto x 6wks (end 05/07) and flagyl x 2 wks (end 04/09) who presented on 05/01 with recurrent right foot infection. Here, he was afebrile. Initial labs with WBC wnl, Cr 1.16, AST/ALT wnl. Lactate neg. ESR 118 (prev > 130), CRP 1.75 (prev 28). PCT < 0.10. MRSA screen neg. CT right foot with significant progression of a deep wound of the plantar midfoot since CT of March 24, 2025 with mild increase in associated erosion of the cuboid suggestive of osteomyelitis; findings c/w charcot arthropathy; extensive soft tissue edema suggestive of cellulitis. Arterial duplex with 50-74% stenosis of right posterior tibial. He was started zosyn in addition to daptomycin. ID consulted 05/02. Reported compliance with dapto. WCX with ESBL E coli, Morganella morganii, Prevotella, Clostrdium ramosum. Zosyn changed to ertapenem 05/03. No current surgical plans. # Right foot ulcer with SSTI WCX with ESBL # Recent tx for c/f OM of right cuboid s/p I+D on 03/26/25 WCX MRSA, Strep dysgalactiae, Prevotella; OR cx no growth, path neg, exposed bone (on dapto until 05/07) # T2DM # Bactrim allergy - continue ertapenem 1g IV daily based on cx for 7-10 days (started 05/03) - continue daptomycin 850mg IV daily until 05/07 Will discontinue active follow up at this time. Please do not hesitate to reconsult the Infectious Diseases service as needed. Alice Cruz MD [facility], Division of Infectious Diseases IDConnect: [phone] Admission and Anticipated Discharge Date Admission Date: May 01, 2025 Subjective This patient recommendation is based on a telemedicine consult request which was completed asynchronously through chart review and information provided by the primary physician. The patient was not seen or examined today. The evaluation is consultative in nature and all patient care and treatment decisions can either be accepted or rejected by the patient's primary hospital-based treating physician using their own independent medical judgment for their patient. Time Spent Reviewing Chart: 31+ minutes Remains afebrile. Results & Data Vital Signs (Past 12 Hours) Vital Signs Temp Pulse Pulse Resp BP Pulse Ox O2 Del Method 05/06/25 13:52 85 05/06/25 11:41 36.3 C L 79 12 155/96 H 95 Room Air 05/06/25 07:59 36.6 C 72 18 135/81 97 Room Air 05/06/25 07:29 72 05/06/25 03:59 36.8 C 72 16 118/79 96 Room Air Laboratory Results Labs reviewed. 2023: 02/13 BCX: ngtd 02/15 MRSA screen neg 02/15 R foot and left leg WCX: GBS (R-azithro, clinda) 02/16 R fifth toe: GBS (R-clinda/macrolide) 02/16 path: R fifth toe: acute OM R fifth metatarsal: focal acute OM seen beneath articular surface of bone; gross description notes size of bone includes mid and distal MT, discoloration of the head 2024: 03/24 MRSA: pos 03/24 BCX: ngtd 03/24 WCX: Strep dysgalactiae (kaba-S), MRSA, Prevotella buccalis 03/26 OR cx (R foot bone/soft tissue): ngtd 03/26 OR path: neg 05/01 WCX (R foot): ESBL E coli (R-FQ), Morganella morganii, prevotella bivia, clostridium ramosum 05/01 BCX: ngtd Diagnostic Findings Imaging reviewed. 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
[2025-05-06] MEDS: DAPTOmycin 850 MG in SYRINGE 0 ML IV ONE (14:21)
[2025-05-07 04:15] VITALS: RESP 18
[2025-05-07 06:59] LABS: Hematocrit (blood only) 29.8 % (42.0-52.0); Mean Corpuscular Hemoglobin 23.6 pg (25.0-34.0); Mean Corpuscular Hgb Conc 30.2 g/dL (32.0-36.0); Mean Platelet Volume 10.8 fL (9.4-12.4); Platelet Count 263 K/uL (130-400); RDW Coefficient of Variation 18.4 % (11.5-14.5); Red Blood Count 3.82 M/uL (4.70-6.10); White Blood Count 7.92 K/ul (4.8-10.8)
[2025-05-07 07:22] LABS: Albumin Level 3.2 gm/dl (3.4-5.0); Bilirubin,Total 0.4 mg/dl (0.2-1.0); Potassium 3.8 mmol/L (3.5-5.1)
[2025-05-07 07:28] LABS: Albumin Globulin Ratio 0.8 (0.9-2); BUN Creatinine Ratio 14.7 (10-20); Creatinine Clr Calc Pharmacy 123.3 ml/min; Globulin 3.8 gm/dl (2.5-4.0)
[2025-05-07 11:27] VITALS: BP 164/97; PULSE 68; TEMP 97.5; O2SAT 98
[2025-05-07] MEDS: DAPTOmycin 850 MG in SYRINGE 0 ML IV ONE (12:02)
--- NOTE | 2025-05-07 12:47 | Discharge Summary ---
Discharge Summary Date of Service May 07, 2025 Principal Dx & Hospital Course #1 = Principal Diagnosis (1) Charcot arthropathy: (2) Osteomyelitis: (3) DMII (diabetes mellitus, type 2): (4) Anemia: (5) History of MRSA infection: Plan This patient is a 44-year-old male who presented on 05/01 from [facility] for recurrent right foot infection. Foot CT on arrival revealed significant progression of a deep wound of the plantar midfoot since March; mild increase in associated erosion of the cuboid suggestive of osteomyelitis. He had an I&D with wound debridement and bone biopsy with Dr. Neal on 03/26 and had a 6-week course of IV daptomycin via PICC line that is to continue until 05/07/25. Pathology report on 03/27 revealed the bone biopsy did not meet criteria for osteomyelitis. Day of discharge 05/07: Patient reports he slept well last night. #Right foot infection | Cellulitis | Charcot arthropathy | ? osteomyelitis of right cuboid Per EMS report, patient may have been non-compliant with R non-weight bearing. This may suggest that his right foot infection is primarily cellulitis + Charcot arthropathy Arterial Doppler RLE revealed no evidence for arterial occlusion involving the RLE CRP downtrending 3.72 -> 3.16; significantly lower than CRP in March No leukocytosis; afebrile. Blood cultures without growth to date Final wound culture resulted on 05/04 growing: Morganella morganii, ESBL E. coli, Prevotella bivia, and Clostridium ramosum Sensitive to ertapenem Ortho consulted - patient does NOT consent to amputation at this time ID consulted Course of daptomycin completed on 05/07 Called IV team to discontinue PICC line Ertapenem 1g IV daily x 7-10 days for SSTI (Ertapenem started on 05/03 at 1230) Patient received 5 doses of ertapenem in the hospital Discharged back to halfway on ertapenem 1g IM x 5 additional days, to complete 10-day course Wound care nurse consult appreciated Pain regimen: Acetaminophen 650 mg p.o. PRN q4h for pain/fever Oxycodone 10 mg p.o. PRN q6h as needed for breakthrough pain Dilaudid was discontinued on 05/06, and patient reports that his pain is well- managed with oxycodone on 05/07 Added on MiraLAX PRN for bowel regimen Continuous pulse oximetry Plan for outpatient follow-up with podiatry (Dr. Neal) in the next 1-2 weeks if possible #Diabetes Last A1c at 9.0% on 03/24/2025 Lantus 35u BID SSI with target BSG range 110-140mg/dL, CF 20, carb ratio 8 Per review of BSG trend, good glycemic control so far in the hospital 05/02 - (low of 81, high of 184) #Anemia of chronic disease Chronic/stable; Hgb 8.7 -> 9.0 -> 9.0 No active bleeding MCV <80 Iron panel consistent with anemia of chronic disease Continue iron supplement daily #History of seizure disorder - Continue Keppra #Disorganized schizophrenia - Continue perphenazine # Recent h/o C. difficile diarrhea | MRSA infection | ESBL (+) wound care - Contact isolation precautions Disposition: Discharge to [facility] Called [facility] and provided sign out to Tim Da Silva NP. Notes For Next Care Provider Patient was hospitalized for Charcot arthropathy in the right foot. He declined amputation, and was treated conservatively with pain control and IV antibiotics. He completed his full course of daptomycin while in the hospital, and be sent home on ertapenem 1 g IM q24h x 5 additional doses. Please ensure that the patient takes complete course of antibiotics. Note: Patient is returning with a communicable disease, and should be on contact isolation precautions for ESBL grown in his wound culture for the next 2 to 3 weeks. Additionally, he will be sent home on oxycodone 10 mg tablets to be taken every 6 hours as needed for pain. Patient should remain nonweightbearing on the right foot whenever possible, and use his boot and rolling walker until seen by podiatry for follow-up. Please plan to set up appointment with podiatry (Dr. Neal) outpatient in the next 1 to 2 weeks if possible. Signed out to Tim Da Silva NP at [facility] HPI Per Admitting Provider Mr. Cote is a 44-year-old male with PMH of brain tumor s/p resection at [facility], seizure disorder (on keppra), disorganized schizophrenia, depression, T2DM with neuropathy, right Charcot foot, C. difficile infection, and right fifth toe and distal MT osteomyelitis with abscess. He presented on 05/01 for ongoing right foot infection. Recent [place] admission for right foot osteomyelitis with discharged on 03/29 on IV daptomycin; PICC line in right arm. Patient had his wound VAC removed at the halfway today, and the wound looked more infected and was malodorous. Patient feels that the wound VAC actually made his infection worse. He has had good compliance with taking his Dapto IV daily through the PICC line. Patient reports he is having 9/10 constant/throbbing pain in his right foot, mainly on the plantar surface. No puslike drainage from the foot, but he does report serosanguineous drainage. Worse with movements. The pain remains in the foot; no radiation up the leg. His pain has been controlled at the present with oxycodone, which he did take earlier today. Patient took his regular morning medicines today, including insulin; he reports he takes 70 units of Lantus daily. No recent change in medications. Patient is a former smoker, but quit in 2019 after smoking was discontinued in the halfway. Patient is hypertensive at 178/100 at time admission; vitals otherwise stable. ED course: Morphine 6 mg IV NSS 1000 mL IV Cefepime 2000 mg IV Daptomycin 1100 mg IV Zofran 4 mg IV ROS: Patient endorses right foot pain, and intermittent numbness/tingling in the right foot. Patient denies fever, chills, night-sweats, dizziness, lightheadedness, chest pain, SOB, cough, abdominal pain, N/V/D, blood in the urine/stool, or burning with urination. Admission Exam Per Admitting Provider General: Moderate distress secondary to right foot pain; non-toxic appearing; well-nourished; cooperative HEENT: normocephalic, atraumatic; no scleral icterus; PERRLA; vision and hearing grossly intact Neck: supple; no lymphadenopathy; trachea midline Skin: warm, dry without signs of tenting; no cyanosis; no rashes, bruising, lesions, or erythema noted CV: chest wall NTP; RRR; S1/S2 normal; no murmurs/rubs/gallops; pulses intact and symmetric at radial, DP, and PT Lungs: no acute respiratory distress; symmetrical chest wall expansion; clear breath sounds across all lung reyes w/o adventitious sounds; no wheezing ABD: Soft, NTP; BS present; no rebound/guarding; distention secondary to body habitus MSK: no tics or fasciculations Right foot: Malodorous; stage IV diabetic foot ulcer (see photo below); no purulent drainage appreciated on exam; dorsal aspect and plantar aspect of the right foot are TTP Neuro: A&Ox3; normal mood and affect; fluent speech; no focal deficits; sensation intact and symmetric in the lower EXTR bilaterally Discharge Exam General: No acute distress; non-toxic appearing; correctional officers at bedside; well-nourished; cooperative; SpO2 98% on RA HEENT: normocephalic, atraumatic; no scleral icterus; PERRLA; vision and hearing intact Neck: supple; no lymphadenopathy; trachea midline Skin: warm, dry without signs of tenting; no cyanosis; no rashes, bruising, lesions, or erythema noted CV: chest wall NTP; RRR; S1/S2 normal; no murmurs/rubs/gallops; pulses intact and symmetric at radial, DP, and PT Lungs: no acute respiratory distress; symmetrical chest wall expansion; clear breath sounds across all lung reyes w/o adventitious sounds; no wheezing ABD: Soft, NTP; BS present; no rebound/guarding; suboptimal exam secondary to body habitus MSK: no tics or fasciculations; patient demonstrates ability to wiggle toes bilaterally Right lower extremity: dorsal aspect of patient's foot is TTP; DP pulses intact; the right lower extremity is warm to touch and tender to palpation (extending to the mid calf); patient demonstrates ability to flex right knee to 45 degrees without pain Neuro: A&Ox3; normal mood and affect; fluent speech; no focal deficits; sensation intact and symmetric in and lower extremities bilaterally assessed via light touch Discharge Plan Discharge Items [facility]position[facility] Reason For Visit: RIGHT FOOT INFECTION, OSTEOMYELITIS Discharge Diagnosis: Right foot infection, Charcot arthropathy Condition on Discharge: Fair Activity: As commented below Activity Comment: Right leg nonweightbearing Weightbearing: Right non-weightbearing Non-emergency contact: Primary Care Provider Call non-emergency contact if: you have any medication questions, your symptoms worsen, your pain is not controlled, your pain is worsening and you have a fever Follow-up/Referrals: Katja FLEMING [Primary Care Provider] - Diet: Carb Consistent or DM2 Addtl Attending Provider Instructions: You were hospitalized at [facility] from 05/02 - 05/07 for an open wound/ulceration on the bottom of your right foot. During your hospital stay, you were treated with IV antibiotics for a skin and soft tissue infection surrounding the wound and extending up to your mid calf. A wound culture was taken on arrival, which showed that a specific IV antibiotic (ertapenem) was particularly effective against the bacteria growing in your foot. This antibiotic can be taken either through the IV or as an injection intermuscularly. You were also seen by an orthopedic surgeon (Dr. Sorensen) who explained that the bone biopsies obtained from your original I&D of the foot on 03/26 were negative for a bone infection known as osteomyelitis. Given this bone biopsy came back negative, it is suspected that you have something called "Charcot arthropathy". While hospitalized, you did did not consent for any sort of amputation, but rather elected to treat this conservatively. Over the course of your hospital stay, your white blood cell count remained within normal limits, and an inflammatory blood marker (called a CRP) started to downtrend after you were started on antibiotics. Given overall improvement in your symptoms, and pain control with oxycodone, we feel that it is safe for you to return to the halfway with close podiatry follow-up. We are requesting that the halfway set you up with a podiatry appointment (with Dr. Neal if possible) in the next 1 to 2 weeks. Additionally, you will be returning to the halfway with the following new prescriptions: - Ertapenem 1 g IM daily x 5 days - Oxycodone 10 mg p.o. tablets every 6 hours as needed for pain (scale 8-10) x 28 pills Our physical therapy team recommend obtaining a rolling walker to help with walking extended distances.. Please continue to wear your boot until seen by podiatry for follow-up. If you develop any new or worsening symptoms, such as intractable right foot pain, fever, chills, pain extending up the right leg, chest pain, trouble breathing, please return to the emergency department immediately. It was a pleasure taking care of you. Please reach out any questions or concerns. Sincerely, The Hospital medicine team at [facility] Pending Studies at Discharge: No Stand-Alone Forms: My [facility] Skilled Items Patient informed of condition?: Yes Discharge Level of Care: Other Communicable Disease: Yes Discharge Prognosis: Stable Lines: None Urinary Catheter: No Medications and DC Order Prescriptions: New oxycodone 5 mg Tablet 10 mg PO Q6H PRN (Reason: pain (scale score 7-10)) Qty: 28 0RF ertapenem 1 gram recon soln 1 g IM DAILY 5 Days Qty: 5 0RF Rx Instructions: Ertapenem 1 g IM injection daily x 5 days to complete 10 day course of antibiotics Continued benztropine 1 mg tablet 1 mg PO BID hydralazine 25 mg tablet 25 mg PO DAILY levetiracetam [Keppra] 1,000 mg Tablet 1,000 mg PO BID aspirin 325 mg Tablet,Delayed Release (Dr/Ec) 325 mg PO DAILY docusate sodium 250 mg Capsule 250 mg PO BID Rx Instructions: hold for loose stools acidophilus-pectin, citrus 100 million cell-10 mg Capsule 1 cap PO BID gabapentin 600 mg Tablet 600 mg PO BID Rx Instructions: take with 400mg for total 1000mg gabapentin 400 mg Capsule 400 mg PO BID Rx Instructions: take with 600mg total of 1000mg doxepin 100 mg Capsule 100 mg PO HS Rx Instructions: crush ferrous sulfate 325 mg (65 mg iron) Tablet 325 mg PO DAILY ascorbic acid (vitamin C) [Vitamin C] 500 mg Tablet,Chewable 500 mg PO DAILY cholecalciferol (vitamin D3) [Vitamin D3] 25 mcg (1,000 unit) Capsule 25 mcg PO DAILY zinc gluconate 50 mg Tablet 50 mg PO DAILY insulin glargine-yfgn 100 unit/mL Solution 70 unit SUBCUT BID sennosides-docusate sodium [Senokot-S] 8.6-50 mg Tablet 2 tab-cap PO HS Rx Instructions: HOLD FOR LOOSE STOOLS spironolactone 25 mg Tablet 25 mg PO BID tamsulosin 0.4 mg Capsule 0.4 mg PO DAILY perphenazine 4 mg Tablet 4 mg PO HS rosuvastatin 40 mg Tablet 40 mg PO .ON HOLD Rx Instructions: ON HOLD 04/01/25 TO 05/08/25 Discontinued oxycodone-acetaminophen [Percocet] 10-325 mg Tablet 1 tab PO TID daptomycin 500 mg recon soln 850 mg IV DAILY Rx Instructions: Administer over 30 mins on a daily basis, from 04/01/2025, 3:00pm through 05/07/2025, 3:00pm. Discharge Orders: Discharge Order (Routine); Ordered 05/07/25 Ordered By: Javi Clement/Other Patient Handouts: What is Charcot Foot?, Treating Charcot Foot Admission Data Admit Date/Time: 05/01/25 17:03 Attending Provider: Eugene Angulo Admit Provider: Christo Wilson Primary Care Provider: Katja FLEMING Other Providers: Christo Wilson; Naun Sorensen Other Interventions: Discharge Summary Assessment (RN) Last Done: 05/07/25 13:48 Hospital Stay Data Consultations 05/01/25 16:16 ED Decision to Admit Stat 05/01/25 17:17 Consult Orthopedic Surgery Routine 05/01/25 17:18 Consult Infectious Diseases Routine Diagnostic Imagining Performed 05/01/25 15:04 CT foot RT wo con Stat 05/01/25 17:58 US arterial duplex LE RT Urgent Discharge Instructions Given to Patient (Per Discharging Provider) You were hospitalized at [facility] from 05/02 - 05/07 for an open wound/ulceration on the bottom of your right foot. During your hospital stay, you were treated with IV antibiotics for a skin and soft tissue infection surrounding the wound and extending up to your mid calf. A wound culture was taken on arrival, which showed that a specific IV antibiotic (ertapenem) was particularly effective against the bacteria growing in your foot. This antibiotic can be taken either through the IV or as an injection intermuscularly. You were also seen by an orthopedic surgeon (Dr. Sorensen) who explained that the bone biopsies obtained from your original I&D of the foot on 03/26 were negative for a bone infection known as osteomyelitis. Given this bone biopsy came back negative, it is suspected that you have something called "Charcot arthropathy". While hospitalized, you did did not consent for any sort of amputation, but rather elected to treat this conservatively. Over the course of your hospital stay, your white blood cell count remained within normal limits, and an inflammatory blood marker (called a CRP) started to downtrend after you were started on antibiotics. Given overall improvement in your symptoms, and pain control with oxycodone, we feel that it is safe for you to return to the halfway with close podiatry follow-up. We are requesting that the halfway set you up with a podiatry appointment (with Dr. Neal if possible) in the next 1 to 2 weeks. Additionally, you will be returning to the halfway with the following new prescriptions: - Ertapenem 1 g IM daily x 5 days - Oxycodone 10 mg p.o. tablets every 6 hours as needed for pain (scale 8-10) x 28 pills Our physical therapy team recommend obtaining a rolling walker to help with walking extended distances.. Please continue to wear your boot until seen by podiatry for follow-up. If you develop any new or worsening symptoms, such as intractable right foot pain, fever, chills, pain extending up the right leg, chest pain, trouble breathing, please return to the emergency department immediately. It was a pleasure taking care of you. Please reach out any questions or concerns. Sincerely, The Hospital medicine team at [facility] Supervising Physician Co-Signing Physician Notes The patient was not seen by me. The chart was reviewed. Case discussed with YI Joy. 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
== END 2025-05-07 18:12 | DRG 638 ==
LOC: ED 14:34 → 2W 17:03 → SUATTDRO 17:03 → 2W 17:45